=== PATIENT | male | born 1940 | race Caucasian/White ===

== ENCOUNTER 2019-03-19 21:29 | Emergency (ER) | payer MEDICARE ==
[2019-03-19 21:34] VITALS: TEMP 97.6
--- NOTE | 2019-03-19 21:48 | ED ---
General Adult HPI - General Chief complaint: Fall Stated complaint: fall Time Seen by Provider: 03/19/19 21:37 Source: patient, RN notes reviewed, old records reviewed Mode of arrival: ambulatory Limitations: no limitations - History of Present Illness Initial comments: 78-year-old male presents status post fall with facial injury. Approximately one half hours prior to arrival patient had fallen from a step ladder. He believes he was on the second step and fell striking his face. There is no loss consciousness. Patient developed some headache and tremor symptoms since the fall and has sought medical attention. Denies focal weakness or numbness. He denies any other extremity injury, no chest injury or abdominal injury, no back injury. He does have some mild neck pain associated with the fall. Denies vision changes. He had a bloody nose which has resolved. No anticoagulation. - Related Data Home Medications Medication Instructions Recorded Confirmed Atorvastatin Calcium [Lipitor] 10 mg PO HS 05/26/14 03/19/19 Ascorbic Acid [Vitamin C] 500 mg PO DAILY 08/09/14 03/19/19 Calcium Carbonate/Vitamin D3 1 tab PO STANLEY 08/09/14 03/19/19 [Calcium 600-Vit D3 400 Tablet] L.acid/L.casei/B.bif/B.kellen/Fos 2 cap PO DAILY 08/09/14 03/19/19 [Probiotic Blend Capsule] Multivitamin [Men's Multi-Vitamin] 1 tab PO DAILY 08/09/14 03/19/19 Amitriptyline HCl [Elavil] 25 mg PO HS 03/19/19 03/19/19 Cabergoline 0.5mg 0.25 mg PO MOFR 03/19/19 03/19/19 DULoxetine HCL [Cymbalta] 60 mg PO DAILY 03/19/19 03/19/19 Gabapentin [Neurontin] 300 mg PO BID 03/19/19 03/19/19 Morphine Sulfate ER [Ms Contin] 15 mg PO HS 03/19/19 03/19/19 Morphine Sulfate ER [Ms Contin] 30 mg PO DAILY 03/19/19 03/19/19 carBAMazepine 50 mg PO DAILY 03/19/19 03/19/19 carBAMazepine 100 mg PO DAILY 03/19/19 03/19/19 Previous Rx's Medication Instructions Recorded Hydrocodone/Acetaminophen [[place] 1 each PO Q6HR PRN #20 tab 06/13/15 5-325] HYDROcodone/APAP 5-325MG [[place] 1 tab PO Q6HR PRN #12 tab 03/20/19 5-325] Sulfamethox-Tmp 800-160Mg [Bactrim 1 tab PO Q12HR #20 tab 03/20/19 DS 800-160 mg] Allergies Allergy/AdvReac Type Severity Reaction Status Date / Time amoxicillin AdvReac Nausea & Verified 03/19/19 23:21 Vomiting clindamycin AdvReac Nausea & Verified 03/19/19 23:21 Vomiting doxycycline AdvReac Nausea & Verified 03/19/19 23:21 Vomiting doxycycline calcium AdvReac Nausea & Verified 03/19/19 23:21 [From Vibramycin] Vomiting doxycycline hyclate AdvReac Nausea & Verified 03/19/19 23:21 [From Vibramycin] Vomiting doxycycline monohydrate AdvReac Nausea & Verified 03/19/19 23:21 [From Vibramycin] Vomiting Review of Systems ROS Statement: Those systems with pertinent positive or pertinent negative responses have been documented in the HPI. ROS Other: All systems not noted in ROS Statement are negative. Past Medical History Past Medical History: Hypertension, Prostate Disorder Additional Past Medical History / Comment(s): melanoma, UTI History of Any Multi-Drug Resistant Organisms: None Reported Past Surgical History: Bladder Surgery, Hernia Repair, Prostate Surgery Additional Past Surgical History / Comment(s): skin- melanoma, TURP, PAIN PUMP Past Anesthesia/Blood Transfusion Reactions: No Reported Reaction Past Psychological History: No Psychological Hx Reported Smoking Status: Former smoker Past Alcohol Use History: Rare Past Drug Use History: None Reported - Past Family History Father Family Medical History: CVA/TIA Mother Family Medical History: Cancer Additional Family Medical History / Comment(s): Breast General Exam Limitations: no limitations General appearance: alert, in no apparent distress Head exam: Present: atraumatic, normocephalic Eye exam: Present: PERRL, EOMI, periorbital swelling, periorbital tenderness, other (Patient has bilateral periorbital ecchymosis, worse on the right. He has some dried blood at the external nares, no septal hematoma, he has a superficial laceration at the between the eyebrows approximately 1 cm in length no active hemorrhage. His extraocular motions are intact.) ENT exam: Present: TM's normal bilaterally, other (No septal hematoma, dried blood at bilateral nares) Neck exam: Present: normal inspection, tenderness (Minimal lower cervical tenderness) Respiratory exam: Present: normal lung sounds bilaterally. Absent: respiratory distress, wheezes Cardiovascular Exam: Present: regular rate, normal rhythm GI/Abdominal exam: Present: soft. Absent: distended, tenderness, guarding Extremities exam: Present: normal inspection, full ROM, normal capillary refill. Absent: tenderness, pedal edema, calf tenderness Neurological exam: Present: alert, oriented X3, CN II-XII intact. Absent: motor sensory deficit Psychiatric exam: Present: normal affect, normal mood Skin exam: Present: warm, dry. Absent: cyanosis, diaphoretic Course Vital Signs 03/19/19 21:29 Temperature 97.6 F Pulse Rate 98 Respiratory 20 Rate Blood Pressure 162/104 O2 Sat by Pulse 98 Oximetry Medical Decision Making - Medical Decision Making 78-year-old male presenting with fall from approximately [address] is performed of the brain and cervical spine, no cervical fracture subluxation, no itch cream hemorrhage or mass effect. CT is performed of the facial bones which shows a his bone fracture and a minimally displaced frontal sinus fracture with debris within the sinus likely blood. Patient has normal tympanic membranes no sign of hemotympanum is otherwise well-appearing with stable vitals. He is given sinus precautions and prescribed antibiotics. He will follow-up with ENT. Disposition Clinical Impression: Concussion, Nasal bone fracture, Frontal sinus fracture Disposition: HOME SELF-CARE Condition: Fair Instructions (If sedation given, give patient instructions): Fall Prevention for Older Adults (ED), Nasal Fracture (ED), Concussion (ED) Prescriptions: Sulfamethox-Tmp 800-160Mg [Bactrim DS 800-160 mg] 1 tab PO Q12HR #20 tab HYDROcodone/APAP 5-325MG [[place] 5-325] 1 tab PO Q6HR PRN #12 tab PRN Reason: Pain Is patient prescribed a controlled substance at d/c from ED?: No Referrals: Vinny Olea MD [Primary Care Provider] - 1-2 days Andres Marte MD [STAFF PHYSICIAN] - 1-2 days Time of Disposition: 00:32
--- NOTE | 2019-03-19 22:11 | CT ---
EXAMINATION TYPE: CT brain krishan mancini DATE OF EXAM: 03/19/2019 COMPARISON: None HISTORY: Fall. CT DLP: 1128.4 mGycm Automated exposure control for dose reduction was used. TECHNIQUE: CT scan of the head and cervical spine are performed without contrast. FINDINGS: There is cerebral cortical atrophy. There is no mass effect nor midline shift. There is n o sign of intracranial hemorrhage. The calvarium is intact. There is mucosal thickening in the anteri or ethmoid air cells and in the nasopharynx. There is soft tissue swelling anterior to the frontal aliza ne. There is soft tissue swelling at the bridge of the nose. Cervical vertebra have fairly normal alignment. There is mild narrowing of the disc spaces from C4 to C7 with mild spurring. Posterior elements are intact. Facet joints are intact. There is no evidence for fracture. Skull base is intact. IMPRESSION: Mild cerebral atrophy. No acute intracranial abnormality. Soft tissue swelling. Mild spondylotic changes in the cervical spine. No fracture seen.
--- NOTE | 2019-03-19 22:16 | CT ---
EXAMINATION TYPE: CT facial bones wo con DATE OF EXAM: 03/19/2019 COMPARISON: None HISTORY: Fall. CT DLP: 1128.4 mGycm Automated exposure control for dose reduction was used. TECHNIQUE: CT scan of the sinuses is performed without contrast, axial images are obtained, coronal r eformatted images are also reviewed. FINDINGS: There is soft tissue swelling anterior to the frontal bone and to the bridge of the nose. T here is soft tissue air consistent with laceration deformity. There is mucosal thickening in fluid an d debris in the frontal and anterior ethmoid sinuses. There is a 3 mm depressed fracture of the right side of the frontal bone adjacent to the frontal sinuses. There is no evidence of a blowout fracture. The orbital margins are intact. There is deformity of the right lateral aspect of the nasal bone consistent with nondisplaced fracture. The zygomatic arches a re intact. The mandibular ring is intact. I see no bony destructive process. Temporal bones show norm al aeration. The maxilla is intact. IMPRESSION: Nondisplaced nasal bone fracture. Minimally depressed fracture of the anterior wall of the frontal sinus between the orbits with soft t issue air and debris in the frontal and ethmoid sinuses. No evidence of orbital mass. No blowout frac ture. Preseptal soft tissue swelling around the right orbit. Frontal soft tissue swelling and soft tissue a ir consistent with laceration.
[2019-03-19] MEDS ORDERED: TOPICAL SKIN ADHESIVE 1 EACH AMP TOPICAL ONE (23:14)
[2019-03-20] MEDS ORDERED: HYDROcodone/APAP 5-325MG 1 EACH TAB PO STA (00:28)
[2019-03-20] MEDS ORDERED: HYDROmorphone 1 MG/ML 1 ML SYRINGE IVP STA (00:53)
[2019-03-20] MEDS ORDERED: ONDANSETRON 4 MG/2 ML VIAL IVP STA (00:53)
[2019-03-20 01:06] LABS: Basophils # (A) 0.1 k/uL (0-0.2); Basophils % (A) 1 %; Eosinophils # (A) 0.1 k/uL (0-0.7); Eosinophils % (A) 1 %; HCT 48.8 % (39.0-53.0); HGB 16.5 gm/dL (13.0-17.5); Lymphocytes % (A) 9 %; MCHC 33.9 g/dL (31.0-37.0); MCV 88.5 fL (80.0-100.0); Mean Platelet Volume 6.3; Monocytes # (A) 0.5 k/uL (0-1.0); Monocytes % (A) 4 %; Neutrophils # (A) 10.1 k/uL (1.3-7.7); Neutrophils % (A) 85 %; Platelet Count 342 k/uL (150-450); RBC 5.52 m/uL (4.30-5.90); RDW 11.6 % (11.5-15.5)
[2019-03-20 01:14] LABS: INR 0.9 (<1.2); Partial Thromboplastin Time 25.6 sec (22.0-30.0); Prothrombin Time 10.2 sec (9.0-12.0)
[2019-03-20 01:17] LABS: ALT 34 U/L (21-72); AST 39 U/L (17-59); African American GFR (CKD) >90 (>60 ml/min/1.73 sqM); Albumin 4.9 g/dL (3.5-5.0); Alkaline Phosphatase 115 U/L (38-126); Anion Gap 10 mmol/L; Blood Urea Nitrogen 17 mg/dL (9-20); Calcium 10.4 mg/dL (8.4-10.2); Carbon Dioxide 27 mmol/L (22-30); Chloride 98 mmol/L (98-107); Glucose 129 mg/dL (74-99); Non-African American GFR(CKD) >90 (>60 ml/min/1.73 sqM); Potassium 4.6 mmol/L (3.5-5.1); Sodium 135 mmol/L (137-145); Total Bilirubin 0.8 mg/dL (0.2-1.3); Total Protein 8.2 g/dL (6.3-8.2)
[2019-03-20] MEDS ORDERED: LABETALOL 5 MG/ML VIAL MDV IVP STA (01:24)
--- NOTE | 2019-03-20 01:29 | ED ---
Medical Decision Making - Lab Data Result diagrams: 03/20/19 00:51 03/20/19 00:51 Lab Results 03/20/19 03/20/19 03/20/19 Range/Units 00:51 00:51 00:51 WBC 12.0 H (3.8-10.6) k/uL RBC 5.52 (4.30-5.90) m/uL Hgb 16.5 (13.0-17.5) gm/dL Hct 48.8 (39.0-53.0) % MCV 88.5 (80.0-100.0) fL MCH 30.0 (25.0-35.0) pg MCHC 33.9 (31.0-37.0) g/dL RDW 11.6 (11.5-15.5) % Plt Count 342 (150-450) k/uL Neutrophils % 85 % Lymphocytes % 9 % Monocytes % 4 % Eosinophils % 1 % Basophils % 1 % Neutrophils # 10.1 H (1.3-7.7) k/uL Lymphocytes # 1.0 (1.0-4.8) k/uL Monocytes # 0.5 (0-1.0) k/uL Eosinophils # 0.1 (0-0.7) k/uL Basophils # 0.1 (0-0.2) k/uL PT 10.2 (9.0-12.0) sec INR 0.9 (<1.2) APTT 25.6 (22.0-30.0) sec Sodium 135 L (137-145) mmol/L Potassium 4.6 (3.5-5.1) mmol/L Chloride 98 (98-107) mmol/L Carbon Dioxide 27 (22-30) mmol/L Anion Gap 10 mmol/L BUN 17 (9-20) mg/dL Creatinine 0.63 L (0.66-1.25) mg/dL Est GFR (CKD-EPI)AfAm >90 (>60 ml/min/1.73 sqM) Est GFR (CKD-EPI)NonAf >90 (>60 ml/min/1.73 sqM) Glucose 129 H (74-99) mg/dL Calcium 10.4 H (8.4-10.2) mg/dL Total Bilirubin 0.8 (0.2-1.3) mg/dL AST 39 (17-59) U/L ALT 34 (21-72) U/L Alkaline Phosphatase 115 (38-126) U/L Total Protein 8.2 (6.3-8.2) g/dL Albumin 4.9 (3.5-5.0) g/dL Disposition Clinical Impression: Concussion, Nasal bone fracture, Frontal sinus fracture Disposition: OTHER INSTITUTION NOT DEFINED Condition: Fair Instructions (If sedation given, give patient instructions): Nasal Fracture (ED), Concussion (ED), Fall Prevention for Older Adults (ED) Prescriptions: Sulfamethox-Tmp 800-160Mg [Bactrim DS 800-160 mg] 1 tab PO Q12HR #20 tab HYDROcodone/APAP 5-325MG [[place] 5-325] 1 tab PO Q6HR PRN #12 tab PRN Reason: Pain Referrals: Vinny Olea MD [Primary Care Provider] - 1-2 days Andres Marte MD [STAFF PHYSICIAN] - 1-2 days Time of Disposition: 01:29 - Out of Hospital Transfer - Req. Specs Out of Hospital Transfer - Requested Specifics: Other Emergency Center (Transferred to [facility])
[2019-03-20 02:37] VITALS: BP 155/92; PULSE 80; RESP 17
== END 2019-03-20 02:00 | disposition other institution (70) ==
LOC: EC 21:29
DX: S02.2XXA Fracture of nasal bones, initial encounter for closed fracture (principal); S02.19XA Other fracture of base of skull, initial encounter for closed fracture; S06.0X0A Concussion without loss of consciousness, initial encounter; S01.81XA Laceration without foreign body of other part of head, initial encounter; I10 Essential (primary) hypertension; N42.9 Disorder of prostate, unspecified; Z79.899 Other long term (current) drug therapy; Z79.82 Long term (current) use of aspirin; Z79.891 Long term (current) use of opiate analgesic; Z88.1 Allergy status to other antibiotic agents; Z88.0 Allergy status to penicillin; Z88.8 Allergy status to other drugs, medicaments and biological substances; Z85.820 Personal history of malignant melanoma of skin; Z87.891 Personal history of nicotine dependence; Z90.79 Acquired absence of other genital organ(s); W11.XXXA Fall on and from ladder, initial encounter
CPT/HCPCS: 36415; 93005; 80053; 85025; 85610; 85730; 72125; 70486; 70450; 96374; 96375 ×2; 99285; J2405; J1170

== ENCOUNTER 2020-07-17 21:00 | Observation (INO) | payer MEDICARE ==
[2020-07-17 22:34] LABS: Basophils % (A) 0 %; Eosinophils # (A) 0.1 k/uL (0-0.7); Eosinophils % (A) 2 %; HCT 40.5 % (39.0-53.0); HGB 14.1 gm/dL (13.0-17.5); Lymphocytes # (A) 1.4 k/uL (1.0-4.8); Lymphocytes % (A) 19 %; MCH 30.9 pg (25.0-35.0); MCHC 34.8 g/dL (31.0-37.0); MCV 88.9 fL (80.0-100.0); Mean Platelet Volume 6.8; Monocytes # (A) 0.5 k/uL (0-1.0); Monocytes % (A) 7 %; Neutrophils # (A) 5.1 k/uL (1.3-7.7); Neutrophils % (A) 70 %; Platelet Count 300 k/uL (150-450); RBC 4.55 m/uL (4.30-5.90); RDW 11.7 % (11.5-15.5); WBC 7.3 k/uL (3.8-10.6)
--- NOTE | 2020-07-17 22:34 | XR ---
EXAMINATION TYPE: XR chest 2V DATE OF EXAM: 07/17/2020 COMPARISON: NONE HISTORY: Chest pain TECHNIQUE: 3 views FINDINGS: There is no heart failure nor confluent pneumonic infiltrate. Costophrenic angles are clear . Heart size is normal. Bony thorax is intact. IMPRESSION: No active cardiopulmonary disease. Normal heart.
[2020-07-17 22:43] LABS: ALT 23 U/L (4-49); AST 35 U/L (17-59); African American GFR (CKD) >90 (>60 ml/min/1.73 sqM); Albumin 4.1 g/dL (3.5-5.0); Alkaline Phosphatase 78 U/L (38-126); Anion Gap 9 mmol/L; Blood Urea Nitrogen 19 mg/dL (9-20); Calcium 9.5 mg/dL (8.4-10.2); Carbon Dioxide 30 mmol/L (22-30); Chloride 98 mmol/L (98-107); Glucose 119 mg/dL (74-99); Non-African American GFR(CKD) 89 (>60 ml/min/1.73 sqM); Potassium 3.8 mmol/L (3.5-5.1); Sodium 137 mmol/L (137-145); Total Bilirubin 0.5 mg/dL (0.2-1.3); Total Protein 6.7 g/dL (6.3-8.2)
[2020-07-17 22:49] LABS: Partial Thromboplastin Time 24.2 sec (22.0-30.0); Prothrombin Time 10.8 sec (9.0-12.0)
--- NOTE | 2020-07-17 23:10 | ED ---
SOB HPI - General Chief Complaint: Shortness of Breath Stated Complaint: Abnormal labs Time Seen by Provider: 07/17/20 21:51 Source: patient Mode of arrival: wheelchair Limitations: no limitations - History of Present Illness Initial Comments: 79-year-old male with history of hypertension presents to the emergency department with a chief complaint of shortness of breath. Patient reports increased shortness of breath over the last month. Patient reports if he begins to exercise one day, the following day he will feel completely rundown. Patient reports she continues to feel short of breath which seems to be worse on exertion. Patient also reports having "lung pain" diffusely throughout the whole chest. Denies any alleviating or exacerbating factors for that. Denies any lightheadedness or dizziness. States he had a CT of the chest performed today another hospital which revealed some "blocked blood vessels". He spoke with his primary care physician who advised him to come to the emergency department for cardiac evaluation. Patient has never received a cardiac echo and his last stress test test was quite long time ago. - Related Data Home Medications Medication Instructions Recorded Confirmed Atorvastatin Calcium [Lipitor] 10 mg PO HS 05/26/14 07/18/20 Ascorbic Acid [Vitamin C] 500 mg PO DAILY 08/09/14 07/18/20 L.acid/L.casei/B.bif/B.kellen/Fos 2 cap PO DAILY 08/09/14 07/18/20 [Probiotic Blend Capsule] DULoxetine HCL [Cymbalta] 60 mg PO DAILY 03/19/19 07/18/20 Morphine Sulfate ER [Ms Contin] 15 mg PO HS 03/19/19 07/18/20 Morphine Sulfate ER [Ms Contin] 30 mg PO DAILY 03/19/19 07/18/20 Amitriptyline HCl [Elavil] 10 mg PO HS 07/17/20 07/18/20 Cabergoline 0.25 mg PO MOFR 07/17/20 07/18/20 Calcium Carbonate [Calcium] 600 mg PO STANLEY 07/17/20 07/18/20 Cranberry 4200mg 4,200 mg PO DAILY 07/17/20 07/18/20 HYDROcodone/APAP 5-325MG [[place] 1 tab PO BID PRN 07/17/20 07/18/20 5-325] Multivit-Min/FA/Lycopen/Lutein 1 tab PO DAILY 07/17/20 07/18/20 [Centrum Silver Tablet] carBAMazepine CHEW [TEGretol CHEW] 25 mg PO DAILY 07/18/20 07/18/20 carBAMazepine CHEW [TEGretol CHEW] 50 mg PO HS 07/18/20 07/18/20 Allergies Allergy/AdvReac Type Severity Reaction Status Date / Time amoxicillin AdvReac Nausea & Verified 07/17/20 23:46 Vomiting clindamycin AdvReac Nausea & Verified 07/17/20 23:46 Vomiting doxycycline AdvReac Nausea & Verified 07/17/20 23:46 Vomiting doxycycline calcium AdvReac Nausea & Verified 07/17/20 23:46 [From Vibramycin] Vomiting doxycycline hyclate AdvReac Nausea & Verified 07/17/20 23:46 [From Vibramycin] Vomiting doxycycline monohydrate AdvReac Nausea & Verified 07/17/20 23:46 [From Vibramycin] Vomiting Review of Systems ROS Statement: Those systems with pertinent positive or pertinent negative responses have been documented in the HPI. ROS Other: All systems not noted in ROS Statement are negative. Past Medical History Past Medical History: Hypertension, Prostate Disorder Additional Past Medical History / Comment(s): melanoma, UTI History of Any Multi-Drug Resistant Organisms: None Reported Past Surgical History: Bladder Surgery, Hernia Repair, Prostate Surgery Additional Past Surgical History / Comment(s): skin- melanoma, TURP, PAIN PUMP Past Anesthesia/Blood Transfusion Reactions: No Reported Reaction Past Psychological History: No Psychological Hx Reported Smoking Status: Never smoker Past Alcohol Use History: Rare Past Drug Use History: None Reported - Past Family History Father Family Medical History: CVA/TIA Mother Family Medical History: Cancer Additional Family Medical History / Comment(s): Breast General Exam Limitations: no limitations General appearance: alert, in no apparent distress Head exam: Present: atraumatic, normocephalic, normal inspection Eye exam: Present: normal appearance, PERRL, EOMI Pupils: Present: normal accommodation ENT exam: Present: normal exam, normal oropharynx, mucous membranes moist, TM's normal bilaterally, normal external ear exam Neck exam: Present: normal inspection, full ROM. Absent: tenderness Respiratory exam: Present: normal lung sounds bilaterally. Absent: respiratory distress Cardiovascular Exam: Present: regular rate, normal rhythm, normal heart sounds GI/Abdominal exam: Present: soft. Absent: distended, tenderness, guarding, rebound Extremities exam: Present: normal inspection, full ROM, normal capillary refill. Absent: tenderness, pedal edema, joint swelling Back exam: Present: normal inspection, full ROM. Absent: tenderness Neurological exam: Present: alert, oriented X3, normal gait Psychiatric exam: Present: normal affect, normal mood Skin exam: Present: warm, dry, intact, normal color Course Vital Signs 07/17/20 07/18/20 21:02 00:33 Temperature 98.1 F Pulse Rate 103 H 78 Respiratory 19 16 Rate Blood Pressure 165/88 135/77 O2 Sat by Pulse 98 97 Oximetry Medical Decision Making - Medical Decision Making 79-year-old male with history of hypertension, dyslipidemia presents to the emergency department the chief complaint of shortness of breath. On physical examination, patient is not in any respiratory distress. He was initially tachycardic, this improved. CBC CMP unremarkable. Coags within normal limits. Initial troponin is negative. Slight elevation in d-dimer is 0.63. He c ontinues to complain of "lung pain" throughout the whole chest. This appears to be atypical chest pain. His primary care physician sent him for a cardiac evaluation. Patient will be admitted for further medical management. Cardiac observation. Coronavirus negative. Admitting physician is Consult cardiology - Lab Data Result diagrams: 07/17/20 22:25 07/17/20 22:25 Lab Results 07/17/20 07/17/20 07/17/20 Range/Units 22:25 22:25 22:25 WBC 7.3 (3.8-10.6) k/uL RBC 4.55 (4.30-5.90) m/uL Hgb 14.1 (13.0-17.5) gm/dL Hct 40.5 (39.0-53.0) % MCV 88.9 (80.0-100.0) fL MCH 30.9 (25.0-35.0) pg MCHC 34.8 (31.0-37.0) g/dL RDW 11.7 (11.5-15.5) % Plt Count 300 (150-450) k/uL MPV 6.8 Neutrophils % 70 % Lymphocytes % 19 % Monocytes % 7 % Eosinophils % 2 % Basophils % 0 % Neutrophils # 5.1 (1.3-7.7) k/uL Lymphocytes # 1.4 (1.0-4.8) k/uL Monocytes # 0.5 (0-1.0) k/uL Eosinophils # 0.1 (0-0.7) k/uL Basophils # 0.0 (0-0.2) k/uL PT 10.8 (9.0-12.0) sec INR 1.0 (<1.2) APTT 24.2 (22.0-30.0) sec D-Dimer 0.63 H (<0.60) mg/L FEU Sodium 137 (137-145) mmol/L Potassium 3.8 (3.5-5.1) mmol/L Chloride 98 (98-107) mmol/L Carbon Dioxide 30 (22-30) mmol/L Anion Gap 9 mmol/L BUN 19 (9-20) mg/dL Creatinine 0.73 (0.66-1.25) mg/dL Est GFR (CKD-EPI)AfAm >90 (>60 ml/min/1.73 sqM) Est GFR (CKD-EPI)NonAf 89 (>60 ml/min/1.73 sqM) Glucose 119 H (74-99) mg/dL Calcium 9.5 (8.4-10.2) mg/dL Magnesium 2.0 (1.6-2.3) mg/dL Total Bilirubin 0.5 (0.2-1.3) mg/dL AST 35 (17-59) U/L ALT 23 (4-49) U/L Alkaline Phosphatase 78 (38-126) U/L Troponin I (0.000-0.034) ng/mL NT-Pro-B Natriuret Pep pg/mL Total Protein 6.7 (6.3-8.2) g/dL Albumin 4.1 (3.5-5.0) g/dL 07/17/20 07/17/20 Range/Units 22:25 22:25 WBC (3.8-10.6) k/uL RBC (4.30-5.90) m/uL Hgb (13.0-17.5) gm/dL Hct (39.0-53.0) % MCV (80.0-100.0) fL MCH (25.0-35.0) pg MCHC (31.0-37.0) g/dL RDW (11.5-15.5) % Plt Count (150-450) k/uL MPV Neutrophils % % Lymphocytes % % Monocytes % % Eosinophils % % Basophils % % Neutrophils # (1.3-7.7) k/uL Lymphocytes # (1.0-4.8) k/uL Monocytes # (0-1.0) k/uL Eosinophils # (0-0.7) k/uL Basophils # (0-0.2) k/uL PT (9.0-12.0) sec INR (<1.2) APTT (22.0-30.0) sec D-Dimer (<0.60) mg/L FEU Sodium (137-145) mmol/L Potassium (3.5-5.1) mmol/L Chloride (98-107) mmol/L Carbon Dioxide (22-30) mmol/L Anion Gap mmol/L BUN (9-20) mg/dL Creatinine (0.66-1.25) mg/dL Est GFR (CKD-EPI)AfAm (>60 ml/min/1.73 sqM) Est GFR (CKD-EPI)NonAf (>60 ml/min/1.73 sqM) Glucose (74-99) mg/dL Calcium (8.4-10.2) mg/dL Magnesium (1.6-2.3) mg/dL Total Bilirubin (0.2-1.3) mg/dL AST (17-59) U/L ALT (4-49) U/L Alkaline Phosphatase (38-126) U/L Troponin I <0.012 (0.000-0.034) ng/mL NT-Pro-B Natriuret Pep 173 pg/mL Total Protein (6.3-8.2) g/dL Albumin (3.5-5.0) g/dL Disposition Clinical Impression: Chest pain, Shortness of breath Disposition: ADMITTED IP TO THIS HOSP Condition: Stable Is patient prescribed a controlled substance at d/c from ED?: No Time of Disposition: 12:22
[2020-07-17 23:35] LABS: D-Dimer 0.63 mg/L FEU (<0.60)
[2020-07-18] MEDS ORDERED: SODIUM CHLORIDE 0.9% 1,000 ML IV STA (00:16)
[2020-07-18] MEDS ORDERED: NITROGLYCERIN SL TABS 0.4 MG TAB SUBLINGUAL PRN (01:49)
[2020-07-18 06:40] VITALS: PULSE 74
[2020-07-18] MEDS ORDERED: ENOXAPARIN 60 MG/0.6 ML SYRINGE SQ SCH (09:00)
[2020-07-18] MEDS ORDERED: HYDROcodone/APAP 5-325MG 1 EACH TAB PO PRN (09:43)
[2020-07-18] MEDS ORDERED: NON FORMULARY DRUG (Cabergoline [Cabergoline] 0.5 MG Tablet) PO SCH (09:45)
[2020-07-18] MEDS ORDERED: LACTOBACILLUS ACIDOPH & BULGAR 1 EACH PACKET PO SCH (10:00)
[2020-07-18] MEDS ORDERED: ASCORBIC ACID 500 MG TAB PO SCH (10:00)
[2020-07-18] MEDS ORDERED: MORPHINE SULFATE ER 30 MG TABLET PO SCH (10:00)
[2020-07-18] MEDS ORDERED: DULoxetine HCL 60 MG CAPSULE.DR PO SCH (10:00)
[2020-07-18] MEDS ORDERED: MULTIVITAMINS, THERA 1 EACH TAB PO SCH (10:00)
--- NOTE | 2020-07-18 11:00 | P.CRDCN ---
History of Present Illness History of present illness: HISTORY OF PRESENTING ILLNESS This is a pleasant 79-year-old male with significant past medical history hyperlipidemia. 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 His primary care doctor is Dr. Olea. We have been asked to see in consultation for chest pain. Patient states that over the past 12 months he has been feeling short of breath when he's doing outside activities. 2 days ago he was outside change in his birdfeeder and working in the backyard. He had worsening short of breath. When he went inside and rested shortness of breath resolved. The next day when he woke up she started to have a slight chest pressure. Chest pain is located in the center of his chest. He cannot exactly describe the pain it just felt like a pressure. This chest pain is nonradiating, nonexertional. Nothing made the chest pain worse or better. The chest pain resolved on its own. He states s he only has exertional shortness of breath when he is outside, never inside his home. He denies any season allergies. He denies any lightheadedness, palpitations, dizziness, , syncope. He also endorses lately being very tired over the past one to 2 months. Denies any weakness. He endorses having i ntermittent chills at home, no fever. Patient denies any history of hypertension, NM, stroke, or diabetes. He denies any symptoms of orthopnea. He denies any tobacco use, alcohol use, illicit drug use. Patient is seen and examined at bedside, lying flat in bed in no apparent distress. He states he feels much better he denies any shortness of breath, palpitations, lightheadedness, dizziness. Laboratory data reviewed, troponins negative 3 WBC 7.3, hemoglobin 14.1, platelets 300, d-dimer slightly elevated 0.63, sodium 137, potassium 3.8, BUN 19, creatinine 0.73, BNP 170. Coronavirus PCR negative. Vital signs blood pressure 125/82, heart rate 74, maintaining oxygen saturations on room air, afebrile Current home cardiac medications include atorvastatin 10mg daily. DIAGNOSTICS EKG reveals normal sinus rhythm, right axis deviation heart rate 93. Prior EKG sinus tachycardia, right axis deviation, HR 102. Telemetry tracings indicate sinus mechanism. Chest xray no acute cardiopulmonary process. REVIEW OF SYSTEMS At the time of my exam: CONSTITUTIONAL: +chills Denies fever CARDIOVASCULAR: +chest pressure +shortness of breath Denies shortness of breath, orthopnea, PND or palpitations. RESPIRATORY: Denies cough. GASTROINTESTINAL: Denies abdominal pain, diarrhea, constipation, nausea or vomiting. MUSCULOSKELETAL: Denies myalgias. NEUROLOGIC: Denies numbness, tingling, headacbe or weakness. ENDOCRINE: Denies fatigue, weight change, polydipsia or polyurina. GENITOURINARY: Denies burning, hematuria or urgency with micturation. HEMATOLOGIC: Denies history of anemia or bleeding. PHYSICAL EXAMINATION CONSTITUTIONAL: No apparent distress. HEENT: Head is normocephalic. Pupils are equal, round. Sclerae anicteric. Mucous membranes of the mouth are moist. No JVD. No carotid bruit. CHEST EXAMINATION: Lungs are clear to auscultation. No chest wall tenderness is noted on palpation or with deep breathing. HEART EXAMINATION: Regular rate and rhythm. S1, S2 heard. No murmurs, gallops or rub. ABDOMEN: Soft, nontender. Positive bowel sounds. EXTREMITIES: 2+ peripheral pulses, no lower extremity edema and no calf tenderness. SKIN: intact NEUROLOGIC EXAMINATION: Patient is awake, alert and oriented x3. ASSESSMENT -Dyslipidemia -Chest pain, atypical PLAN -Will obtain 2D echo, and exercise stress echo. If both with no acute findings, patient can be discharged from a cardiology standpoint -Continue atorvastatin 10mg nightly Nurse Practitioner note has been reviewed, I agree with a documented findings and plan of care. Patient was seen and examined. Past Medical History Past Medical History: Hypertension, Prostate Disorder Additional Past Medical History / Comment(s): melanoma, UTI History of Any Multi-Drug Resistant Organisms: None Reported Past Surgical History: Bladder Surgery, Hernia Repair, Prostate Surgery Additional Past Surgical History / Comment(s): skin- melanoma, TURP, PAIN PUMP Past Anesthesia/Blood Transfusion Reactions: No Reported Reaction Past Psychological History: No Psychological Hx Reported Smoking Status: Never smoker Past Alcohol Use History: Rare Past Drug Use History: None Reported - Past Family History Father Family Medical History: CVA/TIA Mother Family Medical History: Cancer Additional Family Medical History / Comment(s): Breast Medications and Allergies Home Medications Medication Instructions Recorded Confirmed Type Atorvastatin Calcium [Lipitor] 10 mg PO HS 05/26/14 07/18/20 History Ascorbic Acid [Vitamin C] 500 mg PO DAILY 08/09/14 07/18/20 History L.acid/L.casei/B.bif/B.kellen/Fos 2 cap PO DAILY 08/09/14 07/18/20 History [Probiotic Blend Capsule] DULoxetine HCL [Cymbalta] 60 mg PO DAILY 03/19/19 07/18/20 History Morphine Sulfate ER [Ms Contin] 15 mg PO HS 03/19/19 07/18/20 History Morphine Sulfate ER [Ms Contin] 30 mg PO DAILY 03/19/19 07/18/20 History Amitriptyline HCl [Elavil] 10 mg PO HS 07/17/20 07/18/20 History Cabergoline 0.25 mg PO MOFR 07/17/20 07/18/20 History Calcium Carbonate [Calcium] 600 mg PO STANLEY 07/17/20 07/18/20 History Cranberry 4200mg 4,200 mg PO DAILY 07/17/20 07/18/20 History HYDROcodone/APAP 5-325MG [[place] 1 tab PO BID PRN 07/17/20 07/18/20 History 5-325] Multivit-Min/FA/Lycopen/Lutein 1 tab PO DAILY 07/17/20 07/18/20 History [Centrum Silver Tablet] carBAMazepine CHEW [TEGretol CHEW] 25 mg PO DAILY 07/18/20 07/18/20 History carBAMazepine CHEW [TEGretol CHEW] 50 mg PO HS 07/18/20 07/18/20 History Allergies Allergy/AdvReac Type Severity Reaction Status Date / Time amoxicillin AdvReac Nausea & Verified 07/17/20 23:46 Vomiting clindamycin AdvReac Nausea & Verified 07/17/20 23:46 Vomiting doxycycline AdvReac Nausea & Verified 07/17/20 23:46 Vomiting doxycycline calcium AdvReac Nausea & Verified 07/17/20 23:46 [From Vibramycin] Vomiting doxycycline hyclate AdvReac Nausea & Verified 07/17/20 23:46 [From Vibramycin] Vomiting doxycycline monohydrate AdvReac Nausea & Verified 07/17/20 23:46 [From Vibramycin] Vomiting Physical Exam Vitals: Vital Signs Temp Pulse Resp BP Pulse Ox 07/18/20 06:38 74 16 125/82 97 07/18/20 02:00 98.1 F 75 18 118/69 96 07/18/20 00:33 78 16 135/77 97 07/17/20 21:02 98.1 F 103 H 19 165/88 98 Intake and Output 07/17/20 07/18/20 07/18/20 22:59 06:59 14:59 Other: Weight 64.864 kg Results 07/17/20 22:25 07/17/20 22:25 Cardiac Enzymes 07/17/20 07/17/20 07/18/20 Range/Units 22:25 22:25 02:32 AST 35 (17-59) U/L Troponin I <0.012 <0.012 (0.000-0.034) ng/mL 07/18/20 Range/Units 04:30 AST (17-59) U/L Troponin I <0.012 (0.000-0.034) ng/mL Coagulation 07/17/20 Range/Units 22:25 PT 10.8 (9.0-12.0) sec APTT 24.2 (22.0-30.0) sec CBC 07/17/20 Range/Units 22:25 WBC 7.3 (3.8-10.6) k/uL RBC 4.55 (4.30-5.90) m/uL Hgb 14.1 (13.0-17.5) gm/dL Hct 40.5 (39.0-53.0) % Plt Count 300 (150-450) k/uL Comprehensive Metabolic Panel 07/17/20 Range/Units 22:25 Sodium 137 (137-145) mmol/L Potassium 3.8 (3.5-5.1) mmol/L Chloride 98 (98-107) mmol/L Carbon Dioxide 30 (22-30) mmol/L BUN 19 (9-20) mg/dL Creatinine 0.73 (0.66-1.25) mg/dL Glucose 119 H (74-99) mg/dL Calcium 9.5 (8.4-10.2) mg/dL AST 35 (17-59) U/L ALT 23 (4-49) U/L Alkaline Phosphatase 78 (38-126) U/L Total Protein 6.7 (6.3-8.2) g/dL Albumin 4.1 (3.5-5.0) g/dL Current Medications Generic Name Dose Route Start Last Admin Trade Name Chanoq PRN Reason Stop Dose Admin Aspirin 325 mg 07/19/20 09:00 Aspirin 325 Mg Tab PO DAILY KARISSA Enoxaparin Sodium 60 mg 07/18/20 09:00 Enoxaparin 60 Mg/0.6 Ml Syringe SQ DAILY KARISSA Nitroglycerin 0.4 mg 07/18/20 01:49 Nitroglycerin Sl Tabs 0.4 Mg Tab SUBLINGUAL Q5M PRN Chest Pain Intake and Output 07/17/20 07/18/20 07/18/20 22:59 06:59 14:59 Other: Weight 64.864 kg 07/17/20 22:25 07/17/20 22:25
--- NOTE | 2020-07-18 13:02 | ECHOF ---
Referral Reason:dyspnea on exertion MEASUREMENTS -------- HEIGHT: 170.2 cm WEIGHT: 64.9 kg BP: 125/82 RVIDd: 4.3 cm (< 3.3) IVSd: 1.5 cm (0.6 - 1.1) LVIDd: 3.5 cm (3.9 - 5.3) LVPWd: 1.5 cm (0.6 - 1.1) IVSs: 1.7 cm LVIDs: 2.4 cm LVPWs: 1.8 cm LAESV Index (A-L): 17.52 ml/m Ao Diam: 3.4 cm (2.0 - 3.7) AV Cusp: 2.0 cm (1.5 - 2.6) MV EXCURSION: 11.532 mm (> 18.000) MV EF SLOPE: 103 mm/s (70 - 150) EPSS: 0.7 cm MV E Eliceo: 0.53 m/s MV DecT: 272 ms MV A Eliceo: 0.76 m/s MV E/A Ratio: 0.69 RAP: 5.00 mmHg RVSP: 23.47 mmHg FINDINGS -------- Sinus rhythm. This was a technically adequate study. The left ventricular size is normal. There is moderate concentric left ventricular hypertrophy. O verall left ventricular systolic function is normal with, an EF between 55 - 60 %. The right ventricle is moderate to severely enlarged. Normal LA size by volume 22+/-6 ml/m2. The right atrium is mildly enlarged. Interatrial and interventricular septum intact. The aortic valve is trileaflet and appears structurally normal. There is no evidence of aortic regu rgitation. There is no evidence of aortic stenosis. No mitral regurgitation. Mild tricuspid regurgitation present. There is no evidence of pulmonary hypertension. The right v entricular systolic pressure, as measured by Doppler, is 23.47mmHg. There is no pulmonic regurgitation present. The aortic root size is normal. IVC Not well visulized. There is no pericardial effusion. CONCLUSIONS -------- 1. The left ventricular size is normal. 2. There is moderate concentric left ventricular hypertrophy. 3. Overall left ventricular systolic function is normal with, an EF between 55 - 60 %. 4. The right ventricle is moderate to severely enlarged. 5. The right atrium is mildly enlarged. 6. Mild tricuspid regurgitation present. INSURANCE PROCESSOR: Azra Meraz RDCS
--- NOTE | 2020-07-18 13:41 | P.STRESS ---
- Stress Test Note Stress Test Results/Findings: Exam Performed: Exam Date: Reason for Exam: Height: 5 ft 7 in Weight: 64.864 kg Protocol: Stage: Duration of Exercise: Resting Heart Rate: Resting Blood Pressure: Maximum Achieved Heart Rate: Maximum Achieved Blood Pressure: 85% PMHR: 100% PMHR: METS: Technologist Comment: Stress Test Results/Findings: Patient underwent exercise stress echo with a Kaleb protocol treadmill stress test. Patient exercised into Stage 3 for a total of 9 minutes and 3 seconds reaching a total of 10.5 METS. Patient's maximum heart rate was 152 which represented 90 % age-predicted maximum heart rate. Stress EKG portion: At baseline patient's EKG showed normal sinus rhythm, normal axis, incomplete right bundle branch block, nonspecific minimal 0.[address] depressions in V4, V5, V6, 2 and aVF. At peak exercise, EKG showed no significant change from baseline. Stress echo portion: 2-D echocardiogram was performed in the parasternal long, personal short, apical 2 and apical four-chamber views at rest, peak exercise and in recovery. At baseline, echocardiogram showed left ventricular ejection fraction 60 % without wall motion abnormalities. With peak exercise, echocardiogram shows improvement in left ventricular ejection fraction, increase contractility, decrease in left ventricular dimension without wall motion abnormalities consistent with a normal response to exercise. Conclusions: 1. Normal EKG and echo response to exercise without evidence of inducible ischemia. 2. Fair exercise capacity.
--- NOTE | 2020-07-18 16:56 | P.CNPUL ---
History of Present Illness Consult date: 07/18/20 Requesting physician: Mark Mota Reason for consult: dyspnea, cough, asthma, hypoxemia, pneumonia Chief complaint: Shortness of breath, cough, wheezing. History of present illness: 79-year-old male that presented to the emergency department on July 17 with complaints of shortness of breath and chest pain. The patient states that for the last month or so, he develops shortness of breath, and chest congestion, as well as cough and wheezing. It seems to bother him when he goes outside to work around the bird feeders. The patient apparently was evaluated by cardiology for chest pain, and was thought not to have a cardiac issue. I was asked to see him because the primary care physician or hospitalist was concerned about hypersensitivity pneumonitis. Apparently of seeing this patient in the past, many years ago. I also saw him at that time for lung issues. He apparently used to mow his lawn and sweep of the sleeves, which were moldy, and he would have a reaction to them, and I would treat him with steroids, he would get better. This new pulmonary complaint, his been going on for maybe a month or 2. It only seems to bother him when he goes outside to tend to the bird feeders. He denies any fever or chills. He denies any nausea, vomiting, diarrhea or abdominal pain. I explained to him, this workup was an outpatient workup. We will see him in the office and he will need a complete pulmonary function test, a 6 minute walk distance, high resolution computed tomography scan, and we'll also need fungal serology and a hypersensitivity screening. In the end, he may require a lung biopsy. Review of Systems REVIEW OF SYSTEMS: CONSTITUTIONAL: [Negative.] NEUROLOGIC: [ Negative.] HEENT: [ Negative.] CARDIAC: Chest pain. PULMONARY: Shortness of breath, cough, chest tightness, wheezing. GI: [Negative.] : [Negative.] RHEUMATOLOGIC: [ Negative.] IMMUNOLOGIC: [ Negative.] ENDOCRINE: [Negative. 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 History of Any Multi-Drug Resistant Organisms: None Reported Past Surgical History: Bladder Surgery, Hernia Repair, Prostate Surgery Additional Past Surgical History / Comment(s): PAIN PUMP, TURP, bladder reduction, R inguinal hernia repair twice, L inguinal hernia, colonoscopy/benign polypectomy, melanoma removed L posterior upper back, cataract removals. Past Anesthesia/Blood Transfusion Reactions: No Reported Reaction Smoking Status: Former smoker - Past Family History Father Family Medical History: CVA/TIA Mother Family Medical History: Cancer Additional Family Medical History / Comment(s): Breast Medications and Allergies Home Medications Medication Instructions Recorded Confirmed Type Atorvastatin Calcium [Lipitor] 10 mg PO HS 05/26/14 07/18/20 History Ascorbic Acid [Vitamin C] 500 mg PO DAILY 08/09/14 07/18/20 History L.acid/L.casei/B.bif/B.kellen/Fos 2 cap PO DAILY 08/09/14 07/18/20 History [Probiotic Blend Capsule] DULoxetine HCL [Cymbalta] 60 mg PO DAILY 03/19/19 07/18/20 History Morphine Sulfate ER [Ms Contin] 15 mg PO HS 03/19/19 07/18/20 History Morphine Sulfate ER [Ms Contin] 30 mg PO DAILY 03/19/19 07/18/20 History Amitriptyline HCl [Elavil] 10 mg PO HS 07/17/20 07/18/20 History Cabergoline 0.25 mg PO MOFR 07/17/20 07/18/20 History Calcium Carbonate [Calcium] 600 mg PO STANLEY 07/17/20 07/18/20 History Cranberry 4200mg 4,200 mg PO DAILY 07/17/20 07/18/20 History HYDROcodone/APAP 5-325MG [[place] 1 tab PO BID PRN 07/17/20 07/18/20 History 5-325] Multivit-Min/FA/Lycopen/Lutein 1 tab PO DAILY 07/17/20 07/18/20 History [Centrum Silver Tablet] carBAMazepine CHEW [TEGretol CHEW] 25 mg PO DAILY 07/18/20 07/18/20 History carBAMazepine CHEW [TEGretol CHEW] 50 mg PO HS 07/18/20 07/18/20 History Allergies Allergy/AdvReac Type Severity Reaction Status Date / Time amoxicillin AdvReac Nausea & Verified 07/17/20 23:46 Vomiting clindamycin AdvReac Nausea & Verified 07/17/20 23:46 Vomiting doxycycline AdvReac Nausea & Verified 07/17/20 23:46 Vomiting doxycycline calcium AdvReac Nausea & Verified 07/17/20 23:46 [From Vibramycin] Vomiting doxycycline hyclate AdvReac Nausea & Verified 07/17/20 23:46 [From Vibramycin] Vomiting doxycycline monohydrate AdvReac Nausea & Verified 07/17/20 23:46 [From Vibramycin] Vomiting Physical Exam Osteopathic Statement: *. No significant issues noted on an osteopathic structural exam other than those noted in the History and Physical/Consult. Vitals: Vital Signs Temp Pulse Resp BP BP Pulse Ox 07/18/20 07:45 97.4 F L 18 157/88 99 07/18/20 06:38 74 16 125/82 97 07/18/20 02:00 98.1 F 75 18 118/69 96 07/18/20 00:33 78 16 135/77 97 07/17/20 21:02 98.1 F 103 H 19 165/88 98 Intake and Output 07/18/20 07/18/20 07/18/20 06:59 14:59 22:59 Other: Weight 64.864 kg No acute distress, oriented 3. Not on any supplemental oxygen. No evidence of conversational dyspnea, or audible wheezing. HEENT examination is grossly unremarkable. Mucous membranes are moist. No oral lesions. Neck supple. Full range of motion. No adenopathy thyromegaly or neck vein distention. Cardiovascular examination reveals regular rhythm rate. S1-S2 normal. No S3 or S4. No discernible murmur noted. Heart rate 74 bpm. Lungs reveal bilateral rhonchi, and expiratory wheezes. Breath sounds are equal bilaterally. Slight prolongation. No crackles.. Abdomen soft bowel sounds are heard. No masses or tenderness. Extremities are intact. No cyanosis clubbing or edema. Skin is without rash or lesion. Neurologic examination is brief but nonfocal. Results - Laboratory Findings CBC and BMP: 07/17/20 22:25 07/17/20 22:25 PT/INR, D-dimer PT 10.8 sec (9.0-12.0) 07/17/20 22:25 INR 1.0 (<1.2) 07/17/20 22:25 D-Dimer 0.63 mg/L FEU (<0.60) H 07/17/20 22:25 Abnormal lab findings: Abnormal Labs 07/17/20 07/17/20 22:25 22:25 D-Dimer 0.63 H Glucose 119 H - Diagnostic Findings Chest x-ray: image reviewed Assessment and Plan Assessment: Chest pain, with a negative cardiac evaluation, including a exercise stress test. Shortness of breath, chest tightness, wheezing, and cough, of unclear etiology. The patient will require an outpatient evaluation. History of hyperlipidemia. History of hypertension. History of UTI. History of melanoma. History of BPH. Plan: Plan dated 07/18/2020. The patient will require an extensive outpatient evaluation including a complete pulmonary function test, a high resolution computed tomography scan, a hypersensitivity screening, fungal serology, and a 6 minute walk distance. The patient also may benefit from ALLERGY testing. The patient will see me in the office post discharge. His cardiac evaluation was apparently negative including a cardiac stress test. Additional recommendations and suggestions are forthcoming. Time with Patient: Greater than 30
[2020-07-18 17:01] VITALS: BP 127/68; RESP 16; TEMP 97.8
[2020-07-18] MEDS ORDERED: AMITRIPTYLINE HCL 10 MG TAB PO SCH (21:00)
[2020-07-18] MEDS ORDERED: ATORVASTATIN 10 MG TAB PO SCH (21:00)
[2020-07-18] MEDS ORDERED: MORPHINE SULFATE ER 15 MG TABLET PO SCH (21:00)
--- NOTE | 2020-07-18 22:43 | P.HPIM ---
History of Present Illness H&P Date: 07/18/20 Chief Complaint: Chest tightness History of presenting complaint: This is a pleasant 79-year-old patient of Dr. Olea. Chronic stable medical conditions include hyperlipidemia, on strength redness, pelvic floor dysfunction, has a pain pump, arthritis, chronic prostatitis and BPH. In the past patient has followed up with Dr. Hayes from pulmonary what he describes as more infections from raking leaves. And her yardwork. Patient now presents that many goes out and does things and when he comes back the next morning he developed chest tightness. Tired rundown slightly feverish. He has multiple birdfeeder is outside. That he feeds every day. It seems he seems to get it when he does bird feeding. He also has an electronic 1 that rotates and bird droppings may be ejecting from the same.. Review of systems: GEN.: Tired EYES: None HEENT: Decreased hearing NECK: None RESPIRATORY: As above CARDIOVASCULAR: As above GASTROINTESTINAL: None GENITOURINARY: None MUSCULOSKELETAL: Some joint pains LYMPHATICS: None HEMATOLOGICAL: None PSYCHIATRY: None NEUROLOGICAL: None Past medical history to include: Hyperlipidemia prostatitis, pelvic floor dysfunction, pain pump, melanoma, self catheterization in the past, lung infections with mold, arthritis, colitis, chr onic prostatitis, BPH Social history: Patient smoked as a teen and stopped in 1984. Alcohol rarely. . 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 Physical examination: VITAL SIGNS: 97.4, 18, 1 57 x 88, 99% room air GENERAL: BMI 22.4, laying in bed, comfortable. EYES: Pupils equal. Conjunctiva normal. HEENT: External appearance of nose and ears normal, oral cavity grossly normal decreased hearing. NECK: JVD not raised; masses not palpable. HEART: First and second heart sounds are normal; no edema. LUNGS: Respiratory rate normal; decreased breath sounds. ABDOMEN: Soft, nontender, liver spleen not palpable, no masses palpable. PSYCH: Alert and oriented x3; mood and affect normal. NEUROLOGICAL: Cranial nerves grossly intact; no facial asymmetry, power and sensation grossly intact. LYMPHATICS: No lymph nodes palpable in the axilla and neck MUSCULAR skeletal: Evidence of OA INVESTIGATIONS, reviewed in the clinical context: WBC 7.3 hemoglobin 14.1 platelets 300 d-dimer 0.63 potassium 3.8 creatinine 0.73 Troponin I less than 0.0123 Coronavirus [PCR]-not detected EKG tracing personally reviewed by me-normal sinus rhythm nonspecific findings Chest x-ray film personally reviewed by me-possible subtle infiltrate Assessment and plan: -This is a patient who presents with symptoms of chest tightness typically falling after his attended to birdfeeder's and that typically happens the next m orning. And he feels tired rundown. 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 This will need further workup as an outpatient. I'll have the patient follow up with Dr. Hayes from pulmonary. 2. He has seen before. -Rule out underlying cardiac ischemia -Primary osteoarthritis, use pain medicines when necessary -Hyperlipidemia -Chronic prostatitis and BPH -Chronic pain syndrome patient takes morphine and has a pain pump Cardiology and pulmonary consulted Past Medical History Past Medical History: Hypertension, Prostate Disorder Additional Past Medical History / Comment(s): melanoma, UTI History of Any Multi-Drug Resistant Organisms: None Reported Past Surgical History: Bladder Surgery, Hernia Repair, Prostate Surgery Additional Past Surgical History / Comment(s): skin- melanoma, TURP, PAIN PUMP Past Anesthesia/Blood Transfusion Reactions: No Reported Reaction Past Psychological History: No Psychological Hx Reported Smoking Status: Never smoker Past Alcohol Use History: Rare Past Drug Use History: None Reported - Past Family History Father Family Medical History: CVA/TIA Mother Family Medical History: Cancer Additional Family Medical History / Comment(s): Breast Medications and Allergies Home Medications Medication Instructions Recorded Confirmed Type Atorvastatin Calcium [Lipitor] 10 mg PO HS 05/26/14 07/18/20 History Ascorbic Acid [Vitamin C] 500 mg PO DAILY 08/09/14 07/18/20 History L.acid/L.casei/B.bif/B.kellen/Fos 2 cap PO DAILY 08/09/14 07/18/20 History [Probiotic Blend Capsule] DULoxetine HCL [Cymbalta] 60 mg PO DAILY 03/19/19 07/18/20 History Morphine Sulfate ER [Ms Contin] 15 mg PO HS 03/19/19 07/18/20 History Morphine Sulfate ER [Ms Contin] 30 mg PO DAILY 03/19/19 07/18/20 History Amitriptyline HCl [Elavil] 10 mg PO HS 07/17/20 07/18/20 History Cabergoline 0.25 mg PO MOFR 07/17/20 07/18/20 History Calcium Carbonate [Calcium] 600 mg PO STANLEY 07/17/20 07/18/20 History Cranberry 4200mg 4,200 mg PO DAILY 07/17/20 07/18/20 History HYDROcodone/APAP 5-325MG [[place] 1 tab PO BID PRN 07/17/20 07/18/20 History 5-325] Multivit-Min/FA/Lycopen/Lutein 1 tab PO DAILY 07/17/20 07/18/20 History [Centrum Silver Tablet] carBAMazepine CHEW [TEGretol Chew] 25 mg PO DAILY 07/18/20 07/18/20 History carBAMazepine CHEW [TEGretol Chew] 50 mg PO HS 07/18/20 07/18/20 History Allergies Allergy/AdvReac Type Severity Reaction Status Date / Time amoxicillin AdvReac Nausea & Verified 07/17/20 23:46 Vomiting clindamycin AdvReac Nausea & Verified 07/17/20 23:46 Vomiting doxycycline AdvReac Nausea & Verified 07/17/20 23:46 Vomiting doxycycline calcium AdvReac Nausea & Verified 07/17/20 23:46 [From Vibramycin] Vomiting doxycycline hyclate AdvReac Nausea & Verified 07/17/20 23:46 [From Vibramycin] Vomiting doxycycline monohydrate AdvReac Nausea & Verified 07/17/20 23:46 [From Vibramycin] Vomiting Physical Exam Vitals: Vital Signs Temp Pulse Resp BP Pulse Ox 07/18/20 06:38 74 16 125/82 97 07/18/20 02:00 98.1 F 75 18 118/69 96 07/18/20 00:33 78 16 135/77 97 07/17/20 21:02 98.1 F 103 H 19 165/88 98 Intake and Output 07/17/20 07/18/20 07/18/20 22:59 06:59 14:59 Other: Weight 64.864 kg Results CBC & Chem 7: 07/17/20 22:25 07/17/20 22:25 Labs: Abnormal Lab Results - Last 24 Hours (Table) 07/17/20 07/17/20 Range/Units 22:25 22:25 D-Dimer 0.63 H (<0.60) mg/L FEU Glucose 119 H (74-99) mg/dL
--- NOTE | 2020-07-18 22:46 | P.DS ---
Providers Date of admission: 07/18/20 00:10 Expected date of discharge: 07/18/20 Attending physician: Mark Mota Consults: 07/18/20 01:49 Consult Physician Urgent Consulting Provider: Salazar Leyva Consult Reason/Comments: Chest pain Do you want consulting provider notified?: Yes 07/18/20 10:44 Consult Physician Routine Consulting Provider: Wally Gu Consult Reason/Comments: poss hypersensitivity pneumonitis Do you want consulting provider notified?: Yes Primary care physician: Vinny Olea [facility] Hospital Course: Chief Complaint: Chest tightness History of presenting complaint: This is a pleasant 79-year-old patient of Dr. Olea. Chronic stable medical conditions include hyperlipidemia, on strength redness, pelvic floor dysfunction, has a pain pump, arthritis, chronic prostatitis and BPH. In the past patient has followed up with Dr. Hayes from pulmonary what he describes as more infections from raking leaves. And her yardwork. Patient now presents that many goes out and does things and when he comes back the next morning he developed chest tightness. Tired rundown slightly feverish. He has multiple birdfeeder is outside. That he feeds every day. It seems he seems to get it when he does bird feeding. He also has an electronic 1 that rotates and bird droppings may be ejecting from the same.. Patient exercise stress echocardiogram was negative. Patient is felt to have hypersensitivity-type pneumonitis/lung disorder. He'll follow up with pulmonary's an outpatient for further testing. This was discussed with the patient Consultation: Dr. Gu from pulmonary Dr. Mccarty from cardiology Past medical history to include: Hyperlipidemia prostatitis, pelvic floor dysfunction, pain pump, melanoma, self catheterization in the past, lung infections with mold, arthritis, colitis, chronic prostatitis, BPH Social history: Patient smoked as a teen and stopped in 1984. Alcohol rarely. . 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 Physical examination: VITAL SIGNS: 97.4, 18, 1 57 x 88, 99% room air GENERAL: BMI 22.4, laying in bed, comfortable. EYES: Pupils equal. Conjunctiva normal. HEENT: External appearance of nose and ears normal, oral cavity grossly normal decreased hearing. NECK: JVD not raised; masses not palpable. HEART: First and second heart sounds are normal; no edema. LUNGS: Respiratory rate normal; decreased breath sounds. ABDOMEN: Soft, nontender, liver spleen not palpable, no masses palpable. PSYCH: Alert and oriented x3; mood and affect normal. NEUROLOGICAL: Cranial nerves grossly intact; no facial asymmetry, power and sensation grossly intact. LYMPHATICS: No lymph nodes palpable in the axilla and neck MUSCULAR skeletal: Evidence of OA INVESTIGATIONS, reviewed in the clinical context: WBC 7.3 hemoglobin 14.1 platelets 300 d-dimer 0.63 potassium 3.8 creatinine 0.73 Troponin I less than 0.0123 Coronavirus [PCR]-not detected EKG tracing personally reviewed by me-normal sinus rhythm nonspecific findings Chest x-ray film personally reviewed by me-possible subtle infiltrate 2-D echocardiogram: Concentric LVH moderate. EF 55-60% Exercise stress echocardiogram negative Assessment and plan: -This is a patient who presents with symptoms of chest tightness typically falling after his attended to [employer] and that typically happens the next morning. And he feels tired rundown. 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 This will need further workup as an outpatient. I'll have the patient follow up with Dr. Hayes from pulmonary. 2. He has seen before. --6 exercise stress echocardiogram. -Primary osteoarthritis, use pain medicines when necessary -Hyperlipidemia -Chronic prostatitis and BPH -Chronic pain syndrome patient takes morphine and has a pain pump Disposition: Home Patient Condition at Discharge: Stable Plan - Discharge Summary Discharge Rx Participant: No New Discharge Prescriptions: Continue Atorvastatin Calcium [Lipitor] 10 mg PO HS L.acid/L.casei/B.bif/B.kellen/Fos [Probiotic Blend Capsule] 2 cap PO DAILY Ascorbic Acid [Vitamin C] 500 mg PO DAILY Morphine Sulfate ER [Ms Contin] 15 mg PO HS Morphine Sulfate ER [Ms Contin] 30 mg PO DAILY DULoxetine HCL [Cymbalta] 60 mg PO DAILY Multivit-Min/FA/Lycopen/Lutein [Centrum Silver Tablet] 1 tab PO DAILY Calcium Carbonate [Calcium] 600 mg PO STANLEY Cabergoline 0.25 mg PO MOFR Amitriptyline HCl [Elavil] 10 mg PO HS HYDROcodone/APAP 5-325MG [[place] 5-325] 1 tab PO BID PRN PRN Reason: Pain Cranberry 4200mg 4,200 mg PO DAILY carBAMazepine CHEW [TEGretol Chew] 25 mg PO DAILY carBAMazepine CHEW [TEGretol Chew] 50 mg PO HS Discharge Medication List Atorvastatin Calcium [Lipitor] 10 mg PO HS 05/26/14 [History] Ascorbic Acid [Vitamin C] 500 mg PO DAILY 08/09/14 [History] L.acid/L.casei/B.bif/B.kellen/Fos [Probiotic Blend Capsule] 2 cap PO DAILY 08/09/14 [History] DULoxetine HCL [Cymbalta] 60 mg PO DAILY 03/19/19 [History] Morphine Sulfate ER [Ms Contin] 15 mg PO HS 03/19/19 [History] Morphine Sulfate ER [Ms Contin] 30 mg PO DAILY 03/19/19 [History] Amitriptyline HCl [Elavil] 10 mg PO HS 07/17/20 [History] Cabergoline 0.25 mg PO MOFR 07/17/20 [History] Calcium Carbonate [Calcium] 600 mg PO STANLEY 07/17/20 [History] Cranberry 4200mg 4,200 mg PO DAILY 07/17/20 [History] HYDROcodone/APAP 5-325MG [[place] 5-325] 1 tab PO BID PRN 07/17/20 [History] Multivit-Min/FA/Lycopen/Lutein [Centrum Silver Tablet] 1 tab PO DAILY 07/17/20 [History] carBAMazepine CHEW [TEGretol Chew] 25 mg PO DAILY 07/18/20 [History] carBAMazepine CHEW [TEGretol Chew] 50 mg PO HS 07/18/20 [History] Follow up Appointment(s)/Referral(s): Deangelo Mccarty DO [STAFF PHYSICIAN] - 2 Weeks Vinny Olea MD [Primary Care Provider] - 1-2 days Wally Gu DO [Doctor of Osteopathic Medicine] - 1 Week Patient Instructions/Handouts: Angina (DC), Dyspnea (DC) Discharge Disposition: HOME SELF-CARE
[2020-07-19] MEDS ORDERED: NON FORMULARY DRUG (Cranberry 4200mg 4,200 MG) PO SCH (09:00)
[2020-07-19] MEDS ORDERED: ASPIRIN 325 MG TAB PO SCH (09:00)
[2020-07-20] MEDS ORDERED: CALCIUM CARBONATE 500 MG CHEWABLE PO SCH (09:00)
== END 2020-07-18 18:45 | disposition home or self-care (01) ==
LOC: EC 21:00 → 6NMEDSUR 07-18 00:10
PROVIDERS: ADMIT Hospitalist; ATTEND Hospitalist
DX: R07.89 Other chest pain (principal); R06.02 Shortness of breath; R00.0 Tachycardia, unspecified; R09.02 Hypoxemia; R05 Cough; R06.00 Dyspnea, unspecified; R06.2 Wheezing; R09.89 Other specified symptoms and signs involving the circulatory and respiratory systems; R79.89 Other specified abnormal findings of blood chemistry; R50.9 Fever, unspecified; E78.5 Hyperlipidemia, unspecified; N40.0 Benign prostatic hyperplasia without lower urinary tract symptoms; M19.91 Primary osteoarthritis, unspecified site; N41.1 Chronic prostatitis; G89.4 Chronic pain syndrome; I10 Essential (primary) hypertension; Z79.899 Other long term (current) drug therapy; Z79.1 Long term (current) use of non-steroidal anti-inflammatories (NSAID); Z88.0 Allergy status to penicillin; Z88.1 Allergy status to other antibiotic agents; Z20.822 Contact with and (suspected) exposure to COVID-19; Z79.891 Long term (current) use of opiate analgesic; Z97.8 Presence of other specified devices; Z85.820 Personal history of malignant melanoma of skin; Z87.891 Personal history of nicotine dependence; Z87.440 Personal history of urinary (tract) infections; Z82.3 Family history of stroke; Z80.3 Family history of malignant neoplasm of breast
CPT/HCPCS: 96372; 96360; 99285; 36415; 93005; 93306; 93351; 85379; 83880; 80053; 83735; 84484 ×2; 85025; 85610; 85730; 87635; 71046; G0378; J1650

== ENCOUNTER → 2020-08-15 | Outpatient (CLI) | payer MEDICARE ==
[2020-08-15 21:45] LABS: Codfish IgE <0.10 kU/L
[2020-08-15 21:47] LABS: Peanut IgE <0.10 kU/L; Shrimp IgE <0.10 kU/L; Soybean IgE <0.10 kU/L
[2020-08-15 21:48] LABS: Clam IgE <0.10 kU/L; Scallop IgE <0.10 kU/L; Walnut IgE (Food) <0.10 kU/L
[2020-08-15 21:49] LABS: Cat Epith & Dander IgE <0.10 kU/L; Cockroach IgE <0.10 kU/L; Dermato. farinae IgE <0.10 kU/L; Dog Dander IgE <0.10 kU/L; Egg White IgE <0.10 kU/L
[2020-08-15 21:50] LABS: Aspergillus fumagatus IgE <0.10 kU/L; Cladosporian herbarum IgE <0.10 kU/L; Immunoglobulin E 3.14 IU/mL (0.00-114.00); Immunoglobulin E 3.48 IU/mL (0.00-114.00)
[2020-08-15 21:52] LABS: Alternaria alternata IgE <0.10 kU/L; Birch IgE <0.10 kU/L; Maple (Box Elder) IgE 0.14 kU/L; Oak IgE <0.10 kU/L
[2020-08-15 21:53] LABS: Elm IgE <0.10 kU/L; Ragweed,Common IgE <0.10 kU/L
[2020-08-15 21:54] LABS: Red Top (Bentgrass) IgE 0.91 kU/L
== END | disposition home or self-care (01) ==
LOC: LABWHC1 14:17
PROVIDERS: ATTEND Internal Medicine Critical Care Medicine
DX: R05 Cough (principal); R06.02 Shortness of breath
CPT/HCPCS: 36415; 82785; 85652; 86001; 86003; 86606; 86609

== ENCOUNTER 2020-08-28 10:28 | Day surgery (SDC) | payer MEDICARE ==
[2020-08-25 16:38] VITALS: BMI 22.4
[~2020-08-28 10:28] MED LIST: ALPRAZolam 0.25 MG TAB PO PRN; ALPRAZolam 0.5 MG TAB PO PRN; ASPIRIN 325 MG TAB PO STA; ATORVASTATIN 80 MG TAB PO STA; HEPARIN SODIUM,PORCINE 10,000 UNIT in SODIUM CHLORIDE 0.9% 1,000 ML IRRIGATION PRN; HEPARIN SODIUM,PORCINE 2,500 UNIT in SODIUM CHLORIDE 0.9% 250 ML IRRIGATION PRN; NITROGLYCERIN SL TABS 0.4 MG TAB SUBLINGUAL PRN; SODIUM CHLORIDE 0.9% 1,000 ML in EMPTY BAG 1 BAG IV ONE
[2020-08-28 11:00] VITALS: RESP 16; TEMP 97.8
[2020-08-28 11:02] LABS: Basophils # (A) 0.1 k/uL (0-0.2); Basophils % (A) 1 %; Eosinophils # (A) 0.4 k/uL (0-0.7); Eosinophils % (A) 4 %; HCT 42.8 % (39.0-53.0); HGB 14.5 gm/dL (13.0-17.5); Lymphocytes # (A) 2.3 k/uL (1.0-4.8); Lymphocytes % (A) 25 %; MCH 30.3 pg (25.0-35.0); MCHC 33.9 g/dL (31.0-37.0); MCV 89.4 fL (80.0-100.0); Mean Platelet Volume 6.7; Monocytes # (A) 0.8 k/uL (0-1.0); Monocytes % (A) 8 %; Neutrophils # (A) 5.7 k/uL (1.3-7.7); Neutrophils % (A) 61 %; Platelet Count 352 k/uL (150-450); RBC 4.78 m/uL (4.30-5.90); WBC 9.3 k/uL (3.8-10.6)
[2020-08-28 11:18] LABS: African American GFR (CKD) >90 (>60 ml/min/1.73 sqM); Anion Gap 5 mmol/L; Blood Urea Nitrogen 20 mg/dL (9-20); Calcium 9.4 mg/dL (8.4-10.2); Carbon Dioxide 35 mmol/L (22-30); Chloride 98 mmol/L (98-107); Glucose 91 mg/dL (74-99); Non-African American GFR(CKD) 85 (>60 ml/min/1.73 sqM); Potassium 3.9 mmol/L (3.5-5.1); Sodium 138 mmol/L (137-145)
[2020-08-28] MEDS ORDERED: fentaNYL (PF) 50 MCG/ML 2 ML AMP ONE (12:04)
[2020-08-28] MEDS ORDERED: LIDOCAINE 1% INJ 10MG/ML (20 ML MDV) ONE (12:04)
[2020-08-28] MEDS ORDERED: VERAPAMIL 2.5 MG/ML 2 ML AMP ONE (12:04)
[2020-08-28] MEDS ORDERED: fentaNYL (PF) 50 MCG/ML 2 ML AMP IV ONE (12:14)
[2020-08-28] MEDS ORDERED: LIDOCAINE 1% INJ 10MG/ML (20 ML MDV) SQ ONE (12:15)
[2020-08-28] MEDS ORDERED: MIDAZOLAM 2 MG/2 ML VIAL IV ONE (12:15)
[2020-08-28] MEDS ORDERED: VERAPAMIL SYRINGE (5 MG/10 ML) INTRAARTER ONE (12:16)
[2020-08-28] MEDS ORDERED: HEPARIN SODIUM 1,000 UN/ML (10ML VL) IV ONE (12:16)
[2020-08-28] MEDS: HEPARIN SODIUM 1,000 UN/ML (10ML VL) IV ONE ×2 (12:16→12:45)
[2020-08-28] MEDS ORDERED: IOPAMIDOL-370 125ML BTL INJ ONE ×2 (12:48→12:56)
[2020-08-28] MEDS ORDERED: NITROGLYCERIN 1000MCG/10ML SYRINGE INTRACORON ONE (12:49)
[2020-08-28] MEDS ORDERED: RX INFO: IV CONTRAST WAS GIVEN 1 EACH MISC MISCELLANE PRN (13:32)
[2020-08-28 14:09] VITALS: BP 108/61; PULSE 94
[2020-08-28 15:10] LABS: INR 1.1 (<1.2); Prothrombin Time 11.3 sec (9.0-12.0)
[2020-08-28 16:04] LABS: ABG Base Excess 6.4 mmol/L; ABG HCO3 31 mmol/L (21-25); ABG Oxygen Saturation 96.3 % (94-97); ABG PCO2 52 mmHg (35-45); ABG PH 7.39 (7.35-7.45); ABG PO2 80 mmHg (83-108); ABG TCO2 33 mmol/L (19-24); Allen Test Performed? Yes
[2020-08-28 16:31] LABS: Partial Thromboplastin Time 74.1 sec (22.0-30.0)
--- NOTE | 2020-08-28 16:38 | CT ---
EXAMINATION TYPE: CT chest wo con DATE OF EXAM: 08/28/2020 COMPARISON: High resolution lung CT June 23, 2015 HISTORY: Pre op cardiac sx, evaluate aorta. CT DLP: 209.20 mGycm. Automated Exposure Control for Dose Reduction was Utilized. TECHNIQUE: CT scan of the thorax is performed without IV contrast. FINDINGS: LUNGS: There is new 1.7 x 1.3 cm left upper lobe groundglass nodule with some smaller areas of curvil inear solid nodularity axial image 15 which is new from 2014 study. Dependent atelectasis bilateral b ases. Mild linear atelectasis posterior basis. No pleural effusion or pneumothorax seen bilaterally. MEDIASTINUM: Lack of IV contrast is noted to limit evaluation for mediastinal and especially hilar ad enopathy. There are no definitive greater than 1 cm hilar or mediastinal lymph nodes. No pericardia l effusion is seen. Heart size upper limits of normal. Severe coronary artery calcification is redemo nstrated. There is ascending aortic aneurysm up to 4.4 cm axial image 32. [id number] calcified plaque in the visualized aorta noted. OTHER: Excretion in both kidneys is present. There are nonspecific hypodense lesions scattered throug hout the liver suspected simple thin-walled cysts. There is calcified thin septa low dense lesion med ially in the spleen suspected benign in etiology. Moderate multilevel spurring in the spine. IMPRESSION: Ascending aortic aneurysm up to 4.4 cm in diameter. Nonspecific 1.7 cm peripheral left up per lobe groundglass nodule.
--- NOTE | 2020-08-28 16:39 | US ---
EXAMINATION TYPE: US carotid duplex BILAT DATE OF EXAM: 08/28/2020 COMPARISON: NONE CLINICAL HISTORY: Pre-Op Cardiac Surgery. pre open heart, no h/o stroke EXAM MEASUREMENTS: RIGHT: Peak Systolic Velocity (PSV) cm/sec ----- Right CCA: 66.4 ----- Right ICA: 81.5 ----- Right ECA: 92.0 ICA/CCA ratio: 1.2 RIGHT: End Diastole cm/sec ----- Right CCA: 21.5 ----- Right ICA: 25.2 ----- Right ECA: 0.0 LEFT: Peak Systolic Velocity (PSV) cm/sec ----- Left CCA: 78.4 ----- Left ICA: 75.8 ----- Left ECA: 111.0 ICA/CCA ratio: 1.0 LEFT: End Diastole cm/sec ----- Left CCA: 15.2 ----- Left ICA: 17.4 ----- Left ECA: 7.1 VERTEBRALS (direction of flow): Right Vertebral: Antegrade Left Vertebral: Antegrade Rhythm: Normal Mild homogeneous plaque with no significant stenosis seen. Grayscale, color Doppler, spectral Dopple r imaging performed of the carotid arteries. Waveform analysis does not show significant stenosis of the internal carotid arteries. IMPRESSION: No hemodynamic significant stenosis of the proximal internal carotid arteries by Doppler criteria, an indirect measurement of carotid stenosis Criteria for Assigning % of Stenosis / Diameter reduction (Estimation based on the indirect measurements of the internal carotid artery velocities (ICA PSV). 1. Normal (no stenosis)=ICA PSV < 125 cm/s: ratio < 2.0: ICA EDV<40 cm/s. 2. Less than 50% stenosis=ICA PSV < 125 cm/s: ratio < 2.0: ICA EDV<40 cm/s. 3. 50 to 69% stenosis=ICA PSV of 125 to 230 cm/s: ration 2.0 ? 4.0: ICA EDV 40-100 cm/s. 4. Greater than 70% stenosis to near occlusion= ICA PSV > 230 cm/s: ratio > 4.0: ICA EDV > 100 cm/s. 5. Near occlusion= ICA PSV velocities may be low or undetectable: variable ratio and ICA EDV. 6. Total occlusion=unable to detect flow.
[2020-08-28 16:53] LABS: Appearance,Urine Clear (Clear); Bilirubin,Urine Negative (Negative); Blood,Urine Negative (Negative); Color,Urine Light Yellow; Glucose,Urine (UA) Negative (Negative); Ketones,Urine Negative (Negative); Leukocyte Esterase,Urine Negative (Negative); Nitrite,Urine Negative (Negative); Protein,Urine Negative (Negative); Urobilinogen,Urine <2.0 mg/dL (<2.0)
--- NOTE | 2020-08-28 16:54 | P.GSCN ---
History of Present Illness Consult date: 08/28/20 Reason for Consult: Symptomatic multivessel coronary artery disease Requesting physician: Deangelo Mccarty History of present illness: This is a 80-year-old gentleman who is followed by Dr. Vinny Olea on an outpatient basis for his primary care services. He also follows with Dr. Mccarty for his cardiology needs. He is a past medical history significant for dyslipidemia, pituitary tumor, depression, anxiety, benign prostatic hypertrophy status post prostate surgery, hard of hearing, pelvic floor muscle dysfunction and remote history of nicotine dependence in which he quit smoking in 1984. The patient had a recent admission to the hospital in June 2020 for complaints of chest pain, shortness of breath with exertion, headache, fatigue, chills, diaphoretic, decreased appetite and bouts of anxiety. He reports that one day he can work outside doing long work or garden work and the next day he developed chest pain unrelieved by rest. He denies any complaints of nausea, vomiting, diarrhea, constipation, fever, presyncope, syncope or orthopnea. During his hospital stay in June he underwent a stress test which showed normal EKG and echo response to exercise without evidence of inducible ischemia. For further evaluation on 07/18/2020 the patient underwent a 2-D echocardiogram which showed an overall left ventricular systolic function being normal with an ejection fraction between 55 and 60%, his right ventricle to be moderately to severe leak enlarged, and mild tricuspid valve regurgitation. Due to the patient's complaints of shortness of breath patient was also seen by pulmonary medicine and on an outpatient basis on 08/15/2020 underwent a full pulmonary function study. The pulmonary function test showed a FEV1 123% of predicted value prebronchodilator and postbronchodilator showed a predicted value of 136%. His DLCO showed a predicted value of 73%. Subsequently, due to the patient's continued episodes of chest pain and complaints of shortness of breath a cardiac catheterization was recommended by Dr. Mccarty. Today the patient underwent an elective cardiac catheterization which demonstrated a left main stenosis of 20%, and 80% stenosis to his right coronary artery, a 90% stenosis to a circumflex coronary artery, a 70% stenosis to his proximal left anterior descending c oronary artery and a 70% stenosis to his mid left anterior descending coronary artery. Also during heart catheterization and iFR of his circumflex showed 0.72 and iFR of his left anterior descending coronary artery showed 0.66. Due to the patient's symptoms, and findings on his cardiac catheterization a consult was placed to Dr. Virginia Golden from cardiothoracic surgery for further evaluation and treatment recommendations including myocardial revascularization surgery. Review of Systems A 14 point review of systems was completed and was negative except as mentioned in the HPI. Past Medical History Past Medical History: Cancer, Chest Pain / Angina, Hearing Disorder / Deafness, Hyperlipidemia, Prostate Disorder (History of BPH), Skin Disorder Additional Past Medical History / Comment(s): Hx pituitary tumor, treated w/ Rx. Hx melanoma, UTI. Mild CP/pressure, shortness of breath, cough - admitted 07/18/20. [employer] [place] Covid 19 vaccine 06/2020. History of pelvic muscle dysfunction with pain pump. 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 c/o CP/pressure, shortness of breath w/ admit 07/18/20. Wears hearing aids. 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-cancer), using Rx from . History of Any Multi-Drug Resistant Organisms: None Reported Past Surgical History: Bladder Surgery, Hernia Repair, Prostate Surgery Additional Past Surgical History / Comment(s): skin - melanoma exc, TURP, and bladder resection PAIN PUMP - sees @ [facility]. Hernia x3. Bladder surgery for pelvic muscle prob. Bilateral cataracts Past Anesthesia/Blood Transfusion Reactions: No Reported Reaction Past Psychological History: Anxiety, Depression Smoking Status: Former smoker (Quit smoking in 1984.) Past Alcohol Use History: Rare Past Drug Use History: None Reported - Past Family History Sister(s) Family Medical History: Cancer, Diabetes Mellitus, Neurologic Disorder (Parkinson disease) Additional Family Medical History / Comment(s): melanoma cancer Father Family Medical History: CVA/TIA Mother Family Medical History: Cancer Additional Family Medical History / Comment(s): Breast Medications and Allergies Home Medications Medication Instructions Recorded Confirmed Type Atorvastatin Calcium [Lipitor] 10 mg PO HS 05/26/14 08/28/20 History Ascorbic Acid [Vitamin C] 500 mg PO DAILY 08/09/14 08/28/20 History L.acid/L.casei/B.bif/B.kellen/Fos 2 cap PO DAILY 08/09/14 08/28/20 History [Probiotic Blend Capsule] DULoxetine HCL [Cymbalta] 60 mg PO DAILY 03/19/19 08/28/20 History Morphine Sulfate ER [Ms Contin] 15 mg PO HS 03/19/19 08/28/20 History Amitriptyline HCl [Elavil] 10 mg PO HS 07/17/20 08/28/20 History Cabergoline 0.25 mg PO MOFR 07/17/20 08/28/20 History Calcium Carbonate [Calcium] 600 mg PO STANLEY 07/17/20 08/28/20 History Cranberry 4200mg 4,200 mg PO DAILY 07/17/20 08/28/20 History HYDROcodone/APAP 5-325MG [Lucile 1 tab PO BID PRN 07/17/20 08/28/20 History 5-325] Multivit-Min/FA/Lycopen/Lutein 1 tab PO DAILY 07/17/20 08/28/20 History [Centrum Silver Tablet] carBAMazepine CHEW [TEGretol Chew] 25 mg PO DAILY 07/18/20 08/28/20 History carBAMazepine CHEW [TEGretol Chew] 50 mg PO HS 07/18/20 08/28/20 History Budesonide-Formot 160-4.5 Mcg 2 puff INHALATION BID 08/25/20 08/28/20 History [Symbicort 160-4.5 Mcg Inhaler] Metoprolol Succinate (ER) [Toprol 25 mg PO DAILY #0 tab.er.24h 08/28/20 Rx XL] Nitroglycerin Sl Tabs [Nitrostat] 0.4 mg SUBLINGUAL Q5M PRN #0 tab 08/28/20 Rx Allergies Allergy/AdvReac Type Severity Reaction Status Date / Time clavulanic acid Allergy Nausea & Verified 08/25/20 16:00 [From Augmentin] Vomiting nitrofurantoin Allergy Nausea & Verified 08/25/20 16:00 [From Macrobid] Vomiting amoxicillin AdvReac Nausea & Verified 08/25/20 16:00 Vomiting clindamycin AdvReac Nausea & Verified 08/25/20 16:00 Vomiting doxycycline AdvReac Nausea & Verified 08/25/20 16:00 Vomiting doxycycline calcium AdvReac Nausea & Verified 08/25/20 16:00 [From Vibramycin] Vomiting doxycycline hyclate AdvReac Nausea & Verified 08/25/20 16:00 [From Vibramycin] Vomiting doxycycline monohydrate AdvReac Nausea & Verified 08/25/20 16:00 [From Vibramycin] Vomiting Surgical - Exam Vital Signs Temp Pulse Resp BP Pulse Ox 97.8 F 88 16 163/85 98 08/28/20 10:58 08/28/20 10:58 08/28/20 10:58 08/28/20 10:58 08/28/20 10:58 - General well developed, well nourished, no distress, no pain, chronically ill - Eyes PERRL, normal ocular movement, no icteric - ENT normal pinna, normal nares, normal mucosa, no congestion, decreased hearing, dentures (Upper plate) - Neck Neck is supple, no lymphadenopathy. no masses, no bruits, trachea midline, no venous distension - Respiratory Lung sounds essentially clear throughout, diminished to his bilateral bases. Respirations are symmetrical and nonlabored. No wheezes, rhonchi or crackles. - Cardiovascular Regular rhythm and rate. S1 and S2 present, negative for S3, gallop or murmur. No edema present. - Abdomen Abdomen is soft, nontender and nondistended. Active bowel sounds present in all 4 abdominal quadrants. No guarding or rigidity. No organomegaly appreciated. - Genitourinary Deferred - Rectum Deferred - Integumentary no rash, no growths, no abnormal pigmentation - Neurologic Cranial nerves II through XII intact. normal coordination, normal sensation - Musculoskeletal Movements all 4 extremities with equal strength. - Psychiatric oriented to time, oriented to person, oriented to place, speech is normal, memory intact Results - Labs 08/28/20 10:00 08/28/20 10:00 Abnormal Lab Results - Last 24 Hours (Table) 08/28/20 Range/Units 10:00 Carbon Dioxide 35 H (22-30) mmol/L Diabetes panel 08/28/20 Range/Units 10:00 Sodium 138 (137-145) mmol/L Potassium 3.9 (3.5-5.1) mmol/L Chloride 98 (98-107) mmol/L Carbon Dioxide 35 H (22-30) mmol/L BUN 20 (9-20) mg/dL Creatinine 0.81 (0.66-1.25) mg/dL Glucose 91 (74-99) mg/dL Calcium 9.4 (8.4-10.2) mg/dL Thyroid panel 08/28/20 Range/Units 14:40 TSH 0.561 (0.465-4.680) mIU/L Calcium panel 08/28/20 Range/Units 10:00 Calcium 9.4 (8.4-10.2) mg/dL Pituitary panel 08/28/20 08/28/20 Range/Units 10:00 14:40 Sodium 138 (137-145) mmol/L Potassium 3.9 (3.5-5.1) mmol/L Chloride 98 (98-107) mmol/L Carbon Dioxide 35 H (22-30) mmol/L BUN 20 (9-20) mg/dL Creatinine 0.81 (0.66-1.25) mg/dL Glucose 91 (74-99) mg/dL Calcium 9.4 (8.4-10.2) mg/dL TSH 0.561 (0.465-4.680) mIU/L Adrenal panel 08/28/20 Range/Units 10:00 Sodium 138 (137-145) mmol/L Potassium 3.9 (3.5-5.1) mmol/L Chloride 98 (98-107) mmol/L Carbon Dioxide 35 H (22-30) mmol/L BUN 20 (9-20) mg/dL Creatinine 0.81 (0.66-1.25) mg/dL Glucose 91 (74-99) mg/dL Calcium 9.4 (8.4-10.2) mg/dL Assessment and Plan Assessment: 1. Multivessel coronary artery disease 2. Dyspnea on exertion 3. Precordial chest pain 4. History of dyslipidemia 5. History of depression 6. History of anxiety 7. Benign prostatic hypertrophy, status post prostate surgery and bladder resection 8. History of pelvic floor muscle dysfunction 9. Remote history of tobacco dependence, quit smoking in 1984. Plan: The patient was seen and examined at his bedside in the extended stay unit with Dr. Virginia Golden. His chart and diagnostics were reviewed. The usual preoperative course of myocardial revascularization was discussed with the patient and his present at his bedside. Preoperative testing and preoperative teaching was initiated. Continue to maximize medical therapy with aspirin, statin and beta brian. We will obtain a computed tomography scan without contrast of his chest to evaluate his aorta as his computed tomography scan from 2016 showed his ascending aorta diameter at the level of the main pulmonary artery to measure 4.1 cm. Once his preoperative testing has been completed, further recommendations regarding myocardial revascularization surgery will be discussed with the patient. The patient is scheduled to follow- up with Dr. Golden in the office tomorrow 08/29/2020 at 1045 discuss the preoperative testing results and to further discuss treatment options. We will obtain an arterial blood gas as the patient's venous carbon dioxide was 35 mmol/L. Full pulmonary function test studies have been obtained from Dr. Gu's office. More recommendations to follow based on patient's preoperative testing. A 5 m walk test will be completed in the office tomorrow 08/29/2020. Once his preoperative testing has been completed an STS risk score will be calculated in discussed with the patient. Thank you Dr. Mccarty for this consult and we look forward to working with you in the care of this patient. Time with Patient: Greater than 30
[2020-08-28 16:59] LABS: Specific Gravity,Urine >1.050 (1.001-1.035)
[2020-08-28 21:14] LABS: Hemoglobin A1C 4.8 % (4.0-6.0)
--- NOTE | 2020-08-29 00:24 | P.CARDCATH ---
Description of Procedure: PROCEDURES PERFORMED: Left heart catheterization, bilateral coronary angiography, iFR LAD, circumflex INDICATION: Persistent chest pain worsened over last 3 months concerning for unstable angina HISTORY: Patient is a pleasant 80 year old male with history of HTN, HLD, pituitary tumor, depression, anxiety, BPH and coronary calcifications who has been having atypical chest pain, not necessarily with exertion however numerous symptoms the day after being outside including chest pain, SOB, mildly diaphoretic and fatigued. He had been seen with stress test performed where he exercised for a little over 9 minutes and did not have any inducible ischemia. He has continue to have symptoms and previous CT's have shown significant c oronary artery calcifications. Given continued somewhat atypical symptoms despite negative stress test and significant risk factors, a left heart catheterization was performed. CONSENT:I have discussed the risks, benefits and alternative therapies for the above-mentioned procedure and for both sedation/analgesia as well as necessary blood product administration, if indicated, as they pertain to this patient. The patient has indicated understanding and acceptance of the risks and procedures discussed. PROCEDURE: After the risks, benefits and alternatives of the above mentioned procedure explained in detail with the patient, informed consent was obtained. Patient was taken to the catheterization lab and prepped and draped in usual fashion. 1% lidocaine was used to anesthetize the right radial artery. A 6- [place] sheath was placed in the right radial artery using modified Seldinger technique. Left coronary angiography was performed with a 5-[place] JL 3.5 then FL 4.0 catheter subselectively. Right coronary angiography was performed with a 5-[place] JR5 catheter in various views. Given somewhat ambiguous presentation, the decision was made to perform iFR of LAD and circumflex. A 6Fr CLS 3.5 catheter was used to engage the left main. A 0.014 iFR wire was normalized and then advanced into the circumflex with iFR value of 0.72. Next the iFR wire was advanced into the mid LAD with iFR value of 0.66. The wire was then removed and final images were obtained. The right radial sheath was removed and a TR band was placed with hemostasis achieved. The patient tolerated the procedure well. Patient was transported back to the post catheterization holding area in stable condition. Conscious Sedation: Patient was monitored under the direct supervision of vision of myself for conscious sedation using Versed and fentanyl for a total duration of 45 minutes HEMODYNAMICS: Ao: 131/71 LV: 127/2, LVEDP 8 SELECTIVE CORONARY ARTERIOGRAPHY: LEFT MAIN: The left main is a large caliber vessel which bifurcates into the LAD and circumflex. There is a proximal left main 20% stenosis and the distal left main has a heavily calcified 40% stenosis. LEFT ANTERIOR DESCENDING CORONARY ARTERY: LAD is a large caliber vessel which wraps around to the apex. The entire proximal to mid LAD is heavily calcified. The proximal LAD has a heavily calcified 60-70% stenosis. The mid LAD has a 70- 80% heavily calcified stenosis. The distal LAD has mild luminal irregularities. LEFT CIRCUMFLEX CORONARY ARTERY: Left circumflex is a moderate caliber vessel which has a fairly acute takeoff and has a heavily calcified 90% proximal stenosis. . RIGHT CORONARY ARTERY: The right coronary artery is a moderate caliber vessel which gives off a PDA and PLV branch and is the dominant vessel. There is a proximal RCA 80% stenosis. FINAL IMPRESSION: 1. Severe triple vessel CAD as described above including distal left main 40% stenosis, proximal LAD 60-70%, mid LAD 70-80%, 90% circumflex stenosis, and 80% RCA stenosis, with iFR of LAD and circumflex abnormal at 0.66 and 0.72 respectively. PLAN: 1. Aggressive risk factor modification per most recent ACC/AHA guidelines. 2. Cardiothoracic surgery evaluation for CABG.
[2020-08-29 04:00] LABS: Hepatitis A Antibody IgM Non-Reactive (Non-Reactive); Hepatitis B Core IgM Non-Reactive (Non-Reactive); Hepatitis B Surface Antigen Non-Reactive (Non-Reactive); Hepatitis C IgG Antibody Non-Reactive (Non-Reactive)
[2020-08-29] MEDS ORDERED: METOPROLOL SUCCINATE (ER) 25 MG TAB.ER.24H PO SCH (09:00)
--- NOTE | 2020-09-03 11:17 | P.VSCSTY ---
Greater Saphenous Vein Mapping This is bilateral lower extremity greater saphenous vein mapping. Date of service: 08/28/2020: Vein quality and ultrasound appearance: We see no intraluminal thrombus or significant wall changes. Vein size groin right : 6.1 x 6.3 groin left: 5.4 x 5.6 High thigh right: 4.0 x 5.6 high thigh left: 4.1 x 4.0 Mid thigh right: 3.7 x 4.4 mid thigh left: 4.7 x 4.4 Above-knee right: 3.8 x 3.7 above-knee left: 5.0 x 4.5 Below knee right: 1.9 x 1.8 below-knee left: 3.6 x 4.5 Mid calf right: 1.7 x 1.5 mid calf left: 2.3 x 2.2 Ankle right: 1.7 x 1.8 ankle left: 3.0 x 3.7 Impression: The left greater saphenous appears usable throughout. The right is probably usable left the knee and above..
== END 2020-08-28 16:35 | disposition home or self-care (01) ==
LOC: CATHCVL 10:28
PROVIDERS: ATTEND Internal Medicine
DX: I25.110 Atherosclerotic heart disease of native coronary artery with unstable angina pectoris (principal); I25.84 Coronary atherosclerosis due to calcified coronary lesion; E78.5 Hyperlipidemia, unspecified; Z82.49 Family history of ischemic heart disease and other diseases of the circulatory system; F32.9 Major depressive disorder, single episode, unspecified; F41.9 Anxiety disorder, unspecified; N40.0 Benign prostatic hyperplasia without lower urinary tract symptoms; I07.1 Rheumatic tricuspid insufficiency; Z87.891 Personal history of nicotine dependence; H91.90 Unspecified hearing loss, unspecified ear; Z85.820 Personal history of malignant melanoma of skin; Z87.440 Personal history of urinary (tract) infections; Z97.8 Presence of other specified devices; Z98.890 Other specified postprocedural states; Z98.42 Cataract extraction status, left eye; Z98.41 Cataract extraction status, right eye; Z79.899 Other long term (current) drug therapy; Z88.1 Allergy status to other antibiotic agents; Z88.0 Allergy status to penicillin; Z83.3 Family history of diabetes mellitus; Z82.0 Family history of epilepsy and other diseases of the nervous system; Z80.8 Family history of malignant neoplasm of other organs or systems; Z82.3 Family history of stroke; Z80.3 Family history of malignant neoplasm of breast; Z79.891 Long term (current) use of opiate analgesic
CPT/HCPCS: 36600; 93571; 93572; 93458; 85347; 80061; 80048; 80074; 84443; 82805; 83735; 85025; 85610; 85730; 81003; 87070; 83036; 87635; 93970; 93880; 71250; C1887; C1894; J2250; J2001; J3010; J1644; Q9967

== ENCOUNTER → 2020-08-30 | Outpatient (CLI) | payer MEDICARE ==
--- NOTE | 2020-09-01 06:30 | PE ---
EXAMINATION TYPE: PET CT fusion skull to thigh DATE OF EXAM: 08/30/2020 COMPARISON: CT chest August 28, 2020 HISTORY: History of melanoma left shoulder [address] , solitary pulmonary nodule. TECHNIQUE: Following the intravenous administration of 12.03 mCi of F-18 FDG, whole body images are performed from the skull base to the midthigh. Images are reviewed on the computer in the coronal, a xial, and sagittal planes. Reconstructed rotating images are created on independent workstation and reviewed on the computer. A localization and attenuation correction CT is performed in conjunction with the PET scan. Blood glucose level equals 79. SCAN: Initial Scan FINDINGS: SKULL BASE AND NECK: Prominent uptake involving lamp mechanic muscles bilaterally along with symmetric uptake at the level of the tongue presumed product of recent meal ingestion or excessive chewing. No suspicious hypermetabolic uptake. CHEST, MEDIASTINUM, AND HILAR REGION: Corresponding to recent CT there is 1.8 x 1.5 cm groundglass no dule periphery left upper lobe axial image 96, this is ametabolic. No areas of abnormal hypermetaboli c uptake noted. ABDOMEN AND PELVIS: No areas of abnormal hypermetabolic uptake. Normal excretion in mildly distended bladder. OSSEOUS STRUCTURES: No areas of abnormal hypermetabolic uptake. OTHER CT: Mild to moderate calcified plaque bilateral carotid bulb level. Nasal septum deviated to ri ght of midline. Ascending aortic aneurysm up to 4.5 cm r is redemonstrated. Moderate three-vessel coronary artery raquel cification. Small degree of subareolar flame-shaped gynecomastia. There is 2.4 cm thin-walled cyst in the right hepatic lobe. There is 3 mm nonobstructing calculus low er pole right kidney axial image 176. Stimulator device over the lower left anterior abdominal wall. Moderate calcified plaque of the aorta extends into branch vessels. Distal colonic diverticula. Suspe ct intraluminal dependent 8 mm left bladder calculus axial image 243. Multilevel disc space narrowing and spurring in the lumbar spine. IMPRESSION: No suspicious hypermetabolic uptake in the peripheral 1.7 cm left upper lobe groundglass nodule or in remainder of the study.
== END | disposition home or self-care (01) ==
LOC: RADPETMAIN 07:32
PROVIDERS: ATTEND Internal Medicine Critical Care Medicine
DX: R91.1 Solitary pulmonary nodule (principal); Z85.820 Personal history of malignant melanoma of skin
CPT/HCPCS: 78815; A9552

== ENCOUNTER → 2020-09-18 | Outpatient (CLI) | payer MEDICARE ==
[2020-09-18 13:28] LABS: HCT 41.7 % (39.0-53.0); HGB 14.1 gm/dL (13.0-17.5); MCH 30.4 pg (25.0-35.0); MCHC 33.7 g/dL (31.0-37.0); MCV 90.1 fL (80.0-100.0); Platelet Count 279 k/uL (150-450); RBC 4.63 m/uL (4.30-5.90); RDW 11.9 % (11.5-15.5); WBC 6.3 k/uL (3.8-10.6)
[2020-09-18 13:44] LABS: Partial Thromboplastin Time 24.7 sec (22.0-30.0); Prothrombin Time 10.6 sec (9.0-12.0)
[2020-09-18 13:51] LABS: ALT 48 U/L (4-49); AST 48 U/L (17-59); African American GFR (CKD) >90 (>60 ml/min/1.73 sqM); Albumin 4.1 g/dL (3.5-5.0); Alkaline Phosphatase 70 U/L (38-126); Anion Gap 5 mmol/L; Blood Urea Nitrogen 21 mg/dL (9-20); Calcium 9.4 mg/dL (8.4-10.2); Carbon Dioxide 34 mmol/L (22-30); Chloride 101 mmol/L (98-107); Glucose 87 mg/dL (74-99); Magnesium 2.1 mg/dL (1.6-2.3); Non-African American GFR(CKD) 82 (>60 ml/min/1.73 sqM); Potassium 4.4 mmol/L (3.5-5.1); Sodium 140 mmol/L (137-145); Total Bilirubin 0.3 mg/dL (0.2-1.3); Total Protein 6.6 g/dL (6.3-8.2)
[2020-09-18 14:46] LABS: Appearance,Urine Clear (Clear); Bilirubin,Urine Negative (Negative); Blood,Urine Negative (Negative); Color,Urine Yellow; Glucose,Urine (UA) Negative (Negative); Hyaline Casts,Urine 3 /lpf (0-2); Ketones,Urine Negative (Negative); Leukocyte Esterase,Urine Small (Negative); Mucus,Urine Moderate /hpf; Nitrite,Urine Negative (Negative); PH, Urine 6.5 (5.0-8.0); Protein,Urine Negative (Negative); RBC,Urine 2 /hpf (0-5); Specific Gravity,Urine 1.022 (1.001-1.035); Squamous Epithelial Cell,Urine <1 /hpf (0-4); Urobilinogen,Urine <2.0 mg/dL (<2.0); WBC,Urine 12 /hpf (0-5)
--- NOTE | 2020-09-18 16:02 | XR ---
EXAMINATION TYPE: XR chest 2V DATE OF EXAM: 09/18/2020 COMPARISON: Chest x-ray 07/17/2020 HISTORY: Coronary artery disease, hypertension and presurgical testing TECHNIQUE: Frontal and lateral views of the chest are obtained. FINDINGS: There is no focal air space opacity, pleural effusion, or pneumothorax seen. The cardiac silhouette size is within normal limits. Aorta is dense. The osseous structures are intact, old mid diaphyseal left clavicular fracture is healed and stable. IMPRESSION: No acute cardiopulmonary process.
--- NOTE | 2020-09-19 16:11 | P.PN ---
Progress Note - Text Progress Note Date: 09/18/20 A 5 m walk test was completed with the patient, Time 1: 2.90 seconds, Time 2: 2.53 seconds , Time 3: 2.43 seconds. An STS risk score was calculated and discussed with the patient by Dr. Virginia Golden.
== END | disposition home or self-care (01) ==
LOC: LABPAT 11:38
PROVIDERS: ATTEND Surgery
DX: Z01.812 Encounter for preprocedural laboratory examination (principal); Z20.822 Contact with and (suspected) exposure to COVID-19; I25.10 Atherosclerotic heart disease of native coronary artery without angina pectoris; I10 Essential (primary) hypertension; E78.5 Hyperlipidemia, unspecified; R07.9 Chest pain, unspecified
CPT/HCPCS: 80053; 83735; 85027; 85610; 85730; 81001; 87086; 71046; 93922; 36415; U0003; C9803; U0005

== ENCOUNTER 2020-09-22 05:37 | Inpatient (IN) | payer MEDICARE ==
[~2020-09-22 05:37] MED LIST changes: +ALBUMIN HUMAN 25% 50 ML IV ONE; +ALBUMIN HUMAN 5% 500 ML IVPB ONE; -ALPRAZolam 0.25 MG TAB PO PRN; -ALPRAZolam 0.5 MG TAB PO PRN; +ASPIRIN 325 MG TAB PO ONE; -ASPIRIN 325 MG TAB PO STA; +ATORVASTATIN 10 MG TAB PO ONE; -ATORVASTATIN 80 MG TAB PO STA; +CALCIUM CHLORIDE 100 MG/ML 10 ML SYRINGE IV ONE; +CHLORHEXIDINE GLUCONATE 15 ML CUP MUCOUS MEM ONE; +CLEVIDIPINE BUTYRATE 25 MG in EMPTY BAG 1 BAG IV ONE; +HEPARIN SODIUM 1,000 UN/ML (10ML VL) IV ONE; -HEPARIN SODIUM,PORCINE 10,000 UNIT in SODIUM CHLORIDE 0.9% 1,000 ML IRRIGATION PRN; -HEPARIN SODIUM,PORCINE 2,500 UNIT in SODIUM CHLORIDE 0.9% 250 ML IRRIGATION PRN; +HEPARIN SODIUM,PORCINE 5,000 UNIT in SODIUM CHLORIDE 0.9% 500 ML 500 ML IV ONE; +INSULIN REGULAR 100 UNIT in SODIUM CHLORIDE 0.9% 100 ML IV ONE; +LACTATED RINGERS 1,000 ML IV ONE; +MAGNESIUM SULFATE MG 500 MG/ML IV ONE; +MANNITOL 25% 12.5 GM/50 ML VIAL IV ONE; +METOPROLOL TARTRATE 12.5 MG TAB PO ONE; +NITROGLYCERIN SL TABS 0.4 MG TAB SUBLINGUAL ONE; -NITROGLYCERIN SL TABS 0.4 MG TAB SUBLINGUAL PRN; +NITROGLYCERIN-D5W PMX 25 MG/250 ML BTL IV ONE; +NITROGLYCERIN-D5W PMX 50 MG in DEXTROSE/WATER 1 250ML.BAG IV ONE; +NOREPINEPHRINE 4 MG in SODIUM CHLORIDE 0.9% 250 ML IV ONE; +PAPAVERINE 360 MG in SODIUM CHLORIDE 0.9% 90 ML IV ONE; +PHENYLEPHRINE 10 MG/ML VIAL IV ONE; +PHENYLEPHRINE 40 MG in SODIUM CHLORIDE 0.9% 250 ML IV ONE; +PROTAMINE SULFATE 10 MG/ML 25 ML VIAL IV ONE; +PROTAMINE SULFATE 250 MG in EMPTY BAG 1 BAG IV ONE; +SODIUM BICARB 8.4% 50 ML SYR (1 MEQ/ML) IV ONE; +SODIUM CHLORIDE 0.9% 1,000 ML IV ONE; -SODIUM CHLORIDE 0.9% 1,000 ML in EMPTY BAG 1 BAG IV ONE; +TRANEXAMIC ACID 2,000 MG in SODIUM CHLORIDE 0.9% 80 ML IV ONE; +ceFAZolin 1,000 MG in SODIUM CHLORIDE 0.9% IRRIGATIO 1,000 ML IRRIGATION ONE; +propofoL 1,000 MG/100 ML VIAL IV ONE
[2020-09-22] MEDS ORDERED: ELECTROLYTE-A SOLUTION 1,000 ML with POTASSIUM CHLORIDE 100 MEQ, MAGNESIUM SULFATE 16 M... IV ONE ×5 (06:00)
[2020-09-22] MEDS ORDERED: ELECTROLYTE-A SOLUTION 1,000 ML with POTASSIUM CHLORIDE 40 MEQ, MAGNESIUM SULFATE 16 ME... IV ONE ×5 (06:00)
[2020-09-22 06:43] LABS: Glucose,Whole Blood 101 mg/dL (75-99)
[2020-09-22] MEDS ORDERED: ELECTROLYTE-R (PH 7.4) 1,000 ML IV.SOLN IV ONE (07:35)
[2020-09-22] MEDS ORDERED: CISPLATIN 1 MG/ML IV ONE (07:35)
[2020-09-22] MEDS ORDERED: ALBUTEROL INHALER 60 PUFF/8 GM INHALER (MHU) INHALATION ONE (07:55)
[2020-09-22] MEDS ORDERED: CALCIUM CHLORIDE 100 MG/ML 10 ML SYRINGE ONE (07:55)
[2020-09-22] MEDS ORDERED: LIDOCAINE 2% SYG (PF) 100 MG/5 ML ONE (07:55)
[2020-09-22] MEDS ORDERED: MIDAZOLAM 2 MG/2 ML VIAL ONE (07:55)
[2020-09-22] MEDS ORDERED: SODIUM CHLORIDE 0.9% 250 ML BAG ONE (07:55)
[2020-09-22] MEDS ORDERED: PROPOFOL 10 MG/ML 20 ML VIAL IV ONE (07:55)
[2020-09-22] MEDS ORDERED: SUFentanil 50 MCG/ML 1 ML AMP IV ONE (07:55)
[2020-09-22] MEDS ORDERED: fentaNYL (PF) 50 MCG/ML 50 ML VIAL ONE (07:55)
[2020-09-22] MEDS ORDERED: PROTAMINE SULFATE 10 MG/ML 25 ML VIAL IV ONE (07:55)
[2020-09-22] MEDS ORDERED: CLEVIDIPINE BUTYRATE 25 MG/50 ML VIAL IV ONE (07:55)
[2020-09-22] MEDS ORDERED: ePHEDrine SULFATE/0.9% NACL/PF 50 MG/5 ML SYRINGE IV ONE (07:55)
[2020-09-22] MEDS ORDERED: LABETALOL 5 MG/ML VIAL MDV ONE (07:55)
[2020-09-22] MEDS ORDERED: MAGNESIUM SULFATE 4 MEQ/ML 10ML VIAL ONE (07:55)
[2020-09-22] MEDS ORDERED: HEPARIN SODIUM,PORCINE 10,000 UNIT/ML 1 ML VIAL ONE (07:55)
[2020-09-22] MEDS ORDERED: .MORPHINE SULFATE (INJ) 10 MG/ML SYRINGE ONE (07:55)
[2020-09-22] MEDS ORDERED: NITROGLYCERIN-D5W PMX 50 MG/250 ML BOTTLE IV ONE (07:55)
[2020-09-22] MEDS ORDERED: VECURONIUM 10 MG VIAL IV ONE (07:55)
[2020-09-22] MEDS ORDERED: fentaNYL (PF) 50 MCG/ML 2 ML AMP ONE (07:55)
[2020-09-22] MEDS ORDERED: TRANEXAMIC ACID 1,000 MG/10 ML VIAL ONE (07:55)
[2020-09-22 08:27] LABS: ABG Base Excess 3.5 mmol/L; ABG Glucose Whole Blood 100 mg/dL (75-99); ABG HCO3 28 mmol/L (21-25); ABG Hematocrit 37 % (34.0-46.0); ABG Ionized Calcium 4.8 mg/dL (4.5-5.3); ABG Lactic Acid Whole Blood 0.8 mmol/L (0.5-1.6); ABG PCO2 41 mmHg (35-45); ABG PH 7.44 (7.35-7.45); ABG Potassium Whole Blood 4.1 mmol/L (3.4-4.5); ABG Sodium Whole Blood 141 mmol/L (135-146); ABG TCO2 29 mmol/L (19-24)
[2020-09-22] MEDS ORDERED: SODIUM CHLORIDE 0.9% 500 ML 500 ML with HEPARIN SODIUM,PORCINE 5,000 UNIT IV ONE ×2 (09:20)
[2020-09-22] MEDS ORDERED: PAPAVERINE 360 MG in SODIUM CHLORIDE 0.9% 90 ML IV ONE (09:20)
[2020-09-22] MEDS ORDERED: ceFAZolin 1,000 MG in SODIUM CHLORIDE 0.9% 1,000 ML IRRIGATION ONE (09:22)
[2020-09-22 10:22] LABS: ABG Base Excess 1.9 mmol/L; ABG Glucose Whole Blood 125 mg/dL (75-99); ABG HCO3 27 mmol/L (21-25); ABG Hematocrit 35 % (34.0-46.0); ABG Ionized Calcium 4.8 mg/dL (4.5-5.3); ABG Lactic Acid Whole Blood 0.9 mmol/L (0.5-1.6); ABG PCO2 46 mmHg (35-45); ABG PH 7.38 (7.35-7.45); ABG PO2 261 mmHg (83-108); ABG Potassium Whole Blood 3.8 mmol/L (3.4-4.5); ABG Sodium Whole Blood 140 mmol/L (135-146); ABG TCO2 29 mmol/L (19-24)
--- NOTE | 2020-09-22 10:25 | P.ANPRN ---
Procedure Note - Anesthesia - Invasive Line Left Central Line Time Out Performed: Yes (821) Date of Procedure: 09/22/20 Time of Procedure: 08:22 Location of Patient: Phase I Preparation: Sterile Prep, Sterile Dressing Arterial Line Location: Radial (LEFT) Ultrasound Used: Yes Purpose - Visualization and Identification of Vasculature: Yes Needle Guage: 18G ANGIO Image Stored and Saved: Yes Narrative: Central line placement per sterile protocol utilized. Attempted Right Side x3 . Collapsible vessel. Unable to thread vessel. to Left IJ +LOCAL +cvp +jwire +uneventful dilation and introduction left IJ cordis. Lumen bled back and flushed. Left Vanderbilt Arjun Time Out Performed: Yes (821) Date of Procedure: 09/22/20 Time of Procedure: 08:44 Location of Patient: Phase I Preparation: Sterile Prep Arterial Line Location: Radial (l) Ultrasound Used: No Purpose - Visualization and Identification of Vasculature: No Image Stored and Saved: No Narrative: Central line placement per sterile protocol utilized. Jesús floated in 1 attempted to PA at 53cm.
[2020-09-22 11:16] LABS: ABG Base Excess 2.2 mmol/L; ABG Glucose Whole Blood 109 mg/dL (75-99); ABG HCO3 26 mmol/L (21-25); ABG Ionized Calcium 4.1 mg/dL (4.5-5.3); ABG Lactic Acid Whole Blood 1.2 mmol/L (0.5-1.6); ABG PCO2 38 mmHg (35-45); ABG PH 7.45 (7.35-7.45); ABG PO2 390 mmHg (83-108); ABG Potassium Whole Blood 5.3 mmol/L (3.4-4.5); ABG Sodium Whole Blood 135 mmol/L (135-146); ABG TCO2 28 mmol/L (19-24)
[2020-09-22 11:54] LABS: ABG Base Excess 3.5 mmol/L; ABG Glucose Whole Blood 120 mg/dL (75-99); ABG HCO3 27 mmol/L (21-25); ABG Ionized Calcium 4.2 mg/dL (4.5-5.3); ABG PCO2 38 mmHg (35-45); ABG PH 7.47 (7.35-7.45); ABG PO2 374 mmHg (83-108); ABG Potassium Whole Blood 4.7 mmol/L (3.4-4.5); ABG Sodium Whole Blood 137 mmol/L (135-146); ABG TCO2 29 mmol/L (19-24)
[2020-09-22 12:22] LABS: ABG Base Excess 3.8 mmol/L; ABG Glucose Whole Blood 122 mg/dL (75-99); ABG HCO3 28 mmol/L (21-25); ABG Ionized Calcium 4.3 mg/dL (4.5-5.3); ABG PCO2 37 mmHg (35-45); ABG PH 7.48 (7.35-7.45); ABG PO2 356 mmHg (83-108); ABG Potassium Whole Blood 4.5 mmol/L (3.4-4.5); ABG Sodium Whole Blood 138 mmol/L (135-146); ABG TCO2 29 mmol/L (19-24)
[2020-09-22 12:55] LABS: ABG Base Excess 3.5 mmol/L; ABG Glucose Whole Blood 124 mg/dL (75-99); ABG HCO3 28 mmol/L (21-25); ABG Ionized Calcium 4.3 mg/dL (4.5-5.3); ABG PCO2 39 mmHg (35-45); ABG PH 7.46 (7.35-7.45); ABG Potassium Whole Blood 4.4 mmol/L (3.4-4.5); ABG Sodium Whole Blood 139 mmol/L (135-146); ABG TCO2 29 mmol/L (19-24)
[2020-09-22 13:19] LABS: ABG PO2 >420 mmHg (83-108)
[2020-09-22 13:20] LABS: ABG Hematocrit 24 % (34.0-46.0)
[2020-09-22 13:22] LABS: ABG Hematocrit 24 % (34.0-46.0)
[2020-09-22 13:23] LABS: ABG Hematocrit 24 % (34.0-46.0)
[2020-09-22 13:23] LABS: ABG Hematocrit 24 % (34.0-46.0); ABG PO2 >420 mmHg (83-108)
[2020-09-22 13:48] LABS: ABG Glucose Whole Blood 128 mg/dL (75-99); ABG HCO3 27 mmol/L (21-25); ABG Hematocrit 27 % (34.0-46.0); ABG Ionized Calcium 4.7 mg/dL (4.5-5.3); ABG Lactic Acid Whole Blood 1.3 mmol/L (0.5-1.6); ABG PCO2 37 mmHg (35-45); ABG PH 7.47 (7.35-7.45); ABG PO2 202 mmHg (83-108); ABG Potassium Whole Blood 3.8 mmol/L (3.4-4.5); ABG Sodium Whole Blood 139 mmol/L (135-146); ABG TCO2 28 mmol/L (19-24)
[2020-09-22] MEDS ORDERED: MUPIROCIN 2% OINT 22 GM TUBE NASAL ONE (14:30)
[2020-09-22] MEDS ORDERED: MORPHINE SULFATE 2 MG/ML SYRINGE IVP PRN (15:00)
[2020-09-22] MEDS ORDERED: Phosphorus Replacement Protoco 1 EACH MISC MISCELLANE PRN (15:00)
[2020-09-22] MEDS ORDERED: AMIODARONE 450 MG in DEXTROSE 5% IN WATER 250 ML IV PRN ×2 (15:00)
[2020-09-22] MEDS ORDERED: IPRATROPIUM-ALBUTEROL 3 ML NEB INHALATION PRN (15:00)
[2020-09-22] MEDS ORDERED: AMIODARONE 360 MG in DEXTROSE 5% IN WATER 200 ML IV PRN ×2 (15:00)
[2020-09-22] MEDS ORDERED: Potassium Replacement Protocol 1 EACH MISC MISCELLANE PRN (15:00)
[2020-09-22] MEDS ORDERED: NITROGLYCERIN-D5W PMX 50 MG in DEXTROSE/WATER 1 250ML.BAG IV SCH (15:00)
[2020-09-22] MEDS ORDERED: BENZOCAINE/MENTHOL LOZENG 1 EACH LOZENGE MUCOUS MEM PRN (15:00)
[2020-09-22] MEDS ORDERED: Magnesium Replacement Protocol 1 EACH MISC MISCELLANE PRN (15:00)
[2020-09-22] MEDS ORDERED: ONDANSETRON 4 MG/2 ML VIAL IVP PRN (15:00)
[2020-09-22] MEDS ORDERED: CALCIUM GLUCONATE 2 GM in SODIUM CHLORIDE 0.9% 100 ML IVPB PRN (15:00)
[2020-09-22 15:13] LABS: Glucose,Whole Blood 156 mg/dL (75-99)
[2020-09-22] MEDS: CLEVIDIPINE BUTYRATE 25 MG in EMPTY BAG 1 BAG IV SCH ×2 (15:26→19:30)
[2020-09-22 15:27] LABS: ABG Base Excess 0.9 mmol/L; ABG HCO3 27 mmol/L (21-25); ABG Oxygen Saturation 99.5 % (94-97); ABG PCO2 50 mmHg (35-45); ABG PH 7.34 (7.35-7.45); ABG PO2 378 mmHg (83-108); ABG TCO2 28 mmol/L (19-24); Allen Test Performed? Yes
[2020-09-22] MEDS: SODIUM CHLORIDE 0.9% 1,000 ML IV SCH (15:29)
[2020-09-22 15:31] LABS: Basophils % (A) 0 %; Eosinophils # (A) 0.1 k/uL (0-0.7); Eosinophils % (A) 1 %; HCT 36.3 % (39.0-53.0); HGB 12.6 gm/dL (13.0-17.5); Lymphocytes # (A) 0.9 k/uL (1.0-4.8); Lymphocytes % (A) 9 %; MCH 31.1 pg (25.0-35.0); MCHC 34.8 g/dL (31.0-37.0); MCV 89.2 fL (80.0-100.0); Mean Platelet Volume 7.1; Monocytes # (A) 0.3 k/uL (0-1.0); Monocytes % (A) 3 %; Neutrophils % (A) 87 %; Platelet Count 198 k/uL (150-450); RBC 4.07 m/uL (4.30-5.90); WBC 10.4 k/uL (3.8-10.6)
[2020-09-22 15:36] LABS: INR 1.1 (<1.2); Partial Thromboplastin Time 26.9 sec (22.0-30.0); Prothrombin Time 11.2 sec (9.0-12.0)
[2020-09-22 15:37] LABS: ALT 26 U/L (4-49); AST 52 U/L (17-59); African American GFR (CKD) >90 (>60 ml/min/1.73 sqM); Albumin 2.9 g/dL (3.5-5.0); Alkaline Phosphatase 56 U/L (38-126); Anion Gap 4 mmol/L; Blood Urea Nitrogen 17 mg/dL (9-20); Calcium 8.8 mg/dL (8.4-10.2); Carbon Dioxide 27 mmol/L (22-30); Chloride 105 mmol/L (98-107); Glucose 157 mg/dL (74-99); Magnesium 2.4 mg/dL (1.6-2.3); Non-African American GFR(CKD) >90 (>60 ml/min/1.73 sqM); Sodium 136 mmol/L (137-145); Total Bilirubin 0.8 mg/dL (0.2-1.3); Total Protein 4.9 g/dL (6.3-8.2)
--- NOTE | 2020-09-22 15:48 | XR ---
EXAMINATION TYPE: XR chest 1V portable DATE OF EXAM: 09/22/2020 COMPARISON: Chest x-ray 09/18/2020 HISTORY: Postop cardiac surgery, intubated TECHNIQUE: Single frontal view of the chest is obtained. FINDINGS: Patient is post median sternotomy and left atrial appendage clip placement. NG tube shows the distal tip near the gastroesophageal junction. Endotracheal tube is overlying the tracheal air co lumn. Left jugular central venous sheath shows a distal tip of the catheter overlying the pulmonary a rtery. Left-sided chest tube is in place, median sternal drains are noted. No evident pneumothorax. P atient is rotated. Minimal patchy basilar density is present left greater than right, there are overl luis manuel artifacts. IMPRESSION: Satisfactory postoperative chest x-ray. NG tube as described, side-port is within the th oracic esophagus.
[2020-09-22 15:59] LABS: Glucose,Whole Blood 178 mg/dL (75-99)
[2020-09-22] MEDS ORDERED: INSULIN REGULAR 100 UNIT in SODIUM CHLORIDE 0.9% 100 ML IV SCH (16:00)
[2020-09-22] MEDS ORDERED: DEXMEDETOMIDINE/0.9% NACL(PMX) 400 MCG in EMPTY BAG 1 BAG IV SCH (16:00)
[2020-09-22] MEDS ORDERED: IPRATROPIUM-ALBUTEROL 3 ML NEB INHALATION SCH (16:00)
--- NOTE | 2020-09-22 16:04 | P.CNPUL ---
History of Present Illness Consult date: 09/22/20 Reason for consult: other Chief complaint: Coronary artery disease, status post three-vessel CABG History of present illness: This 80-year-old white male patient of Dr. Olea, with past medical history of malignant melanoma, dyslipidemia, pituitary tumor, depression, anxiety, benign prostatic hypertrophy and history of surgical resection, former smoker, and COPD. Patient recently hospitalized when he was admitted with chest pain, and his workup included heart catheterization which demonstrated a left main stenosis of 20%, 80% stenosis to the RCA, and 90% stenosis to the circumflex coronary artery, 70% stenosis to his proximal LAD, 70% stenosis to the mid LAD. 2-D echocardiogram showed preserved LV function with EF of 55-60%, mild enlargement of the right ventricle, no evidence of aortic stenosis, or aortic regurgitation, no evidence of pulmonary hypertension, the right-sided pressure was 23.4 mmHg, mild MR. Outpatient PFT on 08/15/2020 showed FEV1 was 2.8 L or 123% of predicted, FEV1/FVC ratio was 77% of predicted, diffusion corrected for alveolar volume was 69% of predicted, he did not desaturate during his 6 minute walk his low saturation was 93%, he did have a bronchodilator response. Patient did have a CT scan of the chest as an outpatient, which showed a 1.9 cm groundglass opacity in the left upper lobe, would be related to inflammatory or infectious etiology. Patient was referred to cardiothoracic surgery for coronary artery bypass grafting and today on 09/22/2020 patient underwent three- vessel coronary artery bypass grafting, patient is seen in the ICU in the postoperative period, he is sedated, and intubated, currently on assist-control mode ventilation with a rate of 12 tidal Mona 500, FiO2 100% and PEEP of 5. Postoperative blood gases reveal pO2 of 378, pCO2 of 50 and pH of 7.33. Patient was noted to have a elevated preop bicarbonate concentration on his BMP, suggest ing chronic hypercapnic respiratory failure. He is currently on 0.9 normal saline at 50 ML per hour, nitroglycerin and 25 mics per kilo per minute, clevidipine is at 12 mg/h, Diprivan and is a 40 mics per kilo per minute, insulin drip is a 1.5 units per hour. He is in sinus mechanism, hemodynamically he is stable, he ate pressure is 26/11, CVP is 8, cardiac output is 4.7, cardiac index is 2.7. 2 mediastinal and left pleural chest tubes with small amount of sanguinous output. Review of Systems All systems: negative Constitutional: Denies chills, Denies fever Eyes: denies blurred vision, denies pain Ears, nose, mouth and throat: Denies headache, Denies sore throat Cardiovascular: Reports dyspnea on exertion, Denies chest pain, Denies shortness of breath Respiratory: Reports dyspnea, Denies cough Gastrointestinal: Denies abdominal pain, Denies diarrhea, Denies nausea, Denies vomiting Musculoskeletal: Denies myalgias Integumentary: Denies pruritus, Denies rash Neurological: Denies numbness, Denies weakness Psychiatric: Denies anxiety, Denies depression Endocrine: Denies fatigue, Denies weight change Past Medical History Past Medical History: Coronary Artery Disease (CAD), Cancer, Chest Pain / Angina, Hearing Disorder / Deafness, Hyperlipidemia, Hypertension, Prostate Disorder, Skin Disorder Additional Past Medical History / Comment(s): has pain pump lower left abd with leads radiating to back-last refill ,pituitary tumor-treated w/ Rx. Hx melanoma, UTI. Mild CP/pressure, shortness of breath, cough - admitted 07/18/20. J&J Covid vaccine 06/2020. 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 c/o CP/pressure, shortness of breath w/ admit 07/18/20. Wears hearing aids. 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-cancer), using Rx from . History of Any Multi-Drug Resistant Organisms: None Reported Past Surgical History: Bladder Surgery, Hernia Repair, Prostate Surgery, Tonsillectomy Additional Past Surgical History / Comment(s): skin - melanoma exc, TURP, PAIN PUMP - sees @ [facility]. Hernia x3. Bladder surgery for pelvic muscle prob. Past Anesthesia/Blood Transfusion Reactions: No Reported Reaction Additional Past Anesthesia/Blood Transfusion Reaction / Comment(s): no hx blood transfusion Smoking Status: Former smoker - Past Family History Sister(s) Family Medical History: Cancer, Diabetes Mellitus, Neurologic Disorder Additional Family Medical History / Comment(s): melanoma cancer Father Family Medical History: CVA/TIA Mother Family Medical History: Cancer Additional Family Medical History / Comment(s): Breast Medications and Allergies Home Medications Medication Instructions Recorded Confirmed Type Atorvastatin Calcium [Lipitor] 10 mg PO HS 05/26/14 09/22/20 History Ascorbic Acid [Vitamin C] 500 mg PO DAILY 08/09/14 09/22/20 History L.acid/L.casei/B.bif/B.kellen/Fos 2 cap PO DAILY 08/09/14 09/22/20 History [Probiotic Blend Capsule] DULoxetine HCL [Cymbalta] 60 mg PO QAM 03/19/19 09/22/20 History Morphine Sulfate ER [Ms Contin] 15 mg PO HS 03/19/19 09/22/20 History Amitriptyline HCl [Elavil] 10 mg PO HS 07/17/20 09/22/20 History Cabergoline 0.25 mg PO MOFR 07/17/20 09/22/20 History Calcium Carbonate [Calcium] 600 mg PO STANLEY 07/17/20 09/22/20 History Cranberry 4200mg 4,200 mg PO DAILY 07/17/20 09/22/20 History HYDROcodone/APAP 5-325MG [[place] 1 tab PO BID PRN 07/17/20 09/22/20 History 5-325] Multivit-Min/FA/Lycopen/Lutein 1 tab PO DAILY 07/17/20 09/22/20 History [Centrum Silver Tablet] carBAMazepine CHEW [TEGretol Chew] 25 mg PO QAM 07/18/20 09/22/20 History carBAMazepine CHEW [TEGretol Chew] 50 mg PO HS 07/18/20 09/22/20 History Budesonide-Formot 160-4.5 Mcg 2 puff INHALATION BID 08/25/20 09/22/20 History [Symbicort 160-4.5 Mcg Inhaler] Metoprolol Succinate (ER) [Toprol 25 mg PO DAILY #0 tab.er.24h 08/28/20 09/22/20 Rx XL] Nitroglycerin Sl Tabs [Nitrostat] 0.4 mg SUBLINGUAL Q5M PRN #0 tab 08/28/20 09/22/20 Rx Aspirin 81 mg PO DAILY 09/18/20 09/22/20 History Albuterol Nebulized [Ventolin 1 dose INHALATION Q6H PRN 09/19/20 09/22/20 History Nebulized] Dilaudid 15.0 Mg/Ml Pain Pump 1 dose INTRATHECA CONTINUOUS 09/19/20 09/22/20 History Allergies Allergy/AdvReac Type Severity Reaction Status Date / Time amoxicillin AdvReac Nausea & Verified 09/22/20 06:09 Vomiting clavulanic acid AdvReac Nausea & Verified 09/22/20 06:09 [From Augmentin] Vomiting clindamycin AdvReac Nausea & Verified 09/22/20 06:09 Vomiting doxycycline AdvReac Nausea & Verified 09/22/20 06:09 Vomiting doxycycline calcium AdvReac Nausea & Verified 09/22/20 06:09 [From Vibramycin] Vomiting doxycycline hyclate AdvReac Nausea & Verified 09/22/20 06:09 [From Vibramycin] Vomiting doxycycline monohydrate AdvReac Nausea & Verified 09/22/20 06:09 [From Vibramycin] Vomiting nitrofurantoin AdvReac Nausea & Verified 09/22/20 06:09 [From Macrobid] Vomiting Physical Exam Vitals: Vital Signs Temp Pulse Pulse Pulse Resp BP BP 09/22/20 15:32 75 09/22/20 06:14 80 166/87 09/22/20 06:13 98.0 F 81 16 162/91 Pulse Ox 09/22/20 15:32 09/22/20 06:14 09/22/20 06:13 98 Intake and Output 09/22/20 09/22/20 09/22/20 06:59 14:59 22:59 Intake Total 3 Output Total 1950 Balance -194 Intake: IV 3 Output: Urine 750 Estimated Blood Loss 1200 Other: Weight 66 kg GENERAL EXAM: Sedated, intubated, 80-year-old white male on assist-control mode of ventilation with FiO2 50% and PEEP of 5, comfortable in no apparent distress. HEAD: Normocephalic/atraumatic. EYES: Normal reaction of pupils, equal size. Conjunctiva pink, sclera white. NOSE: Clear with pink turbinates. THROAT: No erythema or exudates. NECK: No masses, no JVD, no thyroid enlargement, no adenopathy. CHEST: No chest wall deformity. Symmetrical expansion. Sternal incision is clean dry and intact, covered with surgical dressing, 2 mediastinal and left pleural chest tubes in place with small amount of sanguinous output in the Pleur-evac, no evidence of air leak noted LUNGS: Equal air entry with no crackles, wheeze, rhonchi or dullness. CVS: Regular rate and rhythm, normal S1 and S2, no gallops, no murmurs, no rubs ABDOMEN: Soft, nontender. No hepatosplenomegaly, normal bowel sounds, no guarding or rigidity. EXTREMITIES: No clubbing, no edema, no cyanosis, 2+ pulses and upper and lower extremities. MUSCULOSKELETAL: Muscle strength and tone normal. SPINE: No scoliosis or deformity SKIN: No rashes CENTRAL NERVOUS SYSTEM: Sedated, intubated No focal deficits, tone is normal in all 4 extremities. Results - Laboratory Findings CBC and BMP: 09/22/20 15:00 09/22/20 15:00 ABG ABG pH 7.34 (7.35-7.45) L 09/22/20 15:24 ABG pCO2 50 mmHg (35-45) H 09/22/20 15:24 ABG pO2 378 mmHg (83-108) H 09/22/20 15:24 ABG O2 Saturation 99.5 % (94-97) H 09/22/20 15:24 PT/INR, D-dimer PT 11.2 sec (9.0-12.0) 09/22/20 15:00 INR 1.1 (<1.2) 09/22/20 15:00 Abnormal lab findings: Abnormal Labs 09/18/20 09/22/20 09/22/20 11:45 06:37 08:28 RBC Hgb Hct Neutrophils # Lymphocytes # ABG pH ABG pCO2 ABG pO2 >420 H ABG HCO3 28 H ABG Total CO2 29 H ABG O2 Saturation 100.0 H ABG Hematocrit ABG Potassium ABG Ionized Calcium ABG Glucose 100 H Hemoglobin 12.0 L Sodium Creatinine Glucose POC Glucose (mg/dL) 101 H Magnesium Total Protein Albumin Arterial Blood Potassium Arterial Blood Glucose 100 H Crossmatch See Detail 09/22/20 09/22/20 09/22/20 10:24 11:18 11:56 RBC Hgb Hct Neutrophils # Lymphocytes # ABG pH 7.47 H ABG pCO2 46 H ABG pO2 261 H 390 H 374 H ABG HCO3 27 H 26 H 27 H ABG Total CO2 29 H 28 H 29 H ABG O2 Saturation 100.0 H 100.0 H 100.0 H ABG Hematocrit 24 L 24 L ABG Potassium 5.3 H 4.7 H ABG Ionized Calcium 4.1 L 4.2 L ABG Glucose 125 H 109 H 120 H Hemoglobin 11.3 L 7.8 L 7.9 L Sodium Creatinine Glucose POC Glucose (mg/dL) Magnesium Total Protein Albumin Arterial Blood Potassium 5.3 H 4.7 H Arterial Blood Glucose 125 H 109 H 120 H Crossmatch 09/22/20 09/22/20 09/22/20 12:24 12:57 13:50 RBC Hgb Hct Neutrophils # Lymphocytes # ABG pH 7.48 H 7.46 H 7.47 H ABG pCO2 ABG pO2 356 H >420 H 202 H ABG HCO3 28 H 28 H 27 H ABG Total CO2 29 H 29 H 28 H ABG O2 Saturation 100.0 H 100.0 H 100.0 H ABG Hematocrit 24 L 24 L 27 L ABG Potassium ABG Ionized Calcium 4.3 L 4.3 L ABG Glucose 122 H 124 H 128 H Hemoglobin 7.9 L 7.8 L 8.7 L Sodium Creatinine Glucose POC Glucose (mg/dL) Magnesium Total Protein Albumin Arterial Blood Potassium Arterial Blood Glucose 122 H 124 H 128 H Crossmatch 09/22/20 09/22/20 09/22/20 14:55 15:00 15:00 RBC 4.07 L Hgb 12.6 L Hct 36.3 L Neutrophils # 9.0 H Lymphocytes # 0.9 L ABG pH ABG pCO2 ABG pO2 ABG HCO3 ABG Total CO2 ABG O2 Saturation ABG Hematocrit ABG Potassium ABG Ionized Calcium ABG Glucose Hemoglobin Sodium 136 L Creatinine 0.56 L Glucose 157 H POC Glucose (mg/dL) 156 H Magnesium 2.4 H Total Protein 4.9 L Albumin 2.9 L Arterial Blood Potassium Arterial Blood Glucose Crossmatch 09/22/20 15:24 RBC Hgb Hct Neutrophils # Lymphocytes # ABG pH 7.34 L ABG pCO2 50 H ABG pO2 378 H ABG HCO3 27 H ABG Total CO2 28 H ABG O2 Saturation 99.5 H ABG Hematocrit ABG Potassium ABG Ionized Calcium ABG Glucose Hemoglobin Sodium Creatinine Glucose POC Glucose (mg/dL) Magnesium Total Protein Albumin Arterial Blood Potassium Arterial Blood Glucose Crossmatch - Diagnostic Findings Chest x-ray: report reviewed, image reviewed Assessment and Plan Plan: Assessment: #1. Multivessel coronary artery disease, status post three-vessel coronary artery bypass grafting on 09/22/2020, postop day #0 #2. Routine postoperative ventilator management #3. Suspected chronic CO2 retention based on the preop blood gas #4. Dysipidemia #5. Advanced melanoma #6. Benign prostatic hypertrophy status post surgical resection #7. Former smoker #8. History of chronic pain syndrome Plan: Blood gas, chest x-ray and labs reviewed Is doing well We'll proceed with the sedation holiday and spontaneous breathing trial once the patient is awake and following commands Breathing treatments were hours while intubated and 4 times daily after extubation Incentive spirometer to the bedside DVT prophylaxis per CT surgery Follow-up labs and chest x-ray in the morning Will continue to follow I performed a history & physical examination of the patient and discussed their management with my nurse practitioner, Elvia Luo. I reviewed the nurse practitioner's note and agree with the documented findings and plan of care. Lung sounds are positive for diminished breath sounds. The findings and the impression was discussed with the patient. I attest to the documentation by the nurse practitioner. Time with Patient: Greater than 30
[2020-09-22] MEDS: POTASSIUM CHLORIDE 10 MEQ in WATER FOR INJECTION 1 100ML.BAG IVPB SCH ×2 (16:22→19:06)
[2020-09-22 16:51] LABS: Glucose,Whole Blood 160 mg/dL (75-99)
[2020-09-22] MEDS: ACETAMINOPHEN IV (For NPO) 1,000 MG in EMPTY BAG 1 BAG IVPB SCH (16:52)
[2020-09-22] MEDS: HEPARIN SODIUM,PORCINE/PF 5,000 UNIT/0.5 ML SYRINGE SQ SCH (17:45)
[2020-09-22 17:48] LABS: Glucose,Whole Blood 145 mg/dL (75-99)
[2020-09-22 18:57] LABS: Glucose,Whole Blood 132 mg/dL (75-99)
[2020-09-22] MEDS: KETOROLAC 15 MG/ML 1 ML VIAL IVP SCH (19:04)
--- NOTE | 2020-09-22 19:11 | OP ---
OPERATIVE REPORT DATE OF: 09/22/2020 SURGEON: Dr. Virginia Golden. ASSISTANTS: 1. JAKE Kimble. 2. JAKE Torres. PREOPERATIVE DIAGNOSES: 1. Triple-vessel coronary artery disease. 2. Preserved left ventricular function. 3. Hyperlipidemia. 4. Pelvic floor dysfunction. 5. Carbon dioxide retainer. POSTOPERATIVE DIAGNOSIS: 1. Triple-vessel coronary artery disease. 2. Preserved left ventricular function. 3. Hyperlipidemia. 4. Pelvic floor dysfunction. 5. Carbon dioxide retainer. PROCEDURE: 1. Triple-vessel coronary artery bypass grafting using the left internal mammary artery to the left anterior descending artery, reverse saphenous vein graft from the aorta to the superior branching of the obtuse marginal artery, reverse saphenous vein graft from the aorta to the posterior descending artery. 2. Exclusion of the left atrial appendage using a 35 mm AtriClip. 3. Endoscopic harvesting of left greater saphenous vein. 4. Intraoperative graft flow measurements using the [employer]Stim system. 5. Intraoperative transesophageal echocardiogram and epiaortic scanning. INDICATION FOR SURGERY: Patient is a 80-year-old gentleman with complaint of dyspnea on exertion. Workup showed triple-vessel coronary artery disease with systolic function that is preserved. Preoperative workup showed a moderately dilated ascending aorta at 4.5 cm and the left upper lobe mass. The PET scan was negative. The patient is brought in today for elective coronary artery bypass grafting. The STS risk was discussed with him. PROCEDURE DESCRIPTION: Patient was in supine position in the preoperative holding area. Right radial arterial line and a left IJ [place]-Arjun catheter were inserted. The patient had normal PA pressure and good cardiac index. He was brought to the operating room, where general endotracheal anesthesia was induced uneventfully. A Coude catheter needed to be used to insert a catheter in the bladder. The chest, abdomen and both lower extremities were prepped and draped using ChloraPrep. Ioban was used to cover the skin. The patient received 2 grams of cefazolin intravenously. Transesophageal echocardiogram confirmed the preoperative finding of preserved systolic function and no significant valvular abnormality. In particular, the aortic valve had no insufficiency in it and had a known moderate dilatation of the ascending aorta. Midline sternotomy was performed and the bone was moderately osteoporotic. No bone wax was used. Ostene was used. The left hemisternum was elevated and the left internal mammary artery was harvested in a somewhat skeletonized fashion. The patient was given 5000 units of heparin. The mammary artery was clipped distally and transected. It had an excellent pulsatile flow in it. The left pleura was intentionally opened in this process and was drained with a 19-[place] Masoud drain. The right pleura remained grossly intact. In the same setting, the left greater saphenous vein was harvested endoscopically from groin to above ankle level. We had a good segment from the lower leg and a moderately good segment in the thigh. Branches were tied. The leg incisions were closed over a drain. The vein harvesting was done after administration of 2500 units of heparin. Mediastinal fat was transected with the Bovie and mediastinal veins clipped. Epiaortic scanning revealed concentric intimal thickening but no protruding atheroma in the ascending aorta. Pericardium was opened in an inverted T-fashion and a pericardial cradle was created. Findings included a moderately dilated elongated aorta and a normal-sized heart. There were some adhesions at the level of the anterolateral wall to the pericardium that were limited in nature. After systemic heparinization and after placement of respective pledgeted pursestrings, aortic cannulation with a 21-Comor[place] Softflow cannula and venous cannulation with a 3- stage 29-Comoran cannula was performed. Antegrade as well as retrograde cardioplegia catheters were placed. Cardiopulmonary bypass was initiated, and with the heart empty and beating, we looked at the target. The distal LAD after emerging from an intramyocardial course was soft and would be the site for bypass. The PDA proximally was also identified and was soft. Looking at the lateral wall, the branch to obtuse marginal artery was identified and we elected to bypass the superior branching of it. The distal circumflex as seen on catheterization is small and not bypassable. Aorta was clamped and during aortic clamping myocardial protection was achieved. An initial dose of one liter of antegrade cold blood cardioplegia followed by 300 mL of retrograde cold blood cardioplegia. All subsequent doses were given retrograde at 15- minute intervals. The first distal anastomosis was between a good segment of vein and the posterior descending artery, which was around 1.8 mm in diameter, using Prolene 7-0 in continuous fashion. The second distal anastomosis was between an excellent piece of vein and the superior branching of the obtuse marginal artery, which was opened and was around 1.6 mm in diameter, thin-walled, using Prolene 7-0 in continuous fashion. The third and last distal anastomosis was between the left internal mammary artery that passed into a window in the left pleuropericardial fat and anastomosed to the distal left anterior descending artery, which was opened and was around 1.75 mm in diameter, thin-walled, using Prolene 7-0 in continuous fashion. To mention that I used a 1 mm shunt that was placed in each anastomosis and was removed before completing the anastomosis. Satisfied with the distal anastomosis, attention was moved at performing the proximal anastomosis. Rewarming was started. Two buttons of 4 mm each were punched out of the ascending aorta and the 2 proximal anastomoses with 2 vein grafts was completed using running Prolene. The left atrial appendage has been excluded with a 35 mm AtriClip deployed at its base before starting the coronary anastomosis. The patient was given lidocaine and magnesium. De-airing maneuvers were done before unclamping the aorta. He regained spontaneous sinus rhythm. AUTUMN showed no air in the ventricle. After a period of reperfusion, we were able to wean off cardiopulmonary bypass without the need of any inotropic or vasopressor support. Actually, we needed to start clevidipine, as the patient was hypertensive despite deep anesthesia. Two monopolar atrial pacing wires were affixed to the right atrial pursestrings and no ventricular pacing wire was placed. Graft flow measurements at this point with a 4 mm probe from [employer] showed a flow into the left internal mammary artery to the left anterior descending artery of 31 mL/minute, pulsatility index of 1.7, diastolic filling of 77%. The flow into the vein to the RCA was 25 mL/minute, pulsatility index of 2.6, diastolic filling of 61%, showing an excellent functioning graft. The flow into the vein graft going to the obtuse marginal artery was 71 mL/minute, pulsatility index of 1.5, diastolic filling of 57%, showing an excellent functioning graft. With that, all pump suckers were stopped. Then test-dose and full-dose protamine was given. Decannulation followed. The venous cannulation site and the aortic cannula site required reinforcement with pledgeted Prolene. Two 19-[place]or[place] Masoud drains were left substernally. Pericardial fat was approximated over the heart and the aorta. After ensuring adequate hemostasis and hemodynamics and after correct sponge, instrument and needle counts, the sternum was closed using 5 [id number] pineal cables. After an initial unilateral weave done on the left hemisternum in view of a thin colleen-sternal plate at that level, thorough irrigation of cefazolin followed. The rest of the closure proceeded in layers. Skin glue was applied. Patient did not receive any blood bank product but received 500 mL of Cell Saver blood. He was taken to the ICU in stable condition, atrially paced at 80 in view of his sinus bradycardia of around 60, with excellent hemodynamics and a cardiac index of 2.5 with the chest closed. MMODL / IJN: [id number] /
[2020-09-22] MEDS: IPRATROPIUM-ALBUTEROL 3 ML NEB INHALATION SCH (19:45)
[2020-09-22] MEDS: SYMBICORT 160-4.5 MCG INHALER INHALATION SCH (19:45)
[2020-09-22 19:57] LABS: Basophils % (A) 0 %; Eosinophils # (A) 0.1 k/uL (0-0.7); Eosinophils % (A) 1 %; HCT 36.4 % (39.0-53.0); HGB 12.6 gm/dL (13.0-17.5); Lymphocytes # (A) 0.3 k/uL (1.0-4.8); Lymphocytes % (A) 2 %; MCH 30.9 pg (25.0-35.0); MCHC 34.5 g/dL (31.0-37.0); MCV 89.7 fL (80.0-100.0); Mean Platelet Volume 7.7; Monocytes # (A) 0.8 k/uL (0-1.0); Monocytes % (A) 6 %; Neutrophils # (A) 12.2 k/uL (1.3-7.7); Neutrophils % (A) 91 %; Platelet Count 201 k/uL (150-450); RBC 4.06 m/uL (4.30-5.90); RDW 12.1 % (11.5-15.5); WBC 13.4 k/uL (3.8-10.6)
[2020-09-22 20:09] LABS: Glucose,Whole Blood 125 mg/dL (75-99)
[2020-09-22 20:24] LABS: Basophils % (A) 0 %; Eosinophils # (A) 0.1 k/uL (0-0.7); Eosinophils % (A) 0 %; HCT 33.8 % (39.0-53.0); HGB 11.7 gm/dL (13.0-17.5); Lymphocytes # (A) 0.2 k/uL (1.0-4.8); Lymphocytes % (A) 2 %; MCH 30.8 pg (25.0-35.0); MCHC 34.6 g/dL (31.0-37.0); MCV 88.9 fL (80.0-100.0); Mean Platelet Volume 7.5; Monocytes # (A) 0.9 k/uL (0-1.0); Monocytes % (A) 7 %; Neutrophils # (A) 12.1 k/uL (1.3-7.7); Neutrophils % (A) 91 %; Platelet Count 199 k/uL (150-450); RBC 3.81 m/uL (4.30-5.90); WBC 13.4 k/uL (3.8-10.6)
[2020-09-22] MEDS: ALBUMIN HUMAN 5% 250 ML in EMPTY BAG 1 BAG IVPB PRN (20:50)
[2020-09-22 20:59] LABS: Glucose,Whole Blood 118 mg/dL (75-99)
[2020-09-22] MEDS ORDERED: METOPROLOL TARTRATE 12.5 MG TAB PO SCH (21:00)
[2020-09-22 21:06] LABS: ABG Base Excess 3.5 mmol/L; ABG HCO3 29 mmol/L (21-25); ABG PCO2 48 mmHg (35-45); ABG PH 7.38 (7.35-7.45); ABG PO2 134 mmHg (83-108); ABG TCO2 30 mmol/L (19-24)
[2020-09-22 21:09] LABS: Allen Test Performed? no
[2020-09-22] MEDS ORDERED: PANTOPRAZOLE 40 MG/10 ML VIAL IVP ONE (21:30)
[2020-09-22 22:18] LABS: Glucose,Whole Blood 126 mg/dL (75-99)
[2020-09-22 23:05] LABS: Glucose,Whole Blood 136 mg/dL (75-99)
[2020-09-23] LABS: Glucose,Whole Blood 131 mg/dL (75-99)
[2020-09-23] MEDS: ACETAMINOPHEN IV (For NPO) 1,000 MG in EMPTY BAG 1 BAG IVPB SCH (00:03)
[2020-09-23] MEDS: KETOROLAC 15 MG/ML 1 ML VIAL IVP SCH ×5 (00:04→22:57)
[2020-09-23] MEDS: HEPARIN SODIUM,PORCINE/PF 5,000 UNIT/0.5 ML SYRINGE SQ SCH ×4 (00:05→22:57)
[2020-09-23 01:05] LABS: Glucose,Whole Blood 118 mg/dL (75-99)
[2020-09-23] MEDS ORDERED: HYDROcodone/APAP 5-325MG 1 EACH TAB PO PRN ×2 (01:42)
[2020-09-23 02:26] LABS: Glucose,Whole Blood 124 mg/dL (75-99)
[2020-09-23 04:06] LABS: Glucose,Whole Blood 125 mg/dL (75-99)
[2020-09-23 04:46] LABS: Basophils % (A) 0 %; Eosinophils # (A) 0.1 k/uL (0-0.7); Eosinophils % (A) 0 %; HCT 29.6 % (39.0-53.0); HGB 10.4 gm/dL (13.0-17.5); Lymphocytes # (A) 0.4 k/uL (1.0-4.8); Lymphocytes % (A) 3 %; MCH 31.4 pg (25.0-35.0); MCHC 35.1 g/dL (31.0-37.0); MCV 89.3 fL (80.0-100.0); Mean Platelet Volume 7.9; Monocytes # (A) 0.8 k/uL (0-1.0); Monocytes % (A) 7 %; Neutrophils # (A) 10.1 k/uL (1.3-7.7); Neutrophils % (A) 88 %; Platelet Count 187 k/uL (150-450); RBC 3.31 m/uL (4.30-5.90); RDW 12.2 % (11.5-15.5); WBC 11.4 k/uL (3.8-10.6)
[2020-09-23 05:02] LABS: Ionized Calcium 4.8 mg/dL (4.5-5.3)
[2020-09-23 05:10] LABS: ALT 18 U/L (4-49); AST 50 U/L (17-59); African American GFR (CKD) >90 (>60 ml/min/1.73 sqM); Albumin 2.6 g/dL (3.5-5.0); Alkaline Phosphatase 43 U/L (38-126); Anion Gap 1 mmol/L; Blood Urea Nitrogen 20 mg/dL (9-20); Calcium 8.1 mg/dL (8.4-10.2); Carbon Dioxide 28 mmol/L (22-30); Chloride 106 mmol/L (98-107); Glucose 116 mg/dL (74-99); Non-African American GFR(CKD) >90 (>60 ml/min/1.73 sqM); Potassium 4.6 mmol/L (3.5-5.1); Sodium 135 mmol/L (137-145); Total Bilirubin 0.3 mg/dL (0.2-1.3); Total Protein 4.4 g/dL (6.3-8.2)
[2020-09-23 05:18] LABS: Glucose,Whole Blood 123 mg/dL (75-99)
[2020-09-23 06:11] LABS: Glucose,Whole Blood 118 mg/dL (75-99)
[2020-09-23] MEDS ORDERED: METOCLOPRAMIDE 5 MG/ML 2 ML VIAL IVP STA (06:52)
[2020-09-23] MEDS: ALBUMIN HUMAN 5% 250 ML in EMPTY BAG 1 BAG IVPB PRN ×2 (07:08→15:46)
[2020-09-23 07:10] LABS: Glucose,Whole Blood 116 mg/dL (75-99)
[2020-09-23 07:56] LABS: Glucose,Whole Blood 160 mg/dL (75-99)
[2020-09-23] MEDS: SYMBICORT 160-4.5 MCG INHALER INHALATION SCH ×2 (08:11→20:22)
[2020-09-23] MEDS: IPRATROPIUM-ALBUTEROL 3 ML NEB INHALATION SCH ×4 (08:12→20:22)
--- NOTE | 2020-09-23 08:16 | P.PN ---
Subjective Progress Note Date: 09/23/20 Principal diagnosis: Triple-vessel coronary artery disease, preserved left ventricular function. Previous medical history of hyperlipidemia, pelvic floor dysfunction, previous tobacco dependence with carbon dioxide retainer, pituitary tumor treated with radiation, melanoma skin cancer within the last 5 years status post resection, depression/anxiety, BPH status post prostate surgery, hard of hearing POD 1 triple vessel coronary artery bypass grafting using the left internal mammary artery to left anterior descending artery, reverse saphenous vein graft from the aorta to the superior branching of the obtuse marginal artery, reverse saphenous vein graft from the aorta to the posterior descending artery, exclusion of the left atrial appendage using a 35 mm AtriClip, endoscopic harvesting of the left greater saphenous vein from the groin to above the ankle level, intraoperative graft flow measurements using the Fromography system, intraoperative transesophageal echocardiogram and epi-aortic scanning. Postoperative acute blood loss anemia, expected given hemodilution and cardiopulmonary bypass pump The patient is currently sitting up in a recliner in the intensive care unit in no acute distress. He was successfully extubated at 22:18 last night. States pain is controlled on current medication regimen, denies shortness of breath. Remains in sinus rhythm, hemodynamically stable on no inotropes or pressors. Actively using incentive spirometer and achieving 1000 mL. Left internal jugular Hickory/Cordis, left radial arterial line, mediastinal and left pleural c hest tubes all remaining present. Patient had an uneventful night. No new concerns. Objective - Vital Signs Vital signs: Vital Signs Temp 98.8 F 09/23/20 04:00 Pulse 84 09/23/20 07:00 Resp 12 09/23/20 07:00 BP 166/87 09/22/20 06:14 Pulse Ox 84 L 09/23/20 07:00 Intake & Output 09/22/20 09/23/20 09/23/20 18:59 06:59 18:59 Intake Total 144.128 4494.981 Output Total 2747 811 Balance -2191.524 526.981 Weight 68.8 kg Intake: IV 469 1168 ACETAMINOPHEN IV (For NPO 100 100 ) 1,000 mg In Empty Bag 1 bag @ 400 mls/hr IVPB Q6HR [facility] Rx#:[id number] Cardiac Output 80 270 Sodium Chloride 0.9% 1, 200 590 000 ml @ 50 mls/hr IV . Q20H [facility] Rx#:[id number] ceFAZolin 2 gm In Sodium 50 100 Chloride 0.9% 50 ml @ 100 mls/hr IVPB Q8HR [facility] Rx# :[id number] pressure bag 36 108 Intake, IV Titration 86.476 49.981 Amount Clevidipine Butyrate 25 50.0 25.233 mg In Empty Bag 1 bag @ 1 MG/HR 2 mls/hr IV .Q24H [facility] Rx#:[id number] Dexmedetomidine/0.9% NaCl 15.043 (Pmx) 400 mcg In Empty Bag 1 bag @ Titrate IV . Q0M [facility] Rx#:[id number] Insulin Regular 100 unit 6.776 9.705 In Sodium Chloride 0.9% 100 ml @ Per Protocol IV .Q0M [facility] Rx#:[id number] propofoL 1,000 mg In 29.70 Empty Bag 1 bag @ Titrate IV .Q0M [facility] Rx#: [id number] Oral 120 Output: Chest Tube Drainage 320 226 Chest Tube Mediastinal 230 140 Left Pleural 90 86 Gastric Drainage 50 Urine 1227 535 Estimated Blood Loss 1200 Other: Voiding Method Indwelling Catheter Indwelling Catheter ABP, PAP, CO, CI - Last Documented Arterial Blood Pressure 141/63 Pulmonary Artery Pressure 18/8 Cardiac Output 4 Cardiac Index 2.3 - Exam CONSTITUTIONAL: Appears comfortable, cooperative, no acute distress RESPIRATORY: Lungs sounds diminished bilaterally. Respirations even, nonlabored. Currently on 2 L nasal cannula with oxygen saturation 95%. Able to achieve 1000 mL on incentive spirometry. Strong cough. CARDIOVASCULAR: S1, S2 present. Regular rate and rhythm, sinus rhythm on telemetry. Sternum stable. Palpable peripheral pulses bilaterally. No edema present. No calf pain or tenderness noted. Heart hugger in place with patient demonstrating appropriate use. Antiembolism stockings, SCDs present. GASTROINTESTINAL: Abdomen soft, nontender, nondistended. Hypoactive bowel lanie nds present 4 quadrants. Tolerating clear liquids. Negative flatus GENITOURINARY: Richards present draining clear, yellow urine. Output overnight 30-100 mL per hour, 535 mL in the last 12 hours INTEGUMENTARY: Skin is warm and dry with evidence of good perfusion. Anterior chest incision well approximated and covered with dry intact dressing. EVH site well approximated without redness or drainage. NEUROLOGIC: Cranial nerves II through XII intact MUSKULOSKELETAL: Able to move all extremities, strength equal bilaterally PSYCHIATRIC: Alert and oriented to person place and time, appropriate affect, intact judgment and insight INVASIVE LINES AND TUBES: Mediastinal/left pleural chest tubes present and connected to wall suction, no air leaks present. Mediastinal tube with 80 mL serosanguineous drainage overnight, 480 mL since surgery. Left pleural chest tube with 26 mL serosanguineous drainage overnight, 220 mL since surgery. Atrial epicardial pacemaker wires present, rounded. Left internal jugular Hickory/Cordis, left radial arterial line present. Last CO/CI 4/2.3, PA 20/01, CVP 5-6. - Allied health notes Allied health notes reviewed: nursing - Labs CBC & Chem 7: 09/23/20 04:20 09/23/20 04:20 Labs: Abnormal Lab Results - Last 24 Hours (Table) 09/18/20 09/22/20 09/22/20 Range/Units 11:45 08:28 10:24 WBC (3.8-10.6) k/uL RBC (4.30-5.90) m/uL Hgb (13.0-17.5) gm/dL Hct (39.0-53.0) % Neutrophils # (1.3-7.7) k/uL Lymphocytes # (1.0-4.8) k/uL ABG pH (7.35-7.45) ABG pCO2 46 H (35-45) mmHg ABG pO2 >420 H 261 H (83-108) mmHg ABG HCO3 28 H 27 H (21-25) mmol/L ABG Total CO2 29 H 29 H (19-24) mmol/L ABG O2 Saturation 100.0 H 100.0 H (94-97) % ABG Hematocrit (34.0-46.0) % ABG Potassium (3.4-4.5) mmol/L ABG Ionized Calcium (4.5-5.3) mg/dL ABG Glucose 100 H 125 H (75-99) mg/dL Hemoglobin 12.0 L 11.3 L (13.0-17.5) gm/dL Sodium (137-145) mmol/L Creatinine (0.66-1.25) mg/dL Glucose (74-99) mg/dL POC Glucose (mg/dL) (75-99) mg/dL Calcium (8.4-10.2) mg/dL Magnesium (1.6-2.3) mg/dL Total Protein (6.3-8.2) g/dL Albumin (3.5-5.0) g/dL Arterial Blood Potassium (3.4-4.5) mmol/L Arterial Blood Glucose 100 H 125 H (75-99) mg/dL Crossmatch See Detail 09/22/20 09/22/20 09/22/20 Range/Units 11:18 11:56 12:24 WBC (3.8-10.6) k/uL RBC (4.30-5.90) m/uL Hgb (13.0-17.5) gm/dL Hct (39.0-53.0) % Neutrophils # (1.3-7.7) k/uL Lymphocytes # (1.0-4.8) k/uL ABG pH 7.47 H 7.48 H (7.35-7.45) ABG pCO2 (35-45) mmHg ABG pO2 390 H 374 H 356 H (83-108) mmHg ABG HCO3 26 H 27 H 28 H (21-25) mmol/L ABG Total CO2 28 H 29 H 29 H (19-24) mmol/L ABG O2 Saturation 100.0 H 100.0 H 100.0 H (94-97) % ABG Hematocrit 24 L 24 L 24 L (34.0-46.0) % ABG Potassium 5.3 H 4.7 H (3.4-4.5) mmol/L ABG Ionized Calcium 4.1 L 4.2 L 4.3 L (4.5-5.3) mg/dL ABG Glucose 109 H 120 H 122 H (75-99) mg/dL Hemoglobin 7.8 L 7.9 L 7.9 L (13.0-17.5) gm/dL Sodium (137-145) mmol/L Creatinine (0.66-1.25) mg/dL Glucose (74-99) mg/dL POC Glucose (mg/dL) (75-99) mg/dL Calcium (8.4-10.2) mg/dL Magnesium (1.6-2.3) mg/dL Total Protein (6.3-8.2) g/dL Albumin (3.5-5.0) g/dL Arterial Blood Potassium 5.3 H 4.7 H (3.4-4.5) mmol/L Arterial Blood Glucose 109 H 120 H 122 H (75-99) mg/dL Crossmatch 09/22/20 09/22/20 09/22/20 Range/Units 12:57 13:50 14:55 WBC (3.8-10.6) k/uL RBC (4.30-5.90) m/uL Hgb (13.0-17.5) gm/dL Hct (39.0-53.0) % Neutrophils # (1.3-7.7) k/uL Lymphocytes # (1.0-4.8) k/uL ABG pH 7.46 H 7.47 H (7.35-7.45) ABG pCO2 (35-45) mmHg ABG pO2 >420 H 202 H (83-108) mmHg ABG HCO3 28 H 27 H (21-25) mmol/L ABG Total CO2 29 H 28 H (19-24) mmol/L ABG O2 Saturation 100.0 H 100.0 H (94-97) % ABG Hematocrit 24 L 27 L (34.0-46.0) % ABG Potassium (3.4-4.5) mmol/L ABG Ionized Calcium 4.3 L (4.5-5.3) mg/dL ABG Glucose 124 H 128 H (75-99) mg/dL Hemoglobin 7.8 L 8.7 L (13.0-17.5) gm/dL Sodium (137-145) mmol/L Creatinine (0.66-1.25) mg/dL Glucose (74-99) mg/dL POC Glucose (mg/dL) 156 H (75-99) mg/dL Calcium (8.4-10.2) mg/dL Magnesium (1.6-2.3) mg/dL Total Protein (6.3-8.2) g/dL Albumin (3.5-5.0) g/dL Arterial Blood Potassium (3.4-4.5) mmol/L Arterial Blood Glucose 124 H 128 H (75-99) mg/dL Crossmatch 09/22/20 09/22/20 09/22/20 Range/Units 15:00 15:00 15:24 WBC (3.8-10.6) k/uL RBC 4.07 L (4.30-5.90) m/uL Hgb 12.6 L (13.0-17.5) gm/dL Hct 36.3 L (39.0-53.0) % Neutrophils # 9.0 H (1.3-7.7) k/uL Lymphocytes # 0.9 L (1.0-4.8) k/uL ABG pH 7.34 L (7.35-7.45) ABG pCO2 50 H (35-45) mmHg ABG pO2 378 H (83-108) mmHg ABG HCO3 27 H (21-25) mmol/L ABG Total CO2 28 H (19-24) mmol/L ABG O2 Saturation 99.5 H (94-97) % ABG Hematocrit (34.0-46.0) % ABG Potassium (3.4-4.5) mmol/L ABG Ionized Calcium (4.5-5.3) mg/dL ABG Glucose (75-99) mg/dL Hemoglobin (13.0-17.5) gm/dL Sodium 136 L (137-145) mmol/L Creatinine 0.56 L (0.66-1.25) mg/dL Glucose 157 H (74-99) mg/dL POC Glucose (mg/dL) (75-99) mg/dL Calcium (8.4-10.2) mg/dL Magnesium 2.4 H (1.6-2.3) mg/dL Total Protein 4.9 L (6.3-8.2) g/dL Albumin 2.9 L (3.5-5.0) g/dL Arterial Blood Potassium (3.4-4.5) mmol/L Arterial Blood Glucose (75-99) mg/dL Crossmatch 09/22/20 09/22/20 09/22/20 Range/Units 15:57 16:49 17:46 WBC (3.8-10.6) k/uL RBC (4.30-5.90) m/uL Hgb (13.0-17.5) gm/dL Hct (39.0-53.0) % Neutrophils # (1.3-7.7) k/uL Lymphocytes # (1.0-4.8) k/uL ABG pH (7.35-7.45) ABG pCO2 (35-45) mmHg ABG pO2 (83-108) mmHg ABG HCO3 (21-25) mmol/L ABG Total CO2 (19-24) mmol/L ABG O2 Saturation (94-97) % ABG Hematocrit (34.0-46.0) % ABG Potassium (3.4-4.5) mmol/L ABG Ionized Calcium (4.5-5.3) mg/dL ABG Glucose (75-99) mg/dL Hemoglobin (13.0-17.5) gm/dL Sodium (137-145) mmol/L Creatinine (0.66-1.25) mg/dL Glucose (74-99) mg/dL POC Glucose (mg/dL) 178 H 160 H 145 H (75-99) mg/dL Calcium (8.4-10.2) mg/dL Magnesium (1.6-2.3) mg/dL Total Protein (6.3-8.2) g/dL Albumin (3.5-5.0) g/dL Arterial Blood Potassium (3.4-4.5) mmol/L Arterial Blood Glucose (75-99) mg/dL Crossmatch 09/22/20 09/22/20 09/22/20 Range/Units 17:50 18:56 20:00 WBC 13.4 H 13.4 H (3.8-10.6) k/uL RBC 4.06 L 3.81 L (4.30-5.90) m/uL Hgb 12.6 L 11.7 L (13.0-17.5) gm/dL Hct 36.4 L 33.8 L (39.0-53.0) % Neutrophils # 12.2 H 12.1 H (1.3-7.7) k/uL Lymphocytes # 0.3 L 0.2 L (1.0-4.8) k/uL ABG pH (7.35-7.45) ABG pCO2 (35-45) mmHg ABG pO2 (83-108) mmHg ABG HCO3 (21-25) mmol/L ABG Total CO2 (19-24) mmol/L ABG O2 Saturation (94-97) % ABG Hematocrit (34.0-46.0) % ABG Potassium (3.4-4.5) mmol/L ABG Ionized Calcium (4.5-5.3) mg/dL ABG Glucose (75-99) mg/dL Hemoglobin (13.0-17.5) gm/dL Sodium (137-145) mmol/L Creatinine (0.66-1.25) mg/dL Glucose (74-99) mg/dL POC Glucose (mg/dL) 132 H (75-99) mg/dL Calcium (8.4-10.2) mg/dL Magnesium (1.6-2.3) mg/dL Total Protein (6.3-8.2) g/dL Albumin (3.5-5.0) g/dL Arterial Blood Potassium (3.4-4.5) mmol/L Arterial Blood Glucose (75-99) mg/dL Crossmatch 09/22/20 09/22/20 09/22/20 Range/Units 20:07 20:59 21:05 WBC (3.8-10.6) k/uL RBC (4.30-5.90) m/uL Hgb (13.0-17.5) gm/dL Hct (39.0-53.0) % Neutrophils # (1.3-7.7) k/uL Lymphocytes # (1.0-4.8) k/uL ABG pH (7.35-7.45) ABG pCO2 48 H (35-45) mmHg ABG pO2 134 H (83-108) mmHg ABG HCO3 29 H (21-25) mmol/L ABG Total CO2 30 H (19-24) mmol/L ABG O2 Saturation 99.0 H (94-97) % ABG Hematocrit (34.0-46.0) % ABG Potassium (3.4-4.5) mmol/L ABG Ionized Calcium (4.5-5.3) mg/dL ABG Glucose (75-99) mg/dL Hemoglobin (13.0-17.5) gm/dL Sodium (137-145) mmol/L Creatinine (0.66-1.25) mg/dL Glucose (74-99) mg/dL POC Glucose (mg/dL) 125 H 118 H (75-99) mg/dL Calcium (8.4-10.2) mg/dL Magnesium (1.6-2.3) mg/dL Total Protein (6.3-8.2) g/dL Albumin (3.5-5.0) g/dL Arterial Blood Potassium (3.4-4.5) mmol/L Arterial Blood Glucose (75-99) mg/dL Crossmatch 09/22/20 09/22/20 09/22/20 Range/Units 22:17 23:03 23:58 WBC (3.8-10.6) k/uL RBC (4.30-5.90) m/uL Hgb (13.0-17.5) gm/dL Hct (39.0-53.0) % Neutrophils # (1.3-7.7) k/uL Lymphocytes # (1.0-4.8) k/uL ABG pH (7.35-7.45) ABG pCO2 (35-45) mmHg ABG pO2 (83-108) mmHg ABG HCO3 (21-25) mmol/L ABG Total CO2 (19-24) mmol/L ABG O2 Saturation (94-97) % ABG Hematocrit (34.0-46.0) % ABG Potassium (3.4-4.5) mmol/L ABG Ionized Calcium (4.5-5.3) mg/dL ABG Glucose (75-99) mg/dL Hemoglobin (13.0-17.5) gm/dL Sodium (137-145) mmol/L Creatinine (0.66-1.25) mg/dL Glucose (74-99) mg/dL POC Glucose (mg/dL) 126 H 136 H 131 H (75-99) mg/dL Calcium (8.4-10.2) mg/dL Magnesium (1.6-2.3) mg/dL Total Protein (6.3-8.2) g/dL Albumin (3.5-5.0) g/dL Arterial Blood Potassium (3.4-4.5) mmol/L Arterial Blood Glucose (75-99) mg/dL Crossmatch 09/23/20 09/23/20 09/23/20 Range/Units 01:04 02:25 04:04 WBC (3.8-10.6) k/uL RBC (4.30-5.90) m/uL Hgb (13.0-17.5) gm/dL Hct (39.0-53.0) % Neutrophils # (1.3-7.7) k/uL Lymphocytes # (1.0-4.8) k/uL ABG pH (7.35-7.45) ABG pCO2 (35-45) mmHg ABG pO2 (83-108) mmHg ABG HCO3 (21-25) mmol/L ABG Total CO2 (19-24) mmol/L ABG O2 Saturation (94-97) % ABG Hematocrit (34.0-46.0) % ABG Potassium (3.4-4.5) mmol/L ABG Ionized Calcium (4.5-5.3) mg/dL ABG Glucose (75-99) mg/dL Hemoglobin (13.0-17.5) gm/dL Sodium (137-145) mmol/L Creatinine (0.66-1.25) mg/dL Glucose (74-99) mg/dL POC Glucose (mg/dL) 118 H 124 H 125 H (75-99) mg/dL Calcium (8.4-10.2) mg/dL Magnesium (1.6-2.3) mg/dL Total Protein (6.3-8.2) g/dL Albumin (3.5-5.0) g/dL Arterial Blood Potassium (3.4-4.5) mmol/L Arterial Blood Glucose (75-99) mg/dL Crossmatch 09/23/20 09/23/20 09/23/20 Range/Units 04:20 04:20 05:16 WBC 11.4 H (3.8-10.6) k/uL RBC 3.31 L (4.30-5.90) m/uL Hgb 10.4 L (13.0-17.5) gm/dL Hct 29.6 L (39.0-53.0) % Neutrophils # 10.1 H (1.3-7.7) k/uL Lymphocytes # 0.4 L (1.0-4.8) k/uL ABG pH (7.35-7.45) ABG pCO2 (35-45) mmHg ABG pO2 (83-108) mmHg ABG HCO3 (21-25) mmol/L ABG Total CO2 (19-24) mmol/L ABG O2 Saturation (94-97) % ABG Hematocrit (34.0-46.0) % ABG Potassium (3.4-4.5) mmol/L ABG Ionized Calcium (4.5-5.3) mg/dL ABG Glucose (75-99) mg/dL Hemoglobin (13.0-17.5) gm/dL Sodium 135 L (137-145) mmol/L Creatinine 0.62 L (0.66-1.25) mg/dL Glucose 116 H (74-99) mg/dL POC Glucose (mg/dL) 123 H (75-99) mg/dL Calcium 8.1 L (8.4-10.2) mg/dL Magnesium (1.6-2.3) mg/dL Total Protein 4.4 L (6.3-8.2) g/dL Albumin 2.6 L (3.5-5.0) g/dL Arterial Blood Potassium (3.4-4.5) mmol/L Arterial Blood Glucose (75-99) mg/dL Crossmatch 09/23/20 Range/Units 06:10 WBC (3.8-10.6) k/uL RBC (4.30-5.90) m/uL Hgb (13.0-17.5) gm/dL Hct (39.0-53.0) % Neutrophils # (1.3-7.7) k/uL Lymphocytes # (1.0-4.8) k/uL ABG pH (7.35-7.45) ABG pCO2 (35-45) mmHg ABG pO2 (83-108) mmHg ABG HCO3 (21-25) mmol/L ABG Total CO2 (19-24) mmol/L ABG O2 Saturation (94-97) % ABG Hematocrit (34.0-46.0) % ABG Potassium (3.4-4.5) mmol/L ABG Ionized Calcium (4.5-5.3) mg/dL ABG Glucose (75-99) mg/dL Hemoglobin (13.0-17.5) gm/dL Sodium (137-145) mmol/L Creatinine (0.66-1.25) mg/dL Glucose (74-99) mg/dL POC Glucose (mg/dL) 118 H (75-99) mg/dL Calcium (8.4-10.2) mg/dL Magnesium (1.6-2.3) mg/dL Total Protein (6.3-8.2) g/dL Albumin (3.5-5.0) g/dL Arterial Blood Potassium (3.4-4.5) mmol/L Arterial Blood Glucose (75-99) mg/dL Crossmatch - Imaging and Cardiology Chest x-ray: image reviewed Assessment and Plan Assessment: 1. Triple-vessel coronary artery disease, status post three-vessel CABG 2. Preserved left ventricular function, EF 60% 3. Hyperlipidemia, treated, cholesterol 156, LDL 83 4. Pelvic floor dysfunction 5. Previous tobacco dependence with chronic CO2 retention, preoperative FEV1 123% of predicted 6. Pituitary tumor treated with radiation 7. Melanoma skin cancer within the last 5 years status post resection 8. Depression/anxiety 9. BPH status post prostate surgery 10. Hard of hearing 11. Chronic pain with implanted pain pump 12. Postoperative acute blood loss anemia, expected Plan: 1. Continue to maximize medical management with aspirin, statin, Plavix, beta brian therapy. We will increase beta brian therapy as tolerated 2. Discontinue IV nitro. 3. Wean O2 as tolerated. Encourage incentive spirometry 10 times every hour while awake. Bronchodilators per pulmonology 4. Increase activity, ambulate as tolerated. PT/OT/cardiac rehab consulted 5. Will monitor daily labs and x-rays. Electrolyte replacement per protocol 6. Pain controlled current medication regimen 7. Insulin management per primary care service. Patient is not diabetic with preoperative hemoglobin A1c 4.8%. Blood sugars need to be well-controlled to promote healing and union of the sternal bone 8. Discontinue Hickory. Connect Cordis to continuous CVP monitoring 9. Keep mediastinal, pleural chest tubes for another 24 hours 10. Keep Richards catheter for another 24 hours for strict accurate intake and output. Daily weights 11. Home medications restarted 12. GI/DVT prophylaxis 13. More recommendations to follow Time with Patient: Greater than 30
[2020-09-23] MEDS: MULTIVITAMINS, THERA 1 EACH TAB PO SCH (08:17)
[2020-09-23] MEDS: CLOPIDOGREL 75 MG TAB PO SCH (08:17)
[2020-09-23] MEDS: ASCORBIC ACID 500 MG TAB PO SCH (08:17)
[2020-09-23] MEDS: ASPIRIN 325 MG TAB PO SCH (08:17)
[2020-09-23] MEDS: DULoxetine HCL 60 MG CAPSULE.DR PO SCH (08:17)
[2020-09-23] MEDS: ATORVASTATIN 40 MG TAB PO SCH (08:18)
--- NOTE | 2020-09-23 08:20 | XR ---
EXAMINATION TYPE: XR chest 1V portable DATE OF EXAM: 09/23/2020 COMPARISON: Chest x-ray 09/22/2020 HISTORY: Postop cardiac surgery, extubated, chest tube TECHNIQUE: Single frontal view of the chest is obtained. FINDINGS: There is been interval removal of the orogastric tube, endotracheal tube. Central venous c atheter shows the distal tip over the pulmonary artery, patient is post midline sternotomy and left a trial appendage clip placement. Facet chest tube, median sternal drains remain in place. There is no sizable pneumothorax. Some minimal patchy basilar density again noted on the left, there is blunting the left costophrenic angle. Cardiac mediastinal silhouette shows a similar appearance. IMPRESSION: Interval extubation. There may be left lower lobe atelectasis, small effusion.
[2020-09-23] MEDS: hydrALAZINE HCL 20 MG/ML 1 ML VIAL IVP PRN ×2 (08:49→22:56)
[2020-09-23] MEDS ORDERED: METOPROLOL TARTRATE 25 MG TAB PO SCH (09:00)
[2020-09-23] MEDS ORDERED: PANTOPRAZOLE 40 MG/10 ML VIAL IVP SCH (09:00)
[2020-09-23] MEDS ORDERED: bisacodyL 10 MG SUPP RECTAL PRN (09:00)
[2020-09-23 09:04] LABS: Glucose,Whole Blood 161 mg/dL (75-99)
[2020-09-23] MEDS: SODIUM CHLORIDE 0.9% 1,000 ML IV SCH (09:55)
[2020-09-23 10:01] LABS: Glucose,Whole Blood 113 mg/dL (75-99)
[2020-09-23] MEDS ORDERED: HYDROcodone/APAP 7.5-325MG 1 EACH TAB PO PRN (10:37)
[2020-09-23 10:45] VITALS: BMI 23.7
[2020-09-23 11:03] LABS: Glucose,Whole Blood 103 mg/dL (75-99)
--- NOTE | 2020-09-23 11:21 | P.PN ---
Subjective Progress Note Date: 09/23/20 This 80-year-old white male patient of Dr. Olea, with past medical history of malignant melanoma, dyslipidemia, pituitary tumor, depression, anxiety, benign prostatic hypertrophy and history of surgical resection, former smoker, and COPD. Patient recently hospitalized when he was admitted with chest pain, and his workup included heart catheterization which demonstrated a left main stenosis of 20%, 80% stenosis to the RCA, and 90% stenosis to the circumflex coronary artery, 70% stenosis to his proximal LAD, 70% stenosis to the mid LAD. 2-D echocardiogram showed preserved LV function with EF of 55-60%, mild enlargement of the right ventricle, no evidence of aortic stenosis, or aortic regurgitation, no evidence of pulmonary hypertension, the right-sided pressure was 23.4 mmHg, mild MR. Outpatient PFT on 08/15/2020 showed FEV1 was 2.8 L or 123% of predicted, FEV1/FVC ratio was 77% of predicted, diffusion corrected for alveolar volume was 69% of predicted, he did not desaturate during his 6 minute walk his low saturation was 93%, he did have a bronchodilator response. Patient did have a CT scan of the chest as an outpatient, which showed a 1.9 cm groundglass opacity in the left upper lobe, would be related to inflammatory or infectious etiology. Patient was referred to cardiothoracic surgery for coronary artery bypass grafting and today on 09/22/2020 patient underwent three- vessel coronary artery bypass grafting, patient is seen in the ICU in the postoperative period, he is sedated, and intubated, currently on assist-control mode ventilation with a rate of 12 tidal [place] 500, FiO2 100% and PEEP of 5. Postoperative blood gases reveal pO2 of 378, pCO2 of 50 and pH of 7.33. Patient was noted to have a elevated preop bicarbonate concentration on his BMP, suggesting chronic hypercapnic respiratory failure. He is currently on 0.9 normal saline at 50 ML per hour, nitroglycerin and 25 mics per kilo per minute, clevidipine is at 12 mg/h, Diprivan and is a 40 mics per kilo per minute, insulin drip is a 1.5 units per hour. He is in sinus mechanism, hemodynamically he is stable, he ate pressure is 26/11, CVP is 8, cardiac output is 4.7, cardiac index is 2.7. 2 mediastinal and left pleural chest tubes with small amount of sanguinous output. On 09/23/2020 patient seen in follow-up in intensive care unit, today is postoperative day #1 status post three-vessel coronary artery bypass grafting. Patient was successfully weaned and extubated from mechanical ventilator last night on 09/22/2020 at 2300. This morning he is on 3 L of oxygen his pulse ox is 98%. He is breathing comfortably, he is having some pain issues at the incisional site, he is receiving pain medications and CT surgery is adjusting his pain medication regimen. Hemodynamically he is stable, in sinus mechanism with a controlled rate. Blood pressure is 140/59, there is a [place]-Arjun catheter was removed this morning, CVP is 7, patient is currently on 0.9 normal saline at 20 ML per hour, and insulin infusion is at 0.5 units per hour. Lung sounds are clear today's exam, no rhonchi or wheezing, today's chest x-ray has been reviewed showing interval extubation, left lower lobe atelectasis, and a small effusion. Today's labs have been reviewed, white blood cell count is 11.4, hemoglobin is 10.4, sodium is 135, Greta electrolytes were within normal limits, BUN is 20 creatinine 0.62. Patient has a total of 500 mL of serosanguineous output from the mediastinal chest tube, and a total of 200 mL of serosanguineous output from the left pleural chest tube. There is no evidence of air leak, no evidence of pneumothorax on the chest x-ray. No nausea vomiting diarrhea, no abdominal pain, tolerating oral diet. Objective - Vital Signs Vital signs: Vital Signs Temp 98.8 F 09/23/20 04:00 Pulse 86 09/23/20 10:00 Resp 14 09/23/20 10:00 BP 166/87 09/22/20 06:14 Pulse Ox 97 09/23/20 10:00 Intake & Output 09/22/20 09/23/20 09/23/20 18:59 06:59 18:59 Intake Total 647.416 2730.981 396 Output Total 2747 811 165 Balance -2191.524 526.981 231 Weight 68.8 kg 68.8 kg Intake: IV 469 1168 196 ACETAMINOPHEN IV (For NPO 100 100 ) 1,000 mg In Empty Bag 1 bag @ 400 mls/hr IVPB Q6HR [facility] Rx#:[id number] Cardiac Output 80 270 Sodium Chloride 0.9% 1, 200 590 160 000 ml @ 20 mls/hr IV . Q24H [facility] Rx#:[id number] ceFAZolin 2 gm In Sodium 50 100 Chloride 0.9% 50 ml @ 100 mls/hr IVPB Q8HR [facility] Rx# :[id number] pressure bag 36 108 36 Intake, IV Titration 86.476 49.981 Amount Clevidipine Butyrate 25 50.0 25.233 mg In Empty Bag 1 bag @ 1 MG/HR 2 mls/hr IV .Q24H [facility] Rx#:[id number] Dexmedetomidine/0.9% NaCl 15.043 (Pmx) 400 mcg In Empty Bag 1 bag @ Titrate IV . Q0M [facility] Rx#:[id number] Insulin Regular 100 unit 6.776 9.705 In Sodium Chloride 0.9% 100 ml @ Per Protocol IV .Q0M [facility] Rx#:[id number] propofoL 1,000 mg In 29.70 Empty Bag 1 bag @ Titrate IV .Q0M [facility] Rx#: [id number] Oral 120 200 Output: Chest Tube Drainage 320 226 60 Chest Tube Mediastinal 230 140 50 Left Pleural 90 86 10 Gastric Drainage 50 Urine 1227 535 105 Estimated Blood Loss 1200 Other: Voiding Method Indwelling Catheter Indwelling Catheter Indwelling Catheter ABP, PAP, CO, CI - Last Documented Arterial Blood Pressure 144/59 Pulmonary Artery Pressure 22/10 Cardiac Output 5.1 Cardiac Index 2.9 - Exam GENERAL EXAM: And alert, oriented 3 80-year-old white male 4 L of oxygen comfor table in no apparent distress. HEAD: Normocephalic/atraumatic. EYES: Normal reaction of pupils, equal size. Conjunctiva pink, sclera white. NOSE: Clear with pink turbinates. THROAT: No erythema or exudates. NECK: No masses, no JVD, no thyroid enlargement, no adenopathy. CHEST: No chest wall deformity. Symmetrical expansion. Sternal incision is clean dry and intact, covered with surgical dressing, 2 mediastinal and left pleural chest tubes in place with small amount of sanguinous output in the Pleur-evac, no evidence of air leak noted LUNGS: Equal air entry with no crackles, wheeze, rhonchi or dullness. CVS: Regular rate and rhythm, normal S1 and S2, no gallops, no murmurs, no rubs ABDOMEN: Soft, nontender. No hepatosplenomegaly, normal bowel sounds, no guarding or rigidity. EXTREMITIES: No clubbing, no edema, no cyanosis, 2+ pulses and upper and lower extremities. MUSCULOSKELETAL: Muscle strength and tone normal. SPINE: No scoliosis or deformity SKIN: No rashes CENTRAL NERVOUS SYSTEM: Alert, oriented 3 No focal deficits, tone is normal in all 4 extremities. - Labs CBC & Chem 7: 09/23/20 04:20 09/23/20 04:20 Labs: Abnormal Lab Results - Last 24 Hours (Table) 09/18/20 09/22/20 09/22/20 Range/Units 11:45 08:28 10:24 WBC (3.8-10.6) k/uL RBC (4.30-5.90) m/uL Hgb (13.0-17.5) gm/dL Hct (39.0-53.0) % Neutrophils # (1.3-7.7) k/uL Lymphocytes # (1.0-4.8) k/uL ABG pH (7.35-7.45) ABG pCO2 46 H (35-45) mmHg ABG pO2 >420 H 261 H (83-108) mmHg ABG HCO3 28 H 27 H (21-25) mmol/L ABG Total CO2 29 H 29 H (19-24) mmol/L ABG O2 Saturation 100.0 H 100.0 H (94-97) % ABG Hematocrit (34.0-46.0) % ABG Potassium (3.4-4.5) mmol/L ABG Ionized Calcium (4.5-5.3) mg/dL ABG Glucose 100 H 125 H (75-99) mg/dL Hemoglobin 12.0 L 11.3 L (13.0-17.5) gm/dL Sodium (137-145) mmol/L Creatinine (0.66-1.25) mg/dL Glucose (74-99) mg/dL POC Glucose (mg/dL) (75-99) mg/dL Calcium (8.4-10.2) mg/dL Magnesium (1.6-2.3) mg/dL Total Protein (6.3-8.2) g/dL Albumin (3.5-5.0) g/dL Arterial Blood Potassium (3.4-4.5) mmol/L Arterial Blood Glucose 100 H 125 H (75-99) mg/dL Crossmatch See Detail 09/22/20 09/22/20 09/22/20 Range/Units 11:18 11:56 12:24 WBC (3.8-10.6) k/uL RBC (4.30-5.90) m/uL Hgb (13.0-17.5) gm/dL Hct (39.0-53.0) % Neutrophils # (1.3-7.7) k/uL Lymphocytes # (1.0-4.8) k/uL ABG pH 7.47 H 7.48 H (7.35-7.45) ABG pCO2 (35-45) mmHg ABG pO2 390 H 374 H 356 H (83-108) mmHg ABG HCO3 26 H 27 H 28 H (21-25) mmol/L ABG Total CO2 28 H 29 H 29 H (19-24) mmol/L ABG O2 Saturation 100.0 H 100.0 H 100.0 H (94-97) % ABG Hematocrit 24 L 24 L 24 L (34.0-46.0) % ABG Potassium 5.3 H 4.7 H (3.4-4.5) mmol/L ABG Ionized Calcium 4.1 L 4.2 L 4.3 L (4.5-5.3) mg/dL ABG Glucose 109 H 120 H 122 H (75-99) mg/dL Hemoglobin 7.8 L 7.9 L 7.9 L (13.0-17.5) gm/dL Sodium (137-145) mmol/L Creatinine (0.66-1.25) mg/dL Glucose (74-99) mg/dL POC Glucose (mg/dL) (75-99) mg/dL Calcium (8.4-10.2) mg/dL Magnesium (1.6-2.3) mg/dL Total Protein (6.3-8.2) g/dL Albumin (3.5-5.0) g/dL Arterial Blood Potassium 5.3 H 4.7 H (3.4-4.5) mmol/L Arterial Blood Glucose 109 H 120 H 122 H (75-99) mg/dL Crossmatch 09/22/20 09/22/20 09/22/20 Range/Units 12:57 13:50 14:55 WBC (3.8-10.6) k/uL RBC (4.30-5.90) m/uL Hgb (13.0-17.5) gm/dL Hct (39.0-53.0) % Neutrophils # (1.3-7.7) k/uL Lymphocytes # (1.0-4.8) k/uL ABG pH 7.46 H 7.47 H (7.35-7.45) ABG pCO2 (35-45) mmHg ABG pO2 >420 H 202 H (83-108) mmHg ABG HCO3 28 H 27 H (21-25) mmol/L ABG Total CO2 29 H 28 H (19-24) mmol/L ABG O2 Saturation 100.0 H 100.0 H (94-97) % ABG Hematocrit 24 L 27 L (34.0-46.0) % ABG Potassium (3.4-4.5) mmol/L ABG Ionized Calcium 4.3 L (4.5-5.3) mg/dL ABG Glucose 124 H 128 H (75-99) mg/dL Hemoglobin 7.8 L 8.7 L (13.0-17.5) gm/dL Sodium (137-145) mmol/L Creatinine (0.66-1.25) mg/dL Glucose (74-99) mg/dL POC Glucose (mg/dL) 156 H (75-99) mg/dL Calcium (8.4-10.2) mg/dL Magnesium (1.6-2.3) mg/dL Total Protein (6.3-8.2) g/dL Albumin (3.5-5.0) g/dL Arterial Blood Potassium (3.4-4.5) mmol/L Arterial Blood Glucose 124 H 128 H (75-99) mg/dL Crossmatch 09/22/20 09/22/20 09/22/20 Range/Units 15:00 15:00 15:24 WBC (3.8-10.6) k/uL RBC 4.07 L (4.30-5.90) m/uL Hgb 12.6 L (13.0-17.5) gm/dL Hct 36.3 L (39.0-53.0) % Neutrophils # 9.0 H (1.3-7.7) k/uL Lymphocytes # 0.9 L (1.0-4.8) k/uL ABG pH 7.34 L (7.35-7.45) ABG pCO2 50 H (35-45) mmHg ABG pO2 378 H (83-108) mmHg ABG HCO3 27 H (21-25) mmol/L ABG Total CO2 28 H (19-24) mmol/L ABG O2 Saturation 99.5 H (94-97) % ABG Hematocrit (34.0-46.0) % ABG Potassium (3.4-4.5) mmol/L ABG Ionized Calcium (4.5-5.3) mg/dL ABG Glucose (75-99) mg/dL Hemoglobin (13.0-17.5) gm/dL Sodium 136 L (137-145) mmol/L Creatinine 0.56 L (0.66-1.25) mg/dL Glucose 157 H (74-99) mg/dL POC Glucose (mg/dL) (75-99) mg/dL Calcium (8.4-10.2) mg/dL Magnesium 2.4 H (1.6-2.3) mg/dL Total Protein 4.9 L (6.3-8.2) g/dL Albumin 2.9 L (3.5-5.0) g/dL Arterial Blood Potassium (3.4-4.5) mmol/L Arterial Blood Glucose (75-99) mg/dL Crossmatch 09/22/20 09/22/20 09/22/20 Range/Units 15:57 16:49 17:46 WBC (3.8-10.6) k/uL RBC (4.30-5.90) m/uL Hgb (13.0-17.5) gm/dL Hct (39.0-53.0) % Neutrophils # (1.3-7.7) k/uL Lymphocytes # (1.0-4.8) k/uL ABG pH (7.35-7.45) ABG pCO2 (35-45) mmHg ABG pO2 (83-108) mmHg ABG HCO3 (21-25) mmol/L ABG Total CO2 (19-24) mmol/L ABG O2 Saturation (94-97) % ABG Hematocrit (34.0-46.0) % ABG Potassium (3.4-4.5) mmol/L ABG Ionized Calcium (4.5-5.3) mg/dL ABG Glucose (75-99) mg/dL Hemoglobin (13.0-17.5) gm/dL Sodium (137-145) mmol/L Creatinine (0.66-1.25) mg/dL Glucose (74-99) mg/dL POC Glucose (mg/dL) 178 H 160 H 145 H (75-99) mg/dL Calcium (8.4-10.2) mg/dL Magnesium (1.6-2.3) mg/dL Total Protein (6.3-8.2) g/dL Albumin (3.5-5.0) g/dL Arterial Blood Potassium (3.4-4.5) mmol/L Arterial Blood Glucose (75-99) mg/dL Crossmatch 09/22/20 09/22/20 09/22/20 Range/Units 17:50 18:56 20:00 WBC 13.4 H 13.4 H (3.8-10.6) k/uL RBC 4.06 L 3.81 L (4.30-5.90) m/uL Hgb 12.6 L 11.7 L (13.0-17.5) gm/dL Hct 36.4 L 33.8 L (39.0-53.0) % Neutrophils # 12.2 H 12.1 H (1.3-7.7) k/uL Lymphocytes # 0.3 L 0.2 L (1.0-4.8) k/uL ABG pH (7.35-7.45) ABG pCO2 (35-45) mmHg ABG pO2 (83-108) mmHg ABG HCO3 (21-25) mmol/L ABG Total CO2 (19-24) mmol/L ABG O2 Saturation (94-97) % ABG Hematocrit (34.0-46.0) % ABG Potassium (3.4-4.5) mmol/L ABG Ionized Calcium (4.5-5.3) mg/dL ABG Glucose (75-99) mg/dL Hemoglobin (13.0-17.5) gm/dL Sodium (137-145) mmol/L Creatinine (0.66-1.25) mg/dL Glucose (74-99) mg/dL POC Glucose (mg/dL) 132 H (75-99) mg/dL Calcium (8.4-10.2) mg/dL Magnesium (1.6-2.3) mg/dL Total Protein (6.3-8.2) g/dL Albumin (3.5-5.0) g/dL Arterial Blood Potassium (3.4-4.5) mmol/L Arterial Blood Glucose (75-99) mg/dL Crossmatch 09/22/20 09/22/20 09/22/20 Range/Units 20:07 20:59 21:05 WBC (3.8-10.6) k/uL RBC (4.30-5.90) m/uL Hgb (13.0-17.5) gm/dL Hct (39.0-53.0) % Neutrophils # (1.3-7.7) k/uL Lymphocytes # (1.0-4.8) k/uL ABG pH (7.35-7.45) ABG pCO2 48 H (35-45) mmHg ABG pO2 134 H (83-108) mmHg ABG HCO3 29 H (21-25) mmol/L ABG Total CO2 30 H (19-24) mmol/L ABG O2 Saturation 99.0 H (94-97) % ABG Hematocrit (34.0-46.0) % ABG Potassium (3.4-4.5) mmol/L ABG Ionized Calcium (4.5-5.3) mg/dL ABG Glucose (75-99) mg/dL Hemoglobin (13.0-17.5) gm/dL Sodium (137-145) mmol/L Creatinine (0.66-1.25) mg/dL Glucose (74-99) mg/dL POC Glucose (mg/dL) 125 H 118 H (75-99) mg/dL Calcium (8.4-10.2) mg/dL Magnesium (1.6-2.3) mg/dL Total Protein (6.3-8.2) g/dL Albumin (3.5-5.0) g/dL Arterial Blood Potassium (3.4-4.5) mmol/L Arterial Blood Glucose (75-99) mg/dL Crossmatch 09/22/20 09/22/20 09/22/20 Range/Units 22:17 23:03 23:58 WBC (3.8-10.6) k/uL RBC (4.30-5.90) m/uL Hgb (13.0-17.5) gm/dL Hct (39.0-53.0) % Neutrophils # (1.3-7.7) k/uL Lymphocytes # (1.0-4.8) k/uL ABG pH (7.35-7.45) ABG pCO2 (35-45) mmHg ABG pO2 (83-108) mmHg ABG HCO3 (21-25) mmol/L ABG Total CO2 (19-24) mmol/L ABG O2 Saturation (94-97) % ABG Hematocrit (34.0-46.0) % ABG Potassium (3.4-4.5) mmol/L ABG Ionized Calcium (4.5-5.3) mg/dL ABG Glucose (75-99) mg/dL Hemoglobin (13.0-17.5) gm/dL Sodium (137-145) mmol/L Creatinine (0.66-1.25) mg/dL Glucose (74-99) mg/dL POC Glucose (mg/dL) 126 H 136 H 131 H (75-99) mg/dL Calcium (8.4-10.2) mg/dL Magnesium (1.6-2.3) mg/dL Total Protein (6.3-8.2) g/dL Albumin (3.5-5.0) g/dL Arterial Blood Potassium (3.4-4.5) mmol/L Arterial Blood Glucose (75-99) mg/dL Crossmatch 09/23/20 09/23/20 09/23/20 Range/Units 01:04 02:25 04:04 WBC (3.8-10.6) k/uL RBC (4.30-5.90) m/uL Hgb (13.0-17.5) gm/dL Hct (39.0-53.0) % Neutrophils # (1.3-7.7) k/uL Lymphocytes # (1.0-4.8) k/uL ABG pH (7.35-7.45) ABG pCO2 (35-45) mmHg ABG pO2 (83-108) mmHg ABG HCO3 (21-25) mmol/L ABG Total CO2 (19-24) mmol/L ABG O2 Saturation (94-97) % ABG Hematocrit (34.0-46.0) % ABG Potassium (3.4-4.5) mmol/L ABG Ionized Calcium (4.5-5.3) mg/dL ABG Glucose (75-99) mg/dL Hemoglobin (13.0-17.5) gm/dL Sodium (137-145) mmol/L Creatinine (0.66-1.25) mg/dL Glucose (74-99) mg/dL POC Glucose (mg/dL) 118 H 124 H 125 H (75-99) mg/dL Calcium (8.4-10.2) mg/dL Magnesium (1.6-2.3) mg/dL Total Protein (6.3-8.2) g/dL Albumin (3.5-5.0) g/dL Arterial Blood Potassium (3.4-4.5) mmol/L Arterial Blood Glucose (75-99) mg/dL Crossmatch 09/23/20 09/23/20 09/23/20 Range/Units 04:20 04:20 05:16 WBC 11.4 H (3.8-10.6) k/uL RBC 3.31 L (4.30-5.90) m/uL Hgb 10.4 L (13.0-17.5) gm/dL Hct 29.6 L (39.0-53.0) % Neutrophils # 10.1 H (1.3-7.7) k/uL Lymphocytes # 0.4 L (1.0-4.8) k/uL ABG pH (7.35-7.45) ABG pCO2 (35-45) mmHg ABG pO2 (83-108) mmHg ABG HCO3 (21-25) mmol/L ABG Total CO2 (19-24) mmol/L ABG O2 Saturation (94-97) % ABG Hematocrit (34.0-46.0) % ABG Potassium (3.4-4.5) mmol/L ABG Ionized Calcium (4.5-5.3) mg/dL ABG Glucose (75-99) mg/dL Hemoglobin (13.0-17.5) gm/dL Sodium 135 L (137-145) mmol/L Creatinine 0.62 L (0.66-1.25) mg/dL Glucose 116 H (74-99) mg/dL POC Glucose (mg/dL) 123 H (75-99) mg/dL Calcium 8.1 L (8.4-10.2) mg/dL Magnesium (1.6-2.3) mg/dL Total Protein 4.4 L (6.3-8.2) g/dL Albumin 2.6 L (3.5-5.0) g/dL Arterial Blood Potassium (3.4-4.5) mmol/L Arterial Blood Glucose (75-99) mg/dL Crossmatch 09/23/20 09/23/20 09/23/20 Range/Units 06:10 07:09 07:54 WBC (3.8-10.6) k/uL RBC (4.30-5.90) m/uL Hgb (13.0-17.5) gm/dL Hct (39.0-53.0) % Neutrophils # (1.3-7.7) k/uL Lymphocytes # (1.0-4.8) k/uL ABG pH (7.35-7.45) ABG pCO2 (35-45) mmHg ABG pO2 (83-108) mmHg ABG HCO3 (21-25) mmol/L ABG Total CO2 (19-24) mmol/L ABG O2 Saturation (94-97) % ABG Hematocrit (34.0-46.0) % ABG Potassium (3.4-4.5) mmol/L ABG Ionized Calcium (4.5-5.3) mg/dL ABG Glucose (75-99) mg/dL Hemoglobin (13.0-17.5) gm/dL Sodium (137-145) mmol/L Creatinine (0.66-1.25) mg/dL Glucose (74-99) mg/dL POC Glucose (mg/dL) 118 H 116 H 160 H (75-99) mg/dL Calcium (8.4-10.2) mg/dL Magnesium (1.6-2.3) mg/dL Total Protein (6.3-8.2) g/dL Albumin (3.5-5.0) g/dL Arterial Blood Potassium (3.4-4.5) mmol/L Arterial Blood Glucose (75-99) mg/dL Crossmatch 09/23/20 09/23/20 09/23/20 Range/Units 09:02 09:59 11:01 WBC (3.8-10.6) k/uL RBC (4.30-5.90) m/uL Hgb (13.0-17.5) gm/dL Hct (39.0-53.0) % Neutrophils # (1.3-7.7) k/uL Lymphocytes # (1.0-4.8) k/uL ABG pH (7.35-7.45) ABG pCO2 (35-45) mmHg ABG pO2 (83-108) mmHg ABG HCO3 (21-25) mmol/L ABG Total CO2 (19-24) mmol/L ABG O2 Saturation (94-97) % ABG Hematocrit (34.0-46.0) % ABG Potassium (3.4-4.5) mmol/L ABG Ionized Calcium (4.5-5.3) mg/dL ABG Glucose (75-99) mg/dL Hemoglobin (13.0-17.5) gm/dL Sodium (137-145) mmol/L Creatinine (0.66-1.25) mg/dL Glucose (74-99) mg/dL POC Glucose (mg/dL) 161 H 113 H 103 H (75-99) mg/dL Calcium (8.4-10.2) mg/dL Magnesium (1.6-2.3) mg/dL Total Protein (6.3-8.2) g/dL Albumin (3.5-5.0) g/dL Arterial Blood Potassium (3.4-4.5) mmol/L Arterial Blood Glucose (75-99) mg/dL Crossmatch Assessment and Plan Plan: Assessment: #1. Multivessel coronary artery disease, status post three-vessel coronary artery bypass grafting on 09/22/2020, postop day #1 #2. Routine postoperative ventilator management, successfully extubated on postop day #0 on 09/22/2020 at 2300 #3. Suspected chronic CO2 retention based on the preop blood gas #4. Dysipidemia #5. Advanced melanoma #6. Benign prostatic hypertrophy status post surgical resection #7. Former smoker #8. History of chronic pain syndrome Plan: Is doing well on postoperative day #1 Encourage deep breathing and coughing, incentive spirometry use Encourage ambulation, Cxhest X-ray, labs reviewed Pain control and regimen is being adjusted per CT surgery GI/DVT prophylaxis per CT surgery Follow-up labs and chest x-ray in the morning Will continue to follow I performed a history & physical examination of the patient and discussed their management with my nurse practitioner, Elvia Luo. I reviewed the nurse practitioner's note and agree with the documented findings and plan of care. Lung sounds are positive for diminished breath sounds. The findings and the impression was discussed with the patient. I attest to the documentation by the nurse practitioner. Time with Patient: Greater than 30
[2020-09-23 12:21] LABS: Glucose,Whole Blood 130 mg/dL (75-99)
[2020-09-23] MEDS: DEXTROSE 5% IN WATER 100 ML with AMIODARONE 150 MG IV PRN ×3 (12:33→15:26)
--- NOTE | 2020-09-23 12:45 | P.CRDCN ---
History of Present Illness Consult date: 09/23/20 History of present illness: HISTORY OF PRESENT ILLNESS: This is a 80-year-old male with a past medical history significant for coronary artery disease, hypertension, hyperlipidemia, and former nicotine dependence. Patient follows in the office with Dr. Mccarty. We have been asked to see the patient in consultation for post cardiac surgery care. Patient is status post CABG 3: WHITEHEAD to LAD, reverse saphenous vein graft to superior branching of the obtuse marginal artery, and reverse saphenous vein graft to the posterior descending artery. POD #1. Patient examined at the bedside. Patient remains in the ICU. He has been extubated. He is sitting up in the chair. He is not requiring vasopressor support. Blood pressure is stable. patient is able to pull 1000 mL on incentive spirometer. Telemetry reveals sinus mechanism Chest xray interval extubation. There may be left lower atelectasis, small effusion. Laboratory data: WBC 11.4. Hemoglobin 10.4. Platelet count 187. sodium 135. Potassium 4.6. BUN 20. Creatinine 0.62. Magnesium 2.0. Current home cardiac medications include metoprolol succinate 25 mg daily, Lipitor 10 mg daily, aspirin 81mg daily Most recent echocardiogram obtained in June 2020 reveals ejection fraction 55-60% with mild mitral regurgitation. REVIEW OF SYSTEMS: At the time of my exam: CONSTITUTIONAL: Denies fever or chills. HEENT: Denies blurred vision, vision changes, or eye pain. Denies hemoptysis CARDIOVASCULAR: Denies chest pain. Denies orthopnea. Denies PND. Denies palpitations RESPIRATORY: Denies shortness of breath. GASTROINTESTINAL: Denies abdominal pain. Denies nausea or vomiting. HEMATOLOGIC: Denies bleeding disorders. GENITOURINARY: Denies any blood in urine. SKIN: Denies pruitis. Denies rash. PHYSICAL EXAM: VITAL SIGNS: Reviewed. GENERAL: Well-developed in no acute distress. HEENT: Head is normocephalic. Pupils are equal, round. Sclerae anicteric. Mucous membranes of the mouth are moist. Neck supple. No JVD or thyromegaly LUNGS: Respirations even and unlabored. Lungs diminished bilaterally. HEART: Regular rate and rhythm. S1 and S2 heard. sternal dressing clean dry and intact. Heart hugger noted. ABDOMEN: Soft. Nondistended. Nontender. EXTREMITIES: Normal range of motion. No clubbing or cyanosis. Peripheral pulse s intact. No lower extremity edema NEUROLOGIC: Awake and alert. Oriented x 3. ASSESSMENT: Triple vessel coronary artery disease, status post CABG 3 Hyperlipidemia Former nicotine dependence BPH Anxiety Depression Chronic pain with implanted pain pump PLAN: Continue current cardiac medications Continue telemetry monitoring Encourage use of incentive spirometer Increase activity as tolerated Further recommendations pending patient course Nurse practitioner note has been reviewed by physician. Signing provider agrees with the documented findings, assessment, and plan of care. Past Medical History Past Medical History: Coronary Artery Disease (CAD), Cancer, Chest Pain / Angina, Hearing Disorder / Deafness, Hyperlipidemia, Hypertension, Prostate Disorder, Skin Disorder Additional Past Medical History / Comment(s): has pain pump lower left abd with leads radiating to back-last refill ,pituitary tumor-treated w/ Rx. Hx melanoma, UTI. Mild CP/pressure, shortness of breath, cough - admitted 07/18/20. J&J Covid vaccine 06/2020. 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 c/o CP/pressure, shortness of breath w/ admit 07/18/20. Wears hearing aids. 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-cancer), using Rx from . History of Any Multi-Drug Resistant Organisms: None Reported Past Surgical History: Bladder Surgery, Hernia Repair, Prostate Surgery, Tonsillectomy Additional Past Surgical History / Comment(s): skin - melanoma exc, TURP, PAIN PUMP - sees Dr @ [facility]. Hernia x3. Bladder surgery for pelvic muscle prob. Past Anesthesia/Blood Transfusion Reactions: No Reported Reaction Additional Past Anesthesia/Blood Transfusion Reaction / Comment(s): no hx blood transfusion Smoking Status: Former smoker - Past Family History Sister(s) Family Medical History: Cancer, Diabetes Mellitus, Neurologic Disorder Additional Family Medical History / Comment(s): melanoma cancer Father Family Medical History: CVA/TIA Mother Family Medical History: Cancer Additional Family Medical History / Comment(s): Breast Medications and Allergies Home Medications Medication Instructions Recorded Confirmed Type Atorvastatin Calcium [Lipitor] 10 mg PO HS 05/26/14 09/22/20 History Ascorbic Acid [Vitamin C] 500 mg PO DAILY 08/09/14 09/22/20 History L.acid/L.casei/B.bif/B.kellen/Fos 2 cap PO DAILY 08/09/14 09/22/20 History [Probiotic Blend Capsule] DULoxetine HCL [Cymbalta] 60 mg PO QAM 03/19/19 09/22/20 History Morphine Sulfate ER [Ms Contin] 15 mg PO HS 03/19/19 09/22/20 History Amitriptyline HCl [Elavil] 10 mg PO HS 07/17/20 09/22/20 History Cabergoline 0.25 mg PO MOFR 07/17/20 09/22/20 History Calcium Carbonate [Calcium] 600 mg PO STANLEY 07/17/20 09/22/20 History Cranberry 4200mg 4,200 mg PO DAILY 07/17/20 09/22/20 History HYDROcodone/APAP 5-325MG [[place] 1 tab PO BID PRN 07/17/20 09/22/20 History 5-325] Multivit-Min/FA/Lycopen/Lutein 1 tab PO DAILY 07/17/20 09/22/20 History [Centrum Silver Tablet] carBAMazepine CHEW [TEGretol Chew] 25 mg PO QAM 07/18/20 09/22/20 History carBAMazepine CHEW [TEGretol Chew] 50 mg PO HS 07/18/20 09/22/20 History Budesonide-Formot 160-4.5 Mcg 2 puff INHALATION BID 08/25/20 09/22/20 History [Symbicort 160-4.5 Mcg Inhaler] Metoprolol Succinate (ER) [Toprol 25 mg PO DAILY #0 tab.er.24h 08/28/20 09/22/20 Rx XL] Nitroglycerin Sl Tabs [Nitrostat] 0.4 mg SUBLINGUAL Q5M PRN #0 tab 08/28/2008/31 Rx Aspirin 81 mg PO DAILY 09/18/20 09/22/20 History Albuterol Nebulized [Ventolin 1 dose INHALATION Q6H PRN 09/19/20 09/22/20 History Nebulized] Dilaudid 15.0 Mg/Ml Pain Pump 1 dose INTRATHECA CONTINUOUS 09/19/20 09/22/20 History Allergies Allergy/AdvReac Type Severity Reaction Status Date / Time amoxicillin AdvReac Nausea & Verified 09/22/20 06:09 Vomiting clavulanic acid AdvReac Nausea & Verified 09/22/20 06:09 [From Augmentin] Vomiting clindamycin AdvReac Nausea & Verified 09/22/20 06:09 Vomiting doxycycline AdvReac Nausea & Verified 09/22/20 06:09 Vomiting doxycycline calcium AdvReac Nausea & Verified 09/22/20 06:09 [From Vibramycin] Vomiting doxycycline hyclate AdvReac Nausea & Verified 09/22/20 06:09 [From Vibramycin] Vomiting doxycycline monohydrate AdvReac Nausea & Verified 09/22/20 06:09 [From Vibramycin] Vomiting nitrofurantoin AdvReac Nausea & Verified 09/22/20 06:09 [From Macrobid] Vomiting Physical Exam Vitals: Vital Signs Temp Pulse Resp Pulse Ox 09/23/20 11:36 95 09/23/20 11:26 90 09/23/20 11:00 89 16 98 09/23/20 10:30 86 15 98 09/23/20 10:00 86 14 97 09/23/20 09:30 98 14 96 09/23/20 09:00 110 H 28 H 97 09/23/20 08:30 96 12 89 L 09/23/20 08:20 101 H 09/23/20 08:15 98 09/23/20 08:14 108 H 09/23/20 08:00 105 H 15 96 09/23/20 07:00 84 12 84 L 09/23/20 06:30 80 9 L 99 09/23/20 06:00 88 10 L 98 09/23/20 05:30 104 H 17 97 09/23/20 05:00 87 10 L 96 09/23/20 04:30 94 12 97 09/23/20 04:00 98.8 F 83 7 L 98 09/23/20 03:30 79 10 L 98 09/23/20 03:00 78 10 L 98 09/23/20 02:30 92 14 98 09/23/20 02:00 89 8 L 99 09/23/20 01:30 89 18 97 09/23/20 01:00 82 12 96 09/23/20 00:30 94 10 L 95 09/23/20 00:00 98.8 F 83 10 L 94 L 09/22/20 23:30 87 10 L 94 L 09/22/20 23:00 89 11 L 96 09/22/20 22:45 89 8 L 96 09/22/20 22:30 84 11 L 98 09/22/20 22:15 98 14 96 09/22/20 22:00 106 H 13 97 09/22/20 21:45 80 8 L 99 09/22/20 21:30 80 9 L 99 09/22/20 21:15 80 9 L 99 09/22/20 21:00 84 10 L 99 09/22/20 20:45 85 10 L 98 09/22/20 20:30 85 12 98 09/22/20 20:15 87 10 L 99 09/22/20 20:09 89 09/22/20 20:00 99.0 F 89 11 L 99 09/22/20 19:45 90 11 L 98 09/22/20 19:30 92 12 99 09/22/20 19:15 96 11 L 100 09/22/20 19:00 96 13 99 09/22/20 18:45 111 H 11 L 100 09/22/20 18:30 107 H 11 L 99 09/22/20 18:15 106 H 12 99 09/22/20 18:00 96 12 98 09/22/20 17:45 96 11 L 98 09/22/20 17:30 94 13 98 09/22/20 17:15 91 14 99 09/22/20 17:00 86 16 99 09/22/20 16:45 84 16 99 09/22/20 16:30 77 15 99 09/22/20 16:15 75 14 100 09/22/20 16:00 73 14 100 09/22/20 15:45 75 12 100 09/22/20 15:32 75 09/22/20 15:30 75 14 100 09/22/20 15:15 73 14 99 09/22/20 15:00 80 18 99 09/22/20 14:45 79 21 99 Intake and Output 09/22/20 09/23/20 09/23/20 22:59 06:59 14:59 Intake Total 954.709 935.748 396 Output Total 1097 511 165 Balance -142.291 424.748 231 Intake: IV 852 782 196 ACETAMINOPHEN IV (For NPO 100 100 ) 1,000 mg In Empty Bag 1 bag @ 400 mls/hr IVPB Q6HR [facility] Rx#:[id number] Cardiac Output 230 120 Sodium Chloride 0.9% 1, 400 390 160 000 ml @ 20 mls/hr IV . Q24H [facility] Rx#:[id number] ceFAZolin 2 gm In Sodium 50 100 Chloride 0.9% 50 ml @ 100 mls/hr IVPB Q8HR [facility] Rx# :[id number] pressure bag 72 72 36 Intake, IV Titration 102.709 33.748 Amount Clevidipine Butyrate 25 62.033 13.200 mg In Empty Bag 1 bag @ 1 MG/HR 2 mls/hr IV .Q24H [facility] Rx#:[id number] Dexmedetomidine/0.9% NaCl 15.043 (Pmx) 400 mcg In Empty Bag 1 bag @ Titrate IV . Q0M [facility] Rx#:[id number] Insulin Regular 100 unit 10.976 5.505 In Sodium Chloride 0.9% 100 ml @ Per Protocol IV .Q0M [facility] Rx#:[id number] propofoL 1,000 mg In 29.70 Empty Bag 1 bag @ Titrate IV .Q0M [facility] Rx#: [id number] Oral 120 200 Output: Chest Tube Drainage 440 106 60 Chest Tube Mediastinal 290 80 50 Left Pleural 150 26 10 Gastric Drainage 50 Urine 607 405 105 Other: Voiding Method Indwelling Catheter Indwelling Catheter Indwelling Catheter Weight 68.8 kg 68.8 kg ABP, PAP, CO, CI - Last 8 Hours Arterial Blood Pressure 144/55 Arterial Blood Pressure 150/62 Arterial Blood Pressure 144/59 Arterial Blood Pressure 132/60 Arterial Blood Pressure 133/64 Arterial Blood Pressure 143/65 Arterial Blood Pressure 128/53 Arterial Blood Pressure 155/67 Arterial Blood Pressure 141/63 Arterial Blood Pressure 122/57 Arterial Blood Pressure 136/62 Arterial Blood Pressure 101/53 Arterial Blood Pressure 142/62 Arterial Blood Pressure 146/67 Pulmonary Artery Pressure 22/10 Pulmonary Artery Pressure 22/10 Pulmonary Artery Pressure 22/9 Pulmonary Artery Pressure 24/11 Pulmonary Artery Pressure 18/8 Pulmonary Artery Pressure 16/7 Pulmonary Artery Pressure 17/8 Pulmonary Artery Pressure 31/8 Pulmonary Artery Pressure 22/11 Pulmonary Artery Pressure 23/11 Cardiac Output 5.1 Cardiac Output 5.1 Cardiac Output 5.1 Cardiac Output 5.1 Cardiac Output 5.1 Cardiac Output 5.1 Cardiac Output 5.1 Cardiac Output 4 Cardiac Output 4 Cardiac Output 4.2 Cardiac Index 2.9 Cardiac Index 2.9 Cardiac Index 2.9 Cardiac Index 2.9 Cardiac Index 2.9 Cardiac Index 2.9 Cardiac Index 2.9 Cardiac Index 2.3 Cardiac Index 2.3 Cardiac Index 2.4 Results 09/23/20 04:20 09/23/20 04:20 Cardiac Enzymes 09/22/20 09/23/20 Range/Units 15:00 04:20 AST 52 50 (17-59) U/L Coagulation 09/22/20 Range/Units 15:00 PT 11.2 (9.0-12.0) sec APTT 26.9 (22.0-30.0) sec CBC 09/22/20 09/22/20 09/22/20 Range/Units 15:00 17:50 20:00 WBC 10.4 13.4 H 13.4 H (3.8-10.6) k/uL RBC 4.07 L 4.06 L 3.81 L (4.30-5.90) m/uL Hgb 12.6 L 12.6 L 11.7 L (13.0-17.5) gm/dL Hct 36.3 L 36.4 L 33.8 L (39.0-53.0) % Plt Count 198 201 199 (150-450) k/uL 09/23/20 Range/Units 04:20 WBC 11.4 H (3.8-10.6) k/uL RBC 3.31 L (4.30-5.90) m/uL Hgb 10.4 L (13.0-17.5) gm/dL Hct 29.6 L (39.0-53.0) % Plt Count 187 (150-450) k/uL Comprehensive Metabolic Panel 09/22/20 09/23/20 Range/Units 15:00 04:20 Sodium 136 L 135 L (137-145) mmol/L Potassium 4.0 4.6 (3.5-5.1) mmol/L Chloride 105 106 (98-107) mmol/L Carbon Dioxide 27 28 (22-30) mmol/L BUN 17 20 (9-20) mg/dL Creatinine 0.56 L 0.62 L (0.66-1.25) mg/dL Glucose 157 H 116 H (74-99) mg/dL Calcium 8.8 8.1 L (8.4-10.2) mg/dL AST 52 50 (17-59) U/L ALT 26 18 (4-49) U/L Alkaline Phosphatase 56 43 (38-126) U/L Total Protein 4.9 L 4.4 L (6.3-8.2) g/dL Albumin 2.9 L 2.6 L (3.5-5.0) g/dL Current Medications Generic Name Dose Route Start Last Admin Trade Name Freq PRN Reason Stop Dose Admin Hydrocodone Bitart/Acetaminophen 1 each 09/23/20 10:37 Hydrocodone/Apap 7.5-325mg 1 Each Tab PO Q4H PRN Pain Hydrocodone Bitart/Acetaminophen 2 each 09/23/20 10:37 Hydrocodone/Apap 7.5-325mg 1 Each Tab PO Q4H PRN Pain Albuterol/Ipratropium 3 ml 09/22/20 15:00 Ipratropium-Albuterol 3 Ml Neb INHALATION RT-Q2H PRN Shortness Of Breath Or Wheezing Albuterol/Ipratropium 3 ml 09/22/20 20:00 09/23/20 11:26 Ipratropium-Albuterol 3 Ml Neb INHALATION 3 ml RT-QID [facility] Administration Amitriptyline HCl 10 mg 09/23/20 21:00 Amitriptyline Hcl 10 Mg Tab PO HS [facility] Ascorbic Acid 500 mg 09/23/20 09:00 09/23/20 08:17 Ascorbic Acid 500 Mg Tab PO 500 mg DAILY [facility] Administration Aspirin 325 mg 09/23/20 09:00 09/23/20 08:17 Aspirin 325 Mg Tab PO 325 mg DAILY [facility] Administration Atorvastatin Calcium 40 mg 09/23/20 09:00 09/23/20 08:18 Atorvastatin 40 Mg Tab PO 40 mg DAILY [facility] Administration Benzocaine/Menthol 1 each 09/22/20 15:00 Benzocaine/Menthol Lozeng 1 Each Lozenge MUCOUS MEM Q2H PRN Sore Throat Bisacodyl 10 mg 09/23/20 09:00 Bisacodyl 10 Mg Supp RECTAL DAILY PRN Constipation Budesonide/Formoterol Fumarate 2 puff 09/22/20 20:00 09/23/20 08:11 Symbicort 160-4.5 Mcg Inhaler INHALATION 2 puff RT-BID [facility] Administration Calcium Carbonate/Glycine 500 mg 09/28/20 09:00 Calcium Carbonate 500 Mg Chewable PO STANLEY [facility] Carbamazepine 25 mg 09/23/20 09:00 09/23/20 08:19 Carbamazepine Chew 100 Mg Chew PO 25 mg QAM [facility] Administration Carbamazepine 50 mg 09/22/20 21:00 09/22/20 21:48 Carbamazepine Chew 100 Mg Chew PO 50 mg HS [facility] Administration Clopidogrel Bisulfate 75 mg 09/23/20 09:00 09/23/20 08:17 Clopidogrel 75 Mg Tab PO 75 mg DAILY [facility] Administration Duloxetine HCl 60 mg 09/23/20 09:00 09/23/20 08:17 Duloxetine Hcl 60 Mg Capsule.Dr PO 60 mg QAM [facility] Administration Heparin Sodium (Porcine) 5,000 unit 09/22/20 16:00 09/23/20 08:16 Heparin Sodium,Porcine/Pf 5,000 Unit/0.5 Ml Syringe SQ 5,000 unit Q8HR [facility] Administration Hydralazine HCl 10 mg 09/22/20 15:30 09/23/20 08:49 Hydralazine Hcl 20 Mg/Ml 1 Ml Vial IVP 10 mg Q4HR PRN Administration Blood Pressure - High Amiodarone HCl 150 mg/ 103 mls @ 618 mls/hr 09/22/20 15:00 Dextrose/Water IV .Q10M PRN A.FIB/FLUTTER Protocol Amiodarone HCl 360 mg/ 207.2 mls @ 34.533 mls/hr 09/22/20 15:00 Dextrose/Water IV .Q6H PRN A.FIB/FLUTTER Protocol 1 MG/MIN Amiodarone HCl 450 mg/ 250 mls @ 16.667 mls/hr 09/22/20 15:00 Dextrose/Water IV .Q15H PRN A.FIB/FLUTTER Protocol 0.5 MG/MIN Albumin Human 250 ml/ IV 250 mls @ 250 mls/hr 09/22/20 15:00 09/23/20 07:08 Solution IVPB 09/24/20 15:01 250 mls/hr Q1HR PRN Administration For Volume Clevidipine 25 mg/ IV Solution 50 mls @ 2 mls/hr 09/22/20 15:00 09/23/20 01:00 IV 0 mg/hr .Q24H [facility] 0 mls/hr Titration Protocol 1 MG/HR Calcium Gluconate 2 gm/ Sodium 120 mls @ 100 mls/hr 09/22/20 15:00 Chloride IVPB 09/29/20 20:00 ONCE PRN Ionized Calcium less than 4.4 Insulin Human Regular 100 unit 101 mls @ 0 mls/hr 09/22/20 16:00 09/23/20 05:19 / Sodium Chloride IV 0.5 units/hr .Q0M [facility] 0.505 mls/hr Titration Protocol Per Protocol Sodium Chloride 1,000 mls @ 20 mls/hr 09/22/20 15:00 09/23/20 09:55 Saline 0.9% IV 20 mls/hr .Q24H [facility] Administration Ketorolac Tromethamine 15 mg 09/22/20 18:00 09/23/20 11:44 Ketorolac 15 Mg/Ml 1 Ml Vial IVP 09/25/20 15:55 15 mg Q6HR [facility] Administration Magnesium Hydroxide 2,400 mg 09/23/20 09:00 Magnesium Hydroxide 2,400 Mg/10 Ml Cup PO BID PRN Constipation Metoprolol Tartrate 25 mg 09/23/20 16:00 Metoprolol Tartrate 25 Mg Tab PO Q8HR [facility] Miscellaneous Information 1 each 09/22/20 15:00 Potassium Replacement Protocol 1 Each Misc MISCELLANE DAILY PRN Per Protocol Protocol Miscellaneous Information 1 each 09/22/20 15:00 Magnesium Replacement Protocol 1 Each Misc MISCELLANE DAILY PRN Per Protocol Protocol Miscellaneous Information 1 each 09/22/20 15:00 Phosphorus Replacement Protoco 1 Each Misc MISCELLANE DAILY PRN Per Protocol Protocol Morphine Sulfate 15 mg 09/23/20 21:00 Morphine Sulfate Er 15 Mg Tablet PO [facility] Protocol Multivitamins 1 each 09/23/20 09:00 09/23/20 08:17 Multivitamins, Thera 1 Each Tab PO 1 each DAILY [facility] Administration Ondansetron HCl 4 mg 09/22/20 15:00 Ondansetron 4 Mg/2 Ml Vial IVP Q6HR PRN Nausea And Vomiting Pantoprazole Sodium 40 mg 09/24/20 07:30 Pantoprazole 40 Mg Tablet PO AC-BRKFST [facility] Senna/Docusate Sodium 2 each 09/23/20 21:00 Sennosides-Docusate Sodium 1 Each Tab PO [facility] Sodium Chloride 10 ml 09/22/20 21:00 09/23/20 09:53 Sodium Chloride 0.9% Flush 10 Ml Syringe IV 10 ml BID [facility] Administration Intake and Output 09/22/20 09/23/20 09/23/20 22:59 06:59 14:59 Intake Total 954.709 935.748 396 Output Total 1097 511 165 Balance -142.291 424.748 231 Intake: IV 852 782 196 ACETAMINOPHEN IV (For NPO 100 100 ) 1,000 mg In Empty Bag 1 bag @ 400 mls/hr IVPB Q6HR [facility] Rx#:[id number] Cardiac Output 230 120 Sodium Chloride 0.9% 1, 400 390 160 000 ml @ 20 mls/hr IV . Q24H [facility] Rx#:[id number] ceFAZolin 2 gm In Sodium 50 100 Chloride 0.9% 50 ml @ 100 mls/hr IVPB Q8HR [facility] Rx# :[id number] pressure bag 72 72 36 Intake, IV Titration 102.709 33.748 Amount Clevidipine Butyrate 25 62.033 13.200 mg In Empty Bag 1 bag @ 1 MG/HR 2 mls/hr IV .Q24H [facility] Rx#:[id number] Dexmedetomidine/0.9% NaCl 15.043 (Pmx) 400 mcg In Empty Bag 1 bag @ Titrate IV . Q0M [facility] Rx#:[id number] Insulin Regular 100 unit 10.976 5.505 In Sodium Chloride 0.9% 100 ml @ Per Protocol IV .Q0M [facility] Rx#:[id number] propofoL 1,000 mg In 29.70 Empty Bag 1 bag @ Titrate IV .Q0M [facility] Rx#: [id number] Oral 120 200 Output: Chest Tube Drainage 440 106 60 Chest Tube Mediastinal 290 80 50 Left Pleural 150 26 10 Gastric Drainage 50 Urine 607 405 105 Other: Voiding Method Indwelling Catheter Indwelling Catheter Indwelling Catheter Weight 68.8 kg 68.8 kg Patient Weight 09/24/20 06:59 Weight 68.8 kg 09/23/20 04:20 09/23/20 04:20
--- NOTE | 2020-09-23 13:04 | P.CONS ---
History of Present Illness - Reason for Consult Consult date: 09/23/20 med management - Chief Complaint s/p CABG - History of Present Illness 80 year old man with history of COPD, hyperlipidemia, hypertension, depression/anxiety, BPH, malignant melanoma, multivessel disease who is now status post CABG this admission; medicine was consulted by cardiac surgery service for medical management. Patient is doing well postoperatively, receiving nebulizer therapy at the time of my evaluation, with his only complaint being chest pain at the sternotomy site. He denies any anginal pain, dyspnea, headache, fevers, chills, nausea, vomiting, syncope, cough, abdominal pain, diarrhea, constipation. Patient underwent successful 3 vessel coronary artery bypass graft surgery using WHITEHEAD to LAD, reverse SVG to OM, reverse SVG to PDA; also underwent left atrial appendage closure. Patient is presently on amiodarone, aspirin, Lipitor, Plavix. Also on heparin drip. Review of Systems All Systems reviewed and pertinent positives and negatives noted in HPI, all other symptoms are negative Past Medical History Past Medical History: Coronary Artery Disease (CAD), Cancer, Chest Pain / Angina, Hearing Disorder / Deafness, Hyperlipidemia, Hypertension, Prostate Disorder, Skin Disorder Additional Past Medical History / Comment(s): has pain pump lower left abd with leads radiating to back-last refill -1920,pituitary tumor-treated w/ Rx. Hx melanoma, UTI. Mild CP/pressure, shortness of breath, cough - admitted 07/18/20. [employer] Covid vaccine 06/2020. 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 c/o CP/pressure, shortness of breath w/ admit 07/18/20. Wears hearing aids. 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-cancer), using Rx from . History of Any Multi-Drug Resistant Organisms: None Reported Past Surgical History: Bladder Surgery, Hernia Repair, Prostate Surgery, Tonsillectomy Additional Past Surgical History / Comment(s): skin - melanoma exc, TURP, PAIN PUMP - sees @ [facility]. Hernia x3. Bladder surgery for pelvic muscle prob. Past Anesthesia/Blood Transfusion Reactions: No Reported Reaction Additional Past Anesthesia/Blood Transfusion Reaction / Comm: no hx blood transfusion Smoking Status: Former smoker - Past Family History Sister(s) Family Medical History: Cancer, Diabetes Mellitus, Neurologic Disorder Additional Family Medical History / Comment(s): melanoma cancer Father Family Medical History: CVA/TIA Mother Family Medical History: Cancer Additional Family Medical History / Comment(s): Breast Medications and Allergies Home Medications Medication Instructions Recorded Confirmed Type Atorvastatin Calcium [Lipitor] 10 mg PO HS 05/26/14 09/22/20 History Ascorbic Acid [Vitamin C] 500 mg PO DAILY 08/09/14 09/22/20 History L.acid/L.casei/B.bif/B.kellen/Fos 2 cap PO DAILY 08/09/14 09/22/20 History [Probiotic Blend Capsule] DULoxetine HCL [Cymbalta] 60 mg PO QAM 03/19/19 09/22/20 History Morphine Sulfate ER [Ms Contin] 15 mg PO HS 03/19/19 09/22/20 History Amitriptyline HCl [Elavil] 10 mg PO HS 07/17/20 09/22/20 History Cabergoline 0.25 mg PO MOFR 07/17/20 09/22/20 History Calcium Carbonate [Calcium] 600 mg PO STANLEY 07/17/20 09/22/20 History Cranberry 4200mg 4,200 mg PO DAILY 07/17/20 09/22/20 History HYDROcodone/APAP 5-325MG [Goddard 1 tab PO BID PRN 07/17/20 09/22/20 History 5-325] Multivit-Min/FA/Lycopen/Lutein 1 tab PO DAILY 07/17/20 09/22/20 History [Centrum Silver Tablet] carBAMazepine CHEW [TEGretol Chew] 25 mg PO QAM 07/18/20 09/22/20 History carBAMazepine CHEW [TEGretol Chew] 50 mg PO HS 07/18/20 09/22/20 History Budesonide-Formot 160-4.5 Mcg 2 puff INHALATION BID 08/25/20 09/22/20 History [Symbicort 160-4.5 Mcg Inhaler] Metoprolol Succinate (ER) [Toprol 25 mg PO DAILY #0 tab.er.24h 08/28/20 09/22/20 Rx XL] Nitroglycerin Sl Tabs [Nitrostat] 0.4 mg SUBLINGUAL Q5M PRN #0 tab 08/28/20 09/22/20 Rx Aspirin 81 mg PO DAILY 09/18/20 09/22/20 History Albuterol Nebulized [Ventolin 1 dose INHALATION Q6H PRN 09/19/20 09/22/20 History Nebulized] Dilaudid 15.0 Mg/Ml Pain Pump 1 dose INTRATHECA CONTINUOUS 09/19/20 09/22/20 History Allergies Allergy/AdvReac Type Severity Reaction Status Date / Time amoxicillin AdvReac Nausea & Verified 09/22/20 06:09 Vomiting clavulanic acid AdvReac Nausea & Verified 09/22/20 06:09 [From Augmentin] Vomiting clindamycin AdvReac Nausea & Verified 09/22/20 06:09 Vomiting doxycycline AdvReac Nausea & Verified 09/22/20 06:09 Vomiting doxycycline calcium AdvReac Nausea & Verified 09/22/20 06:09 [From Vibramycin] Vomiting doxycycline hyclate AdvReac Nausea & Verified 09/22/20 06:09 [From Vibramycin] Vomiting doxycycline monohydrate AdvReac Nausea & Verified 09/22/20 06:09 [From Vibramycin] Vomiting nitrofurantoin AdvReac Nausea & Verified 09/22/20 06:09 [From Macrobid] Vomiting Physical Exam Osteopathic Statement: *. No significant issues noted on an osteopathic structural exam other than those noted in the History and Physical/Consult. Vitals: Vital Signs Temp Pulse Resp Pulse Ox 09/23/20 11:36 95 09/23/20 11:26 90 09/23/20 11:00 89 16 98 09/23/20 10:30 86 15 98 09/23/20 10:00 86 14 97 09/23/20 09:30 98 14 96 09/23/20 09:00 110 H 28 H 97 09/23/20 08:30 96 12 89 L 09/23/20 08:20 101 H 09/23/20 08:15 98 09/23/20 08:14 108 H 09/23/20 08:00 105 H 15 96 09/23/20 07:00 84 12 84 L 09/23/20 06:30 80 9 L 99 09/23/20 06:00 88 10 L 98 09/23/20 05:30 104 H 17 97 09/23/20 05:00 87 10 L 96 09/23/20 04:30 94 12 97 09/23/20 04:00 98.8 F 83 7 L 98 09/23/20 03:30 79 10 L 98 09/23/20 03:00 78 10 L 98 09/23/20 02:30 92 14 98 09/23/20 02:00 89 8 L 99 09/23/20 01:30 89 18 97 09/23/20 01:00 82 12 96 09/23/20 00:30 94 10 L 95 09/23/20 00:00 98.8 F 83 10 L 94 L 09/22/20 23:30 87 10 L 94 L 09/22/20 23:00 89 11 L 96 09/22/20 22:45 89 8 L 96 09/22/20 22:30 84 11 L 98 09/22/20 22:15 98 14 96 09/22/20 22:00 106 H 13 97 09/22/20 21:45 80 8 L 99 09/22/20 21:30 80 9 L 99 09/22/20 21:15 80 9 L 99 09/22/20 21:00 84 10 L 99 09/22/20 20:45 85 10 L 98 09/22/20 20:30 85 12 98 09/22/20 20:15 87 10 L 99 09/22/20 20:09 89 09/22/20 20:00 99.0 F 89 11 L 99 09/22/20 19:45 90 11 L 98 09/22/20 19:30 92 12 99 09/22/20 19:15 96 11 L 100 09/22/20 19:00 96 13 99 09/22/20 18:45 111 H 11 L 100 09/22/20 18:30 107 H 11 L 99 09/22/20 18:15 106 H 12 99 09/22/20 18:00 96 12 98 09/22/20 17:45 96 11 L 98 09/22/20 17:30 94 13 98 09/22/20 17:15 91 14 99 09/22/20 17:00 86 16 99 09/22/20 16:45 84 16 99 09/22/20 16:30 77 15 99 09/22/20 16:15 75 14 100 09/22/20 16:00 73 14 100 09/22/20 15:45 75 12 100 09/22/20 15:32 75 09/22/20 15:30 75 14 100 09/22/20 15:15 73 14 99 09/22/20 15:00 80 18 99 09/22/20 14:45 79 21 99 Intake and Output 09/22/20 09/23/20 09/23/20 22:59 06:59 14:59 Intake Total 954.709 935.748 396 Output Total 1097 511 165 Balance -142.291 424.748 231 Intake: IV 852 782 196 ACETAMINOPHEN IV (For NPO 100 100 ) 1,000 mg In Empty Bag 1 bag @ 400 mls/hr IVPB Q6HR [facility] Rx#:[id number] Cardiac Output 230 120 Sodium Chloride 0.9% 1, 400 390 160 000 ml @ 20 mls/hr IV . Q24H [facility] Rx#:[id number] ceFAZolin 2 gm In Sodium 50 100 Chloride 0.9% 50 ml @ 100 mls/hr IVPB Q8HR [facility] Rx# :[id number] pressure bag 72 72 36 Intake, IV Titration 102.709 33.748 Amount Clevidipine Butyrate 25 62.033 13.200 mg In Empty Bag 1 bag @ 1 MG/HR 2 mls/hr IV .Q24H [facility] Rx#:[id number] Dexmedetomidine/0.9% NaCl 15.043 (Pmx) 400 mcg In Empty Bag 1 bag @ Titrate IV . Q0M [facility] Rx#:[id number] Insulin Regular 100 unit 10.976 5.505 In Sodium Chloride 0.9% 100 ml @ Per Protocol IV .Q0M [facility] Rx#:[id number] propofoL 1,000 mg In 29.70 Empty Bag 1 bag @ Titrate IV .Q0M [facility] Rx#: [id number] Oral 120 200 Output: Chest Tube Drainage 440 106 60 Chest Tube Mediastinal 290 80 50 Left Pleural 150 26 10 Gastric Drainage 50 Urine 607 405 105 Other: Voiding Method Indwelling Catheter Indwelling Catheter Indwelling Catheter Weight 68.8 kg 68.8 kg ABP, PAP, CO, CI - Last 8 Hours Arterial Blood Pressure 144/55 Arterial Blood Pressure 150/62 Arterial Blood Pressure 144/59 Arterial Blood Pressure 132/60 Arterial Blood Pressure 133/64 Arterial Blood Pressure 143/65 Arterial Blood Pressure 128/53 Arterial Blood Pressure 155/67 Arterial Blood Pressure 141/63 Arterial Blood Pressure 122/57 Arterial Blood Pressure 136/62 Arterial Blood Pressure 101/53 Arterial Blood Pressure 142/62 Arterial Blood Pressure 146/67 Pulmonary Artery Pressure 22/10 Pulmonary Artery Pressure 22/10 Pulmonary Artery Pressure 22/9 Pulmonary Artery Pressure 24/11 Pulmonary Artery Pressure 18/8 Pulmonary Artery Pressure 16/7 Pulmonary Artery Pressure 17/8 Pulmonary Artery Pressure 31/8 Pulmonary Artery Pressure 22/11 Pulmonary Artery Pressure 23/11 Cardiac Output 5.1 Cardiac Output 5.1 Cardiac Output 5.1 Cardiac Output 5.1 Cardiac Output 5.1 Cardiac Output 5.1 Cardiac Output 5.1 Cardiac Output 4 Cardiac Output 4 Cardiac Output 4.2 Cardiac Index 2.9 Cardiac Index 2.9 Cardiac Index 2.9 Cardiac Index 2.9 Cardiac Index 2.9 Cardiac Index 2.9 Cardiac Index 2.9 Cardiac Index 2.3 Cardiac Index 2.3 Cardiac Index 2.4 Gen: awake, alert HEENT: normocephalic, atraumatic, good hearing acuity, moist mucous membranes Resp: good air exchange, breathing comfortably with no accessory muscle use CVS: good distal perfusion x 4, LifeVest GI: soft, NTTP, ND : no SPT, no CVAT, rojas catheter is present MSK: no pitting edema, no clubbing Neuro: non-focal, moving all extremities Psych: cooperative, euthymic mood Results CBC & Chem 7: 09/23/20 04:20 09/23/20 04:20 Labs: Abnormal Lab Results - Last 24 Hours (Table) 09/18/20 09/22/20 09/22/20 Range/Units 11:45 08:28 10:24 WBC (3.8-10.6) k/uL RBC (4.30-5.90) m/uL Hgb (13.0-17.5) gm/dL Hct (39.0-53.0) % Neutrophils # (1.3-7.7) k/uL Lymphocytes # (1.0-4.8) k/uL ABG pH (7.35-7.45) ABG pCO2 46 H (35-45) mmHg ABG pO2 >420 H 261 H (83-108) mmHg ABG HCO3 28 H 27 H (21-25) mmol/L ABG Total CO2 29 H 29 H (19-24) mmol/L ABG O2 Saturation 100.0 H 100.0 H (94-97) % ABG Hematocrit (34.0-46.0) % ABG Potassium (3.4-4.5) mmol/L ABG Ionized Calcium (4.5-5.3) mg/dL ABG Glucose 100 H 125 H (75-99) mg/dL Hemoglobin 12.0 L 11.3 L (13.0-17.5) gm/dL Sodium (137-145) mmol/L Creatinine (0.66-1.25) mg/dL Glucose (74-99) mg/dL POC Glucose (mg/dL) (75-99) mg/dL Calcium (8.4-10.2) mg/dL Magnesium (1.6-2.3) mg/dL Total Protein (6.3-8.2) g/dL Albumin (3.5-5.0) g/dL Arterial Blood Potassium (3.4-4.5) mmol/L Arterial Blood Glucose 100 H 125 H (75-99) mg/dL Crossmatch See Detail 09/22/20 09/22/20 09/22/20 Range/Units 11:18 11:56 12:24 WBC (3.8-10.6) k/uL RBC (4.30-5.90) m/uL Hgb (13.0-17.5) gm/dL Hct (39.0-53.0) % Neutrophils # (1.3-7.7) k/uL Lymphocytes # (1.0-4.8) k/uL ABG pH 7.47 H 7.48 H (7.35-7.45) ABG pCO2 (35-45) mmHg ABG pO2 390 H 374 H 356 H (83-108) mmHg ABG HCO3 26 H 27 H 28 H (21-25) mmol/L ABG Total CO2 28 H 29 H 29 H (19-24) mmol/L ABG O2 Saturation 100.0 H 100.0 H 100.0 H (94-97) % ABG Hematocrit 24 L 24 L 24 L (34.0-46.0) % ABG Potassium 5.3 H 4.7 H (3.4-4.5) mmol/L ABG Ionized Calcium 4.1 L 4.2 L 4.3 L (4.5-5.3) mg/dL ABG Glucose 109 H 120 H 122 H (75-99) mg/dL Hemoglobin 7.8 L 7.9 L 7.9 L (13.0-17.5) gm/dL Sodium (137-145) mmol/L Creatinine (0.66-1.25) mg/dL Glucose (74-99) mg/dL POC Glucose (mg/dL) (75-99) mg/dL Calcium (8.4-10.2) mg/dL Magnesium (1.6-2.3) mg/dL Total Protein (6.3-8.2) g/dL Albumin (3.5-5.0) g/dL Arterial Blood Potassium 5.3 H 4.7 H (3.4-4.5) mmol/L Arterial Blood Glucose 109 H 120 H 122 H (75-99) mg/dL Crossmatch 09/22/20 09/22/20 09/22/20 Range/Units 12:57 13:50 14:55 WBC (3.8-10.6) k/uL RBC (4.30-5.90) m/uL Hgb (13.0-17.5) gm/dL Hct (39.0-53.0) % Neutrophils # (1.3-7.7) k/uL Lymphocytes # (1.0-4.8) k/uL ABG pH 7.46 H 7.47 H (7.35-7.45) ABG pCO2 (35-45) mmHg ABG pO2 >420 H 202 H (83-108) mmHg ABG HCO3 28 H 27 H (21-25) mmol/L ABG Total CO2 29 H 28 H (19-24) mmol/L ABG O2 Saturation 100.0 H 100.0 H (94-97) % ABG Hematocrit 24 L 27 L (34.0-46.0) % ABG Potassium (3.4-4.5) mmol/L ABG Ionized Calcium 4.3 L (4.5-5.3) mg/dL ABG Glucose 124 H 128 H (75-99) mg/dL Hemoglobin 7.8 L 8.7 L (13.0-17.5) gm/dL Sodium (137-145) mmol/L Creatinine (0.66-1.25) mg/dL Glucose (74-99) mg/dL POC Glucose (mg/dL) 156 H (75-99) mg/dL Calcium (8.4-10.2) mg/dL Magnesium (1.6-2.3) mg/dL Total Protein (6.3-8.2) g/dL Albumin (3.5-5.0) g/dL Arterial Blood Potassium (3.4-4.5) mmol/L Arterial Blood Glucose 124 H 128 H (75-99) mg/dL Crossmatch 09/22/20 09/22/20 09/22/20 Range/Units 15:00 15:00 15:24 WBC (3.8-10.6) k/uL RBC 4.07 L (4.30-5.90) m/uL Hgb 12.6 L (13.0-17.5) gm/dL Hct 36.3 L (39.0-53.0) % Neutrophils # 9.0 H (1.3-7.7) k/uL Lymphocytes # 0.9 L (1.0-4.8) k/uL ABG pH 7.34 L (7.35-7.45) ABG pCO2 50 H (35-45) mmHg ABG pO2 378 H (83-108) mmHg ABG HCO3 27 H (21-25) mmol/L ABG Total CO2 28 H (19-24) mmol/L ABG O2 Saturation 99.5 H (94-97) % ABG Hematocrit (34.0-46.0) % ABG Potassium (3.4-4.5) mmol/L ABG Ionized Calcium (4.5-5.3) mg/dL ABG Glucose (75-99) mg/dL Hemoglobin (13.0-17.5) gm/dL Sodium 136 L (137-145) mmol/L Creatinine 0.56 L (0.66-1.25) mg/dL Glucose 157 H (74-99) mg/dL POC Glucose (mg/dL) (75-99) mg/dL Calcium (8.4-10.2) mg/dL Magnesium 2.4 H (1.6-2.3) mg/dL Total Protein 4.9 L (6.3-8.2) g/dL Albumin 2.9 L (3.5-5.0) g/dL Arterial Blood Potassium (3.4-4.5) mmol/L Arterial Blood Glucose (75-99) mg/dL Crossmatch 09/22/20 09/22/20 09/22/20 Range/Units 15:57 16:49 17:46 WBC (3.8-10.6) k/uL RBC (4.30-5.90) m/uL Hgb (13.0-17.5) gm/dL Hct (39.0-53.0) % Neutrophils # (1.3-7.7) k/uL Lymphocytes # (1.0-4.8) k/uL ABG pH (7.35-7.45) ABG pCO2 (35-45) mmHg ABG pO2 (83-108) mmHg ABG HCO3 (21-25) mmol/L ABG Total CO2 (19-24) mmol/L ABG O2 Saturation (94-97) % ABG Hematocrit (34.0-46.0) % ABG Potassium (3.4-4.5) mmol/L ABG Ionized Calcium (4.5-5.3) mg/dL ABG Glucose (75-99) mg/dL Hemoglobin (13.0-17.5) gm/dL Sodium (137-145) mmol/L Creatinine (0.66-1.25) mg/dL Glucose (74-99) mg/dL POC Glucose (mg/dL) 178 H 160 H 145 H (75-99) mg/dL Calcium (8.4-10.2) mg/dL Magnesium (1.6-2.3) mg/dL Total Protein (6.3-8.2) g/dL Albumin (3.5-5.0) g/dL Arterial Blood Potassium (3.4-4.5) mmol/L Arterial Blood Glucose (75-99) mg/dL Crossmatch 09/22/20 09/22/20 09/22/20 Range/Units 17:50 18:56 20:00 WBC 13.4 H 13.4 H (3.8-10.6) k/uL RBC 4.06 L 3.81 L (4.30-5.90) m/uL Hgb 12.6 L 11.7 L (13.0-17.5) gm/dL Hct 36.4 L 33.8 L (39.0-53.0) % Neutrophils # 12.2 H 12.1 H (1.3-7.7) k/uL Lymphocytes # 0.3 L 0.2 L (1.0-4.8) k/uL ABG pH (7.35-7.45) ABG pCO2 (35-45) mmHg ABG pO2 (83-108) mmHg ABG HCO3 (21-25) mmol/L ABG Total CO2 (19-24) mmol/L ABG O2 Saturation (94-97) % ABG Hematocrit (34.0-46.0) % ABG Potassium (3.4-4.5) mmol/L ABG Ionized Calcium (4.5-5.3) mg/dL ABG Glucose (75-99) mg/dL Hemoglobin (13.0-17.5) gm/dL Sodium (137-145) mmol/L Creatinine (0.66-1.25) mg/dL Glucose (74-99) mg/dL POC Glucose (mg/dL) 132 H (75-99) mg/dL Calcium (8.4-10.2) mg/dL Magnesium (1.6-2.3) mg/dL Total Protein (6.3-8.2) g/dL Albumin (3.5-5.0) g/dL Arterial Blood Potassium (3.4-4.5) mmol/L Arterial Blood Glucose (75-99) mg/dL Crossmatch 09/22/20 09/22/20 09/22/20 Range/Units 20:07 20:59 21:05 WBC (3.8-10.6) k/uL RBC (4.30-5.90) m/uL Hgb (13.0-17.5) gm/dL Hct (39.0-53.0) % Neutrophils # (1.3-7.7) k/uL Lymphocytes # (1.0-4.8) k/uL ABG pH (7.35-7.45) ABG pCO2 48 H (35-45) mmHg ABG pO2 134 H (83-108) mmHg ABG HCO3 29 H (21-25) mmol/L ABG Total CO2 30 H (19-24) mmol/L ABG O2 Saturation 99.0 H (94-97) % ABG Hematocrit (34.0-46.0) % ABG Potassium (3.4-4.5) mmol/L ABG Ionized Calcium (4.5-5.3) mg/dL ABG Glucose (75-99) mg/dL Hemoglobin (13.0-17.5) gm/dL Sodium (137-145) mmol/L Creatinine (0.66-1.25) mg/dL Glucose (74-99) mg/dL POC Glucose (mg/dL) 125 H 118 H (75-99) mg/dL Calcium (8.4-10.2) mg/dL Magnesium (1.6-2.3) mg/dL Total Protein (6.3-8.2) g/dL Albumin (3.5-5.0) g/dL Arterial Blood Potassium (3.4-4.5) mmol/L Arterial Blood Glucose (75-99) mg/dL Crossmatch 09/22/20 09/22/20 09/22/20 Range/Units 22:17 23:03 23:58 WBC (3.8-10.6) k/uL RBC (4.30-5.90) m/uL Hgb (13.0-17.5) gm/dL Hct (39.0-53.0) % Neutrophils # (1.3-7.7) k/uL Lymphocytes # (1.0-4.8) k/uL ABG pH (7.35-7.45) ABG pCO2 (35-45) mmHg ABG pO2 (83-108) mmHg ABG HCO3 (21-25) mmol/L ABG Total CO2 (19-24) mmol/L ABG O2 Saturation (94-97) % ABG Hematocrit (34.0-46.0) % ABG Potassium (3.4-4.5) mmol/L ABG Ionized Calcium (4.5-5.3) mg/dL ABG Glucose (75-99) mg/dL Hemoglobin (13.0-17.5) gm/dL Sodium (137-145) mmol/L Creatinine (0.66-1.25) mg/dL Glucose (74-99) mg/dL POC Glucose (mg/dL) 126 H 136 H 131 H (75-99) mg/dL Calcium (8.4-10.2) mg/dL Magnesium (1.6-2.3) mg/dL Total Protein (6.3-8.2) g/dL Albumin (3.5-5.0) g/dL Arterial Blood Potassium (3.4-4.5) mmol/L Arterial Blood Glucose (75-99) mg/dL Crossmatch 09/23/20 09/23/20 09/23/20 Range/Units 01:04 02:25 04:04 WBC (3.8-10.6) k/uL RBC (4.30-5.90) m/uL Hgb (13.0-17.5) gm/dL Hct (39.0-53.0) % Neutrophils # (1.3-7.7) k/uL Lymphocytes # (1.0-4.8) k/uL ABG pH (7.35-7.45) ABG pCO2 (35-45) mmHg ABG pO2 (83-108) mmHg ABG HCO3 (21-25) mmol/L ABG Total CO2 (19-24) mmol/L ABG O2 Saturation (94-97) % ABG Hematocrit (34.0-46.0) % ABG Potassium (3.4-4.5) mmol/L ABG Ionized Calcium (4.5-5.3) mg/dL ABG Glucose (75-99) mg/dL Hemoglobin (13.0-17.5) gm/dL Sodium (137-145) mmol/L Creatinine (0.66-1.25) mg/dL Glucose (74-99) mg/dL POC Glucose (mg/dL) 118 H 124 H 125 H (75-99) mg/dL Calcium (8.4-10.2) mg/dL Magnesium (1.6-2.3) mg/dL Total Protein (6.3-8.2) g/dL Albumin (3.5-5.0) g/dL Arterial Blood Potassium (3.4-4.5) mmol/L Arterial Blood Glucose (75-99) mg/dL Crossmatch 09/23/20 09/23/20 09/23/20 Range/Units 04:20 04:20 05:16 WBC 11.4 H (3.8-10.6) k/uL RBC 3.31 L (4.30-5.90) m/uL Hgb 10.4 L (13.0-17.5) gm/dL Hct 29.6 L (39.0-53.0) % Neutrophils # 10.1 H (1.3-7.7) k/uL Lymphocytes # 0.4 L (1.0-4.8) k/uL ABG pH (7.35-7.45) ABG pCO2 (35-45) mmHg ABG pO2 (83-108) mmHg ABG HCO3 (21-25) mmol/L ABG Total CO2 (19-24) mmol/L ABG O2 Saturation (94-97) % ABG Hematocrit (34.0-46.0) % ABG Potassium (3.4-4.5) mmol/L ABG Ionized Calcium (4.5-5.3) mg/dL ABG Glucose (75-99) mg/dL Hemoglobin (13.0-17.5) gm/dL Sodium 135 L (137-145) mmol/L Creatinine 0.62 L (0.66-1.25) mg/dL Glucose 116 H (74-99) mg/dL POC Glucose (mg/dL) 123 H (75-99) mg/dL Calcium 8.1 L (8.4-10.2) mg/dL Magnesium (1.6-2.3) mg/dL Total Protein 4.4 L (6.3-8.2) g/dL Albumin 2.6 L (3.5-5.0) g/dL Arterial Blood Potassium (3.4-4.5) mmol/L Arterial Blood Glucose (75-99) mg/dL Crossmatch 09/23/20 09/23/20 09/23/20 Range/Units 06:10 07:09 07:54 WBC (3.8-10.6) k/uL RBC (4.30-5.90) m/uL Hgb (13.0-17.5) gm/dL Hct (39.0-53.0) % Neutrophils # (1.3-7.7) k/uL Lymphocytes # (1.0-4.8) k/uL ABG pH (7.35-7.45) ABG pCO2 (35-45) mmHg ABG pO2 (83-108) mmHg ABG HCO3 (21-25) mmol/L ABG Total CO2 (19-24) mmol/L ABG O2 Saturation (94-97) % ABG Hematocrit (34.0-46.0) % ABG Potassium (3.4-4.5) mmol/L ABG Ionized Calcium (4.5-5.3) mg/dL ABG Glucose (75-99) mg/dL Hemoglobin (13.0-17.5) gm/dL Sodium (137-145) mmol/L Creatinine (0.66-1.25) mg/dL Glucose (74-99) mg/dL POC Glucose (mg/dL) 118 H 116 H 160 H (75-99) mg/dL Calcium (8.4-10.2) mg/dL Magnesium (1.6-2.3) mg/dL Total Protein (6.3-8.2) g/dL Albumin (3.5-5.0) g/dL Arterial Blood Potassium (3.4-4.5) mmol/L Arterial Blood Glucose (75-99) mg/dL Crossmatch 09/23/20 09/23/20 09/23/20 Range/Units 09:02 09:59 11:01 WBC (3.8-10.6) k/uL RBC (4.30-5.90) m/uL Hgb (13.0-17.5) gm/dL Hct (39.0-53.0) % Neutrophils # (1.3-7.7) k/uL Lymphocytes # (1.0-4.8) k/uL ABG pH (7.35-7.45) ABG pCO2 (35-45) mmHg ABG pO2 (83-108) mmHg ABG HCO3 (21-25) mmol/L ABG Total CO2 (19-24) mmol/L ABG O2 Saturation (94-97) % ABG Hematocrit (34.0-46.0) % ABG Potassium (3.4-4.5) mmol/L ABG Ionized Calcium (4.5-5.3) mg/dL ABG Glucose (75-99) mg/dL Hemoglobin (13.0-17.5) gm/dL Sodium (137-145) mmol/L Creatinine (0.66-1.25) mg/dL Glucose (74-99) mg/dL POC Glucose (mg/dL) 161 H 113 H 103 H (75-99) mg/dL Calcium (8.4-10.2) mg/dL Magnesium (1.6-2.3) mg/dL Total Protein (6.3-8.2) g/dL Albumin (3.5-5.0) g/dL Arterial Blood Potassium (3.4-4.5) mmol/L Arterial Blood Glucose (75-99) mg/dL Crossmatch 09/23/20 Range/Units 12:19 WBC (3.8-10.6) k/uL RBC (4.30-5.90) m/uL Hgb (13.0-17.5) gm/dL Hct (39.0-53.0) % Neutrophils # (1.3-7.7) k/uL Lymphocytes # (1.0-4.8) k/uL ABG pH (7.35-7.45) ABG pCO2 (35-45) mmHg ABG pO2 (83-108) mmHg ABG HCO3 (21-25) mmol/L ABG Total CO2 (19-24) mmol/L ABG O2 Saturation (94-97) % ABG Hematocrit (34.0-46.0) % ABG Potassium (3.4-4.5) mmol/L ABG Ionized Calcium (4.5-5.3) mg/dL ABG Glucose (75-99) mg/dL Hemoglobin (13.0-17.5) gm/dL Sodium (137-145) mmol/L Creatinine (0.66-1.25) mg/dL Glucose (74-99) mg/dL POC Glucose (mg/dL) 130 H (75-99) mg/dL Calcium (8.4-10.2) mg/dL Magnesium (1.6-2.3) mg/dL Total Protein (6.3-8.2) g/dL Albumin (3.5-5.0) g/dL Arterial Blood Potassium (3.4-4.5) mmol/L Arterial Blood Glucose (75-99) mg/dL Crossmatch Assessment and Plan Assessment: CAD status post CABG, postop day 1 Hypertension Hyperlipidemia -Pain control -Oxygen when necessary -DuoNeb's when necessary -Amiodarone -Insulin drip for tight glucose control in the perioperative setting -Aspirin, Plavix, statin -Heparin DVT prophylaxis -Monitor on telemetry -Cardiology, pulmonary consult following -CT surgery getting primary management COPD without exacerbation -DuoNeb every 6 hours standing + DuoNeb every 2 hours when necessary -No prednisone or antibiotics indicated at this time -Continue Symbicort BPH -Currently has Rojas catheter in place -Does not appear to be on tamsulosin as an outpatient Anxiety/depression -Continue Cymbalta, Tegretol Patient is a full code
[2020-09-23 13:36] LABS: Glucose,Whole Blood 162 mg/dL (75-99)
[2020-09-23] MEDS: HYDROcodone/APAP 7.5-325MG 1 EACH TAB PO PRN ×3 (13:53→21:43)
[2020-09-23 15:03] LABS: Glucose,Whole Blood 155 mg/dL (75-99)
[2020-09-23] MEDS: METOPROLOL TARTRATE 25 MG TAB PO SCH ×2 (15:06→22:58)
[2020-09-23 15:58] LABS: Glucose,Whole Blood 157 mg/dL (75-99)
[2020-09-23 17:48] LABS: Glucose,Whole Blood 117 mg/dL (75-99)
[2020-09-23 19:00] LABS: Glucose,Whole Blood 128 mg/dL (75-99)
[2020-09-23] MEDS: SENNOSIDES-DOCUSATE SODIUM 1 EACH TAB PO SCH (20:12)
[2020-09-23] MEDS: MORPHINE SULFATE ER 15 MG TABLET PO SCH (20:13)
[2020-09-23] MEDS: AMITRIPTYLINE HCL 10 MG TAB PO SCH (20:13)
[2020-09-23 20:21] LABS: Glucose,Whole Blood 95 mg/dL (75-99)
[2020-09-23 21:48] LABS: Glucose,Whole Blood 117 mg/dL (75-99)
[2020-09-23 23:09] LABS: Glucose,Whole Blood 123 mg/dL (75-99)
[2020-09-24] MEDS: HYDROcodone/APAP 7.5-325MG 1 EACH TAB PO PRN ×5 (01:50→22:10)
[2020-09-24 01:57] LABS: Glucose,Whole Blood 114 mg/dL (75-99)
[2020-09-24 04:16] LABS: Glucose,Whole Blood 116 mg/dL (75-99)
[2020-09-24 04:25] LABS: Basophils % (A) 0 %; Eosinophils # (A) 0.5 k/uL (0-0.7); Eosinophils % (A) 5 %; HCT 24.6 % (39.0-53.0); Lymphocytes # (A) 1.2 k/uL (1.0-4.8); Lymphocytes % (A) 12 %; MCH 31.4 pg (25.0-35.0); MCHC 35.2 g/dL (31.0-37.0); MCV 89.1 fL (80.0-100.0); Mean Platelet Volume 7.9; Monocytes # (A) 0.6 k/uL (0-1.0); Monocytes % (A) 6 %; Neutrophils # (A) 7.5 k/uL (1.3-7.7); Neutrophils % (A) 76 %; Platelet Count 143 k/uL (150-450); RBC 2.75 m/uL (4.30-5.90); RDW 12.3 % (11.5-15.5); WBC 9.9 k/uL (3.8-10.6)
[2020-09-24 04:29] LABS: Ionized Calcium 4.9 mg/dL (4.5-5.3)
[2020-09-24 04:38] LABS: HGB 8.6 gm/dL (13.0-17.5)
[2020-09-24 04:40] LABS: ALT 24 U/L (4-49); AST 59 U/L (17-59); African American GFR (CKD) >90 (>60 ml/min/1.73 sqM); Albumin 2.7 g/dL (3.5-5.0); Alkaline Phosphatase 43 U/L (38-126); Anion Gap 4 mmol/L; Blood Urea Nitrogen 21 mg/dL (9-20); Calcium 8.3 mg/dL (8.4-10.2); Carbon Dioxide 24 mmol/L (22-30); Chloride 103 mmol/L (98-107); Glucose 108 mg/dL (74-99); Non-African American GFR(CKD) 90 (>60 ml/min/1.73 sqM); Potassium 3.9 mmol/L (3.5-5.1); Sodium 131 mmol/L (137-145); Total Bilirubin 0.5 mg/dL (0.2-1.3); Total Protein 4.5 g/dL (6.3-8.2)
[2020-09-24] MEDS: PANTOPRAZOLE 40 MG TABLET PO SCH (05:46)
[2020-09-24] MEDS ORDERED: POTASSIUM CHLORIDE ER 20 MEQ TAB.ER PO SCH (06:00)
[2020-09-24] MEDS: KETOROLAC 15 MG/ML 1 ML VIAL IVP SCH ×3 (06:43→19:11)
[2020-09-24 06:50] LABS: Glucose,Whole Blood 114 mg/dL (75-99)
--- NOTE | 2020-09-24 07:45 | XR ---
EXAMINATION TYPE: XR chest 1V portable DATE OF EXAM: 09/24/2020 COMPARISON: Chest x-ray 09/23/2020 HISTORY: Postop cardiac surgery, chest tube TECHNIQUE: Single frontal view of the chest is obtained. FINDINGS: Left-sided chest tube is stable. There are overlying artifacts. Left jugular central venou s sheath is present, the central venous catheter has been removed. Patient is post median sternotomy and left atrial appendage clip placement. Median sternal drains remain in place. Left hemidiaphragms obscured. Cardiac mediastinal silhouette is stable. Interstitium is mildly increased. IMPRESSION: There may be left greater than right lower lobe atelectasis versus pneumonia or edema an d associated effusion. There may be a component of volume overload, interstitial edema.
--- NOTE | 2020-09-24 08:08 | P.PN ---
Subjective Progress Note Date: 09/24/20 Principal diagnosis: Triple-vessel coronary artery disease, preserved left ventricular function. Previous medical history of hyperlipidemia, pelvic floor dysfunction, previous tobacco dependence with carbon dioxide retainer, pituitary tumor treated with radiation, melanoma skin cancer within the last 5 years status post resection, depression/anxiety, BPH status post prostate surgery, hard of hearing POD #2 triple vessel coronary artery bypass grafting using the left internal mammary artery to left anterior descending artery, reverse saphenous vein graft from the aorta to the superior branching of the obtuse marginal artery, reverse saphenous vein graft from the aorta to the posterior descending artery, exclusion of the left atrial appendage using a 35 mm AtriClip, endoscopic harvesting of the left greater saphenous vein from the groin to above the ankle level, intraoperative graft flow measurements using the Bueda system, intraoperative transesophageal echocardiogram and epi-aortic scanning. Postoperative acute blood loss anemia, expected given hemodilution and cardiopulmonary bypass pump Paroxysmal atrial fibrillation, known common occurrence after open heart surgery The patient is currently sitting up in a recliner in the intensive care unit in no acute distress eating breakfast. States pain is under better control with increased [place] dose, denies shortness of breath. Patient did have atrial fibrillation with rapid ventricular response yesterday, IV amiodarone initiated with return to normal sinus rhythm. Currently in sinus rhythm, hemodynamically stable on no inotropes or pressors. Actively using incentive spirometer and achieving 1000 mL. Left internal jugular Cordis, left radial arterial line, mediastinal and left pleural chest tubes all remaining present. Patient had an uneventful night. No new concerns. Objective - Vital Signs Vital signs: Vital Signs Temp 98.6 F 09/24/20 04:00 Pulse 87 09/24/20 07:00 Resp 10 L 09/24/20 07:00 BP 124/75 09/24/20 06:00 Pulse Ox 96 09/24/20 07:00 Intake & Output 09/23/20 09/24/20 09/24/20 18:59 06:59 18:59 Intake Total 667.415 442.265 36 Output Total 493 535 175 Balance 174.415 -92.735 -139 Weight 68.8 kg 73.1 kg Intake: IV 460 429 36 Sodium Chloride 0.9% 1, 400 360 30 000 ml @ 20 mls/hr IV . Q24H [facility] Rx#:[id number] pressure bag 60 69 6 Intake, IV Titration 7.415 13.265 Amount Insulin Regular 100 unit 7.415 13.265 In Sodium Chloride 0.9% 100 ml @ Per Protocol IV .Q0M [facility] Rx#:[id number] Oral 200 Output: Chest Tube Drainage 90 120 150 Chest Tube Mediastinal 80 80 0 Left Pleural 10 40 150 Urine 403 415 25 Other: Voiding Method Indwelling Catheter Indwelling Catheter Indwelling Catheter ABP, PAP, CO, CI - Last Documented Arterial Blood Pressure 107/49 Pulmonary Artery Pressure 22/10 Cardiac Output 5.1 Cardiac Index 2.9 - Exam CONSTITUTIONAL: Appears comfortable, cooperative, no acute distress RESPIRATORY: Lungs sounds diminished bilaterally. Respirations even, nonlabored. Currently on 2 L nasal cannula with oxygen saturation 96%. Able to achieve 1000 mL on incentive spirometry. Strong cough. CARDIOVASCULAR: S1, S2 present. Regular rate and rhythm, sinus rhythm on telem etry. Sternum stable. Palpable peripheral pulses bilaterally. No edema present. No calf pain or tenderness noted. Heart hugger in place with patient demonstrating appropriate use. Antiembolism stockings, SCDs present. GASTROINTESTINAL: Abdomen soft, nontender, nondistended. Active bowel sounds present 4 quadrants. Tolerating diet. Positive flatus GENITOURINARY: Richards present draining clear, yellow urine. Output overnight 25-50 mL per hour, 798 mL in the last 24 hours INTEGUMENTARY: Skin is warm and dry with evidence of good perfusion. Anterior chest incision well approximated and covered with dry intact dressing. EVH site well approximated without redness or drainage. NEUROLOGIC: Cranial nerves II through XII intact MUSKULOSKELETAL: Able to move all extremities, strength equal bilaterally, gait normal PSYCHIATRIC: Alert and oriented to person place and time, appropriate affect, intact judgment and insight INVASIVE LINES AND TUBES: Mediastinal/left pleural chest tubes present and connected to wall suction, no air leaks present. Mediastinal tube with 40 mL serosanguineous drainage overnight, 200 mL in the last 24 hours. Left pleural chest tube with 30 mL serosanguineous drainage overnight, 300 mL in the last 24 hours. Atrial epicardial pacemaker wires present, grounded. Left internal jugular Cordis, left radial arterial line present. Last CVP 12. - Allied health notes Allied health notes reviewed: nursing - Labs CBC & Chem 7: 09/24/20 04:16 09/24/20 04:16 Labs: Abnormal Lab Results - Last 24 Hours (Table) 09/23/20 09/23/20 09/23/20 Range/Units 07:54 09:02 09:59 RBC (4.30-5.90) m/uL Hgb (13.0-17.5) gm/dL Hct (39.0-53.0) % Plt Count (150-450) k/uL Sodium (137-145) mmol/L BUN (9-20) mg/dL Glucose (74-99) mg/dL POC Glucose (mg/dL) 160 H 161 H 113 H (75-99) mg/dL Calcium (8.4-10.2) mg/dL Total Protein (6.3-8.2) g/dL Albumin (3.5-5.0) g/dL 09/23/20 09/23/20 09/23/20 Range/Units 11:01 12:19 13:34 RBC (4.30-5.90) m/uL Hgb (13.0-17.5) gm/dL Hct (39.0-53.0) % Plt Count (150-450) k/uL Sodium (137-145) mmol/L BUN (9-20) mg/dL Glucose (74-99) mg/dL POC Glucose (mg/dL) 103 H 130 H 162 H (75-99) mg/dL Calcium (8.4-10.2) mg/dL Total Protein (6.3-8.2) g/dL Albumin (3.5-5.0) g/dL 09/23/20 09/23/20 09/23/20 Range/Units 15:01 15:57 17:45 RBC (4.30-5.90) m/uL Hgb (13.0-17.5) gm/dL Hct (39.0-53.0) % Plt Count (150-450) k/uL Sodium (137-145) mmol/L BUN (9-20) mg/dL Glucose (74-99) mg/dL POC Glucose (mg/dL) 155 H 157 H 117 H (75-99) mg/dL Calcium (8.4-10.2) mg/dL Total Protein (6.3-8.2) g/dL Albumin (3.5-5.0) g/dL 09/23/20 09/23/20 09/23/20 Range/Units 18:59 21:46 23:08 RBC (4.30-5.90) m/uL Hgb (13.0-17.5) gm/dL Hct (39.0-53.0) % Plt Count (150-450) k/uL Sodium (137-145) mmol/L BUN (9-20) mg/dL Glucose (74-99) mg/dL POC Glucose (mg/dL) 128 H 117 H 123 H (75-99) mg/dL Calcium (8.4-10.2) mg/dL Total Protein (6.3-8.2) g/dL Albumin (3.5-5.0) g/dL 09/24/20 09/24/20 09/24/20 Range/Units 01:56 04:14 04:16 RBC 2.75 L (4.30-5.90) m/uL Hgb 8.6 L D (13.0-17.5) gm/dL Hct 24.6 L (39.0-53.0) % Plt Count 143 L (150-450) k/uL Sodium (137-145) mmol/L BUN (9-20) mg/dL Glucose (74-99) mg/dL POC Glucose (mg/dL) 114 H 116 H (75-99) mg/dL Calcium (8.4-10.2) mg/dL Total Protein (6.3-8.2) g/dL Albumin (3.5-5.0) g/dL 09/24/20 09/24/20 Range/Units 04:16 06:49 RBC (4.30-5.90) m/uL Hgb (13.0-17.5) gm/dL Hct (39.0-53.0) % Plt Count (150-450) k/uL Sodium 131 L (137-145) mmol/L BUN 21 H (9-20) mg/dL Glucose 108 H (74-99) mg/dL POC Glucose (mg/dL) 114 H (75-99) mg/dL Calcium 8.3 L (8.4-10.2) mg/dL Total Protein 4.5 L (6.3-8.2) g/dL Albumin 2.7 L (3.5-5.0) g/dL - Imaging and Cardiology Chest x-ray: report reviewed, image reviewed Assessment and Plan Assessment: 1. Triple-vessel coronary artery disease, status post three-vessel CABG 2. Preserved left ventricular function, EF 60% 3. Hyperlipidemia, treated, cholesterol 156, LDL 83 4. Pelvic floor dysfunction 5. Previous tobacco dependence with chronic CO2 retention, preoperative FEV1 123% of predicted 6. Pituitary tumor treated with radiation 7. Melanoma skin cancer within the last 5 years status post resection 8. Depression/anxiety 9. BPH status post prostate surgery 10. Hard of hearing 11. Chronic pain with implanted pain pump 12. Postoperative acute blood loss anemia, expected 13. Paroxysmal atrial fibrillation, known occurrence, currently sinus rhythm Plan: 1. Continue to maximize medical management with aspirin, statin, Plavix, beta brian therapy. Will increase beta brian therapy as tolerated, increased to 50 mg twice daily today 2. Continue amiodarone for A. fib prophylaxis, will transition to oral amiodarone today. No anticoagulation necessary unless A. fib recurs 3. Wean O2 as tolerated. Encourage incentive spirometry 10 times every hour while awake. Bronchodilators per pulmonology 4. Increase activity, ambulate as tolerated. PT/OT/cardiac rehab consulted 5. Will monitor daily labs and x-rays. Electrolyte replacement per protocol. Will give 20 mg IVP lasix x 1 6. Pain control with current medication regimen 7. Insulin management per primary care service. Patient is not diabetic with preoperative hemoglobin A1c 4.8%. Blood sugars need to be well-controlled to promote healing and union of the sternal bone 8. Will discontinue mediastinal chest tube. Keep left pleural chest tube for another 24 hours 9. Discontinue Richards catheter 09/25/20 @ 0400. May bladder scan and straight cath for greater than 300 mL residual 10. Strict accurate intake and output. Daily weights 11. GI/DVT prophylaxis 12. More recommendations to follow Time with Patient: Greater than 30
[2020-09-24 08:09] LABS: Glucose,Whole Blood 162 mg/dL (75-99)
[2020-09-24] MEDS: DULoxetine HCL 60 MG CAPSULE.DR PO SCH (08:15)
[2020-09-24] MEDS: HEPARIN SODIUM,PORCINE/PF 5,000 UNIT/0.5 ML SYRINGE SQ SCH ×2 (08:15→15:33)
[2020-09-24] MEDS: MULTIVITAMINS, THERA 1 EACH TAB PO SCH (08:16)
[2020-09-24] MEDS: METOPROLOL TARTRATE 50 MG TAB PO SCH ×2 (08:16→21:58)
[2020-09-24] MEDS: ATORVASTATIN 40 MG TAB PO SCH (08:16)
[2020-09-24] MEDS: AMIODARONE 200 MG TAB PO SCH ×2 (08:16→21:57)
[2020-09-24] MEDS: CLOPIDOGREL 75 MG TAB PO SCH (08:16)
[2020-09-24] MEDS: ASPIRIN 325 MG TAB PO SCH (08:16)
[2020-09-24] MEDS: ASCORBIC ACID 500 MG TAB PO SCH (08:16)
[2020-09-24] MEDS ORDERED: FUROSEMIDE 10 MG/ML 2 ML VIAL IV ONE (08:25)
[2020-09-24] MEDS: IPRATROPIUM-ALBUTEROL 3 ML NEB INHALATION SCH ×4 (08:45→20:38)
[2020-09-24] MEDS: SYMBICORT 160-4.5 MCG INHALER INHALATION SCH ×2 (08:45→20:39)
[2020-09-24 09:21] LABS: Glucose,Whole Blood 169 mg/dL (75-99)
[2020-09-24 09:56] LABS: Glucose,Whole Blood 151 mg/dL (75-99)
--- NOTE | 2020-09-24 10:14 | P.PN ---
Subjective Progress Note Date: 09/24/20 Principal diagnosis: Coronary artery disease status, status post coronary artery bypass grafting This 80-year-old white male patient of Dr. Olea, with past medical history of malignant melanoma, dyslipidemia, pituitary tumor, depression, anxiety, benign prostatic hypertrophy and history of surgical resection, former smoker, and COPD. Patient recently hospitalized when he was admitted with chest pain, and his workup included heart catheterization which demonstrated a left main stenosis of 20%, 80% stenosis to the RCA, and 90% stenosis to the circumflex coronary artery, 70% stenosis to his proximal LAD, 70% stenosis to the mid LAD. 2-D echocardiogram showed preserved LV function with EF of 55-60%, mild enlargement of the right ventricle, no evidence of aortic stenosis, or aortic regurgitation, no evidence of pulmonary hypertension, the right-sided pressure was 23.4 mmHg, mild MR. Outpatient PFT on 08/15/2020 showed FEV1 was 2.8 L or 123% of predicted, FEV1/FVC ratio was 77% of predicted, diffusion corrected for alveolar volume was 69% of predicted, he did not desaturate during his 6 minute walk his low saturation was 93%, he did have a bronchodilator response. Patient did have a CT scan of the chest as an outpatient, which showed a 1.9 cm groundglass opacity in the left upper lobe, would be related to inflammatory or infectious etiology. Patient was referred to cardiothoracic surgery for coronary artery bypass grafting and today on 09/22/2020 patient underwent three- vessel coronary artery bypass grafting, patient is seen in the ICU in the postoperative period, he is sedated, and intubated, currently on assist-control mode ventilation with a rate of 12 tidal [place] 500, FiO2 100% and PEEP of 5. Postoperative blood gases reveal pO2 of 378, pCO2 of 50 and pH of 7.33. Patient was noted to have a elevated preop bicarbonate concentration on his BMP, suggesting chronic hypercapnic respiratory failure. He is currently on 0.9 normal saline at 50 ML per hour, nitroglycerin and 25 mics per kilo per minute, clevidipine is at 12 mg/h, Diprivan and is a 40 mics per kilo per minute, insulin drip is a 1.5 units per hour. He is in sinus mechanism, hemodynamically he is stable, he ate pressure is 26/11, CVP is 8, cardiac output is 4.7, cardiac index is 2.7. 2 mediastinal and left pleural chest tubes with small amount of sanguinous output. On 09/23/2020 patient seen in follow-up in intensive care unit, today is postoperative day #1 status post three-vessel coronary artery bypass grafting. Patient was successfully weaned and extubated from mechanical ventilator last night on 09/22/2020 at 2300. This morning he is on 3 L of oxygen his pulse ox is 98%. He is breathing comfortably, he is having some pain issues at the incisional site, he is receiving pain medications and CT surgery is adjusting his pain medication regimen. Hemodynamically he is stable, in sinus mechanism with a controlled rate. Blood pressure is 140/59, there is a [place]-Arjun catheter was removed this morning, CVP is 7, patient is currently on 0.9 normal saline a t 20 ML per hour, and insulin infusion is at 0.5 units per hour. Lung sounds are clear today's exam, no rhonchi or wheezing, today's chest x-ray has been reviewed showing interval extubation, left lower lobe atelectasis, and a small effusion. Today's labs have been reviewed, white blood cell count is 11.4, hemoglobin is 10.4, sodium is 135, Greta electrolytes were within normal limits, BUN is 20 creatinine 0.62. Patient has a total of 500 mL of serosanguineous output from the mediastinal chest tube, and a total of 200 mL of serosanguineous output from the left pleural chest tube. There is no evidence of air leak, no evidence of pneumothorax on the chest x-ray. No nausea vomiting diarrhea, no abdominal pain, tolerating oral diet. The patient is seen today 09/24/2020 in follow-up in the intensive care unit. This is postoperative day #2. He is status post coronary artery bypass grafting utilizing a WHITEHEAD to the LAD, reverse saphenous vein grafts to the obtuse marginal artery and posterior descending artery. He is currently seen sitting up in a chair at the bedside. Awake and alert in no acute distress. Maintaining O2 saturations in the mid 90s on 2 L/m per nasal cannula. He is afebrile. Hemodynamically stable. CVP reading 8. Chest x-ray reveals bilateral lower lobe atelectasis left greater than right. He is working well with the incentive spirometer. Pulling 1000 ML's. White count 9.9. Hemoglobin 8.6. Platelets 143. Sodium 131. Potassium 3.9. Creatinine 0.71. Glucose 108. Albumin 2.7. He received albumin yesterday. He remains on Symbicort, DuoNeb inhalations. 0.9 normal saline it 20 ML's per hour. Appetite is good. Pain under good control. Currently in sinus rhythm. Objective - Vital Signs Vital signs: Vital Signs Temp 98.1 F 09/24/20 08:00 Pulse 92 09/24/20 08:56 Resp 12 09/24/20 08:00 BP 124/75 09/24/20 06:00 Pulse Ox 96 09/24/20 08:00 Intake & Output 09/23/20 09/24/20 09/24/20 18:59 06:59 18:59 Intake Total 667.415 442.265 72 Output Total 493 535 265 Balance 174.415 -92.735 -193 Weight 68.8 kg 73.1 kg Intake: IV 460 429 72 Sodium Chloride 0.9% 1, 400 360 60 000 ml @ 20 mls/hr IV . Q24H [facility] Rx#:[id number] pressure bag 60 69 12 Intake, IV Titration 7.415 13.265 Amount Insulin Regular 100 unit 7.415 13.265 In Sodium Chloride 0.9% 100 ml @ Per Protocol IV .Q0M [facility] Rx#:[id number] Oral 200 Output: Chest Tube Drainage 90 120 190 Chest Tube Mediastinal 80 80 10 Left Pleural 10 40 180 Urine 403 415 75 Other: Voiding Method Indwelling Catheter Indwelling Catheter Indwelling Catheter ABP, PAP, CO, CI - Last Documented Arterial Blood Pressure 109/42 Pulmonary Artery Pressure 22/10 Cardiac Output 5.1 Cardiac Index 2.9 - Exam GENERAL EXAM: Alert, active, pleasant 80-year-old gentleman, on 2 L nasal cannula, currently comfortable in no apparent distress. HEAD: Normocephalic. EYES: Normal reaction of pupils, equal size. NOSE: Clear with pink turbinates. THROAT: No erythema or exudates. NECK: Left Cordis catheter in place No masses, no JVD. CHEST: Sternal dressing dry and intact. Heart Hugger in place. Mediastinal and left chest tube in place. Atrial epicardial wires present. LUNGS: Equal air entry with crackles in the posterior bases CVS: S1 and S2 normal with no audible murmur, regular rhythm. ABDOMEN: No hepatosplenomegaly, normal bowel sounds, no guarding or rigidity. SPINE: No scoliosis or deformity SKIN: No rashes CENTRAL NERVOUS SYSTEM: No focal deficits, tone is normal in all 4 extremities. EXTREMITIES: Left radial art line present. There is trace peripheral edema. No clubbing, no cyanosis. Peripheral pulses are intact. - Labs CBC & Chem 7: 09/24/20 04:16 09/24/20 04:16 Labs: Abnormal Lab Results - Last 24 Hours (Table) 09/23/20 09/23/20 09/23/20 Range/Units 11:01 12:19 13:34 RBC (4.30-5.90) m/uL Hgb (13.0-17.5) gm/dL Hct (39.0-53.0) % Plt Count (150-450) k/uL Sodium (137-145) mmol/L BUN (9-20) mg/dL Glucose (74-99) mg/dL POC Glucose (mg/dL) 103 H 130 H 162 H (75-99) mg/dL Calcium (8.4-10.2) mg/dL Total Protein (6.3-8.2) g/dL Albumin (3.5-5.0) g/dL 09/23/20 09/23/20 09/23/20 Range/Units 15:01 15:57 17:45 RBC (4.30-5.90) m/uL Hgb (13.0-17.5) gm/dL Hct (39.0-53.0) % Plt Count (150-450) k/uL Sodium (137-145) mmol/L BUN (9-20) mg/dL Glucose (74-99) mg/dL POC Glucose (mg/dL) 155 H 157 H 117 H (75-99) mg/dL Calcium (8.4-10.2) mg/dL Total Protein (6.3-8.2) g/dL Albumin (3.5-5.0) g/dL 09/23/20 09/23/20 09/23/20 Range/Units 18:59 21:46 23:08 RBC (4.30-5.90) m/uL Hgb (13.0-17.5) gm/dL Hct (39.0-53.0) % Plt Count (150-450) k/uL Sodium (137-145) mmol/L BUN (9-20) mg/dL Glucose (74-99) mg/dL POC Glucose (mg/dL) 128 H 117 H 123 H (75-99) mg/dL Calcium (8.4-10.2) mg/dL Total Protein (6.3-8.2) g/dL Albumin (3.5-5.0) g/dL 09/24/20 09/24/20 09/24/20 Range/Units 01:56 04:14 04:16 RBC 2.75 L (4.30-5.90) m/uL Hgb 8.6 L D (13.0-17.5) gm/dL Hct 24.6 L (39.0-53.0) % Plt Count 143 L (150-450) k/uL Sodium (137-145) mmol/L BUN (9-20) mg/dL Glucose (74-99) mg/dL POC Glucose (mg/dL) 114 H 116 H (75-99) mg/dL Calcium (8.4-10.2) mg/dL Total Protein (6.3-8.2) g/dL Albumin (3.5-5.0) g/dL 09/24/20 09/24/20 09/24/20 Range/Units 04:16 06:49 08:08 RBC (4.30-5.90) m/uL Hgb (13.0-17.5) gm/dL Hct (39.0-53.0) % Plt Count (150-450) k/uL Sodium 131 L (137-145) mmol/L BUN 21 H (9-20) mg/dL Glucose 108 H (74-99) mg/dL POC Glucose (mg/dL) 114 H 162 H (75-99) mg/dL Calcium 8.3 L (8.4-10.2) mg/dL Total Protein 4.5 L (6.3-8.2) g/dL Albumin 2.7 L (3.5-5.0) g/dL 09/24/20 09/24/20 Range/Units 09:20 09:55 RBC (4.30-5.90) m/uL Hgb (13.0-17.5) gm/dL Hct (39.0-53.0) % Plt Count (150-450) k/uL Sodium (137-145) mmol/L BUN (9-20) mg/dL Glucose (74-99) mg/dL POC Glucose (mg/dL) 169 H 151 H (75-99) mg/dL Calcium (8.4-10.2) mg/dL Total Protein (6.3-8.2) g/dL Albumin (3.5-5.0) g/dL Assessment and Plan Assessment: 1 Multivessel coronary artery disease, status post three-vessel coronary artery bypass grafting on 09/22/2020, postop day #2 2 Routine postoperative ventilator management, successfully extubated on postop day #0 on 09/22/2020 at 2300 3 Suspected chronic CO2 retention based on the preop blood gas 4 Dysipidemia 5 Advanced melanoma 6 Benign prostatic hypertrophy status post surgical resection 7 Former smoker 8 History of chronic pain syndrome Plan: The patient was seen and evaluated by Dr. Vallejo Chest x-ray and labs reviewed Working well with the incentive spirometer Continue SymbiseanrtKranthi's Increase activity as tolerated Titrate the FiO2 as tolerated We will continue to follow I, the cosigning physician, performed a history & physical examination of the patient. Lungs sounds with crackles in the bilateral posterior bases. Maintaining good O2 saturations in the 90s on 2 L/m per nasal. I discussed the assessment and plan of care with my nurse practitioner, Rhiannon Minaya. I attest to the above note as dictated by her.
--- NOTE | 2020-09-24 10:24 | P.PN ---
Subjective Progress Note Date: 09/24/20 HISTORY OF PRESENT ILLNESS: This is a 80-year-old male with a past medical history significant for coronary artery disease, hypertension, hyperlipidemia, and former nicotine dependence. Patient follows in the office with Dr. Mccarty. We have been asked to see the patient in consultation for post cardiac surgery care. Patient is status post CABG 3: WHITEHEAD to LAD, reverse saphenous vein graft to superior branching of the obtuse marginal artery, and reverse saphenous vein graft to the posterior descending artery. POD #1. Patient examined at the bedside. Patient remains in the ICU. He has been extubated. He is sitting up in the chair. He is not requiring vasopressor support. Blood pressure is stable. patient is able to pull 1000 mL on incentive spirometer. Telemetry reveals sinus mechanism Chest xray interval extubation. There may be left lower atelectasis, small effusion. Laboratory data: WBC 11.4. Hemoglobin 10.4. Platelet count 187. sodium 135. Potassium 4.6. BUN 20. Creatinine 0.62. Magnesium 2.0. Current home cardiac medications include metoprolol succinate 25 mg daily, Lipitor 10 mg daily, aspirin 81mg daily Most recent echocardiogram obtained in June 2020 reveals ejection fraction 55- 60% with mild mitral regurgitation. 09/24/2020 Patient examined this morning at the bedside. Patient is sitting up in the chair. Denies chest pain or pressure. Denies shortness of breath. He is pulling 1000 mL on and they incentive spirometer. He is hemodynamically stable and not requiring vasopressor support. Patient went into A. fib with RVR overnight. He was placed on IV amiodarone and converted to sinus mechanism. His beta brian was increased this morning per cardio thoracic surgery. PHYSICAL EXAM: VITAL SIGNS: Reviewed. GENERAL: Well-developed in no acute distress. HEENT: Head is normocephalic. Pupils are equal, round. Sclerae anicteric. Mucous membranes of the mouth are moist. Neck supple. No JVD or thyromegaly LUNGS: Respirations even and unlabored. Lungs diminished bilaterally. HEART: Regular rate and rhythm. S1 and S2 heard. sternal dressing clean dry and intact. Heart hugger noted. ABDOMEN: Soft. Nondistended. Nontender. EXTREMITIES: Normal range of motion. No clubbing or cyanosis. Peripheral pulses intact. Trace bilateral lower extremity edema NEUROLOGIC: Awake and alert. Oriented x 3. ASSESSMENT: Triple vessel coronary artery disease, status post CABG 3 Postoperative paroxysmal atrial fibrillation with RVR, currently maintaining sinus mechanism Hyperlipidemia Former nicotine dependence BPH Anxiety Depression Chronic pain with implanted pain pump PLAN: Continue postoperative management per CTS Continue IV amiodarone Beta brian increased per cardiothoracic surgery Continue current cardiac medications Continue telemetry monitoring Encourage use of incentive spirometer Increase activity as tolerated Further recommendations pending patient course Nurse practitioner note has been reviewed by physician. Signing provider agrees with the documented findings, assessment, and plan of care. Objective - Vital Signs Vital signs: Vital Signs Temp 98.1 F 09/24/20 08:00 Pulse 92 09/24/20 08:56 Resp 12 09/24/20 08:00 BP 124/75 09/24/20 06:00 Pulse Ox 96 09/24/20 08:00 Intake & Output 09/23/20 09/24/20 09/24/20 18:59 06:59 18:59 Intake Total 667.415 442.265 72 Output Total 493 535 265 Balance 174.415 -92.735 -193 Weight 68.8 kg 73.1 kg Intake: IV 460 429 72 Sodium Chloride 0.9% 1, 400 360 60 000 ml @ 20 mls/hr IV . Q24H [facility] Rx#:[id number] pressure bag 60 69 12 Intake, IV Titration 7.415 13.265 Amount Insulin Regular 100 unit 7.415 13.265 In Sodium Chloride 0.9% 100 ml @ Per Protocol IV .Q0M [facility] Rx#:[id number] Oral 200 Output: Chest Tube Drainage 90 120 190 Chest Tube Mediastinal 80 80 10 Left Pleural 10 40 180 Urine 403 415 75 Other: Voiding Method Indwelling Catheter Indwelling Catheter Indwelling Catheter ABP, PAP, CO, CI - Last Documented Arterial Blood Pressure 109/42 Pulmonary Artery Pressure 22/10 Cardiac Output 5.1 Cardiac Index 2.9 - Labs CBC & Chem 7: 09/24/20 04:16 09/24/20 04:16 Labs: Abnormal Lab Results - Last 24 Hours (Table) 09/23/20 09/23/20 09/23/20 Range/Units 11:01 12:19 13:34 RBC (4.30-5.90) m/uL Hgb (13.0-17.5) gm/dL Hct (39.0-53.0) % Plt Count (150-450) k/uL Sodium (137-145) mmol/L BUN (9-20) mg/dL Glucose (74-99) mg/dL POC Glucose (mg/dL) 103 H 130 H 162 H (75-99) mg/dL Calcium (8.4-10.2) mg/dL Total Protein (6.3-8.2) g/dL Albumin (3.5-5.0) g/dL 09/23/20 09/23/20 09/23/20 Range/Units 15:01 15:57 17:45 RBC (4.30-5.90) m/uL Hgb (13.0-17.5) gm/dL Hct (39.0-53.0) % Plt Count (150-450) k/uL Sodium (137-145) mmol/L BUN (9-20) mg/dL Glucose (74-99) mg/dL POC Glucose (mg/dL) 155 H 157 H 117 H (75-99) mg/dL Calcium (8.4-10.2) mg/dL Total Protein (6.3-8.2) g/dL Albumin (3.5-5.0) g/dL 09/23/20 09/23/20 09/23/20 Range/Units 18:59 21:46 23:08 RBC (4.30-5.90) m/uL Hgb (13.0-17.5) gm/dL Hct (39.0-53.0) % Plt Count (150-450) k/uL Sodium (137-145) mmol/L BUN (9-20) mg/dL Glucose (74-99) mg/dL POC Glucose (mg/dL) 128 H 117 H 123 H (75-99) mg/dL Calcium (8.4-10.2) mg/dL Total Protein (6.3-8.2) g/dL Albumin (3.5-5.0) g/dL 09/24/20 09/24/20 09/24/20 Range/Units 01:56 04:14 04:16 RBC 2.75 L (4.30-5.90) m/uL Hgb 8.6 L D (13.0-17.5) gm/dL Hct 24.6 L (39.0-53.0) % Plt Count 143 L (150-450) k/uL Sodium (137-145) mmol/L BUN (9-20) mg/dL Glucose (74-99) mg/dL POC Glucose (mg/dL) 114 H 116 H (75-99) mg/dL Calcium (8.4-10.2) mg/dL Total Protein (6.3-8.2) g/dL Albumin (3.5-5.0) g/dL 09/24/20 09/24/20 09/24/20 Range/Units 04:16 06:49 08:08 RBC (4.30-5.90) m/uL Hgb (13.0-17.5) gm/dL Hct (39.0-53.0) % Plt Count (150-450) k/uL Sodium 131 L (137-145) mmol/L BUN 21 H (9-20) mg/dL Glucose 108 H (74-99) mg/dL POC Glucose (mg/dL) 114 H 162 H (75-99) mg/dL Calcium 8.3 L (8.4-10.2) mg/dL Total Protein 4.5 L (6.3-8.2) g/dL Albumin 2.7 L (3.5-5.0) g/dL 09/24/20 09/24/20 Range/Units 09:20 09:55 RBC (4.30-5.90) m/uL Hgb (13.0-17.5) gm/dL Hct (39.0-53.0) % Plt Count (150-450) k/uL Sodium (137-145) mmol/L BUN (9-20) mg/dL Glucose (74-99) mg/dL POC Glucose (mg/dL) 169 H 151 H (75-99) mg/dL Calcium (8.4-10.2) mg/dL Total Protein (6.3-8.2) g/dL Albumin (3.5-5.0) g/dL
[2020-09-24 11:18] LABS: Glucose,Whole Blood 142 mg/dL (75-99)
--- NOTE | 2020-09-24 11:40 | P.PN ---
Subjective Progress Note Date: 09/24/20 Pt seen ambulating in the hallway with good exercise tolerance. No new complaints. Sugars well controlled on insulin gtt. IV amiodarone continues. Pt in sinus rhythm. Objective - Vital Signs Vital signs: Vital Signs Temp 98.1 F 09/24/20 08:00 Pulse 85 09/24/20 11:00 Resp 20 09/24/20 11:00 BP 124/75 09/24/20 06:00 Pulse Ox 95 09/24/20 11:00 Intake & Output 09/23/20 09/24/20 09/24/20 18:59 06:59 18:59 Intake Total 667.415 442.265 580 Output Total 493 535 475 Balance 174.415 -92.735 105 Weight 68.8 kg 73.1 kg Intake: IV 460 429 180 Sodium Chloride 0.9% 1, 400 360 150 000 ml @ 20 mls/hr IV . Q24H [facility] Rx#:[id number] pressure bag 60 69 30 Intake, IV Titration 7.415 13.265 Amount Insulin Regular 100 unit 7.415 13.265 In Sodium Chloride 0.9% 100 ml @ Per Protocol IV .Q0M [facility] Rx#:[id number] Oral 200 400 Output: Chest Tube Drainage 90 120 230 Chest Tube Mediastinal 80 80 10 Left Pleural 10 40 220 Urine 403 415 245 Other: Voiding Method Indwelling Catheter Indwelling Catheter Indwelling Catheter ABP, PAP, CO, CI - Last Documented Arterial Blood Pressure 140/59 Pulmonary Artery Pressure 22/10 Cardiac Output 5.1 Cardiac Index 2.9 - Exam Gen: awake, alert HEENT: normocephalic, atraumatic, good hearing acuity, moist mucous membranes Resp: good air exchange, breathing comfortably with no accessory muscle use CVS: good distal perfusion x 4, RRR, no murmurs GI: soft, NTTP, ND : no SPT, no CVAT, rojas catheter is present MSK: no pitting edema, no clubbing Neuro: non-focal, moving all extremities Psych: cooperative, euthymic mood - Labs CBC & Chem 7: 09/24/20 04:16 09/24/20 04:16 Labs: Abnormal Lab Results - Last 24 Hours (Table) 09/23/20 09/23/20 09/23/20 Range/Units 12:19 13:34 15:01 RBC (4.30-5.90) m/uL Hgb (13.0-17.5) gm/dL Hct (39.0-53.0) % Plt Count (150-450) k/uL Sodium (137-145) mmol/L BUN (9-20) mg/dL Glucose (74-99) mg/dL POC Glucose (mg/dL) 130 H 162 H 155 H (75-99) mg/dL Calcium (8.4-10.2) mg/dL Total Protein (6.3-8.2) g/dL Albumin (3.5-5.0) g/dL 09/23/20 09/23/20 09/23/20 Range/Units 15:57 17:45 18:59 RBC (4.30-5.90) m/uL Hgb (13.0-17.5) gm/dL Hct (39.0-53.0) % Plt Count (150-450) k/uL Sodium (137-145) mmol/L BUN (9-20) mg/dL Glucose (74-99) mg/dL POC Glucose (mg/dL) 157 H 117 H 128 H (75-99) mg/dL Calcium (8.4-10.2) mg/dL Total Protein (6.3-8.2) g/dL Albumin (3.5-5.0) g/dL 09/23/20 09/23/20 09/24/20 Range/Units 21:46 23:08 01:56 RBC (4.30-5.90) m/uL Hgb (13.0-17.5) gm/dL Hct (39.0-53.0) % Plt Count (150-450) k/uL Sodium (137-145) mmol/L BUN (9-20) mg/dL Glucose (74-99) mg/dL POC Glucose (mg/dL) 117 H 123 H 114 H (75-99) mg/dL Calcium (8.4-10.2) mg/dL Total Protein (6.3-8.2) g/dL Albumin (3.5-5.0) g/dL 09/24/20 09/24/20 09/24/20 Range/Units 04:14 04:16 04:16 RBC 2.75 L (4.30-5.90) m/uL Hgb 8.6 L D (13.0-17.5) gm/dL Hct 24.6 L (39.0-53.0) % Plt Count 143 L (150-450) k/uL Sodium 131 L (137-145) mmol/L BUN 21 H (9-20) mg/dL Glucose 108 H (74-99) mg/dL POC Glucose (mg/dL) 116 H (75-99) mg/dL Calcium 8.3 L (8.4-10.2) mg/dL Total Protein 4.5 L (6.3-8.2) g/dL Albumin 2.7 L (3.5-5.0) g/dL 09/24/20 09/24/20 09/24/20 Range/Units 06:49 08:08 09:20 RBC (4.30-5.90) m/uL Hgb (13.0-17.5) gm/dL Hct (39.0-53.0) % Plt Count (150-450) k/uL Sodium (137-145) mmol/L BUN (9-20) mg/dL Glucose (74-99) mg/dL POC Glucose (mg/dL) 114 H 162 H 169 H (75-99) mg/dL Calcium (8.4-10.2) mg/dL Total Protein (6.3-8.2) g/dL Albumin (3.5-5.0) g/dL 09/24/20 09/24/20 Range/Units 09:55 11:16 RBC (4.30-5.90) m/uL Hgb (13.0-17.5) gm/dL Hct (39.0-53.0) % Plt Count (150-450) k/uL Sodium (137-145) mmol/L BUN (9-20) mg/dL Glucose (74-99) mg/dL POC Glucose (mg/dL) 151 H 142 H (75-99) mg/dL Calcium (8.4-10.2) mg/dL Total Protein (6.3-8.2) g/dL Albumin (3.5-5.0) g/dL Assessment and Plan Assessment: CAD status post CABG, postop day 1 Hypertension Hyperlipidemia -Pain control -Oxygen when necessary -DuoNeb's when necessary -Amiodarone -Insulin drip for tight glucose control in the perioperative setting can be switched to low dose SSI -Aspirin, Plavix, statin -Heparin DVT prophylaxis -Monitor on telemetry -Cardiology, pulmonary consult following -CT surgery for primary management COPD without exacerbation -DuoNeb every 6 hours standing + DuoNeb every 2 hours when necessary -No prednisone or antibiotics indicated at this time -Continue Symbicort BPH -Currently has Rojas catheter in place -Does not appear to be on tamsulosin as an outpatient Anxiety/depression -Continue Cymbalta, Tegretol Patient is a full code
[2020-09-24] MEDS: SODIUM CHLORIDE 0.9% 1,000 ML IV SCH (12:26)
[2020-09-24 12:32] LABS: Glucose,Whole Blood 118 mg/dL (75-99)
[2020-09-24] MEDS ORDERED: CALCIUM CARBONATE 500 MG CHEWABLE PO PRN (13:57)
[2020-09-24] MEDS ORDERED: POTASSIUM CHLORIDE ER 20 MEQ TAB.ER PO STA (14:28)
[2020-09-24 15:28] LABS: Glucose,Whole Blood 131 mg/dL (75-99)
[2020-09-24 16:59] LABS: Glucose,Whole Blood 109 mg/dL (75-99)
[2020-09-24] MEDS: INSULIN ASPART (NovoLOG) 100 UNIT/ML VIAL SQ SCH ×2 (17:06→21:56)
[2020-09-24 20:34] LABS: Glucose,Whole Blood 148 mg/dL (75-99)
[2020-09-24] MEDS: MORPHINE SULFATE ER 15 MG TABLET PO SCH ×2 (21:55→21:58)
[2020-09-24] MEDS: SENNOSIDES-DOCUSATE SODIUM 1 EACH TAB PO SCH (21:56)
[2020-09-24] MEDS: AMITRIPTYLINE HCL 10 MG TAB PO SCH (23:53)
[2020-09-25] MEDS: KETOROLAC 15 MG/ML 1 ML VIAL IVP SCH ×3 (00:04→11:57)
[2020-09-25] MEDS: HEPARIN SODIUM,PORCINE/PF 5,000 UNIT/0.5 ML SYRINGE SQ SCH ×4 (00:05→23:45)
[2020-09-25 04:30] LABS: Basophils % (A) 0 %; Eosinophils # (A) 0.5 k/uL (0-0.7); Eosinophils % (A) 7 %; HCT 22.2 % (39.0-53.0); HGB 7.7 gm/dL (13.0-17.5); Lymphocytes % (A) 16 %; MCH 31.2 pg (25.0-35.0); MCHC 34.9 g/dL (31.0-37.0); MCV 89.3 fL (80.0-100.0); Mean Platelet Volume 7.9; Monocytes # (A) 0.4 k/uL (0-1.0); Monocytes % (A) 5 %; Neutrophils # (A) 4.6 k/uL (1.3-7.7); Neutrophils % (A) 70 %; Platelet Count 146 k/uL (150-450); RBC 2.49 m/uL (4.30-5.90); RDW 12.3 % (11.5-15.5); WBC 6.6 k/uL (3.8-10.6)
[2020-09-25 04:40] LABS: ALT 21 U/L (4-49); AST 44 U/L (17-59); African American GFR (CKD) >90 (>60 ml/min/1.73 sqM); Albumin 2.5 g/dL (3.5-5.0); Alkaline Phosphatase 41 U/L (38-126); Anion Gap 1 mmol/L; Blood Urea Nitrogen 26 mg/dL (9-20); Calcium 8.2 mg/dL (8.4-10.2); Carbon Dioxide 28 mmol/L (22-30); Chloride 104 mmol/L (98-107); Glucose 105 mg/dL (74-99); Non-African American GFR(CKD) 89 (>60 ml/min/1.73 sqM); Potassium 4.1 mmol/L (3.5-5.1); Sodium 133 mmol/L (137-145); Total Bilirubin 0.3 mg/dL (0.2-1.3); Total Protein 4.4 g/dL (6.3-8.2)
[2020-09-25 06:25] LABS: Glucose,Whole Blood 114 mg/dL (75-99)
[2020-09-25] MEDS: INSULIN ASPART (NovoLOG) 100 UNIT/ML VIAL SQ SCH ×4 (06:25→20:58)
[2020-09-25] MEDS: HYDROcodone/APAP 7.5-325MG 1 EACH TAB PO PRN ×3 (06:28→23:47)
[2020-09-25] MEDS: PANTOPRAZOLE 40 MG TABLET PO SCH (06:34)
[2020-09-25] MEDS ORDERED: FUROSEMIDE 10 MG/ML 2 ML VIAL IV ONE (07:34)
[2020-09-25] MEDS: SYMBICORT 160-4.5 MCG INHALER INHALATION SCH ×2 (08:08→19:03)
[2020-09-25] MEDS: IPRATROPIUM-ALBUTEROL 3 ML NEB INHALATION SCH ×4 (08:08→19:03)
--- NOTE | 2020-09-25 08:22 | XR ---
EXAMINATION TYPE: XR chest 1V portable DATE OF EXAM: 09/25/2020 COMPARISON: Chest x-ray 09/24/2020 HISTORY: Status post cardiac surgery, chest tube TECHNIQUE: Single frontal view of the chest is obtained. FINDINGS: Left-sided chest tube remains in place. There is a left jugular central venous sheath, ove rlying artifacts are noted. No sizable pneumothorax. Cardiac mediastinal silhouette is stable. Bibasi lar density persists. The hemidiaphragms are secured. Patient is post median sternotomy and left atri al appendage clip placement. IMPRESSION: Findings similar to prior exam, expiratory appearance. Bibasilar effusions and associate d atelectasis, correlate to exclude pneumonia, edema.
[2020-09-25] MEDS: ASPIRIN 325 MG TAB PO SCH (08:31)
[2020-09-25] MEDS: ATORVASTATIN 40 MG TAB PO SCH (08:31)
[2020-09-25] MEDS: CLOPIDOGREL 75 MG TAB PO SCH (08:31)
[2020-09-25] MEDS: AMIODARONE 200 MG TAB PO SCH ×2 (08:33→21:05)
[2020-09-25] MEDS: MAGNESIUM HYDROXIDE 2,400 MG/10 ML CUP PO PRN (08:33)
[2020-09-25] MEDS: MULTIVITAMINS, THERA 1 EACH TAB PO SCH (08:34)
[2020-09-25] MEDS: ASCORBIC ACID 500 MG TAB PO SCH (08:34)
[2020-09-25] MEDS: DULoxetine HCL 60 MG CAPSULE.DR PO SCH (08:35)
[2020-09-25] MEDS: METOPROLOL TARTRATE 50 MG TAB PO SCH ×3 (08:37→23:45)
--- NOTE | 2020-09-25 08:38 | P.PN ---
Subjective Progress Note Date: 09/25/20 Principal diagnosis: Triple-vessel coronary artery disease, preserved left ventricular function. Previous medical history of hyperlipidemia, pelvic floor dysfunction, previous tobacco dependence with carbon dioxide retainer, pituitary tumor treated with radiation, melanoma skin cancer within the last 5 years status post resection, depression/anxiety, BPH status post prostate surgery, hard of hearing POD #3 triple vessel coronary artery bypass grafting using the left internal mammary artery to left anterior descending artery, reverse saphenous vein graft from the aorta to the superior branching of the obtuse marginal artery, reverse saphenous vein graft from the aorta to the posterior descending artery, exclusion of the left atrial appendage using a 35 mm AtriClip, endoscopic harvesting of the left greater saphenous vein from the groin to above the ankle level, intraoperative graft flow measurements using the [employer] system, intraoperative transesophageal echocardiogram and epi-aortic scanning. Postoperative acute blood loss anemia, expected given hemodilution and cardiopulmonary bypass pump Paroxysmal atrial fibrillation, known common occurrence after open heart surgery The patient is currently sitting up in a recliner in the intensive care unit in no acute distress eating breakfast. States pain is controlled on current medication regimen, denies shortness of breath. Patient has had no more episodes of atrial fibrillation. Currently in sinus rhythm, hemodynamically stable. Actively using incentive spirometer and achieving 1500 mL. Left internal jugular Cordis, left radial arterial line, left pleural chest tubes all remain present, Richards discontinued this morning. He has ambulated with physical therapy in the hallway without difficulty. Patient had an uneventful night. No new concerns. Objective - Vital Signs Vital signs: Vital Signs Temp 97.5 F L 09/25/20 04:00 Pulse 89 09/25/20 08:17 Resp 14 09/25/20 07:00 BP 96/79 09/25/20 07:00 Pulse Ox 98 09/25/20 07:00 Intake & Output 09/24/20 09/25/20 09/25/20 18:59 06:59 18:59 Intake Total 968 396 36 Output Total 1320 510 Balance -352 -114 36 Weight 72.5 kg Intake: IV 468 396 36 Sodium Chloride 0.9% 1, 390 330 30 000 ml @ 20 mls/hr IV . Q24H [facility] Rx#:[id number] pressure bag 78 66 6 Oral 500 Output: Chest Tube Drainage 260 100 Chest Tube Mediastinal 10 Left Pleural 250 100 Urine 1060 410 Other: Voiding Method Indwelling Catheter Indwelling Catheter # Voids 0 0 ABP, PAP, CO, CI - Last Documented Arterial Blood Pressure 99/51 Pulmonary Artery Pressure 22/10 Cardiac Output 5.1 Cardiac Index 2.9 - Exam CONSTITUTIONAL: Appears comfortable, cooperative, no acute distress RESPIRATORY: Lungs sounds diminished bilaterally. Respirations even, nonlabored. Currently on room air with oxygen saturation 96%. Able to achieve 1500 mL on incentive spirometry. Strong cough. CARDIOVASCULAR: S1, S2 present. Regular rate and rhythm, sinus rhythm on telemetry. Sternum stable. Palpable peripheral pulses bilaterally. No edema present. No calf pain or tenderness noted. Heart hugger in place with patient demonstrating appropriate use. Antiembolism stockings, SCDs present. GASTROINTESTINAL: Abdomen soft, nontender, nondistended. Active bowel sounds present 4 quadrants. Tolerating diet. Positive flatus GENITOURINARY: Richards discontinued this morning, urine output 30-75 mL/h overnight, 1470 mL in the last 24 hours. INTEGUMENTARY: Skin is warm and dry with evidence of good perfusion. Anterior chest incision well approximated and covered with dry intact dressing. EVH site well approximated without redness or drainage. NEUROLOGIC: Cranial nerves II through XII intact MUSKULOSKELETAL: Able to move all extremities, strength equal bilaterally, gait normal PSYCHIATRIC: Alert and oriented to person place and time, appropriate affect, intact judgment and insight INVASIVE LINES AND TUBES: Left pleural chest tube present and connected to wall suction, no air leaks present, 100 mL serosanguineous drainage overnight, 200 mL in the last 24 hours. Atrial epicardial pacemaker wire present, grounded. Left internal jugular Cordis, left radial arterial line present. - Allied health notes Allied health notes reviewed: nursing - Labs CBC & Chem 7: 09/25/20 04:20 09/25/20 04:20 Labs: Abnormal Lab Results - Last 24 Hours (Table) 09/24/20 09/24/20 09/24/20 Range/Units 09:20 09:55 11:16 RBC (4.30-5.90) m/uL Hgb (13.0-17.5) gm/dL Hct (39.0-53.0) % Plt Count (150-450) k/uL Sodium (137-145) mmol/L BUN (9-20) mg/dL Glucose (74-99) mg/dL POC Glucose (mg/dL) 169 H 151 H 142 H (75-99) mg/dL Calcium (8.4-10.2) mg/dL Total Protein (6.3-8.2) g/dL Albumin (3.5-5.0) g/dL 09/24/20 09/24/20 09/24/20 Range/Units 12:31 15:26 16:58 RBC (4.30-5.90) m/uL Hgb (13.0-17.5) gm/dL Hct (39.0-53.0) % Plt Count (150-450) k/uL Sodium (137-145) mmol/L BUN (9-20) mg/dL Glucose (74-99) mg/dL POC Glucose (mg/dL) 118 H 131 H 109 H (75-99) mg/dL Calcium (8.4-10.2) mg/dL Total Protein (6.3-8.2) g/dL Albumin (3.5-5.0) g/dL 09/24/20 09/25/20 09/25/20 Range/Units 20:32 04:20 04:20 RBC 2.49 L (4.30-5.90) m/uL Hgb 7.7 L (13.0-17.5) gm/dL Hct 22.2 L (39.0-53.0) % Plt Count 146 L (150-450) k/uL Sodium 133 L (137-145) mmol/L BUN 26 H (9-20) mg/dL Glucose 105 H (74-99) mg/dL POC Glucose (mg/dL) 148 H (75-99) mg/dL Calcium 8.2 L (8.4-10.2) mg/dL Total Protein 4.4 L (6.3-8.2) g/dL Albumin 2.5 L (3.5-5.0) g/dL 09/25/20 Range/Units 06:24 RBC (4.30-5.90) m/uL Hgb (13.0-17.5) gm/dL Hct (39.0-53.0) % Plt Count (150-450) k/uL Sodium (137-145) mmol/L BUN (9-20) mg/dL Glucose (74-99) mg/dL POC Glucose (mg/dL) 114 H (75-99) mg/dL Calcium (8.4-10.2) mg/dL Total Protein (6.3-8.2) g/dL Albumin (3.5-5.0) g/dL - Imaging and Cardiology Chest x-ray: report reviewed, image reviewed Assessment and Plan Assessment: 1. Triple-vessel coronary artery disease, status post three-vessel CABG 2. Preserved left ventricular function, EF 60% 3. Hyperlipidemia, treated, cholesterol 156, LDL 83 4. Pelvic floor dysfunction 5. Previous tobacco dependence with chronic CO2 retention, preoperative FEV1 123% of predicted 6. Pituitary tumor treated with radiation 7. Melanoma skin cancer within the last 5 years status post resection 8. Depression/anxiety 9. BPH status post prostate surgery 10. Hard of hearing 11. Chronic pain with implanted pain pump 12. Postoperative acute blood loss anemia, expected 13. Paroxysmal atrial fibrillation, known occurrence, currently sinus rhythm Plan: 1. Continue to maximize medical management with aspirin, statin, Plavix, beta brian therapy. Will increase beta brian therapy as tolerated, increased to 50 mg 3x daily today 2. Continue amiodarone for A. fib prophylaxis. No anticoagulation necessary unless A. fib recurs 3. Encourage incentive spirometry 10 times every hour while awake. Bronchodilators per pulmonology 4. Increase activity, ambulate as tolerated. PT/OT/cardiac rehab consulted 5. Will monitor daily labs and x-rays. Electrolyte replacement per protocol. Will give 20 mg IVP lasix x 1 6. Pain control with current medication regimen 7. Insulin management per primary care service. Patient is not diabetic with preoperative hemoglobin A1c 4.8%. Blood sugars need to be well-controlled to promote healing and union of the sternal bone 8. Will discontinue chest tube, Cordis, arterial line 9. Richards catheter discontinued. May bladder scan and straight cath for greater than 300 mL residual 10. Strict accurate intake and output. Daily weights 11. GI/DVT prophylaxis 12. Will place transfer orders for 3 [facility] cardiac stepdown unit. May transfer when bed available 13. Discharge planning in progress. Anticipate discharge to home with home care in the next 24-48 hours 14. More recommendations to follow Time with Patient: Greater than 30
--- NOTE | 2020-09-25 10:11 | P.PN ---
Subjective Progress Note Date: 09/25/20 Principal diagnosis: Coronary artery disease status, status post coronary artery bypass grafting This 80-year-old white male patient of Dr. Olea, with past medical history of malignant melanoma, dyslipidemia, pituitary tumor, depression, anxiety, benign prostatic hypertrophy and history of surgical resection, former smoker, and COPD. Patient recently hospitalized when he was admitted with chest pain, and his workup included heart catheterization which demonstrated a left main stenosis of 20%, 80% stenosis to the RCA, and 90% stenosis to the circumflex coronary artery, 70% stenosis to his proximal LAD, 70% stenosis to the mid LAD. 2-D echocardiogram showed preserved LV function with EF of 55-60%, mild enlargement of the right ventricle, no evidence of aortic stenosis, or aortic regurgitation, no evidence of pulmonary hypertension, the right-sided pressure was 23.4 mmHg, mild MR. Outpatient PFT on 08/15/2020 showed FEV1 was 2.8 L or 123% of predicted, FEV1/FVC ratio was 77% of predicted, diffusion corrected for alveolar volume was 69% of predicted, he did not desaturate during his 6 minute walk his low saturation was 93%, he did have a bronchodilator response. Patient did have a CT scan of the chest as an outpatient, which showed a 1.9 cm groundglass opacity in the left upper lobe, would be related to inflammatory or infectious etiology. Patient was referred to cardiothoracic surgery for coronary artery bypass grafting and today on 09/22/2020 patient underwent three- vessel coronary artery bypass grafting, patient is seen in the ICU in the postoperative period, he is sedated, and intubated, currently on assist-control mode ventilation with a rate of 12 tidal [place] 500, FiO2 100% and PEEP of 5. Postoperative blood gases reveal pO2 of 378, pCO2 of 50 and pH of 7.33. Patient was noted to have a elevated preop bicarbonate concentration on his BMP, suggesting chronic hypercapnic respiratory failure. He is currently on 0.9 normal saline at 50 ML per hour, nitroglycerin and 25 mics per kilo per minute, clevidipine is at 12 mg/h, Diprivan and is a 40 mics per kilo per minute, insulin drip is a 1.5 units per hour. He is in sinus mechanism, hemodynamically he is stable, he ate pressure is 26/11, CVP is 8, cardiac output is 4.7, cardiac index is 2.7. 2 mediastinal and left pleural chest tubes with small amount of sanguinous output. On 09/23/2020 patient seen in follow-up in intensive care unit, today is postoperative day #1 status post three-vessel coronary artery bypass grafting. Patient was successfully weaned and extubated from mechanical ventilator last night on 09/22/2020 at 2300. This morning he is on 3 L of oxygen his pulse ox is 98%. He is breathing comfortably, he is having some pain issues at the incisional site, he is receiving pain medications and CT surgery is adjusting his pain medication regimen. Hemodynamically he is stable, in sinus mechanism with a controlled rate. Blood pressure is 140/59, there is a [place]-Arjun catheter was removed this morning, CVP is 7, patient is currently on 0.9 normal saline a t 20 ML per hour, and insulin infusion is at 0.5 units per hour. Lung sounds are clear today's exam, no rhonchi or wheezing, today's chest x-ray has been reviewed showing interval extubation, left lower lobe atelectasis, and a small effusion. Today's labs have been reviewed, white blood cell count is 11.4, hemoglobin is 10.4, sodium is 135, Greta electrolytes were within normal limits, BUN is 20 creatinine 0.62. Patient has a total of 500 mL of serosanguineous output from the mediastinal chest tube, and a total of 200 mL of serosanguineous output from the left pleural chest tube. There is no evidence of air leak, no evidence of pneumothorax on the chest x-ray. No nausea vomiting diarrhea, no abdominal pain, tolerating oral diet. The patient is seen today 09/24/2020 in follow-up in the intensive care unit. This is postoperative day #2. He is status post coronary artery bypass grafting utilizing a WHITEHEAD to the LAD, reverse saphenous vein grafts to the obtuse marginal artery and posterior descending artery. He is currently seen sitting up in a chair at the bedside. Awake and alert in no acute distress. Maintaining O2 saturations in the mid 90s on 2 L/m per nasal cannula. He is afebrile. Hemodynamically stable. CVP reading 8. Chest x-ray reveals bilateral lower lobe atelectasis left greater than right. He is working well with the incentive spirometer. Pulling 1000 ML's. White count 9.9. Hemoglobin 8.6. Platelets 143. Sodium 131. Potassium 3.9. Creatinine 0.71. Glucose 108. Albumin 2.7. He received albumin yesterday. He remains on Symbicort, DuoNeb inhalations. 0.9 normal saline it 20 ML's per hour. Appetite is good. Pain under good control. Currently in sinus rhythm. The patient is seen today 09/25/2020 in follow-up in the intensive care unit. Postoperative day #3. He is awake and alert in no acute distress. Sitting up in a chair at the bedside. No issues overnight. He is maintaining O2 saturations in the mid 90s on room air. He is pulling 1200 ML's on his incentive spirometer. He remains on Symbicort and DuoNeb inhalations. Chest x- ray reveals no sizable pneumothorax. Bibasilar densities persist. Bibasilar effusions associated with atelectasis. Similar to previous. Left chest tube remains in place. Pacer wires to be removed today. He is 0.9 normal saline at 30 MLS per hour. Has been ambulating up in the hallway with assistance. White count 6.6. Hemoglobin 7.7. Platelets 146. Sodium 133. Potassium 4.1. Creati nine 0.72. Glucose 105. AST 44. ALT 21. Albumin 2.5. He remains on amiodarone. Remains in sinus rhythm. Hemodynamically stable. Heparin for DVT prophylaxis. Objective - Vital Signs Vital signs: Vital Signs Temp 98.3 F 09/25/20 08:00 Pulse 92 09/25/20 09:00 Resp 22 09/25/20 09:00 BP 96/79 09/25/20 08:00 Pulse Ox 93 L 09/25/20 09:00 Intake & Output 09/24/20 09/25/20 09/25/20 18:59 06:59 18:59 Intake Total 968 396 108 Output Total 1320 510 Balance -352 -114 108 Weight 72.5 kg Intake: IV 468 396 108 Sodium Chloride 0.9% 1, 390 330 90 000 ml @ 20 mls/hr IV . Q24H [facility] Rx#:[id number] pressure bag 78 66 18 Oral 500 Output: Chest Tube Drainage 260 100 Chest Tube Mediastinal 10 Left Pleural 250 100 Urine 1060 410 Other: Voiding Method Indwelling Catheter Indwelling Catheter # Voids 0 0 ABP, PAP, CO, CI - Last Documented Arterial Blood Pressure 121/61 Pulmonary Artery Pressure 22/10 Cardiac Output 5.1 Cardiac Index 2.9 - Exam GENERAL EXAM: Alert, active, pleasant 80-year-old gentleman, on room air, currently comfortable in no apparent distress. HEAD: Normocephalic. EYES: Normal reaction of pupils, equal size. NOSE: Clear with pink turbinates. THROAT: No erythema or exudates. NECK: Left Cordis catheter in place No masses, no JVD. CHEST: Sternal dressing dry and intact. Heart Hugger in place. Left chest tube in place. Atrial epicardial wires present. LUNGS: Equal air entry with crackles in the posterior bases CVS: S1 and S2 normal with no audible murmur, regular rhythm. ABDOMEN: No hepatosplenomegaly, normal bowel sounds, no guarding or rigidity. SPINE: No scoliosis or deformity SKIN: No rashes CENTRAL NERVOUS SYSTEM: No focal deficits, tone is normal in all 4 extremities. EXTREMITIES: Left radial art line present. There is trace peripheral edema. No clubbing, no cyanosis. Peripheral pulses are intact. - Labs CBC & Chem 7: 09/25/20 04:20 09/25/20 04:20 Labs: Abnormal Lab Results - Last 24 Hours (Table) 09/24/20 09/24/20 09/24/20 Range/Units 11:16 12:31 15:26 RBC (4.30-5.90) m/uL Hgb (13.0-17.5) gm/dL Hct (39.0-53.0) % Plt Count (150-450) k/uL Sodium (137-145) mmol/L BUN (9-20) mg/dL Glucose (74-99) mg/dL POC Glucose (mg/dL) 142 H 118 H 131 H (75-99) mg/dL Calcium (8.4-10.2) mg/dL Total Protein (6.3-8.2) g/dL Albumin (3.5-5.0) g/dL 09/24/20 09/24/20 09/25/20 Range/Units 16:58 20:32 04:20 RBC 2.49 L (4.30-5.90) m/uL Hgb 7.7 L (13.0-17.5) gm/dL Hct 22.2 L (39.0-53.0) % Plt Count 146 L (150-450) k/uL Sodium (137-145) mmol/L BUN (9-20) mg/dL Glucose (74-99) mg/dL POC Glucose (mg/dL) 109 H 148 H (75-99) mg/dL Calcium (8.4-10.2) mg/dL Total Protein (6.3-8.2) g/dL Albumin (3.5-5.0) g/dL 09/25/20 09/25/20 Range/Units 04:20 06:24 RBC (4.30-5.90) m/uL Hgb (13.0-17.5) gm/dL Hct (39.0-53.0) % Plt Count (150-450) k/uL Sodium 133 L (137-145) mmol/L BUN 26 H (9-20) mg/dL Glucose 105 H (74-99) mg/dL POC Glucose (mg/dL) 114 H (75-99) mg/dL Calcium 8.2 L (8.4-10.2) mg/dL Total Protein 4.4 L (6.3-8.2) g/dL Albumin 2.5 L (3.5-5.0) g/dL Assessment and Plan Assessment: 1 Multivessel coronary artery disease, status post three-vessel coronary artery bypass grafting on 09/22/2020, postop day #3 2 Routine postoperative ventilator management, successfully extubated on postop day #0 on 09/22/2020 at 2300 3 Suspected chronic CO2 retention based on the preop blood gas 4 Dysipidemia 5 Advanced melanoma 6 Benign prostatic hypertrophy status post surgical resection 7 Former smoker 8 History of chronic pain syndrome Plan: The patient was seen and evaluated by Dr. Vallejo Chest x-ray and labs reviewed Chest tube to removed today per CT services Working well with the incentive spirometer Continue Kranthi Loza's Increase activity as tolerated Plan is to transfer to 3 S. today once bed available We will continue to follow I, the cosigning physician, performed a history & physical examination of the patient. Lungs sounds with crackles in the bilateral posterior bases. Maintaining good O2 saturations in the 90s on room air. I discussed the assessment and plan of care with my nurse practitioner, Rhiannon Minaya. I attest to the above note as dictated by her.
[2020-09-25 11:37] LABS: Glucose,Whole Blood 112 mg/dL (75-99)
--- NOTE | 2020-09-25 12:39 | P.PN ---
Subjective Progress Note Date: 09/25/20 HISTORY OF PRESENT ILLNESS: This is a 80-year-old male with a past medical history significant for coronary artery disease, hypertension, hyperlipidemia, and former nicotine dependence. Patient follows in the office with Dr. Mccarty. We have been asked to see the patient in consultation for post cardiac surgery care. Patient is status post CABG 3: WHITEHEAD to LAD, reverse saphenous vein graft to superior branching of the obtuse marginal artery, and reverse saphenous vein graft to the posterior descending artery. POD #1. Patient examined at the bedside. Patient remains in the ICU. He has been extubated. He is sitting up in the chair. He is not requiring vasopressor support. Blood pressure is stable. patient is able to pull 1000 mL on incentive spirometer. Telemetry reveals sinus mechanism Chest xray interval extubation. There may be left lower atelectasis, small effusion. Laboratory data: WBC 11.4. Hemoglobin 10.4. Platelet count 187. sodium 135. Potassium 4.6. BUN 20. Creatinine 0.62. Magnesium 2.0. Current home cardiac medications include metoprolol succinate 25 mg daily, Lipitor 10 mg daily, aspirin 81mg daily Most recent echocardiogram obtained in June 2020 reveals ejection fraction 55- 60% with mild mitral regurgitation. 09/24/2020 Patient examined this morning at the bedside. Patient is sitting up in the chair. Denies chest pain or pressure. Denies shortness of breath. He is pulling 1000 mL on and they incentive spirometer. He is hemodynamically stable and not requiring vasopressor support. Patient went into A. fib with RVR overnight. He was placed on IV amiodarone and converted to sinus mechanism. His beta brian was increased this morning per cardio thoracic surgery. 09/25/2020 Patient examined this morning in the ICU. Patient denies chest pain or pressure. Denies shortness of breath. He is pulling 1000-1500cc on IS. Patient remains in sinus mechanism. Patient was seen ambulating in the hallway this morning with nursing. PHYSICAL EXAM: VITAL SIGNS: Reviewed. GENERAL: Well-developed in no acute distress. HEENT: Head is normocephalic. Pupils are equal, round. Sclerae anicteric. Mucous membranes of the mouth are moist. Neck supple. No JVD or thyromegaly LUNGS: Respirations even and unlabored. Lungs diminished bilaterally. HEART: Regular rate and rhythm. S1 and S2 heard. sternal dressing clean dry and intact. Heart hugger noted. EXTREMITIES: Normal range of motion. No clubbing or cyanosis. Peripheral pulses intact. Trace bilateral lower extremity edema ASSESSMENT: Triple vessel coronary artery disease, status post CABG 3 Postoperative paroxysmal atrial fibrillation with RVR, currently maintaining sinus mechanism Hyperlipidemia Former nicotine dependence BPH Anxiety Depression Chronic pain with implanted pain pump PLAN: Continue postoperative management per CTS Continue IV amiodarone Beta brian increased per cardiothoracic surgery Continue current cardiac medications Continue telemetry monitoring Encourage use of incentive spirometer Increase activity as tolerated Further recommendations pending patient course Nurse practitioner note has been reviewed by physician. Signing provider agrees with the documented findings, assessment, and plan of care. Objective - Vital Signs Vital signs: Vital Signs Temp 98.3 F 09/25/20 08:00 Pulse 73 09/25/20 11:38 Resp 15 09/25/20 11:00 BP 138/84 09/25/20 11:00 Pulse Ox 96 09/25/20 11:00 Intake & Output 09/24/20 09/25/20 09/25/20 18:59 06:59 18:59 Intake Total 968 396 144 Output Total 1320 510 50 Balance -352 -114 94 Weight 72.5 kg Intake: IV 468 396 144 Sodium Chloride 0.9% 1, 390 330 120 000 ml @ 20 mls/hr IV . Q24H [facility] Rx#:[id number] pressure bag 78 66 24 Oral 500 Output: Chest Tube Drainage 260 100 Chest Tube Mediastinal 10 Left Pleural 250 100 Urine 1060 410 50 Other: Voiding Method Indwelling Catheter Indwelling Catheter # Voids 0 0 ABP, PAP, CO, CI - Last Documented Arterial Blood Pressure 136/65 Pulmonary Artery Pressure 22/10 Cardiac Output 5.1 Cardiac Index 2.9 - Labs CBC & Chem 7: 09/25/20 04:20 09/25/20 04:20 Labs: Abnormal Lab Results - Last 24 Hours (Table) 09/24/20 09/24/20 09/24/20 Range/Units 15:26 16:58 20:32 RBC (4.30-5.90) m/uL Hgb (13.0-17.5) gm/dL Hct (39.0-53.0) % Plt Count (150-450) k/uL Sodium (137-145) mmol/L BUN (9-20) mg/dL Glucose (74-99) mg/dL POC Glucose (mg/dL) 131 H 109 H 148 H (75-99) mg/dL Calcium (8.4-10.2) mg/dL Total Protein (6.3-8.2) g/dL Albumin (3.5-5.0) g/dL 09/25/20 09/25/20 09/25/20 Range/Units 04:20 04:20 06:24 RBC 2.49 L (4.30-5.90) m/uL Hgb 7.7 L (13.0-17.5) gm/dL Hct 22.2 L (39.0-53.0) % Plt Count 146 L (150-450) k/uL Sodium 133 L (137-145) mmol/L BUN 26 H (9-20) mg/dL Glucose 105 H (74-99) mg/dL POC Glucose (mg/dL) 114 H (75-99) mg/dL Calcium 8.2 L (8.4-10.2) mg/dL Total Protein 4.4 L (6.3-8.2) g/dL Albumin 2.5 L (3.5-5.0) g/dL 09/25/20 Range/Units 11:36 RBC (4.30-5.90) m/uL Hgb (13.0-17.5) gm/dL Hct (39.0-53.0) % Plt Count (150-450) k/uL Sodium (137-145) mmol/L BUN (9-20) mg/dL Glucose (74-99) mg/dL POC Glucose (mg/dL) 112 H (75-99) mg/dL Calcium (8.4-10.2) mg/dL Total Protein (6.3-8.2) g/dL Albumin (3.5-5.0) g/dL
[2020-09-25] MEDS ORDERED: TAMSULOSIN 0.4 MG CAP.ER.24H PO STA (13:02)
--- NOTE | 2020-09-25 14:51 | P.PN ---
Subjective Progress Note Date: 09/25/20 Pt is doing well today. Plan to remove chest tube, A line, central line, transfer to the floor. Ambulating well with nursing. Sitting in a chair comfortably. Objective - Vital Signs Vital signs: Vital Signs Temp 97.8 F 09/25/20 12:00 Pulse 77 09/25/20 12:00 Resp 23 09/25/20 12:00 BP 125/78 09/25/20 12:00 Pulse Ox 100 09/25/20 13:35 Intake & Output 09/24/20 09/25/20 09/25/20 18:59 06:59 18:59 Intake Total 968 396 200 Output Total 1320 510 800 Balance -352 -114 -600 Weight 72.5 kg Intake: IV 468 396 200 Sodium Chloride 0.9% 1, 390 330 170 000 ml @ 20 mls/hr IV . Q24H [facility] Rx#:[id number] pressure bag 78 66 30 Oral 500 Output: Chest Tube Drainage 260 100 Chest Tube Mediastinal 10 Left Pleural 250 100 Urine 1060 410 150 Post Void Residual 650 Other: Voiding Method Indwelling Catheter Indwelling Catheter Indwelling Catheter # Voids 0 0 ABP, PAP, CO, CI - Last Documented Arterial Blood Pressure 136/65 Pulmonary Artery Pressure 22/10 Cardiac Output 5.1 Cardiac Index 2.9 - Exam Gen: awake, alert HEENT: normocephalic, atraumatic, good hearing acuity, moist mucous membranes Resp: good air exchange, breathing comfortably with no accessory muscle use CVS: good distal perfusion x 4, RRR, no murmurs GI: soft, NTTP, ND : no SPT, no CVAT, rojas catheter is present MSK: no pitting edema, no clubbing Neuro: non-focal, moving all extremities Psych: cooperative, euthymic mood - Labs CBC & Chem 7: 09/25/20 04:20 09/25/20 04:20 Labs: Abnormal Lab Results - Last 24 Hours (Table) 09/24/20 09/24/20 09/24/20 Range/Units 15:26 16:58 20:32 RBC (4.30-5.90) m/uL Hgb (13.0-17.5) gm/dL Hct (39.0-53.0) % Plt Count (150-450) k/uL Sodium (137-145) mmol/L BUN (9-20) mg/dL Glucose (74-99) mg/dL POC Glucose (mg/dL) 131 H 109 H 148 H (75-99) mg/dL Calcium (8.4-10.2) mg/dL Total Protein (6.3-8.2) g/dL Albumin (3.5-5.0) g/dL 09/25/20 09/25/20 09/25/20 Range/Units 04:20 04:20 06:24 RBC 2.49 L (4.30-5.90) m/uL Hgb 7.7 L (13.0-17.5) gm/dL Hct 22.2 L (39.0-53.0) % Plt Count 146 L (150-450) k/uL Sodium 133 L (137-145) mmol/L BUN 26 H (9-20) mg/dL Glucose 105 H (74-99) mg/dL POC Glucose (mg/dL) 114 H (75-99) mg/dL Calcium 8.2 L (8.4-10.2) mg/dL Total Protein 4.4 L (6.3-8.2) g/dL Albumin 2.5 L (3.5-5.0) g/dL 09/25/20 Range/Units 11:36 RBC (4.30-5.90) m/uL Hgb (13.0-17.5) gm/dL Hct (39.0-53.0) % Plt Count (150-450) k/uL Sodium (137-145) mmol/L BUN (9-20) mg/dL Glucose (74-99) mg/dL POC Glucose (mg/dL) 112 H (75-99) mg/dL Calcium (8.4-10.2) mg/dL Total Protein (6.3-8.2) g/dL Albumin (3.5-5.0) g/dL Assessment and Plan Assessment: CAD status post CABG, postop day 1 Hypertension Hyperlipidemia -Pain control -Oxygen when necessary -DuoNeb's when necessary -Amiodarone -Low dose SSI -Aspirin, Plavix, statin -Heparin DVT prophylaxis -Monitor on telemetry -Cardiology, pulmonary consult following -CT surgery for primary management COPD without exacerbation -DuoNeb every 6 hours standing + DuoNeb every 2 hours when necessary -No prednisone or antibiotics indicated at this time -Continue Symbicort BPH -Currently has Rojas catheter in place -Does not appear to be on tamsulosin as an outpatient Anxiety/depression -Continue Cymbalta, Tegretol Patient is a full code
[2020-09-25 17:20] LABS: Glucose,Whole Blood 124 mg/dL (75-99)
[2020-09-25 20:52] LABS: Glucose,Whole Blood 129 mg/dL (75-99)
[2020-09-25] MEDS: SENNOSIDES-DOCUSATE SODIUM 1 EACH TAB PO SCH (21:04)
[2020-09-25] MEDS: MORPHINE SULFATE ER 15 MG TABLET PO SCH (21:05)
[2020-09-25] MEDS: AMITRIPTYLINE HCL 10 MG TAB PO SCH (21:05)
[2020-09-26] MEDS: HYDROcodone/APAP 7.5-325MG 1 EACH TAB PO PRN (04:54)
[2020-09-26 06:51] LABS: Glucose,Whole Blood 115 mg/dL (75-99)
[2020-09-26] MEDS: INSULIN ASPART (NovoLOG) 100 UNIT/ML VIAL SQ SCH ×4 (07:47→20:49)
--- NOTE | 2020-09-26 07:51 | XR ---
EXAMINATION TYPE: XR chest 2V DATE OF EXAM: 09/26/2020 COMPARISON: Chest x-ray 09/25/2020 HISTORY: Status post coronary artery bypass graft TECHNIQUE: Frontal and lateral views of the chest are obtained. FINDINGS: Patient is post median sternotomy and left atrial appendage clip placement. Epicardial pac ing leads are in place. There is blunting the posterior costophrenic angles. Prominent lung volumes s uggest underlying COPD. The aorta is dense. Heart size remains increased. There is interval improved visualization of the hemidiaphragms. Left-sided chest tube has been removed. No evident pneumothorax. There are overlying leads. There are coronary calcifications. IMPRESSION: There is been some interval improvement in aeration. No evident complication status post chest tube removal. Small effusions and associated atelectasis. Postop changes.
[2020-09-26 07:57] LABS: HGB 8.5 gm/dL (13.0-17.5); MCHC 34.2 g/dL (31.0-37.0); MCV 90.9 fL (80.0-100.0); Mean Platelet Volume 8.5; Platelet Count 191 k/uL (150-450); RBC 2.75 m/uL (4.30-5.90); RDW 12.9 % (11.5-15.5); WBC 7.6 k/uL (3.8-10.6)
[2020-09-26] MEDS: PANTOPRAZOLE 40 MG TABLET PO SCH (08:09)
[2020-09-26] MEDS: CLOPIDOGREL 75 MG TAB PO SCH (08:10)
[2020-09-26] MEDS: HEPARIN SODIUM,PORCINE/PF 5,000 UNIT/0.5 ML SYRINGE SQ SCH ×3 (08:10→23:27)
[2020-09-26] MEDS: ASCORBIC ACID 500 MG TAB PO SCH (08:10)
[2020-09-26] MEDS: ATORVASTATIN 40 MG TAB PO SCH (08:10)
[2020-09-26] MEDS: METOPROLOL TARTRATE 50 MG TAB PO SCH ×3 (08:10→23:27)
[2020-09-26] MEDS: DULoxetine HCL 60 MG CAPSULE.DR PO SCH (08:10)
[2020-09-26] MEDS: ASPIRIN 325 MG TAB PO SCH (08:10)
[2020-09-26] MEDS: AMIODARONE 200 MG TAB PO SCH ×2 (08:10→21:13)
[2020-09-26] MEDS: IPRATROPIUM-ALBUTEROL 3 ML NEB INHALATION SCH ×4 (08:13→20:19)
[2020-09-26] MEDS: SYMBICORT 160-4.5 MCG INHALER INHALATION SCH ×2 (08:13→20:20)
[2020-09-26] MEDS: MULTIVITAMINS, THERA 1 EACH TAB PO SCH (08:13)
[2020-09-26 08:15] LABS: ALT 39 U/L (4-49); AST 57 U/L (17-59); African American GFR (CKD) >90 (>60 ml/min/1.73 sqM); Albumin 2.8 g/dL (3.5-5.0); Alkaline Phosphatase 52 U/L (38-126); Anion Gap 1 mmol/L; Blood Urea Nitrogen 21 mg/dL (9-20); Calcium 8.1 mg/dL (8.4-10.2); Carbon Dioxide 31 mmol/L (22-30); Chloride 103 mmol/L (98-107); Glucose 130 mg/dL (74-99); Non-African American GFR(CKD) 84 (>60 ml/min/1.73 sqM); Potassium 3.8 mmol/L (3.5-5.1); Sodium 135 mmol/L (137-145); Total Bilirubin 0.6 mg/dL (0.2-1.3); Total Protein 4.8 g/dL (6.3-8.2)
[2020-09-26] MEDS ORDERED: FUROSEMIDE 10 MG/ML 2 ML VIAL IV ONE (08:30)
[2020-09-26] MEDS: HYDROcodone/APAP 5-325MG 1 EACH TAB PO PRN ×2 (08:35→17:37)
[2020-09-26] MEDS ORDERED: POTASSIUM CHLORIDE ER 20 MEQ TAB.ER PO SCH (09:00)
--- NOTE | 2020-09-26 09:36 | P.PN ---
Subjective Progress Note Date: 09/26/20 Principal diagnosis: Triple-vessel coronary artery disease, preserved left ventricular function. Previous medical history of hyperlipidemia, pelvic floor dysfunction, previous tobacco dependence with carbon dioxide retainer, pituitary tumor treated with radiation, melanoma skin cancer within the last 5 years status post resection, depression/anxiety, BPH status post prostate surgery, hard of hearing POD #4 triple vessel coronary artery bypass grafting using the left internal mammary artery to left anterior descending artery, reverse saphenous vein graft from the aorta to the superior branching of the obtuse marginal artery, reverse saphenous vein graft from the aorta to the posterior descending artery, exclusion of the left atrial appendage using a 35 mm AtriClip, endoscopic harvesting of the left greater saphenous vein from the groin to above the ankle level, intraoperative graft flow measurements using the Aereo system, intraoperative transesophageal echocardiogram and epi-aortic scanning. Postoperative acute blood loss anemia, expected given hemodilution and cardiopulmonary bypass pump Paroxysmal atrial fibrillation, known common occurrence after open heart surgery The patient is currently sitting up in bed in the intensive care unit in no acute distress eating breakfast. States pain is controlled on current medication regimen, denies shortness of breath. Patient has had no more episodes of atrial fibrillation. Currently in sinus rhythm, hemodynamically stable. Actively using incentive spirometer and achieving 1500 mL. He has ambulated with physical therapy in the hallway without difficulty. He did have some urinary retention yesterday morning after initial Richards removal, but was able to void successfully 3 times last night. Patient had an uneventful night. Transfer orders placed yesterday for 3 S. cardiac stepdown unit, no beds a vailable. No new concerns. Objective - Vital Signs Vital signs: Vital Signs Temp 98.1 F 09/26/20 08:00 Pulse 81 09/26/20 08:23 Resp 23 09/26/20 08:00 BP 126/73 09/26/20 08:00 Pulse Ox 96 09/26/20 08:00 Intake & Output 09/25/20 09/26/20 09/26/20 18:59 06:59 18:59 Intake Total 617 20 Output Total 1025 Balance -408 20 Weight 72.8 kg Intake: IV 217 20 Sodium Chloride 0.9% 1, 190 20 000 ml @ 20 mls/hr IV . Q24H [facility] Rx#:[id number] pressure bag 27 Oral 400 Output: Urine 375 Post Void Residual 650 Other: Voiding Method Urinal Urinal Urinal # Voids 0 0 ABP, PAP, CO, CI - Last Documented Arterial Blood Pressure 136/65 Pulmonary Artery Pressure 22/10 Cardiac Output 5.1 Cardiac Index 2.9 - Exam CONSTITUTIONAL: Appears comfortable, cooperative, no acute distress RESPIRATORY: Lungs sounds diminished bilaterally. Respirations even, nonlab ored. Currently on room air with oxygen saturation 94%. Able to achieve 1500 mL on incentive spirometry. Strong cough. CARDIOVASCULAR: S1, S2 present. Regular rate and rhythm, sinus rhythm on t elemetry. Sternum stable. Palpable peripheral pulses bilaterally. No edema present. No calf pain or tenderness noted. Heart hugger in place with patient demonstrating appropriate use. Antiembolism stockings, SCDs present. GASTROINTESTINAL: Abdomen soft, nontender, nondistended. Active bowel sounds present 4 quadrants. Tolerating diet. Positive flatus GENITOURINARY: Continues to void INTEGUMENTARY: Skin is warm and dry with evidence of good perfusion. Anterior chest incision well approximated and covered with dry intact dressing. EVH site well approximated without redness or drainage. NEUROLOGIC: Cranial nerves II through XII intact MUSKULOSKELETAL: Able to move all extremities, strength equal bilaterally, gait normal PSYCHIATRIC: Alert and oriented to person place and time, appropriate affect, intact judgment and insight INVASIVE LINES AND TUBES: Atrial epicardial pacemaker wire present, grounded. - Allied health notes Allied health notes reviewed: nursing - Labs CBC & Chem 7: 09/26/20 07:40 09/26/20 07:40 Labs: Abnormal Lab Results - Last 24 Hours (Table) 09/25/20 09/25/20 09/25/20 Range/Units 11:36 17:09 20:50 RBC (4.30-5.90) m/uL Hgb (13.0-17.5) gm/dL Hct (39.0-53.0) % Sodium (137-145) mmol/L Carbon Dioxide (22-30) mmol/L BUN (9-20) mg/dL Glucose (74-99) mg/dL POC Glucose (mg/dL) 112 H 124 H 129 H (75-99) mg/dL Calcium (8.4-10.2) mg/dL Total Protein (6.3-8.2) g/dL Albumin (3.5-5.0) g/dL 09/26/20 09/26/20 09/26/20 Range/Units 06:50 07:40 07:40 RBC 2.75 L (4.30-5.90) m/uL Hgb 8.5 L (13.0-17.5) gm/dL Hct 25.0 L (39.0-53.0) % Sodium 135 L (137-145) mmol/L Carbon Dioxide 31 H (22-30) mmol/L BUN 21 H (9-20) mg/dL Glucose 130 H (74-99) mg/dL POC Glucose (mg/dL) 115 H (75-99) mg/dL Calcium 8.1 L (8.4-10.2) mg/dL Total Protein 4.8 L (6.3-8.2) g/dL Albumin 2.8 L (3.5-5.0) g/dL - Imaging and Cardiology Chest x-ray: report reviewed, image reviewed Assessment and Plan Assessment: 1. Triple-vessel coronary artery disease, status post three-vessel CABG 2. Preserved left ventricular function, EF 60% 3. Hyperlipidemia, treated, cholesterol 156, LDL 83 4. Pelvic floor dysfunction 5. Previous tobacco dependence with chronic CO2 retention, preoperative FEV1 123% of predicted 6. Pituitary tumor treated with radiation 7. Melanoma skin cancer within the last 5 years status post resection 8. Depression/anxiety 9. BPH status post prostate surgery 10. Hard of hearing 11. Chronic pain with implanted pain pump 12. Postoperative acute blood loss anemia, expected 13. Paroxysmal atrial fibrillation, known occurrence, currently sinus rhythm Plan: 1. Continue to maximize medical management with aspirin, statin, Plavix, beta brian therapy. Will increase beta brian therapy as tolerated 2. Continue amiodarone for A. fib prophylaxis. No anticoagulation necessary unless A. fib recurs 3. Encourage incentive spirometry 10 times every hour while awake. Bronchodilators per pulmonology 4. Increase activity, ambulate as tolerated. PT/OT/cardiac rehab consulted 5. Will monitor daily labs and x-rays. Electrolyte replacement per protocol. Will give 20 mg IVP lasix x 1 6. Pain control with current medication regimen 7. Insulin management per primary care service. Patient is not diabetic with preoperative hemoglobin A1c 4.8%. Blood sugars need to be well-controlled to promote healing and union of the sternal bone 8. GI/DVT prophylaxis 9. Strict accurate intake and output. Daily weights 10. Will discontinue epicardial pacemaker wires today. Patient to remain on bedrest for 1 hour post-removal 11. Transfer orders placed for [address] [place] [address] cardiac stepdown unit yesterday. May transfer when bed available 12. Discharge planning in progress. Anticipate discharge to home with home care in the next 24-48 hours 13. More recommendations to follow
--- NOTE | 2020-09-26 10:39 | P.PN ---
Subjective Progress Note Date: 09/26/20 Principal diagnosis: Coronary artery disease status, status post coronary artery bypass grafting This 80-year-old white male patient of Dr. Olea, with past medical history of malignant melanoma, dyslipidemia, pituitary tumor, depression, anxiety, benign prostatic hypertrophy and history of surgical resection, former smoker, and COPD. Patient recently hospitalized when he was admitted with chest pain, and his workup included heart catheterization which demonstrated a left main stenosis of 20%, 80% stenosis to the RCA, and 90% stenosis to the circumflex coronary artery, 70% stenosis to his proximal LAD, 70% stenosis to the mid LAD. 2-D echocardiogram showed preserved LV function with EF of 55-60%, mild enlargement of the right ventricle, no evidence of aortic stenosis, or aortic regurgitation, no evidence of pulmonary hypertension, the right-sided pressure was 23.4 mmHg, mild MR. Outpatient PFT on 08/15/2020 showed FEV1 was 2.8 L or 123% of predicted, FEV1/FVC ratio was 77% of predicted, diffusion corrected for alveolar volume was 69% of predicted, he did not desaturate during his 6 minute walk his low saturation was 93%, he did have a bronchodilator response. Patient did have a CT scan of the chest as an outpatient, which showed a 1.9 cm groundglass opacity in the left upper lobe, would be related to inflammatory or infectious etiology. Patient was referred to cardiothoracic surgery for coronary artery bypass grafting and today on 09/22/2020 patient underwent three- vessel coronary artery bypass grafting, patient is seen in the ICU in the postoperative period, he is sedated, and intubated, currently on assist-control mode ventilation with a rate of 12 tidal Ash 500, FiO2 100% and PEEP of 5. Postoperative blood gases reveal pO2 of 378, pCO2 of 50 and pH of 7.33. Patient was noted to have a elevated preop bicarbonate concentration on his BMP, suggesting chronic hypercapnic respiratory failure. He is currently on 0.9 normal saline at 50 ML per hour, nitroglycerin and 25 mics per kilo per minute, clevidipine is at 12 mg/h, Diprivan and is a 40 mics per kilo per minute, insulin drip is a 1.5 units per hour. He is in sinus mechanism, hemodynamically he is stable, he ate pressure is 26/11, CVP is 8, cardiac output is 4.7, cardiac index is 2.7. 2 mediastinal and left pleural chest tubes with small amount of sanguinous output. On 09/23/2020 patient seen in follow-up in intensive care unit, today is postoperative day #1 status post three-vessel coronary artery bypass grafting. Patient was successfully weaned and extubated from mechanical ventilator last night on 09/22/2020 at 2300. This morning he is on 3 L of oxygen his pulse ox is 98%. He is breathing comfortably, he is having some pain issues at the incisional site, he is receiving pain medications and CT surgery is adjusting his pain medication regimen. Hemodynamically he is stable, in sinus mechanism with a controlled rate. Blood pressure is 140/59, there is a Florence-Arjun catheter was removed this morning, CVP is 7, patient is currently on 0.9 normal saline a t 20 ML per hour, and insulin infusion is at 0.5 units per hour. Lung sounds are clear today's exam, no rhonchi or wheezing, today's chest x-ray has been reviewed showing interval extubation, left lower lobe atelectasis, and a small effusion. Today's labs have been reviewed, white blood cell count is 11.4, hemoglobin is 10.4, sodium is 135, Greta electrolytes were within normal limits, BUN is 20 creatinine 0.62. Patient has a total of 500 mL of serosanguineous output from the mediastinal chest tube, and a total of 200 mL of serosanguineous output from the left pleural chest tube. There is no evidence of air leak, no evidence of pneumothorax on the chest x-ray. No nausea vomiting diarrhea, no abdominal pain, tolerating oral diet. The patient is seen today 09/24/2020 in follow-up in the intensive care unit. This is postoperative day #2. He is status post coronary artery bypass grafting utilizing a WHITEHEAD to the LAD, reverse saphenous vein grafts to the obtuse marginal artery and posterior descending artery. He is currently seen sitting up in a chair at the bedside. Awake and alert in no acute distress. Maintaining O2 saturations in the mid 90s on 2 L/m per nasal cannula. He is afebrile. Hemodynamically stable. CVP reading 8. Chest x-ray reveals bilateral lower lobe atelectasis left greater than right. He is working well with the incentive spirometer. Pulling 1000 ML's. White count 9.9. Hemoglobin 8.6. Platelets 143. Sodium 131. Potassium 3.9. Creatinine 0.71. Glucose 108. Albumin 2.7. He received albumin yesterday. He remains on Symbicort, DuoNeb inhalations. 0.9 normal saline it 20 ML's per hour. Appetite is good. Pain under good control. Currently in sinus rhythm. The patient is seen today 09/25/2020 in follow-up in the intensive care unit. Postoperative day #3. He is awake and alert in no acute distress. Sitting up in a chair at the bedside. No issues overnight. He is maintaining O2 saturations in the mid 90s on room air. He is pulling 1200 ML's on his incentive spirometer. He remains on Symbicort and DuoNeb inhalations. Chest x- ray reveals no sizable pneumothorax. Bibasilar densities persist. Bibasilar effusions associated with atelectasis. Similar to previous. Left chest tube remains in place. Pacer wires to be removed today. He is 0.9 normal saline at 30 MLS per hour. Has been ambulating up in the hallway with assistance. White count 6.6. Hemoglobin 7.7. Platelets 146. Sodium 133. Potassium 4.1. Creati nine 0.72. Glucose 105. AST 44. ALT 21. Albumin 2.5. He remains on amiodarone. Remains in sinus rhythm. Hemodynamically stable. Heparin for DVT prophylaxis. The patient is seen today 09/26/2020 in follow-up on the selective care unit. He is currently sitting up in a chair at the bedside. Awake and alert in no acute distress. Denies any issues overnight. He is feeling stronger today compared to yesterday. He has been maintaining good O2 saturations in the mid 90s on room air. He's been afebrile. Hemodynamically stable. Chest x-ray revealing interval improvement in aeration. No complications post chest tube removal. No pneumothorax. Small effusions with associated atelectasis. He continues to work well with the incentive spirometer currently at 1500 ML's. He remains on bronchodilators. Heparin for DVT prophylaxis. Continued on amiodarone, beta blockers. Remains in sinus rhythm. White count 7.6. Hemoglobin 8.5. Sodium 135. Potassium 3.8. Creatinine 0.83. Glucose 130. Objective - Vital Signs Vital signs: Vital Signs Temp 98.1 F 09/26/20 08:00 Pulse 81 09/26/20 08:23 Resp 23 09/26/20 08:00 BP 126/73 09/26/20 08:00 Pulse Ox 96 09/26/20 08:00 Intake & Output 09/25/20 09/26/20 09/26/20 18:59 06:59 18:59 Intake Total 617 20 Output Total 1025 400 Balance -408 20 -400 Weight 72.8 kg Intake: IV 217 20 Sodium Chloride 0.9% 1, 190 20 000 ml @ 20 mls/hr IV . Q24H [facility] Rx#:[id number] pressure bag 27 Oral 400 Output: Urine 375 400 Post Void Residual 650 Other: Voiding Method Urinal Urinal Urinal # Voids 0 0 ABP, PAP, CO, CI - Last Documented Arterial Blood Pressure 136/65 Pulmonary Artery Pressure 22/10 Cardiac Output 5.1 Cardiac Index 2.9 - Exam GENERAL EXAM: Alert, active, pleasant 80-year-old gentleman, on room air, currently comfortable in no apparent distress. HEAD: Normocephalic. EYES: Normal reaction of pupils, equal size. NOSE: Clear with pink turbinates. THROAT: No erythema or exudates. NECK: Left Cordis catheter in place No masses, no JVD. CHEST: Sternal dressing dry and intact. Heart Hugger in place. LUNGS: Equal air entry with crackles in the posterior bases CVS: S1 and S2 normal with no audible murmur, regular rhythm. ABDOMEN: No hepatosplenomegaly, normal bowel sounds, no guarding or rigidity. SPINE: No scoliosis or deformity SKIN: No rashes CENTRAL NERVOUS SYSTEM: No focal deficits, tone is normal in all 4 extremities. EXTREMITIES: Left radial art line present. There is trace peripheral edema. No clubbing, no cyanosis. Peripheral pulses are intact. - Labs CBC & Chem 7: 09/26/20 07:40 09/26/20 07:40 Labs: Abnormal Lab Results - Last 24 Hours (Table) 09/25/20 09/25/20 09/25/20 Range/Units 11:36 17:09 20:50 RBC (4.30-5.90) m/uL Hgb (13.0-17.5) gm/dL Hct (39.0-53.0) % Sodium (137-145) mmol/L Carbon Dioxide (22-30) mmol/L BUN (9-20) mg/dL Glucose (74-99) mg/dL POC Glucose (mg/dL) 112 H 124 H 129 H (75-99) mg/dL Calcium (8.4-10.2) mg/dL Total Protein (6.3-8.2) g/dL Albumin (3.5-5.0) g/dL 09/26/20 09/26/20 09/26/20 Range/Units 06:50 07:40 07:40 RBC 2.75 L (4.30-5.90) m/uL Hgb 8.5 L (13.0-17.5) gm/dL Hct 25.0 L (39.0-53.0) % Sodium 135 L (137-145) mmol/L Carbon Dioxide 31 H (22-30) mmol/L BUN 21 H (9-20) mg/dL Glucose 130 H (74-99) mg/dL POC Glucose (mg/dL) 115 H (75-99) mg/dL Calcium 8.1 L (8.4-10.2) mg/dL Total Protein 4.8 L (6.3-8.2) g/dL Albumin 2.8 L (3.5-5.0) g/dL Assessment and Plan Assessment: 1 Multivessel coronary artery disease, status post three-vessel coronary artery bypass grafting on 09/22/2020, postop day #4 2 Routine postoperative ventilator management, successfully extubated on postop day #0 on 09/22/2020 at 2300 on room air 3 Suspected chronic CO2 retention based on the preop blood gas 4 Dysipidemia 5 Advanced melanoma 6 Benign prostatic hypertrophy status post surgical resection 7 Former smoker 8 History of chronic pain syndrome Plan: The patient was seen and evaluated by Dr. Vallejo Chest x-ray and labs reviewed Working well with the incentive spirometer Continue SymbicortKranthi's Remains in sinus rhythm Increase his activity as tolerated Discharge once cleared by CT services We will continue to follow I, the cosigning physician, performed a history & physical examination of the patient. Lungs sounds with crackles in the bilateral posterior bases. Maintaining good O2 saturations in the 90s on room air. I discussed the assessment and plan of care with my nurse practitioner, Rhiannon Minaya. I attest to the above note as dictated by her.
--- NOTE | 2020-09-26 11:35 | P.PN ---
Subjective Progress Note Date: 09/26/20 Pt doing well today, resting comfortably in bed. Has been ambulating. No pain. Objective - Vital Signs Vital signs: Vital Signs Temp 98.2 F 09/26/20 11:19 Pulse 81 09/26/20 08:23 Resp 23 09/26/20 08:00 BP 126/73 09/26/20 08:00 Pulse Ox 96 09/26/20 08:00 Intake & Output 09/25/20 09/26/20 09/26/20 18:59 06:59 18:59 Intake Total 617 20 Output Total 1025 400 Balance -408 20 -400 Weight 72.8 kg Intake: IV 217 20 Sodium Chloride 0.9% 1, 190 20 000 ml @ 20 mls/hr IV . Q24H [facility] Rx#:[id number] pressure bag 27 Oral 400 Output: Urine 375 400 Post Void Residual 650 Other: Voiding Method Urinal Urinal Urinal # Voids 0 0 ABP, PAP, CO, CI - Last Documented Arterial Blood Pressure 136/65 Pulmonary Artery Pressure 22/10 Cardiac Output 5.1 Cardiac Index 2.9 - Exam Gen: awake, alert HEENT: normocephalic, atraumatic, good hearing acuity, moist mucous membranes Resp: good air exchange, breathing comfortably with no accessory muscle use CVS: good distal perfusion x 4, RRR, no murmurs GI: soft, NTTP, ND : no SPT, no CVAT, rojas catheter is present MSK: no pitting edema, no clubbing Neuro: non-focal, moving all extremities Psych: cooperative, euthymic mood - Labs CBC & Chem 7: 09/26/20 07:40 09/26/20 07:40 Labs: Abnormal Lab Results - Last 24 Hours (Table) 09/25/20 09/25/20 09/25/20 Range/Units 11:36 17:09 20:50 RBC (4.30-5.90) m/uL Hgb (13.0-17.5) gm/dL Hct (39.0-53.0) % Sodium (137-145) mmol/L Carbon Dioxide (22-30) mmol/L BUN (9-20) mg/dL Glucose (74-99) mg/dL POC Glucose (mg/dL) 112 H 124 H 129 H (75-99) mg/dL Calcium (8.4-10.2) mg/dL Total Protein (6.3-8.2) g/dL Albumin (3.5-5.0) g/dL 09/26/20 09/26/20 09/26/20 Range/Units 06:50 07:40 07:40 RBC 2.75 L (4.30-5.90) m/uL Hgb 8.5 L (13.0-17.5) gm/dL Hct 25.0 L (39.0-53.0) % Sodium 135 L (137-145) mmol/L Carbon Dioxide 31 H (22-30) mmol/L BUN 21 H (9-20) mg/dL Glucose 130 H (74-99) mg/dL POC Glucose (mg/dL) 115 H (75-99) mg/dL Calcium 8.1 L (8.4-10.2) mg/dL Total Protein 4.8 L (6.3-8.2) g/dL Albumin 2.8 L (3.5-5.0) g/dL Assessment and Plan Assessment: CAD status post CABG, postop day 1 Hypertension Hyperlipidemia -Pain control -Oxygen when necessary -DuoNeb's when necessary -Amiodarone -Low dose SSI -Aspirin, Plavix, statin -Heparin DVT prophylaxis -Monitor on telemetry -Cardiology, pulmonary consult following -CT surgery for primary management COPD without exacerbation -DuoNeb every 6 hours standing + DuoNeb every 2 hours when necessary -No prednisone or antibiotics indicated at this time -Continue Symbicort BPH -Currently has Rojas catheter in place -Does not appear to be on tamsulosin as an outpatient Anxiety/depression -Continue Cymbalta, Tegretol Patient is a full code
[2020-09-26 11:52] LABS: Glucose,Whole Blood 114 mg/dL (75-99)
--- NOTE | 2020-09-26 12:17 | P.PN ---
Subjective Progress Note Date: 09/26/20 Principal diagnosis: Obstructive CAD and status post CABG This is a pleasant 80-year-old gentleman with hypertension and dyslipidemia who was admitted to the hospital and underwent coronary arteriogram is grafting 3. The post-ablation course was complicated by paroxysmal atrial fibrillation but the patient was converted into normal sinus mechanism on amiodarone IV. The patient was seen this morning. He is doing well overall from the cardiac standpoint of view. He is stable hemodynamically. Chest tubes were out. Temporary pacer was out as well. Urine output is good. He has been maintaining normal sinus mechanism. He is on dual antiplatelet therapy along with high intensity statin alone with amiodarone as well by mouth. From a cardiac vascular standpoint of view, the patient can be transferred out of the ICU Objective - Vital Signs Vital signs: Vital Signs Temp 98.2 F 09/26/20 11:19 Pulse 78 09/26/20 11:19 Resp 21 09/26/20 11:19 BP 105/56 09/26/20 11:19 Pulse Ox 96 09/26/20 11:19 Intake & Output 09/25/20 09/26/20 09/26/20 18:59 06:59 18:59 Intake Total 617 20 Output Total 1025 400 Balance -408 20 -400 Weight 72.8 kg Intake: IV 217 20 Sodium Chloride 0.9% 1, 190 20 000 ml @ 20 mls/hr IV . Q24H [facility] Rx#:[id number] pressure bag 27 Oral 400 Output: Urine 375 400 Post Void Residual 650 Other: Voiding Method Urinal Urinal Urinal # Voids 0 0 ABP, PAP, CO, CI - Last Documented Arterial Blood Pressure 136/65 Pulmonary Artery Pressure 22/10 Cardiac Output 5.1 Cardiac Index 2.9 - Constitutional General appearance: Present: no acute distress - Respiratory Respiratory: bilateral: CTA - Cardiovascular Rhythm: regular Heart sounds: normal: S1, S2 - Labs CBC & Chem 7: 09/26/20 07:40 09/26/20 07:40 Labs: Abnormal Lab Results - Last 24 Hours (Table) 09/25/20 09/25/20 09/26/20 Range/Units 17:09 20:50 06:50 RBC (4.30-5.90) m/uL Hgb (13.0-17.5) gm/dL Hct (39.0-53.0) % Sodium (137-145) mmol/L Carbon Dioxide (22-30) mmol/L BUN (9-20) mg/dL Glucose (74-99) mg/dL POC Glucose (mg/dL) 124 H 129 H 115 H (75-99) mg/dL Calcium (8.4-10.2) mg/dL Total Protein (6.3-8.2) g/dL Albumin (3.5-5.0) g/dL 09/26/20 09/26/20 09/26/20 Range/Units 07:40 07:40 11:51 RBC 2.75 L (4.30-5.90) m/uL Hgb 8.5 L (13.0-17.5) gm/dL Hct 25.0 L (39.0-53.0) % Sodium 135 L (137-145) mmol/L Carbon Dioxide 31 H (22-30) mmol/L BUN 21 H (9-20) mg/dL Glucose 130 H (74-99) mg/dL POC Glucose (mg/dL) 114 H (75-99) mg/dL Calcium 8.1 L (8.4-10.2) mg/dL Total Protein 4.8 L (6.3-8.2) g/dL Albumin 2.8 L (3.5-5.0) g/dL Assessment and Plan Assessment: Assessment #1 severe triple-vessel CAD and status post CABG #2 post operation paroxysmal atrial fibrillation but the patient converted to normal sinus mechanism #3 hypertension #4 dyslipidemia Plan #1 continue the current medical regimen. #2 consider increasing the dose of Lipitor to 80 mg by mouth daily at bedtime #3 the patient can be transferred out of the ICU
[2020-09-26 15:19] VITALS: RESP 18
[2020-09-26] MEDS: MAGNESIUM HYDROXIDE 2,400 MG/10 ML CUP PO PRN (15:19)
[2020-09-26 16:50] LABS: Glucose,Whole Blood 111 mg/dL (75-99)
[2020-09-26] MEDS ORDERED: TAMSULOSIN 0.4 MG CAP.ER.24H PO SCH (18:30)
[2020-09-26 20:03] LABS: Glucose,Whole Blood 122 mg/dL (75-99)
[2020-09-26] MEDS: SENNOSIDES-DOCUSATE SODIUM 1 EACH TAB PO SCH (21:11)
[2020-09-26] MEDS: AMITRIPTYLINE HCL 10 MG TAB PO SCH (21:12)
[2020-09-26] MEDS: MORPHINE SULFATE ER 15 MG TABLET PO SCH (21:12)
[2020-09-27 01:57] LABS: Glucose,Whole Blood 95 mg/dL (75-99)
[2020-09-27 06:12] LABS: Glucose,Whole Blood 88 mg/dL (75-99)
[2020-09-27] MEDS: INSULIN ASPART (NovoLOG) 100 UNIT/ML VIAL SQ SCH ×2 (06:39→13:22)
[2020-09-27] MEDS: PANTOPRAZOLE 40 MG TABLET PO SCH (06:40)
[2020-09-27] MEDS: IPRATROPIUM-ALBUTEROL 3 ML NEB INHALATION SCH ×3 (07:12→15:01)
[2020-09-27] MEDS: SYMBICORT 160-4.5 MCG INHALER INHALATION SCH (07:12)
[2020-09-27 07:59] LABS: HCT 26.4 % (39.0-53.0); HGB 9.1 gm/dL (13.0-17.5); MCH 31.2 pg (25.0-35.0); MCHC 34.6 g/dL (31.0-37.0); MCV 90.2 fL (80.0-100.0); Mean Platelet Volume 7.8; Platelet Count 276 k/uL (150-450); RBC 2.93 m/uL (4.30-5.90); RDW 13.3 % (11.5-15.5); WBC 7.3 k/uL (3.8-10.6)
--- NOTE | 2020-09-27 08:04 | XR ---
EXAMINATION TYPE: XR chest 2V DATE OF EXAM: 09/27/2020 COMPARISON: Chest x-ray 09/26/2020 HISTORY: Postop cardiac surgery TECHNIQUE: Frontal and lateral views of the chest are obtained. FINDINGS: Small basilar effusions and associated atelectasis again noted. Prominent lung volumes sug gest underlying COPD. Patient is post median sternotomy. No evident pneumothorax. There are overlying artifacts. Cardiac mediastinal silhouette shows a stable appearance accounting for differences in [place]. Aorta is dense. IMPRESSION: Basilar atelectasis and associated effusions
[2020-09-27 08:15] LABS: African American GFR (CKD) >90 (>60 ml/min/1.73 sqM); Anion Gap 4 mmol/L; Blood Urea Nitrogen 18 mg/dL (9-20); Calcium 8.4 mg/dL (8.4-10.2); Carbon Dioxide 32 mmol/L (22-30); Chloride 99 mmol/L (98-107); Glucose 112 mg/dL (74-99); Non-African American GFR(CKD) 85 (>60 ml/min/1.73 sqM); Potassium 4.1 mmol/L (3.5-5.1); Sodium 135 mmol/L (137-145)
[2020-09-27] MEDS ORDERED: METOPROLOL TARTRATE 25 MG TAB PO SCH (09:00)
[2020-09-27] MEDS ORDERED: ATORVASTATIN 80 MG TAB PO SCH (09:15)
--- NOTE | 2020-09-27 09:19 | P.PN ---
Subjective Progress Note Date: 09/27/20 Principal diagnosis: Triple-vessel coronary artery disease, preserved left ventricular function. Previous medical history of hyperlipidemia, pelvic floor dysfunction, previous tobacco dependence with carbon dioxide retainer, pituitary tumor treated with radiation, melanoma skin cancer within the last 5 years status post resection, depression/anxiety, BPH status post prostate surgery, hard of hearing POD #5 triple vessel coronary artery bypass grafting using the left internal mammary artery to left anterior descending artery, reverse saphenous vein graft from the aorta to the superior branching of the obtuse marginal artery, reverse saphenous vein graft from the aorta to the posterior descending artery, exclusion of the left atrial appendage using a 35 mm AtriClip, endoscopic harvesting of the left greater saphenous vein from the groin to above the ankle level, intraoperative graft flow measurements using the Siterra system, intraoperative transesophageal echocardiogram and epi-aortic scanning. Postoperative acute blood loss anemia, expected given hemodilution and cardiopulmonary bypass pump Paroxysmal atrial fibrillation, known common occurrence after open heart surgery The patient is currently sitting up in a recliner on the cardiac stepdown unit in no acute distress having just gotten back from walking in the hallway. States pain is controlled on current medication regimen, denies shortness of breath. Patient has had no more episodes of atrial fibrillation. Currently in sinus rhythm, hemodynamically stable. Actively using incentive spirometer and achieving 1500 mL. He has ambulated in the hallway multiple times without difficulty. Patient had an uneventful night. No new concerns, wants to go home today. Objective - Vital Signs Vital signs: Vital Signs Temp 98.2 F 09/26/20 20:00 Pulse 85 09/27/20 04:00 Resp 18 09/27/20 04:00 BP 143/77 09/27/20 04:00 Pulse Ox 95 09/27/20 04:00 Intake & Output 09/26/20 09/27/20 09/27/20 18:59 06:59 18:59 Intake Total 360 Output Total 1250 200 Balance -890 -200 Weight 69.9 kg Intake: Oral 360 Output: Urine 1250 200 Other: Voiding Method Toilet Toilet # Voids 1 ABP, PAP, CO, CI - Last Documented Arterial Blood Pressure 136/65 Pulmonary Artery Pressure 22/10 Cardiac Output 5.1 Cardiac Index 2.9 - Exam CONSTITUTIONAL: Appears comfortable, cooperative, no acute distress RESPIRATORY: Lungs sounds diminished bilaterally. Respirations even, nonlabored. Currently on room air with oxygen saturation 95%. Able to achieve 1500 mL on incentive spirometry. Strong cough. CARDIOVASCULAR: S1, S2 present. Regular rate and rhythm, sinus rhythm on telemetry. Sternum stable. Palpable peripheral pulses bilaterally. No edema present. No calf pain or tenderness noted. Heart hugger in place with patient demonstrating appropriate use. Antiembolism stockings, SCDs present. GASTROINTESTINAL: Abdomen soft, nontender, nondistended. Active bowel sounds present 4 quadrants. Tolerating diet. GENITOURINARY: Continues to void INTEGUMENTARY: Skin is warm and dry with evidence of good perfusion. Anterior chest incision well approximated and covered with dry intact dressing. EVH site well approximated without redness or drainage. NEUROLOGIC: Cranial nerves II through XII intact MUSKULOSKELETAL: Able to move all extremities, strength equal bilaterally, gait normal PSYCHIATRIC: Alert and oriented to person place and time, appropriate affect, intact judgment and insight - Allied health notes Allied health notes reviewed: nursing - Labs CBC & Chem 7: 09/27/20 07:06 09/27/20 07:06 Labs: Abnormal Lab Results - Last 24 Hours (Table) 09/26/20 09/26/20 09/26/20 Range/Units 11:51 16:46 20:01 RBC (4.30-5.90) m/uL Hgb (13.0-17.5) gm/dL Hct (39.0-53.0) % Sodium (137-145) mmol/L Carbon Dioxide (22-30) mmol/L Glucose (74-99) mg/dL POC Glucose (mg/dL) 114 H 111 H 122 H (75-99) mg/dL 09/27/20 09/27/20 Range/Units 07:06 07:06 RBC 2.93 L (4.30-5.90) m/uL Hgb 9.1 L (13.0-17.5) gm/dL Hct 26.4 L (39.0-53.0) % Sodium 135 L (137-145) mmol/L Carbon Dioxide 32 H (22-30) mmol/L Glucose 112 H (74-99) mg/dL POC Glucose (mg/dL) (75-99) mg/dL - Imaging and Cardiology Chest x-ray: report reviewed, image reviewed Assessment and Plan Assessment: 1. Triple-vessel coronary artery disease, status post three-vessel CABG 2. Preserved left ventricular function, EF 60% 3. Hyperlipidemia, treated, cholesterol 156, LDL 83 4. Pelvic floor dysfunction 5. Previous tobacco dependence with chronic CO2 retention, preoperative FEV1 123% of predicted 6. Pituitary tumor treated with radiation 7. Melanoma skin cancer within the last 5 years status post resection 8. Depression/anxiety 9. BPH status post prostate surgery 10. Hard of hearing 11. Chronic pain with implanted pain pump 12. Postoperative acute blood loss anemia, expected 13. Paroxysmal atrial fibrillation, known occurrence, currently sinus rhythm Plan: 1. Continue to maximize medical management with aspirin, statin, Plavix, beta brian therapy. 2. Continue amiodarone for A. fib prophylaxis. No anticoagulation necessary unless A. fib recurs 3. Encourage incentive spirometry 10 times every hour while awake. Bronchodilators per pulmonology 4. Increase activity, ambulate as tolerated. PT/OT/cardiac rehab consulted 5. Will monitor daily labs and x-rays. Electrolyte replacement per protocol. 6. Pain control with current medication regimen 7. Insulin management per primary care service. Patient is not diabetic with preoperative hemoglobin A1c 4.8%. Blood sugars need to be well-controlled to promote healing and union of the sternal bone 8. GI/DVT prophylaxis 9. Strict accurate intake and output. Daily weights 10. Discharge planning in progress. Anticipate discharge to home with home care this afternoon 11. More recommendations to follow Time with Patient: Greater than 30
[2020-09-27] MEDS: ASCORBIC ACID 500 MG TAB PO SCH (09:40)
[2020-09-27] MEDS: CLOPIDOGREL 75 MG TAB PO SCH (09:40)
[2020-09-27] MEDS: DULoxetine HCL 60 MG CAPSULE.DR PO SCH (09:41)
[2020-09-27] MEDS: HEPARIN SODIUM,PORCINE/PF 5,000 UNIT/0.5 ML SYRINGE SQ SCH (09:41)
[2020-09-27] MEDS: ASPIRIN 325 MG TAB PO SCH (09:41)
[2020-09-27] MEDS: MULTIVITAMINS, THERA 1 EACH TAB PO SCH (09:41)
[2020-09-27] MEDS: AMIODARONE 200 MG TAB PO SCH (09:41)
--- NOTE | 2020-09-27 09:57 | P.DS ---
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 Triple-vessel coronary artery disease 2. Preserved left ventricular function, EF 60% 3. Hyperlipidemia, treated, cholesterol 156, LDL 83 4. Pelvic floor dysfunction 5. Previous evidence of chronic CO2 retention, preoperative FEV1 123% of predicted 6. Pituitary tumor treated with radiation 7. Melanoma skin cancer within the last 5 years status post resection 8. Depression/anxiety 9. BPH status post prostate surgery 10. Heart-appearing 11. Chronic pain with implanted pain pump 12. Postoperative acute blood loss anemia 13. Paroxysmal atrial fibrillation PRINCIPAL PROCEDURE: 1. Triple-vessel coronary artery bypass grafting using the left internal mammary artery to the left anterior descending artery, reverse saphenous vein graft from the aorta to the superior branching of the obtuse marginal artery, r everse saphenous vein graft from the aorta to the posterior descending artery 2. Exclusion of the left atrial appendage using a 35 mm AtriClip 3. Endoscopic harvesting of the left greater saphenous vein from the groin to above the ankle level 4. Intraoperative graft flow measurements using the Medistim system 5. Intraoperative transesophageal echocardiogram and epi-aortic scanning HISTORY OF PRESENT ILLNESS: This is a 80-year-old gentleman who follows on an outpatient basis with Dr. Olea for primary care and Dr. Mccarty for cardiology. He had a recent admission in June 2020 for complaints of chest pain, shortness of breath with exertion, headache, fatigue, chills, diaphoresis, decrease appetite importance of anxiety. Apparently he had been doing work in his garden and the next day he developed chest pain unrelieved by rest. During the hospital stay in June he underwent stress testing which showed an EKG and echo response to exercise without evidence of inducible ischemia. 2-D echo demonstrated overall left ventricular systolic function normal with ejection fraction 55-60%, which is enlarged right ventricle, mild tricuspid regurgitation. Due to continued complaints of chest pain and shortness of breath he was recommended to undergo heart catheterization which demonstrated left main stenosis 20%, right coronary artery stenosis 80%, circumflex stenosis 90%, proximal LAD stenosis 70%, and mid LAD stenosis 70%. iFR was shown to be 0.66 in the LAD. The patient was referred to Dr. Golden from cardiothoracic surgery. He was recommended to undergo elective coronary artery bypass surgery. The usual perioperative course was discussed in detail with the patient and his family, all risks and benefits were explained, all questions were answered, and consent was obtained to proceed with surgery. The patient was scheduled at the earliest possible date. HOSPITAL COURSE: The patient was brought to the hospital on 09/22/2020, taken to the preoperative area, prepared in the usual fashion, and subsequently taken to the operating room where Dr. Golden performed three-vessel CABG. Upon completion of surgery the patient was transferred to the cardiovascular intensive care unit where he was recovered and monitored hemodynamically. He was extubated, all lines, tubes, and drips were discontinued when appropriate, and he was transferred to 3 S. cardiac stepdown unit for further monitoring and rehabilitation. He did experience a brief atrial fibrillation which is a known common occurrence after open heart surgery, with conversion to sinus rhythm with initiation of amiodarone. His oxygen was titrated down, he continued to work with physical and occupational therapy, he was tolerating oral diet, his pain was controlled, and he was ready to be discharged to home with [facility] care on postoperative day #5. He received written and verbal instruction regarding his medications, activity restrictions, signs and symptoms requiring physician notification, and follow-up appointments. COMPLICATIONS: The patient experienced postoperative atrial fibrillation and acute blood loss anemia, treated accordingly. Patient Condition at Discharge: Stable Plan - Discharge Summary Discharge Rx Participant: No New Discharge Prescriptions: New Aspirin 325 mg PO DAILY #30 tab Furosemide [Lasix] 20 mg PO DAILY #5 tab Clopidogrel [Plavix] 75 mg PO DAILY #30 tab Sennosides-Docusate Sodium [Senokot-S] 2 each PO HS PRN #14 tab PRN Reason: Constipation Amiodarone [Cordarone] 400 mg PO BID #37 tab Tamsulosin [Flomax] 0.4 mg PO PC-SUPPER #30 cap.er.24h Atorvastatin [Lipitor] 80 mg PO DAILY #30 tab Metoprolol Tartrate [Lopressor] 75 mg PO BID #120 tab Pantoprazole [Protonix] 40 mg PO AC-BRKFST #[address] Rahul L.acid/L.casei/B.bif/B.kellen/Fos [Probiotic Blend Capsule] 2 cap PO DAILY Ascorbic Acid [Vitamin C] 500 mg PO DAILY Morphine Sulfate ER [Ms Contin] 15 mg PO HS DULoxetine HCL [Cymbalta] 60 mg PO QAM Multivit-Min/FA/Lycopen/Lutein [Centrum Silver Tablet] 1 tab PO DAILY Calcium Carbonate [Calcium] 600 mg PO STANLEY Cabergoline 0.25 mg PO MOFR Amitriptyline HCl [Elavil] 10 mg PO HS HYDROcodone/APAP 5-325MG [[place] 5-325] 1 tab PO BID PRN PRN Reason: Pain Cranberry 4200mg 4,200 mg PO DAILY carBAMazepine CHEW [TEGretol Chew] 25 mg PO QAM carBAMazepine CHEW [TEGretol Chew] 50 mg PO HS Budesonide-Formot 160-4.5 Mcg [Symbicort 160-4.5 Mcg Inhaler] 2 puff INHALATION BID Albuterol Nebulized [Ventolin Nebulized] 1 dose INHALATION Q6H PRN PRN Reason: sob Dilaudid 15.0 Mg/Ml Pain Pump 1 dose INTRATHECA CONTINUOUS Discontinued Atorvastatin Calcium [Lipitor] 10 mg PO HS Nitroglycerin Sl Tabs [Nitrostat] 0.4 mg SUBLINGUAL Q5M PRN #0 tab PRN Reason: Chest Pain Aspirin 81 mg PO DAILY Metoprolol Succinate (ER) [Toprol XL] 25 mg PO DAILY #0 tab.er.24h Discharge Medication List Ascorbic Acid [Vitamin C] 500 mg PO DAILY 08/09/14 [History] L.acid/L.casei/B.bif/B.kellen/Fos [Probiotic Blend Capsule] 2 cap PO DAILY 08/09/14 [History] DULoxetine HCL [Cymbalta] 60 mg PO QAM 03/19/19 [History] Morphine Sulfate ER [Ms Contin] 15 mg PO HS 03/19/19 [History] Amitriptyline HCl [Elavil] 10 mg PO HS 07/17/20 [History] Cabergoline 0.25 mg PO MOFR 07/17/20 [History] Calcium Carbonate [Calcium] 600 mg PO STANLEY 07/17/20 [History] Cranberry 4200mg 4,200 mg PO DAILY 07/17/20 [History] HYDROcodone/APAP 5-325MG [[place] 5-325] 1 tab PO BID PRN 07/17/20 [History] Multivit-Min/FA/Lycopen/Lutein [Centrum Silver Tablet] 1 tab PO DAILY 07/17/20 [History] carBAMazepine CHEW [TEGretol Chew] 25 mg PO QAM 07/18/20 [History] carBAMazepine CHEW [TEGretol Chew] 50 mg PO HS 07/18/20 [History] Budesonide-Formot 160-4.5 Mcg [Symbicort 160-4.5 Mcg Inhaler] 2 puff INHALATION BID 08/25/20 [History] Albuterol Nebulized [Ventolin Nebulized] 1 dose INHALATION Q6H PRN 09/19/20 [History] Dilaudid 15.0 Mg/Ml Pain Pump 1 dose INTRATHECA CONTINUOUS 09/19/20 [History] Amiodarone [Cordarone] 400 mg PO BID #37 tab 09/27/20 [Rx] Aspirin 325 mg PO DAILY #30 tab 09/27/20 [Rx] Atorvastatin [Lipitor] 80 mg PO DAILY #30 tab 09/27/20 [Rx] Clopidogrel [Plavix] 75 mg PO DAILY #30 tab 09/27/20 [Rx] Furosemide [Lasix] 20 mg PO DAILY #5 tab 09/27/20 [Rx] Metoprolol Tartrate [Lopressor] 75 mg PO BID #120 tab 09/27/20 [Rx] Pantoprazole [Protonix] 40 mg PO AC-BRKFST #30 tablet.dr 09/27/20 [Rx] Sennosides-Docusate Sodium [Senokot-S] 2 each PO HS PRN #14 tab 09/27/20 [Rx] Tamsulosin [Flomax] 0.4 mg PO PC-SUPPER #30 cap.er.24h 09/27/20 [Rx] Follow up Appointment(s)/Referral(s): [facility],Card[facility] [NON-STAFF] - 4 Weeks (You will be called in 4 weeks for evaluation for cardiac rehab ) Virginia Golden MD [STAFF PHYSICIAN] - 10/24/20 10:00 am Deangelo Mccarty DO [STAFF PHYSICIAN] - 10/17/20 1:30 pm Vinny Olea MD [Primary Care Provider] - 10/10/20 11:00 am Wally Gu DO [Doctor of Osteopathic Medicine] - 10/22/20 9:30 am [facility], [NON-STAFF] - 1-2 Days Ambulatory/Diagnostic Orders: Complete Blood Count w/diff [LAB.AMB] Time Frame: 3 Days, Location: None Selected Complete Blood Count w/diff [LAB.AMB] Time Frame: 3 Days, Location: None Selected Comprehensive Metabolic Panel [LAB.AMB] Time Frame: 3 Days, Location: None Selected Comprehensive Metabolic Panel [LAB.AMB] Time Frame: 3 Days, Location: None Selected Activity/Diet/Wound Care/Special Instructions: DISCHARGE INSTRUCTIONS: 1. No driving for 4 weeks, or until physician gives their ok. 2. The patient should sleep in their own bed, no medical bed needed. 3. Stairs are not an issue. If the bedroom is upstairs, it is advised that the patient go up at night and down in the morning for the first week. Go slowly, using handrail and take 1 step at a time. 4. VLAD hose are to be worn for 30 days or until physician discontinues. 5. Heart hugger is to be worn 100% of the time until physician discontinues.(except when showering) 6. No lifting, pushing, or pulling more than 10 pounds for 12 weeks. The physician will advise of any restriction changes. 7. The patient is expected to continue the prescribed walking program. 8. Continue pain control per as needed orders. 9. Continue with incentive spirometry and splinting/heart hugger until otherwise directed by the physician. 10. Must shower daily using liquid antibacterial soap and a separate white washcloth for each individual incision. 11. Routine sternal incision care. No powders, lotions, ointments on incisions. No dressings are necessary on incisions unless they are draining. Dermabond tape is to remain on sternal incision until surgeon follow-up. 12. Please call surgeon/SETTER M[employer]ING AND COREMAKING MACHINES for temp greater than 101 F or purulent drainage from incisions. 13. All prescriptions given by surgeon for 30 days. Refills need to be filled through mailing jogger/primary care physician. 14. A Red armband has been placed on the patient. It should be worn for 30 days post surgery and will be removed by the cardiac surgeons. If an ER visit is necessary, please make sure the number on the Red armband is called. 15. You have been referred to and are expected to begin Cardiac Rehab in approximately 4-6 weeks. HOME HEALTH SERVICES TO PROVIDE: RN SKILLED HOME CARE SERVICES FOR POST-OP SURGICAL PATIENTS WITH THE FOLLOWING: Coronary Artery Bypass Surgery (CABG), Mitral Valve Replacement/Repair ( MVR), Aortic Valve Replacement/Repair (AVR) RN TO CONTINUE EDUCATION FROM ``ROAD TO A HEALTH HEART PATIENT EDUCATION MANUAL (GIVEN TO PATIENT IN THE HOSPITAL) MEDICATION RECONCILIATION WITH EDUCATION NEEDED ON FIRST HOME VISIT EMPHASIZE IMPORTANCE OF WEARING BREAST SUPPORT/HEART HUGGER ENCOURAGE USE OF INCENTIVE SPIROMETER 10 X EVERY HOUR WHILE AWAKE ENCOURAGE UTILIZATION OF LOWER EXTREMITY COMPRESSION STOCKINGS/VLAD HOSE and ELEVATE LEGS ABOVE LEVEL OF HEART WHILE AT REST. ENCOURAGE AMBULATION 3-5x/day INCREASING TOLERATES, WHILE AVOIDING EXTREMES IN TEMPERATURE FREQUENCY: RN TO OPEN THE PATIENT WITHIN 24 HOURS OF DISCHARGE FROM THE HOSPITAL WITH [place] [facility] [place]ISIT 2-3 X A WEEK FOR 4 WEEKS ESTABLISHED BY PATIENT NEEDS. LABORATORY: CBC, CMP TO BE DRAWN ON THE THIRD DAY HOME, (RAN STAT) FAX RESULTS TO [phone]. TELEHEALTH PARAMETERS: WEIGHT: NOTIFY MD OF WEIGHT GAIN OF 2 LBS IN 24 HOURS OR 5 LBS IN ONE WEEK HR: NOTIFY MD OF HR <55 BPM OR HR>100 BPM BP: NOTIFY MD IF BP <90/55 OR BP>140/100 O2 SAT: NOTIFY MD IF PO2<93% ON ROOM AIR SEND TELEHEALTH REPORT TO TELECOMMUNICATIONS ANALYST AND CARDIOVASCULAR SURGEON THE FIRST WEEK OF CARE AND THEN BI-WEEKLY. PLEASE ADDITIONALLY COMMUNICATE ANY ABNORMALS AND NEW FINDINGS TO THE SURGEONS OFFICE. For any questions or concerns please call process designer Rose @ or Jas @ Discharge Disposition: HOME WITH HOME HEALTH SERVICES
[2020-09-27 11:20] VITALS: TEMP 98.3
--- NOTE | 2020-09-27 11:27 | P.PN ---
Subjective Progress Note Date: 09/27/20 Principal diagnosis: Coronary artery disease status, status post coronary artery bypass grafting This 80-year-old white male patient of Dr. Olea, with past medical history of malignant melanoma, dyslipidemia, pituitary tumor, depression, anxiety, benign prostatic hypertrophy and history of surgical resection, former smoker, and COPD. Patient recently hospitalized when he was admitted with chest pain, and his workup included heart catheterization which demonstrated a left main stenosis of 20%, 80% stenosis to the RCA, and 90% stenosis to the circumflex coronary artery, 70% stenosis to his proximal LAD, 70% stenosis to the mid LAD. 2-D echocardiogram showed preserved LV function with EF of 55-60%, mild enlargement of the right ventricle, no evidence of aortic stenosis, or aortic regurgitation, no evidence of pulmonary hypertension, the right-sided pressure was 23.4 mmHg, mild MR. Outpatient PFT on 08/15/2020 showed FEV1 was 2.8 L or 123% of predicted, FEV1/FVC ratio was 77% of predicted, diffusion corrected for alveolar volume was 69% of predicted, he did not desaturate during his 6 minute walk his low saturation was 93%, he did have a bronchodilator response. Patient did have a CT scan of the chest as an outpatient, which showed a 1.9 cm groundglass opacity in the left upper lobe, would be related to inflammatory or infectious etiology. Patient was referred to cardiothoracic surgery for coronary artery bypass grafting and today on 09/22/2020 patient underwent three- vessel coronary artery bypass grafting, patient is seen in the ICU in the postoperative period, he is sedated, and intubated, currently on assist-control mode ventilation with a rate of 12 tidal Maryneal 500, FiO2 100% and PEEP of 5. Postoperative blood gases reveal pO2 of 378, pCO2 of 50 and pH of 7.33. Patient was noted to have a elevated preop bicarbonate concentration on his BMP, suggesting chronic hypercapnic respiratory failure. He is currently on 0.9 normal saline at 50 ML per hour, nitroglycerin and 25 mics per kilo per minute, clevidipine is at 12 mg/h, Diprivan and is a 40 mics per kilo per minute, insulin drip is a 1.5 units per hour. He is in sinus mechanism, hemodynamically he is stable, he ate pressure is 26/11, CVP is 8, cardiac output is 4.7, cardiac index is 2.7. 2 mediastinal and left pleural chest tubes with small amount of sanguinous output. On 09/23/2020 patient seen in follow-up in intensive care unit, today is postoperative day #1 status post three-vessel coronary artery bypass grafting. Patient was successfully weaned and extubated from mechanical ventilator last night on 09/22/2020 at 2300. This morning he is on 3 L of oxygen his pulse ox is 98%. He is breathing comfortably, he is having some pain issues at the incisional site, he is receiving pain medications and CT surgery is adjusting his pain medication regimen. Hemodynamically he is stable, in sinus mechanism with a controlled rate. Blood pressure is 140/59, there is a Bliss-Arjun catheter was removed this morning, CVP is 7, patient is currently on 0.9 normal saline a t 20 ML per hour, and insulin infusion is at 0.5 units per hour. Lung sounds are clear today's exam, no rhonchi or wheezing, today's chest x-ray has been reviewed showing interval extubation, left lower lobe atelectasis, and a small effusion. Today's labs have been reviewed, white blood cell count is 11.4, hemoglobin is 10.4, sodium is 135, Greta electrolytes were within normal limits, BUN is 20 creatinine 0.62. Patient has a total of 500 mL of serosanguineous output from the mediastinal chest tube, and a total of 200 mL of serosanguineous output from the left pleural chest tube. There is no evidence of air leak, no evidence of pneumothorax on the chest x-ray. No nausea vomiting diarrhea, no abdominal pain, tolerating oral diet. The patient is seen today 09/24/2020 in follow-up in the intensive care unit. This is postoperative day #2. He is status post coronary artery bypass grafting utilizing a WHITEHEAD to the LAD, reverse saphenous vein grafts to the obtuse marginal artery and posterior descending artery. He is currently seen sitting up in a chair at the bedside. Awake and alert in no acute distress. Maintaining O2 saturations in the mid 90s on 2 L/m per nasal cannula. He is afebrile. Hemodynamically stable. CVP reading 8. Chest x-ray reveals bilateral lower lobe atelectasis left greater than right. He is working well with the incentive spirometer. Pulling 1000 ML's. White count 9.9. Hemoglobin 8.6. Platelets 143. Sodium 131. Potassium 3.9. Creatinine 0.71. Glucose 108. Albumin 2.7. He received albumin yesterday. He remains on Symbicort, DuoNeb inhalations. 0.9 normal saline it 20 ML's per hour. Appetite is good. Pain under good control. Currently in sinus rhythm. The patient is seen today 09/25/2020 in follow-up in the intensive care unit. Postoperative day #3. He is awake and alert in no acute distress. Sitting up in a chair at the bedside. No issues overnight. He is maintaining O2 saturations in the mid 90s on room air. He is pulling 1200 ML's on his incentive spirometer. He remains on Symbicort and DuoNeb inhalations. Chest x- ray reveals no sizable pneumothorax. Bibasilar densities persist. Bibasilar effusions associated with atelectasis. Similar to previous. Left chest tube remains in place. Pacer wires to be removed today. He is 0.9 normal saline at 30 MLS per hour. Has been ambulating up in the hallway with assistance. White count 6.6. Hemoglobin 7.7. Platelets 146. Sodium 133. Potassium 4.1. Creati nine 0.72. Glucose 105. AST 44. ALT 21. Albumin 2.5. He remains on amiodarone. Remains in sinus rhythm. Hemodynamically stable. Heparin for DVT prophylaxis. The patient is seen today 09/26/2020 in follow-up on the selective care unit. He is currently sitting up in a chair at the bedside. Awake and alert in no acute distress. Denies any issues overnight. He is feeling stronger today compared to yesterday. He has been maintaining good O2 saturations in the mid 90s on room air. He's been afebrile. Hemodynamically stable. Chest x-ray revealing interval improvement in aeration. No complications post chest tube removal. No pneumothorax. Small effusions with associated atelectasis. He continues to work well with the incentive spirometer currently at 1500 ML's. He remains on bronchodilators. Heparin for DVT prophylaxis. Continued on amiodarone, beta blockers. Remains in sinus rhythm. White count 7.6. Hemoglobin 8.5. Sodium 135. Potassium 3.8. Creatinine 0.83. Glucose 130. The patient is seen today 09/27/2020 in follow-up on the selective care unit. He is awake and alert in no acute distress. Maintaining O2 saturations in the 90s on room air. X-ray reveals minimal basilar atelectasis/effusion. He's currently sitting up in a chair at the bedside. He's been working well with physical therapy. Continues to work well with his incentive spirometer. His appetite is good. No current complaints. The plan is for discharge to home today. White count 7.3. Hemoglobin 9.1. Sodium 135. Potassium 4.1. Creatinine 0.80. Objective - Vital Signs Vital signs: Vital Signs Temp 98.3 F 09/27/20 08:00 Pulse 84 09/27/20 11:03 Resp 18 09/27/20 08:00 BP 113/63 09/27/20 08:00 Pulse Ox 94 L 09/27/20 08:00 Intake & Output 09/26/20 09/27/20 09/27/20 18:59 06:59 18:59 Intake Total 360 240 Output Total 1250 200 Balance -890 -200 240 Weight 69.9 kg Intake: Oral 360 240 Output: Urine 1250 200 Other: Voiding Method Toilet Toilet # Voids 1 ABP, PAP, CO, CI - Last Documented Arterial Blood Pressure 136/65 Pulmonary Artery Pressure 22/10 Cardiac Output 5.1 Cardiac Index 2.9 - Exam GENERAL EXAM: Alert, active, pleasant 80-year-old gentleman, on room air, cu rrently comfortable in no apparent distress. HEAD: Normocephalic. EYES: Normal reaction of pupils, equal size. NOSE: Clear with pink turbinates. THROAT: No erythema or exudates. NECK: Left Cordis catheter in place No masses, no JVD. CHEST: Sternal dressing dry and intact. Heart Hugger in place. LUNGS: Equal air entry with crackles in the posterior bases CVS: S1 and S2 normal with no audible murmur, regular rhythm. ABDOMEN: No hepatosplenomegaly, normal bowel sounds, no guarding or rigidity. SPINE: No scoliosis or deformity SKIN: No rashes CENTRAL NERVOUS SYSTEM: No focal deficits, tone is normal in all 4 extremities. EXTREMITIES: Left radial art line present. There is trace peripheral edema. No clubbing, no cyanosis. Peripheral pulses are intact. - Labs CBC & Chem 7: 09/27/20 07:06 09/27/20 07:06 Labs: Abnormal Lab Results - Last 24 Hours (Table) 09/26/20 09/26/20 09/26/20 Range/Units 11:51 16:46 20:01 RBC (4.30-5.90) m/uL Hgb (13.0-17.5) gm/dL Hct (39.0-53.0) % Sodium (137-145) mmol/L Carbon Dioxide (22-30) mmol/L Glucose (74-99) mg/dL POC Glucose (mg/dL) 114 H 111 H 122 H (75-99) mg/dL 09/27/20 09/27/20 Range/Units 07:06 07:06 RBC 2.93 L (4.30-5.90) m/uL Hgb 9.1 L (13.0-17.5) gm/dL Hct 26.4 L (39.0-53.0) % Sodium 135 L (137-145) mmol/L Carbon Dioxide 32 H (22-30) mmol/L Glucose 112 H (74-99) mg/dL POC Glucose (mg/dL) (75-99) mg/dL Assessment and Plan Assessment: 1 Multivessel coronary artery disease, status post three-vessel coronary artery bypass grafting on 09/22/2020, postop day #4 2 Routine postoperative ventilator management, successfully extubated on postop day #0 on 09/22/2020 at 2300 on room air 3 Suspected chronic CO2 retention based on the preop blood gas 4 Dysipidemia 5 Advanced melanoma 6 Benign prostatic hypertrophy status post surgical resection 7 Former smoker 8 History of chronic pain syndrome Plan: The patient was seen and evaluated by Dr. Yoni Townsend once cleared by CT services Follow up in the office in 1-2 weeks' time I, the cosigning physician, performed a history & physical examination of the patient. Lungs sounds with crackles in the bilateral posterior bases. Main taining good O2 saturations in the 90s on room air. I discussed the assessment and plan of care with my nurse practitioner, Rhiannon Minaya. I attest to the above note as dictated by her.
[2020-09-27 12:02] LABS: Glucose,Whole Blood 104 mg/dL (75-99)
--- NOTE | 2020-09-27 12:18 | P.PN ---
Subjective Progress Note Date: 09/27/20 This is a pleasant 80-year-old gentleman with hypertension and dyslipidemia who was admitted to the hospital and underwent coronary arteriogram is grafting 3. The post-ablation course was complicated by paroxysmal atrial fibrillation but the patient was converted into normal sinus mechanism on amiodarone IV. The patient was interviewed and examined lying comfortably in bed. He states he is having some mild chest pain. He states this is a 5 out of 10, however has been very conservative with his pain medications. He denies any exertional chest pain or chest heaviness. No dyspnea, orthopnea, dizziness, or lightheadedness. GENERAL: Well-appearing, well-nourished and in no acute distress. NECK: Supple without JVD or thyromegaly. LUNGS: Breath sounds clear to auscultation bilaterally. Respiration equal and unlabored. No wheezes, rales or rhonchi. HEART: Regular rate and rhythm without murmurs, rubs or gallops. S1 and S2 heard. Surgical dressing clean, dry, and intact. EXTREMITIES: Normal range of motion, no edema. No clubbing or cyanosis. Peripheral pulses intact and strong. VITALS: 113/63, pulse rate 85, respiratory rate 18, temperature 98.3F, SpO2 94% on room air TELEMETRY: Sinus rhythm without arrhythmia LABS: WBC 7.3, hemoglobin 9.1, hematocrit 26.4, sodium 135, BUN 18, creatinine 0.80, magnesium 2.0 IMPRESSION: Coronary artery disease, status post CABG Postoperative H fibrillation, currently in sinus rhythm Hypertension, recently well controlled Dyslipidemia, increased statin to 80 mg PLAN: Increase statin to 80 mg daily Patient to follow-up in office with Dr. Mccarty The patient has been seen and evaluated. Plan of care has been reviewed and agreed upon by Dr Porras. Objective - Vital Signs Vital signs: Vital Signs Temp 98.3 F 09/27/20 08:00 Pulse 84 09/27/20 11:03 Resp 18 09/27/20 08:00 BP 113/63 09/27/20 08:00 Pulse Ox 94 L 09/27/20 08:00 Intake & Output 09/26/20 09/27/20 09/27/20 18:59 06:59 18:59 Intake Total 360 240 Output Total 1250 200 Balance -890 -200 240 Weight 69.9 kg Intake: Oral 360 240 Output: Urine 1250 200 Other: Voiding Method Toilet Toilet # Voids 1 ABP, PAP, CO, CI - Last Documented Arterial Blood Pressure 136/65 Pulmonary Artery Pressure 22/10 Cardiac Output 5.1 Cardiac Index 2.9 - Labs CBC & Chem 7: 09/27/20 07:06 09/27/20 07:06 Labs: Abnormal Lab Results - Last 24 Hours (Table) 09/26/20 09/26/20 09/27/20 Range/Units 16:46 20:01 07:06 RBC 2.93 L (4.30-5.90) m/uL Hgb 9.1 L (13.0-17.5) gm/dL Hct 26.4 L (39.0-53.0) % Sodium (137-145) mmol/L Carbon Dioxide (22-30) mmol/L Glucose (74-99) mg/dL POC Glucose (mg/dL) 111 H 122 H (75-99) mg/dL 09/27/20 09/27/20 Range/Units 07:06 12:01 RBC (4.30-5.90) m/uL Hgb (13.0-17.5) gm/dL Hct (39.0-53.0) % Sodium 135 L (137-145) mmol/L Carbon Dioxide 32 H (22-30) mmol/L Glucose 112 H (74-99) mg/dL POC Glucose (mg/dL) 104 H (75-99) mg/dL
--- NOTE | 2020-09-27 13:08 | P.PN ---
Subjective Progress Note Date: 09/27/20 Pt doing well today with no new complaints. Objective - Vital Signs Vital signs: Vital Signs Temp 98.3 F 09/27/20 08:00 Pulse 84 09/27/20 11:03 Resp 18 09/27/20 08:00 BP 113/63 09/27/20 08:00 Pulse Ox 94 L 09/27/20 08:00 Intake & Output 09/26/20 09/27/20 09/27/20 18:59 06:59 18:59 Intake Total 360 240 Output Total 1250 200 Balance -890 -200 240 Weight 69.9 kg Intake: Oral 360 240 Output: Urine 1250 200 Other: Voiding Method Toilet Toilet # Voids 1 ABP, PAP, CO, CI - Last Documented Arterial Blood Pressure 136/65 Pulmonary Artery Pressure 22/10 Cardiac Output 5.1 Cardiac Index 2.9 - Exam Gen: awake, alert HEENT: normocephalic, atraumatic, good hearing acuity, moist mucous membranes Resp: good air exchange, breathing comfortably with no accessory muscle use CVS: good distal perfusion x 4, RRR, no murmurs GI: soft, NTTP, ND : no SPT, no CVAT, rojas catheter is present MSK: no pitting edema, no clubbing Neuro: non-focal, moving all extremities Psych: cooperative, euthymic mood - Labs CBC & Chem 7: 09/27/20 07:06 09/27/20 07:06 Labs: Abnormal Lab Results - Last 24 Hours (Table) 09/26/20 09/26/20 09/27/20 Range/Units 16:46 20:01 07:06 RBC 2.93 L (4.30-5.90) m/uL Hgb 9.1 L (13.0-17.5) gm/dL Hct 26.4 L (39.0-53.0) % Sodium (137-145) mmol/L Carbon Dioxide (22-30) mmol/L Glucose (74-99) mg/dL POC Glucose (mg/dL) 111 H 122 H (75-99) mg/dL 09/27/20 09/27/20 Range/Units 07:06 12:01 RBC (4.30-5.90) m/uL Hgb (13.0-17.5) gm/dL Hct (39.0-53.0) % Sodium 135 L (137-145) mmol/L Carbon Dioxide 32 H (22-30) mmol/L Glucose 112 H (74-99) mg/dL POC Glucose (mg/dL) 104 H (75-99) mg/dL Assessment and Plan Assessment: CAD status post CABG, postop day 1 Hypertension Hyperlipidemia -Pain control -Oxygen when necessary -DuoNeb's when necessary -Amiodarone -Low dose SSI -Aspirin, Plavix, statin -Heparin DVT prophylaxis -Monitor on telemetry -Cardiology, pulmonary consult following -CT surgery for primary management COPD without exacerbation -DuoNeb every 6 hours standing + DuoNeb every 2 hours when necessary -No prednisone or antibiotics indicated at this time -Continue Symbicort BPH -Currently has Rojas catheter in place -Does not appear to be on tamsulosin as an outpatient Anxiety/depression -Continue Cymbalta, Tegretol Patient is a full code, pt to be discharged today by CT surgery, appropriate follow up arranged.
[2020-09-27 15:36] VITALS: BP 133/80; PULSE 76
[2020-09-28] MEDS ORDERED: CALCIUM CARBONATE 500 MG CHEWABLE PO SCH (09:00)
== END 2020-09-27 15:15 | disposition home health service (06) | DRG 236 ==
LOC: 2ORMAIN 05:37 → 2SICU 15:02 → 3SCARD 09-26 09:14
PROVIDERS: ADMIT Surgery; ATTEND Surgery
PROC: 06BQ4ZZ Excision of Left Saphenous Vein, Percutaneous Endoscopic Approach (ICD-10-PCS; 2020-09-22)
PROC: 02L70CK Occlusion of Left Atrial Appendage with Extraluminal Device, Open Approach (ICD-10-PCS; 2020-09-22)
PROC: 5A1221Z Performance of Cardiac Output, Continuous (ICD-10-PCS; 2020-09-22)
PROC: 02100Z9 Bypass Coronary Artery, One Artery from Left Internal Mammary, Open Approach (ICD-10-PCS; principal; 2020-09-22 08:00)
PROC: 021109W Bypass Coronary Artery, Two Arteries from Aorta with Autologous Venous Tissue, Open Approach (ICD-10-PCS; 2020-09-22 08:00)
DX: I25.10 Atherosclerotic heart disease of native coronary artery without angina pectoris (principal); J96.12 Chronic respiratory failure with hypercapnia; E87.2 Acidosis; D62 Acute posthemorrhagic anemia; J98.11 Atelectasis; I11.9 Hypertensive heart disease without heart failure; J44.9 Chronic obstructive pulmonary disease, unspecified; I48.0 Paroxysmal atrial fibrillation; E78.5 Hyperlipidemia, unspecified; F32.9 Major depressive disorder, single episode, unspecified; F41.9 Anxiety disorder, unspecified; H91.90 Unspecified hearing loss, unspecified ear; I34.0 Nonrheumatic mitral (valve) insufficiency; G89.4 Chronic pain syndrome; M62.58 Muscle wasting and atrophy, not elsewhere classified, other site; K59.00 Constipation, unspecified; I77.810 Thoracic aortic ectasia; M81.0 Age-related osteoporosis without current pathological fracture; R00.1 Bradycardia, unspecified; N40.0 Benign prostatic hyperplasia without lower urinary tract symptoms; Z71.3 Dietary counseling and surveillance; Z87.891 Personal history of nicotine dependence; Z85.820 Personal history of malignant melanoma of skin; Z87.440 Personal history of urinary (tract) infections; Z98.890 Other specified postprocedural states; Z98.42 Cataract extraction status, left eye; Z98.41 Cataract extraction status, right eye; Z92.3 Personal history of irradiation; Z79.51 Long term (current) use of inhaled steroids; Z79.899 Other long term (current) drug therapy; Z97.4 Presence of external hearing-aid; Z79.82 Long term (current) use of aspirin; Z88.1 Allergy status to other antibiotic agents; Z88.0 Allergy status to penicillin; Z88.8 Allergy status to other drugs, medicaments and biological substances; Z80.8 Family history of malignant neoplasm of other organs or systems; Z80.59 Family history of malignant neoplasm of other urinary tract organ; Z83.3 Family history of diabetes mellitus; Z82.0 Family history of epilepsy and other diseases of the nervous system; Z82.3 Family history of stroke; Z80.3 Family history of malignant neoplasm of breast
CPT/HCPCS: 71045; 71046; 80048; 80053; 82330; 82805; 83735; 85025; 85027; 85520; 85610; 85730; 86850; 86891; 86900; 86901; 86920; 94002; 94640

== ENCOUNTER 2020-10-29 22:36 | Inpatient (IN) | payer MEDICARE ==
[2020-10-29 23:55] LABS: Appearance,Urine Cloudy (Clear); Bilirubin,Urine Negative (Negative); Blood,Urine Large (Negative); Color,Urine Light Red; Glucose,Urine (UA) Negative (Negative); Hyaline Casts,Urine 25 /lpf (0-2); Ketones,Urine Negative (Negative); Leukocyte Esterase,Urine Small (Negative); Mucus,Urine Few /hpf; Nitrite,Urine Negative (Negative); PH, Urine 5.5 (5.0-8.0); Protein,Urine 1+ (Negative); RBC,Urine >182 /hpf (0-5); Specific Gravity,Urine 1.029 (1.001-1.035); Urobilinogen,Urine <2.0 mg/dL (<2.0); WBC,Urine 8 /hpf (0-5)
[2020-10-30] MEDS ORDERED: SODIUM CHLORIDE 0.9% 500 ML 500 ML IV STA (00:34)
[2020-10-30] MEDS ORDERED: HYDROmorphone 0.5 MG/0.5 ML SYRINGE IVP STA (00:34)
[2020-10-30] MEDS ORDERED: ONDANSETRON 4 MG/2 ML VIAL IVP STA (00:34)
[2020-10-30 01:35] LABS: Basophils % (A) 0 %; Eosinophils % (A) 0 %; HCT 36.4 % (39.0-53.0); HGB 11.9 gm/dL (13.0-17.5); Hypochromasia Slight; Lymphocytes # (A) 0.5 k/uL (1.0-4.8); Lymphocytes % (A) 4 %; MCH 28.1 pg (25.0-35.0); MCHC 32.6 g/dL (31.0-37.0); MCV 86.1 fL (80.0-100.0); Monocytes # (A) 0.5 k/uL (0-1.0); Monocytes % (A) 4 %; Neutrophils # (A) 12.2 k/uL (1.3-7.7); Neutrophils % (A) 91 %; Platelet Count 370 k/uL (150-450); RBC 4.23 m/uL (4.30-5.90); RDW 13.2 % (11.5-15.5); WBC 13.3 k/uL (3.8-10.6)
[2020-10-30 01:44] LABS: Albumin 4.3 g/dL (3.5-5.0); Calcium 9.8 mg/dL (8.4-10.2); Potassium 4.6 mmol/L (3.5-5.1); Total Bilirubin 0.2 mg/dL (0.2-1.3); Total Protein 6.9 g/dL (6.3-8.2)
[2020-10-30 01:49] LABS: Partial Thromboplastin Time 23.5 sec (22.0-30.0); Prothrombin Time 10.6 sec (9.0-12.0)
[2020-10-30] MEDS ORDERED: HYDROmorphone 1 MG/ML 1 ML SYRINGE IVP STA (02:20)
--- NOTE | 2020-10-30 02:43 | CT ---
EXAMINATION TYPE: CT abdomen pelvis w con DATE OF EXAM: 10/30/2020 COMPARISON: 08/30/2020 HISTORY: Abdmominal pain that exends to back CT DLP: 980.2 mGycm Automated exposure control for dose reduction was used. CONTRAST: Performed with IV Contrast, patient injected with 100 mL of Isovue 370. Images obtained from the diaphragm to the floor the pelvis with IV contrast. There is left pleural ef fusion. Heart appears normal. There is no pericardial effusion. There is some atelectasis at the left lung base. There are multiple hepatic cysts that measure up to 3 cm. The spleen shows a 3.5 cm cyst on the medial aspect. There is no pancreatic mass. There is no adrenal mass. Kidneys have normal size. There is right-sided perinephric edema. There is right-sided hydronephrosis and hydroureter. There is 4 mm obstructing calculus in the lower right ure ter close to the ureterovesical junction. There are multiple sigmoid diverticula. There is no diverti culitis. There is neural stimulator implanted on the left anterior abdomen. There is no mesenteric edema. There is no ascites or free air. There is no bowel obstruction. Appendi x is posterior and appears normal. There is 8mm calcification in the posterior urinary bladder. The lumbar vertebra have normal alignment. There is no compression fracture. There is degenerative di sc space narrowing in the lumbar spine. The posterior elements are intact. The bony pelvis is intact. Hip joints are intact. IMPRESSION: Obstructing calculus in the distal right ureter with right-sided hydronephrosis and hydroureter. Obst ruction appears new compared to old exam. Normal appendix. Atherosclerotic vascular disease. Bladder calculus. Multiple hepatic and splenic cysts. Sigmoid diverticulosis. Left pleural effusion and atelectasis left lung base is mostly new compared to old exam.
--- NOTE | 2020-10-30 02:48 | CT ---
EXAMINATION TYPE: CT chest angio for PE DATE OF EXAM: 10/30/2020 COMPARISON: None HISTORY: Abdmominal pain that exends to back CT DLP: 980.2 mGycm Automated exposure control for dose reduction was used. CONTRAST: Performed with IV Contrast, patient injected with 100 mL of Isovue 370. There are 3-D post processed images. There is some 3 cm groundglass infiltrate in the lateral left upper lobe. There is left pleural effus ion. There is mild atelectasis left lung base. Heart is top normal in size. There is no pericardial e ffusion. There are no hilar masses. There is no mediastinal adenopathy. Thoracic aorta is atheromatou s. There is normal contrast opacification of the pulmonary arteries. There are no filling defects. There is some spurring in the thoracic spine. There is no compression fracture. There are sternal wires. T he ribs appear intact. IMPRESSION: No evidence of pulmonary embolism. There is left basilar atelectasis and left pleural effusion. Small infiltrate lateral aspect left upper lobe. No sign of a solid pulmonary mass.
[2020-10-30] MEDS ORDERED: KETOROLAC 15 MG/ML 1 ML VIAL IVP STA (02:54)
--- NOTE | 2020-10-30 02:57 | ED ---
General Adult HPI - General Chief complaint: Back Pain/Injury Stated complaint: Back Pain Time Seen by Provider: 10/30/20 00:26 Source: patient Mode of arrival: wheelchair Limitations: no limitations - History of Present Illness Initial comments: 80 year-old male patient presents to the emergency department for evaluation of right flank pain that started suddenly this evening while having a bowel movement. States that he has had blood in his urine and urinary incontinence over the last few months since having open heart surgery in August. Patient states that the pain is sharp and stabbing. Denies abdominal pain. Reports nausea. No vomiting. Denies fever or chills. Patient denies any recent rash, cough, shortness of breath, chest pain, diarrhea, constipation, numbness, tingling, dizziness, weakness, hematuria, dysuria, urinary urgency, urinary frequency, headache, visual changes, or any other complaints. - Related Data Home Medications Medication Instructions Recorded Confirmed Ascorbic Acid [Vitamin C] 500 mg PO DAILY 08/09/14 09/22/20 L.acid/L.casei/B.bif/B.kellen/Fos 2 cap PO DAILY 08/09/14 09/22/20 [Probiotic Blend Capsule] DULoxetine HCL [Cymbalta] 60 mg PO QAM 03/19/19 09/22/20 Morphine Sulfate ER [Ms Contin] 15 mg PO HS 03/19/19 09/22/20 Amitriptyline HCl [Elavil] 10 mg PO HS 07/17/20 09/22/20 Cabergoline 0.25 mg PO MOFR 07/17/20 09/22/20 Calcium Carbonate [Calcium] 600 mg PO STANLEY 07/17/20 09/22/20 Cranberry 4200mg 4,200 mg PO DAILY 07/17/20 09/22/20 HYDROcodone/APAP 5-325MG [[place] 1 tab PO BID PRN 07/17/20 09/22/20 5-325] Multivit-Min/FA/Lycopen/Lutein 1 tab PO DAILY 07/17/20 09/22/20 [Centrum Silver Tablet] carBAMazepine CHEW [TEGretol Chew] 25 mg PO QAM 07/18/20 09/22/20 carBAMazepine CHEW [TEGretol Chew] 50 mg PO HS 07/18/20 09/22/20 Budesonide-Formot 160-4.5 Mcg 2 puff INHALATION BID 08/25/20 09/22/20 [Symbicort 160-4.5 Mcg Inhaler] Albuterol Nebulized [Ventolin 1 dose INHALATION Q6H PRN 09/19/20 09/22/20 Nebulized] Dilaudid 15.0 Mg/Ml Pain Pump 1 dose INTRATHECA CONTINUOUS 09/19/20 09/22/20 Previous Rx's Medication Instructions Recorded Amiodarone [Cordarone] 400 mg PO BID #37 tab 09/27/20 Aspirin 325 mg PO DAILY #30 tab 09/27/20 Atorvastatin [Lipitor] 80 mg PO DAILY #30 tab 09/27/20 Clopidogrel [Plavix] 75 mg PO DAILY #30 tab 09/27/20 Furosemide [Lasix] 20 mg PO DAILY #5 tab 09/27/20 Metoprolol Tartrate [Lopressor] 75 mg PO BID #120 tab 09/27/20 Pantoprazole [Protonix] 40 mg PO AC-BRKFST #30 tablet. 09/27/20 Sennosides-Docusate Sodium 2 each PO HS PRN #14 tab 09/27/20 [Senokot-S] Tamsulosin [Flomax] 0.4 mg PO PC-SUPPER #30 cap.er.24h 09/27/20 Allergies Allergy/AdvReac Type Severity Reaction Status Date / Time amoxicillin AdvReac Nausea & Verified 10/29/20 23:05 Vomiting clavulanic acid AdvReac Nausea & Verified 10/29/20 23:05 [From Augmentin] Vomiting clindamycin AdvReac Nausea & Verified 10/29/20 23:05 Vomiting doxycycline AdvReac Nausea & Verified 10/29/20 23:05 Vomiting doxycycline calcium AdvReac Nausea & Verified 10/29/20 23:05 [From Vibramycin] Vomiting doxycycline hyclate AdvReac Nausea & Verified 10/29/20 23:05 [From Vibramycin] Vomiting doxycycline monohydrate AdvReac Nausea & Verified 10/29/20 23:05 [From Vibramycin] Vomiting nitrofurantoin AdvReac Nausea & Verified 10/29/20 23:05 [From Macrobid] Vomiting Review of Systems ROS Statement: Those systems with pertinent positive or pertinent negative responses have been documented in the HPI. ROS Other: All systems not noted in ROS Statement are negative. 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 Hx melanoma, UTI. Mild CP/pressure, shortness of breath, cough - admitted 07/18/20. J&J Covid vaccine 06/2020. 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 c/o CP/pressure, shortness of breath w/ admit 07/18/20. Wears hearing aids. 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-cancer), using Rx from History of Any Multi-Drug Resistant Organisms: None Reported Past Surgical History: Bladder Surgery, Coronary Bypass/CABG, Hernia Repair, Prostate Surgery Additional Past Surgical History / Comment(s): triple bypass Past Anesthesia/Blood Transfusion Reactions: No Reported Reaction Additional Past Anesthesia/Blood Transfusion Reaction / Comment(s): no hx blood transfusion Past Psychological History: No Psychological Hx Reported Smoking Status: Former smoker Past Alcohol Use History: Rare Past Drug Use History: None Reported - Past Family History Sister(s) Family Medical History: Cancer, Diabetes Mellitus, Neurologic Disorder Additional Family Medical History / Comment(s): melanoma cancer Father Family Medical History: CVA/TIA Mother Family Medical History: Cancer Additional Family Medical History / Comment(s): Breast General Exam Limitations: no limitations General appearance: alert, in no apparent distress, other (Physical well- developed, well-nourished elderly male patient in mild distress related to pain. Vital signs upon presentation temperature 97.9F, pulse 92, respirations 18, blood pressure 219/114, pulse ox 97% on room air.) Eye exam: Present: normal appearance, PERRL, EOMI. Absent: scleral icterus, conjunctival injection, periorbital swelling ENT exam: Present: normal exam, normal oropharynx, mucous membranes moist Respiratory exam: Present: normal lung sounds bilaterally. Absent: respiratory distress, wheezes, rales, rhonchi, stridor Cardiovascular Exam: Present: regular rate, normal rhythm, normal heart sounds. Absent: systolic murmur, diastolic murmur, rubs, gallop, clicks GI/Abdominal exam: Present: soft, normal bowel sounds. Absent: distended, tenderness, guarding, rebound, rigid Back exam: Present: normal inspection, CVA tenderness (R). Absent: CVA tenderness (L) Neurological exam: Present: alert, oriented X3, CN II-XII intact Psychiatric exam: Present: normal affect, normal mood Skin exam: Present: warm, dry, intact, normal color. Absent: rash Course Vital Signs 10/29/20 10/30/20 10/30/20 23:05 01:09 02:58 Temperature 97.9 F Pulse Rate 92 83 89 Respiratory 18 18 20 Rate Blood Pressure 219/114 189/99 170/90 O2 Sat by Pulse 97 99 99 Oximetry EKG Findings - EKG Comments: EKG Findings:: EKG obtained at 0102 shows normal sinus rhythm with the right bundle branch block and left anterior fascicular block. Ventricular rate is 92, MD interval 138, QRS duration 124, QT 380, QTc 469. No evidence of ST elevation or depression. Medical Decision Making - Medical Decision Making 80-year-old male patient presented for evaluation of right flank pain. Zickel examination of the right flank tenderness. Blood pressure elevated upon arrival. Labs reviewed and did reveal elevated WBC count 13.3, BUN 26, Glucose 175, urinalysis showed 1+ protein, large amount of blood, small leukocyte esterase, greater than 182 red blood cells, 8 white blood cells, 25 hyaline casts, few urine mucus. CT was obtained, showed no evidence for dissection or ruptured aneurysm. Did have evidence for 4 mm obstructing stone on the right with right- sided hydronephrosis. He was given multiple doses of pain medication with minimal relief. He did agree to admission for pain management. Urine culture added. Dr. Colbert consulted and agreed to admission. Case discussed with my attending Dr. Khoury. - Lab Data Result diagrams: 10/30/20 01:10 10/30/20 01:10 Lab Results 10/29/20 10/30/20 10/30/20 Range/Units 23:36 01:10 01:10 WBC 13.3 H (3.8-10.6) k/uL RBC 4.23 L (4.30-5.90) m/uL Hgb 11.9 L (13.0-17.5) gm/dL Hct 36.4 L (39.0-53.0) % MCV 86.1 (80.0-100.0) fL MCH 28.1 (25.0-35.0) pg MCHC 32.6 (31.0-37.0) g/dL RDW 13.2 (11.5-15.5) % Plt Count 370 (150-450) k/uL MPV 7.0 Neutrophils % 91 % Lymphocytes % 4 % Monocytes % 4 % Eosinophils % 0 % Basophils % 0 % Neutrophils # 12.2 H (1.3-7.7) k/uL Lymphocytes # 0.5 L (1.0-4.8) k/uL Monocytes # 0.5 (0-1.0) k/uL Eosinophils # 0.0 (0-0.7) k/uL Basophils # 0.0 (0-0.2) k/uL Hypochromasia Slight PT 10.6 (9.0-12.0) sec INR 1.0 (<1.2) APTT 23.5 (22.0-30.0) sec Sodium (137-145) mmol/L Potassium (3.5-5.1) mmol/L Chloride (98-107) mmol/L Carbon Dioxide (22-30) mmol/L Anion Gap mmol/L BUN (9-20) mg/dL Creatinine (0.66-1.25) mg/dL Est GFR (CKD-EPI)AfAm (>60 ml/min/1.73 sqM) Est GFR (CKD-EPI)NonAf (>60 ml/min/1.73 sqM) Glucose (74-99) mg/dL Plasma Lactic Acid Lon (0.7-2.0) mmol/L Calcium (8.4-10.2) mg/dL Total Bilirubin (0.2-1.3) mg/dL AST (17-59) U/L ALT (4-49) U/L Alkaline Phosphatase (38-126) U/L Total Protein (6.3-8.2) g/dL Albumin (3.5-5.0) g/dL Lipase (23-300) U/L Urine Color Light Red Urine Appearance Cloudy (Clear) Urine pH 5.5 (5.0-8.0) Ur Specific [place] 1.029 (1.001-1.035) Urine Protein 1+ H (Negative) Urine Glucose (UA) Negative (Negative) Urine Ketones Negative (Negative) Urine Blood Large H (Negative) Urine Nitrite Negative (Negative) Urine Bilirubin Negative (Negative) Urine Urobilinogen <2.0 (<2.0) mg/dL Ur Leukocyte Esterase Small H (Negative) Urine RBC >182 H (0-5) /hpf Urine WBC 8 H (0-5) /hpf Hyaline Casts 25 H (0-2) /lpf Urine Mucus Few H (None) /hpf Coronavirus (PCR) (Not Detectd) 10/30/20 10/30/20 10/30/20 Range/Units 01:10 01:10 03:14 WBC (3.8-10.6) k/uL RBC (4.30-5.90) m/uL Hgb (13.0-17.5) gm/dL Hct (39.0-53.0) % MCV (80.0-100.0) fL MCH (25.0-35.0) pg MCHC (31.0-37.0) g/dL RDW (11.5-15.5) % Plt Count (150-450) k/uL MPV Neutrophils % % Lymphocytes % % Monocytes % % Eosinophils % % Basophils % % Neutrophils # (1.3-7.7) k/uL Lymphocytes # (1.0-4.8) k/uL Monocytes # (0-1.0) k/uL Eosinophils # (0-0.7) k/uL Basophils # (0-0.2) k/uL Hypochromasia PT (9.0-12.0) sec INR (<1.2) APTT (22.0-30.0) sec Sodium 140 (137-145) mmol/L Potassium 4.6 (3.5-5.1) mmol/L Chloride 101 (98-107) mmol/L Carbon Dioxide 30 (22-30) mmol/L Anion Gap 9 mmol/L BUN 26 H (9-20) mg/dL Creatinine 1.13 (0.66-1.25) mg/dL Est GFR (CKD-EPI)AfAm 71 (>60 ml/min/1.73 sqM) Est GFR (CKD-EPI)NonAf 62 (>60 ml/min/1.73 sqM) Glucose 175 H (74-99) mg/dL Plasma Lactic Acid Lon 1.5 (0.7-2.0) mmol/L Calcium 9.8 (8.4-10.2) mg/dL Total Bilirubin 0.2 (0.2-1.3) mg/dL AST 37 (17-59) U/L ALT 30 (4-49) U/L Alkaline Phosphatase 130 H (38-126) U/L Total Protein 6.9 (6.3-8.2) g/dL Albumin 4.3 (3.5-5.0) g/dL Lipase 79 (23-300) U/L Urine Color Urine Appearance (Clear) Urine pH (5.0-8.0) Ur Specific [place] (1.001-1.035) Urine Protein (Negative) Urine Glucose (UA) (Negative) Urine Ketones (Negative) Urine Blood (Negative) Urine Nitrite (Negative) Urine Bilirubin (Negative) Urine Urobilinogen (<2.0) mg/dL Ur Leukocyte Esterase (Negative) Urine RBC (0-5) /hpf Urine WBC (0-5) /hpf Hyaline Casts (0-2) /lpf Urine Mucus (None) /hpf Coronavirus (PCR) Not Detected (Not Detectd) - Radiology Data Radiology results: report reviewed, image reviewed Chest CTA shows no evidence for pulmonary embolism. Left basilar atelectasis in left pleural effusion. Small infiltrate lateral aspect of the upper lobe. No sign of solid pulmonary mass. CT pelvis with contrast shows instructing calculus in the distal right ureter with right-sided hydronephrosis and hydroureter. Obstruction appears new compared to old exam. Normal appendix. Atherosclerotic vascular disease. Bladder calculus. Multiple hepatic and spun axis. Sigmoid diverticulosis. Left pleural effusion and atelectasis left lung bases and also new compared to o ld exam. Disposition Clinical Impression: Kidney stone on right side Disposition: ADMITTED IP TO THIS [facility] Condition: Serious Referrals: Vinny Olea MD [Primary Care Provider] - 1-2 days Decision to Admit Reason: Admit from EC Decision Date: 10/30/20 Decision Time: 03:29
[2020-10-30 02:59] VITALS: RESP 20
[2020-10-30] MEDS ORDERED: NALOXONE 0.4 MG/ML 1 ML VIAL IV PRN (03:03)
[2020-10-30] MEDS ORDERED: HYDROmorphone 1 MG/ML 1 ML SYRINGE IVP PRN (03:24)
[2020-10-30] MEDS ORDERED: ONDANSETRON 4 MG/2 ML VIAL IVP PRN (03:24)
[2020-10-30] MEDS ORDERED: SODIUM CHLORIDE 0.9% 1,000 ML IV SCH (03:30)
[2020-10-30 04:22] VITALS: BP 146/76; PULSE 99; TEMP 98.3
--- NOTE | 2020-10-30 13:36 | P.GSHP ---
History of Present Illness H&P Date: 10/30/20 Chief Complaint: Right renal colic The patient is a 80-year-old white male with a complicated urologic history. In the remote past he was diagnosed with urinary retention and ultimately underwent a TURP by Dr. Twan Lowery. He also underwent physical therapy for pelvic muscle dysfunction. He denies any prior history of urolithiasis. However, he has recently experienced gross hematuria, and yesterday experienced acute onset of right flank pain. Incidentally, he underwent cardiac surgery approximately one month ago and has experienced urinary incontinence since that time. 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 Hx melanoma, UTI. Mild CP/pressure, shortness of breath, cough - admitted 07/18/20. J&J Covid vaccine 06/2020. 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 c/o CP/pressure, shortness of breath w/ admit 07/18/20. Wears hearing aids. 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-cancer), using Rx from History of Any Multi-Drug Resistant Organisms: None Reported Past Surgical History: Bladder Surgery, Coronary Bypass/CABG, Hernia Repair, Prostate Surgery Additional Past Surgical History / Comment(s): triple bypass Past Anesthesia/Blood Transfusion Reactions: No Reported Reaction Additional Past Anesthesia/Blood Transfusion Reaction / Comment(s): no hx blood transfusion Past Psychological History: No Psychological Hx Reported Additional Psychological History / Comment(s): occ anxiety attacks Smoking Status: Former smoker Past Alcohol Use History: Rare Additional Past Alcohol Use History / Comment(s): Pt started smoking as a teen and quit in 1984. Past Drug Use History: None Reported - Past Family History Sister(s) Family Medical History: Cancer, Diabetes Mellitus, Neurologic Disorder Additional Family Medical History / Comment(s): melanoma cancer Father Family Medical History: CVA/TIA Mother Family Medical History: Cancer Additional Family Medical History / Comment(s): Breast Medications and Allergies Home Medications Medication Instructions Recorded Confirmed Type Ascorbic Acid [Vitamin C] 500 mg PO DAILY 08/09/14 10/30/20 History L.acid/L.casei/B.bif/B.kellen/Fos 2 cap PO DAILY 08/09/14 10/30/20 History [Probiotic Blend Capsule] DULoxetine HCL [Cymbalta] 60 mg PO QAM 03/19/19 10/30/20 History Morphine Sulfate ER [Ms Contin] 15 mg PO HS 03/19/19 10/30/20 History Amitriptyline HCl [Elavil] 20 - 30 mg PO HS 07/17/20 10/30/20 History Cabergoline 0.25 mg PO MOFR 07/17/20 10/30/20 History Calcium Carbonate [Calcium] 600 mg PO STANLEY 07/17/20 10/30/20 History Cranberry 4200mg 4,200 mg PO DAILY 07/17/20 10/30/20 History Multivit-Min/FA/Lycopen/Lutein 1 tab PO DAILY 07/17/20 10/30/20 History [Centrum Silver Tablet] carBAMazepine CHEW [TEGretol Chew] 25 mg PO QAM 07/18/20 10/30/20 History carBAMazepine CHEW [TEGretol Chew] 50 mg PO HS 07/18/20 10/30/20 History Budesonide-Formot 160-4.5 Mcg 2 puff INHALATION RT-BID 08/25/20 10/30/20 History [Symbicort 160-4.5 Mcg Inhaler] Albuterol Nebulized [Ventolin 2.5 mg INHALATION RT-Q6H PRN 09/19/20 10/30/20 History Nebulized] Dilaudid 15.0 Mg/Ml Pain Pump 1 dose INTRATHECA CONTINUOUS 09/19/20 10/30/20 History Atorvastatin [Lipitor] 80 mg PO DAILY #30 tab 09/27/20 10/30/20 Rx Clopidogrel [Plavix] 75 mg PO DAILY #30 tab 09/27/20 10/30/20 Rx Metoprolol Tartrate [Lopressor] 75 mg PO BID #120 tab 09/27/20 10/30/20 Rx Pantoprazole [Protonix] 40 mg PO YOBANI-SHIRLEY #30 tablet. 09/27/20 10/30/20 Rx Tamsulosin [Flomax] 0.4 mg PO PC-SUPPER #30 cap.er.24h 09/27/20 10/30/20 Rx Aspirin EC [Ecotrin] 325 mg PO DAILY 10/30/20 10/30/20 History Cephalexin [Keflex] 500 mg PO TID 10/30/20 10/30/20 History Morphine Sulfate [Ms Contin] 30 mg PO QAM 10/30/20 10/30/20 History Sennosides-Docusate Sodium 2 tab PO HS PRN 10/30/20 10/30/20 History [Senokot-S] Allergies Allergy/AdvReac Type Severity Reaction Status Date / Time amoxicillin AdvReac Nausea & Verified 10/30/20 08:34 Vomiting clavulanic acid AdvReac Nausea & Verified 10/30/20 08:34 [From Augmentin] Vomiting clindamycin AdvReac Nausea & Verified 10/30/20 08:34 Vomiting doxycycline AdvReac Nausea & Verified 10/30/20 08:34 Vomiting doxycycline calcium AdvReac Nausea & Verified 10/30/20 08:34 [From Vibramycin] Vomiting doxycycline hyclate AdvReac Nausea & Verified 10/30/20 08:34 [From Vibramycin] Vomiting doxycycline monohydrate AdvReac Nausea & Verified 10/30/20 08:34 [From Vibramycin] Vomiting nitrofurantoin AdvReac Nausea & Verified 10/30/20 08:34 [From Macrobid] Vomiting Surgical - Exam Vital Signs Temp Pulse Resp BP Pulse Ox 97.9 F 92 18 219/114 97 10/29/20 23:05 10/29/20 23:05 10/29/20 23:05 10/29/20 23:05 10/29/20 23:05 - General well developed, well nourished, no distress - Respiratory normal respiratory effort - Abdomen Abdomen: soft, non tender, no guarding, no rigid, no rebound - Genitourinary normal penis with no external lesions, testicles non-tender - Psychiatric oriented to time, oriented to person, oriented to place, speech is normal, memory intact Results - Labs 10/30/20 01:10 10/30/20 01:10 Abnormal Lab Results - Last 24 Hours (Table) 10/29/20 10/30/20 10/30/20 Range/Units 23:36 01:10 01:10 WBC 13.3 H (3.8-10.6) k/uL RBC 4.23 L (4.30-5.90) m/uL Hgb 11.9 L (13.0-17.5) gm/dL Hct 36.4 L (39.0-53.0) % Neutrophils # 12.2 H (1.3-7.7) k/uL Lymphocytes # 0.5 L (1.0-4.8) k/uL BUN 26 H (9-20) mg/dL Glucose 175 H (74-99) mg/dL Alkaline Phosphatase 130 H (38-126) U/L Urine Protein 1+ H (Negative) Urine Blood Large H (Negative) Ur Leukocyte Esterase Small H (Negative) Urine RBC >182 H (0-5) /hpf Urine WBC 8 H (0-5) /hpf Hyaline Casts 25 H (0-2) /lpf Urine Mucus Few H (None) /hpf Diabetes panel 10/30/20 Range/Units 01:10 Sodium 140 (137-145) mmol/L Potassium 4.6 (3.5-5.1) mmol/L Chloride 101 (98-107) mmol/L Carbon Dioxide 30 (22-30) mmol/L BUN 26 H (9-20) mg/dL Creatinine 1.13 (0.66-1.25) mg/dL Glucose 175 H (74-99) mg/dL Calcium 9.8 (8.4-10.2) mg/dL AST 37 (17-59) U/L ALT 30 (4-49) U/L Alkaline Phosphatase 130 H (38-126) U/L Total Protein 6.9 (6.3-8.2) g/dL Albumin 4.3 (3.5-5.0) g/dL Calcium panel 10/30/20 Range/Units 01:10 Calcium 9.8 (8.4-10.2) mg/dL Albumin 4.3 (3.5-5.0) g/dL Pituitary panel 10/30/20 Range/Units 01:10 Sodium 140 (137-145) mmol/L Potassium 4.6 (3.5-5.1) mmol/L Chloride 101 (98-107) mmol/L Carbon Dioxide 30 (22-30) mmol/L BUN 26 H (9-20) mg/dL Creatinine 1.13 (0.66-1.25) mg/dL Glucose 175 H (74-99) mg/dL Calcium 9.8 (8.4-10.2) mg/dL Adrenal panel 10/30/20 Range/Units 01:10 Sodium 140 (137-145) mmol/L Potassium 4.6 (3.5-5.1) mmol/L Chloride 101 (98-107) mmol/L Carbon Dioxide 30 (22-30) mmol/L BUN 26 H (9-20) mg/dL Creatinine 1.13 (0.66-1.25) mg/dL Glucose 175 H (74-99) mg/dL Calcium 9.8 (8.4-10.2) mg/dL Total Bilirubin 0.2 (0.2-1.3) mg/dL AST 37 (17-59) U/L ALT 30 (4-49) U/L Alkaline Phosphatase 130 H (38-126) U/L Total Protein 6.9 (6.3-8.2) g/dL Albumin 4.3 (3.5-5.0) g/dL - Imaging CT scan - abdomen: report reviewed, image reviewed Assessment and Plan (1) Calculus of ureter Current Visit: Yes Status: Acute Code(s): N20.1 - CALCULUS OF URETER SNOMED Code(s): 92256579 (2) Hydronephrosis with renal and ureteral calculous obstruction Current Visit: Yes Status: Acute Code(s): N13.2 - HYDRONEPHROSIS WITH RENAL AND URETERAL CALCULOUS OBSTRUCTION SNOMED Code(s): 944840047 Plan: CT scan shows evidence of right hydroureteronephrosis due to a 4 mm right distal ureteral calculus. I explained to the patient that he the calculus has a high likelihood of passage. I offered to perform ureteroscopic removal of the calculus, but he elects to proceed with medical expulsion therapy at this time. He will be discharged home with prescriptions for tamsulosin and [place]. He has been instructed to strain his urine and will follow up in 2 weeks. If he develops intractable symptoms, he will be scheduled to undergo cystoscopy, right ureteroscopy with laser lithotripsy and stent placement. Postvoid residual will be checked to assess bladder emptying in view of the recent incontinence. Time with Patient: Greater than 30
== END 2020-10-30 10:30 | disposition home or self-care (01) | DRG 694 ==
LOC: EC 22:36 → 5NMEDONC 10-30 03:20
PROVIDERS: ADMIT Urology; ATTEND Urology
DX: N13.2 Hydronephrosis with renal and ureteral calculous obstruction (principal); R31.0 Gross hematuria; I10 Essential (primary) hypertension; E78.5 Hyperlipidemia, unspecified; F41.1 Generalized anxiety disorder; R32 Unspecified urinary incontinence; H91.90 Unspecified hearing loss, unspecified ear; Z20.822 Contact with and (suspected) exposure to COVID-19; Z79.02 Long term (current) use of antithrombotics/antiplatelets; Z79.51 Long term (current) use of inhaled steroids; Z79.82 Long term (current) use of aspirin; Z79.899 Other long term (current) drug therapy; Z85.820 Personal history of malignant melanoma of skin; Z87.891 Personal history of nicotine dependence; Z95.1 Presence of aortocoronary bypass graft; Z97.4 Presence of external hearing-aid; Z87.19 Personal history of other diseases of the digestive system
CPT/HCPCS: 36415; 71275; 74177; 80053; 81001; 83605; 83690; 85025; 85610; 85730; 87086; 87635; 93005; 96374; 96375; 96376; 99285